=== PATIENT | female | born 2000 | race Caucasian/White ===

== ENCOUNTER 2023-11-06 16:58 | Outpatient (CLI) | payer OTHER, SELFPAY | END 2023-11-06 23:59 | disposition home or self-care (01) | LOC: LAB.DROPOF 16:59 | PROVIDERS: PCP Obstetrics & Gynecology; Visit Provider Obstetrics & Gynecology | DX: Z34.90 Encounter for supervision of normal pregnancy, unspecified, unspecified trimester (principal) | CPT/HCPCS: 87086 ==

== ENCOUNTER 2023-11-07 16:43 | Emergency (ER) | payer OTHER, SELFPAY ==
[2023-11-07] VITALS (8 sets, daily range): BP systolic 104–136; BP diastolic 55–77; PULSE 72–92; RESP 18–20; TEMP 36.7–36.9; O2SAT 97–100; BMI 42.1
[2023-11-07 17:02] LABS: Apearance,Urine Clear (Clear); Color,Urine Dark Yellow (Yellow)
[2023-11-07 17:03] LABS: Bilirubin,Urine Negative (Negative); Blood, Urine 3+ (Negative); Glucose,Urine (UA) Negative (Negative); Ketones,Urine Negative (Negative); Protein,Urine Negative (Negative); Specific Gravity, Urine 1.025 (1.005-1.030); UTC Leukocyte Esterase,Urine Negative (Negative); UTC Nitrate,Urine Negative (Negative); Urobilinogen,Urine 0.2 EU/dl (0.2)
--- NOTE | 2023-11-07 17:05 | EXP.UTC ---
Discharge Plan Disposition Patient Disposition: Still a Patient Condition: Good Prescriptions Prescriptions: No Action fluticasone propionate [Flonase Allergy Relief] 50 mcg/actuation spray,suspension 1 spray intranasal DAILY Rx Instructions: administer into each nostril aripiprazole [Abilify] 10 mg tablet 10 mg PO DAILY desvenlafaxine succinate [Pristiq] 100 mg tablet extended release 24 hr 100 mg PO DAILY albuterol sulfate 90 mcg/actuation aerosol powdr breath activated 2 inh inhalation Q6H PRN fluticasone propionate 220 mcg/actuation HFA aerosol inhaler inhalation Patient Comments: SPRAY 2 PUFFS INTO BACK OF MOUTH THEN SWALLOW 2 TIMES EACH DAY. DO NOT EAT OR DRINK FOR 30 MINUTES AFTERWARDS. albuterol sulfate 90 mcg/actuation HFA aerosol inhaler 1 puff inhalation ONCE PRN Patient Comments: INHALE 2 PUFFS BY MOUTH EVERY 6 HOURS NEEDED FOR SHORTNESS OF BREATH OR WHEEZING Classic 28 mg iron- 800 mcg tablet 1 tab PO .Aguilar Referrals Follow up/Referrals: Daryl Garcia MD [Primary Care Provider] - See instructions Print Language Print Language: Danish Discharge ED Provider: Sarina Erickson [facility] [place] HPI General Stated complaint: poss UTI, 13 wks Mode of Arrival: Ambulatory Source of Information: Patient Time Seen by Provider: 11/07/23 17:05 Description of Symptoms (Recalled from Triage Doc. by RN): UTI S/S, POSSIBLE FEVER AT HOME LOW LEFT BACK PAIN AND PELVIC PAIN HX OF KIDNEY STONES DURING PREGNACY CURRENTLY 13 WEEKS HEENT Symptoms (Recalled from RN notes): No Resp Symptoms (Recalled from RN notes): No Skin Symptoms (Recalled from RN notes): No MS Symptoms (Recalled from RN notes): No Functional Status (Recalled from RN notes): WNL History of Present Illness Provider Complaint: Patient states that she is 13wks OB States that she started this morning with pain in her left flank area, feeling of pressure and sharp pains in pelvic area not sure if she may have had a fever or not at home States that she has a hx of kidney stones during and this pain and discomfort is similar to what she has had in the past Related Data Home Medications ?Medication ?Instructions ?Recorded ?Confirmed albuterol sulfate 90 mcg/actuation 2 inh inhalation Q6H PRN 10/29/23 11/06/23 breath activated powder inhaler aripiprazole 10 mg tablet (Abilify) 10 mg PO DAILY 10/29/23 11/06/23 desvenlafaxine succinate 100 mg 100 mg PO DAILY 10/29/23 11/06/23 tablet,extended release 24 hr (Pristiq) fluticasone propionate 50 1 spray intranasal DAILY 10/29/23 11/06/23 mcg/actuation nasal spray,suspension (Flonase Allergy Relief) albuterol sulfate 90 mcg/actuation 1 puff inhalation ONCE PRN 11/06/23 11/06/23 aerosol inhaler fluticasone propionate 220 inhalation 11/06/23 11/06/23 mcg/actuation HFA aerosol inhaler vits no.126-ferrous fum 1 tab PO .Aguilar 11/06/23 11/06/23 28 mg iron-folic acid 800 mcg tablet (Classic ) Allergies Allergy/AdvReac Type Severity Reaction Status Date / Time amoxicillin Allergy Verified 11/06/23 10:05 cephalexin Allergy Verified 11/06/23 10:05 ketorolac [From Toradol] Allergy Verified 11/06/23 10:05 Worker's Comp Is this a Worker's Comp case?: No [facility] Disclaimer: The information contained in this section may have been updated after the patient was seen, as this information can be updated by other users. Medical History (Updated 11/06/23 @ 10:12 by Berta Miller MA) History of depression Hx of appendicitis History of hypertension Hx of anxiety disorder FH: cholecystectomy delivery delivered Surgical History (Updated 11/06/23 @ 10:12 by Berta Miller MA) Hx of cholecystectomy History of colpectomy History of appendectomy Social History Smoking Status: Never smoker alcohol intake: never current occupational status: employed Travel in the last 8 weeks: None ROS Obtained: Yes All systems reviewed & no additional complaints except as documented and Yes Systems reviewed as appropriate & no additional complaints except as documented Constitutional Constitutional: Reports system reviewed and no additional complaints, except as documented and Reports as per HPI ENT Ears, Nose, Mouth, and Throat: Reports system reviewed and no additional complaints, except as documented and Reports as per HPI Cardiovascular Cardiovascular: Reports system reviewed and no additional complaints, except as documented and Reports as per HPI Respiratory Respiratory: Reports system reviewed and no additional complaints, except as documented and Reports as per HPI Gastrointestinal Gastrointestingal: Reports system reviewed and no additional complaints, except as documented and as per HPI Genitourinary Female Genitourinary: Reports system reviewed and no additional complaints, except as documented, Reports as per HPI, Reports flank pain, Reports pelvic pain, Reports urinary frequency and Reports urinary urgency Musculoskeletal Musculoskeletal: Reports system reviewed and no additional complaints, except as documented and Reports as per HPI Neurologic Neurologic: Reports system reviewed and no additional complaints, except as documented and Reports as per HPI Physical Exam General General appearance: alert and in no apparent distress ENT ENT exam: Present mucous membranes moist Respiratory Respiratory exam: Present normal lung sounds bilaterally; Absent respiratory distress or wheezes Cardiovascular Cardiovascular exam: Present regular rate, normal rhythm and normal heart sounds Back Exam Back exam: Present CVA tenderness (L) Neurological Exam Neurological exam: Present alert, oriented X3 and normal gait Medical Decision Making Medical Records Screening: Per USPSTF and CDC recommendations, given the prevalence of disease in our region, it is our hospital?s policy to screen for HIV and viral Hepatitis for all patients aged 18 and over and those with ongoing risk factors. Jan Inquiry Pt receiving controlled substance: No Jan was queried for this patient: No Vital Signs: 11/07/23 17:00 Temperature 98.3 F Temperature Source Oral Pulse Rate [Left Brachial] 83 Respiratory Rate 20 Blood Pressure [Left Arm] 120/55 L Blood Pressure Mean [Left Arm] 76 02 Sat by Pulse Oximetry 100 Lab Data Lab results reviewed: Yes I reviewed the patient's lab results. Lab Results 11/07/23 17:02: Urine Color Dark yellow, Urine Appearance Clear, Urine pH 6.0, Ur Specific [place] 1.025, Urine Protein Negative, Urine Glucose (UA) Negative, Urine Ketones Negative, Urine Blood 3+, Urine Nitrate Negative, Urine Bilirubin Negative, Urine Urobilinogen 0.2, Ur Leukocyte Esterase Negative Orders (Tests/Meds): ORDERS Category Date Time Status Urine Culture Stat Micro 11/07/23 17:02 Ordered Medical Decision Narrative: Patient is 13wks OB states that she has hx of kidney stones and woke this morning having pain in her left flank area and reports sharp pain in her pelvic area, reports feels like it did in the past when she had kidney stones Urine was negative of Nitrates and Leukocytes however +3 noted States that in the past she has been able to pass stones without difficulty Spoke with OBGYN and requesting patient have Ultrasound to check for hydronephrosis will transfer to the ED for further work up and evaluation
[2023-11-07 18:43] LABS: Basophils # 0.1 K/mm3 (0-0.2); Basophils % 0.6 % (0.1-2.0); Eosinophils # 0.5 K/mm3 (0.0-0.4); Eosinophils % 4.8 % (0.1-12.0); Hematocrit 40.6 % (37.0-47.0); Hemoglobin 13.7 g/dL (12.2-16.2); Lymphocytes # 2.6 K/mm3 (0.7-4.5); Lymphocytes % 24.9 % (10-50); Mean Corpuscular HGB Conc 33.8 g/dL (31.8-35.4); Mean Corpuscular Hemoglobin 32.2 pg (27.0-31.2); Mean Corpuscular Volume 95.3 fl (81-99); Mean Platelet Volume 7.1 fl (7.4-10.4); Monocytes # 0.3 K/mm3 (0.1-1.0); Monocytes % 3.4 % (1.7-9.3); Neutrophils # 6.8 K/mm3 (1.8-7.8); Neutrophils % 66.2 % (37.0-80.0); Platelet Count 318 K/mm3 (142-424); Red Blood Count 4.26 M/mm3 (4.20-5.40); Red Cell Distribution Width 14.3 % (11.5-17.5); White Blood Count 10.2 K/mm3 (4.8-10.8)
--- NOTE | 2023-11-07 19:09 | PC.NURSE ---
pt given chips, okayd by GUSTABO GALINDO
--- NOTE | 2023-11-07 19:57 | HMH.EDGENADL ---
Discharge Plan Disposition Patient Disposition: Home, Self-Care Condition: Good Prescriptions Prescriptions: No Action fluticasone propionate [Flonase Allergy Relief] 50 mcg/actuation spray,suspension 1 spray intranasal DAILY Rx Instructions: administer into each nostril aripiprazole [Abilify] 10 mg tablet 10 mg PO DAILY desvenlafaxine succinate [Pristiq] 100 mg tablet extended release 24 hr 100 mg PO DAILY albuterol sulfate 90 mcg/actuation aerosol powdr breath activated 2 inh inhalation Q6H PRN fluticasone propionate 220 mcg/actuation HFA aerosol inhaler inhalation Patient Comments: SPRAY 2 PUFFS INTO BACK OF MOUTH THEN SWALLOW 2 TIMES EACH DAY. DO NOT EAT OR DRINK FOR 30 MINUTES AFTERWARDS. albuterol sulfate 90 mcg/actuation HFA aerosol inhaler 1 puff inhalation ONCE PRN Patient Comments: INHALE 2 PUFFS BY MOUTH EVERY 6 HOURS NEEDED FOR SHORTNESS OF BREATH OR WHEEZING Classic 28 mg iron- 800 mcg tablet 1 tab PO .Aguilar Referrals Follow up/Referrals: Daryl Garcia MD [Primary Care Provider] - See instructions Activity Restrictions/Add. Instructions Additional Instructions/Restrictions: Please contact your [facility] [facility] office on Friday for follow-up of your symptoms. The office will likely schedule you for a formal ultrasound of your kidneys and ureters. If you experience fevers, chills, nausea, severe vomiting or abdominal pain over the weekend, please return to the emergency department for reevaluation. At this time, no prescriptions are needed. Clinical Impressions Clinical Impression: Hematuria Qualifiers: Hematuria type: other microscopic Qualified Code(s): R31.29 - Other microscopic hematuria Print Language Print Language: Ukrainian Discharge ED Provider: Saadia Valentin General Adult HPI General Chief complaint: PAIN Stated complaint: poss UTI, 13 wks Time Seen by Provider: 11/07/23 17:05 Mode of Arrival: Family Vehicle Limitations: No Limitations Description of Symptoms (Recalled from ER Triage Doc. by RN): Pt c/o suprapubic pain and low back pain. States she has a hx of kidney stones. Dr. Antoine Rivera wanted to pt to have a kidney u/s, however this is not available at night and unavailable. Denies any fever, chills, or body aches. States the pain began yesterday. History of Present Illness HPI narrative: Amelie Landin is a 23-year-old female presenting with abdominal pain and hematuria. Patient states she is currently 13 weeks with her second baby. Patient had a history of renal stones with the previous as well as multiple UTIs. Patient not currently experiencing dysuria but has suprapubic tenderness as well as left flank pain. Patient has not had severe nausea, vomiting, fevers, chills. Patient is having normal bowel movements. Patient currently denies any complications with current . Patient denies vaginal bleeding or increased vaginal discharge. Related Data Home Medications ?Medication ?Instructions ?Recorded ?Confirmed albuterol sulfate 90 mcg/actuation 2 inh inhalation Q6H PRN 10/29/23 11/06/23 breath activated powder inhaler aripiprazole 10 mg tablet (Abilify) 10 mg PO DAILY 10/29/23 11/06/23 desvenlafaxine succinate 100 mg 100 mg PO DAILY 10/29/23 11/06/23 tablet,extended release 24 hr (Pristiq) fluticasone propionate 50 1 spray intranasal DAILY 10/29/23 11/06/23 mcg/actuation nasal spray,suspension (Flonase Allergy Relief) albuterol sulfate 90 mcg/actuation 1 puff inhalation ONCE PRN 11/06/23 11/06/23 aerosol inhaler fluticasone propionate 220 inhalation 11/06/23 11/06/23 mcg/actuation HFA aerosol inhaler vits no.126-ferrous fum 1 tab PO .Jeff 11/06/23 11/06/23 28 mg iron-folic acid 800 mcg tablet (Classic ) Allergies Allergy/AdvReac Type Severity Reaction Status Date / Time amoxicillin Allergy Verified 11/06/23 10:05 cephalexin Allergy Verified 11/06/23 10:05 ketorolac [From Toradol] Allergy Verified 11/06/23 10:05 [facility] Disclaimer: The information contained in this section may have been updated after the patient was seen, as this information can be updated by other users. Medical History (Updated 11/07/23 @ 19:57 by Saadia Valentin MD) History of depression Hx of appendicitis History of hypertension Hx of anxiety disorder FH: cholecystectomy delivery delivered Surgical History (Updated 11/06/23 @ 10:12 by Breta Miller MA) Hx of cholecystectomy History of colpectomy History of appendectomy Social History Smoking Status: Never smoker alcohol intake: never current occupational status: employed Travel in the last 8 weeks: None ROS Obtained: Yes All systems reviewed & no additional complaints except as documented Physical Exam General General appearance: alert and in no apparent distress Respiratory Respiratory exam: Present normal lung sounds bilaterally Cardiovascular Cardiovascular exam: Present regular rate and normal rhythm Abdominal Exam Abdominal exam: Present soft and tenderness; Absent distention, guarding or rebound Abdominal tenderness: Present suprapubic Extremities Exam Extremities exam: Present full ROM; Absent tenderness or edema Back Exam Back exam: Present CVA tenderness (L); Absent CVA tenderness (R) Neurological Exam Neurological exam: Present alert and oriented X3 Skin Skin exam: Present warm and dry Medical Decision Making Medical Records Screening: Per USPSTF and CDC recommendations, given the prevalence of disease in our region, it is our hospital?s policy to screen for HIV and viral Hepatitis for all patients aged 18 and over and those with ongoing risk factors. Jan Inquiry Pt receiving controlled substance: No Vital Signs: 11/07/23 17:00 11/07/23 17:40 11/07/23 17:42 Temperature 98.3 F 98.4 F Temperature Source Oral Oral Pulse Rate 91 H Pulse Rate [Left Brachial] 83 92 H Respiratory Rate 20 18 Blood Pressure 121/68 Blood Pressure [Left Arm] 120/55 L 121/68 Blood Pressure Mean Blood Pressure Mean [Left Arm] 76 85 Blood Pressure Source [Left Arm] Automatic Cuff 02 Sat by Pulse Oximetry 100 98 100 Oxygen Delivery Method Room Air Room Air 11/07/23 18:01 11/07/23 18:30 11/07/23 19:01 Temperature Temperature Source Pulse Rate 90 85 72 Pulse Rate [Left Brachial] Respiratory Rate Blood Pressure 104/61 L 122/71 136/69 Blood Pressure [Left Arm] Blood Pressure Mean 91 Blood Pressure Mean [Left Arm] Blood Pressure Source [Left Arm] 02 Sat by Pulse Oximetry 97 100 100 Oxygen Delivery Method Room Air Room Air Room Air 11/07/23 19:31 Temperature Temperature Source Pulse Rate 80 Pulse Rate [Left Brachial] Respiratory Rate Blood Pressure 127/63 Blood Pressure [Left Arm] Blood Pressure Mean Blood Pressure Mean [Left Arm] Blood Pressure Source [Left Arm] 02 Sat by Pulse Oximetry 100 Oxygen Delivery Method Lab Data Lab Results 11/07/23 16:53: Urine Color Dark yellow, Urine Appearance Clear, Urine pH 6.0, Ur Specific [place] 1.025, Urine Protein Negative, Urine Glucose (UA) Negative, Urine Ketones Negative, Urine Blood 3+, Urine Nitrate Negative, Urine Bilirubin Negative, Urine Urobilinogen 0.2, Ur Leukocyte Esterase Negative 11/07/23 17:24: WBC 10.2, RBC 4.26, Hgb 13.7, Hct 40.6, MCV 95.3, MCH 32.2 H, MCHC 33.8, RDW 14.3, Plt Count 318, MPV 7.1 L, Neut % (Auto) 66.2, Lymph % (Auto) 24.9, [place]alls % (Auto) 3.4, Eos % (Auto) 4.8, Baso % (Auto) 0.6, Neut # (Auto) 6.8, Lymph # (Auto) 2.6, [place]alls # (Auto) 0.3, Eos # (Auto) 0.5 H, Baso # (Auto) 0.1 11/07/23 17:24 Orders (Tests/Meds): ORDERS Category Date Time Status POCUS Point of Care (ER Only) Stat Exams 11/07/23 18:42 Ordered CBC w/Auto Diff [Complete Blood Count Auto Diff] Stat Lab 11/07/23 17:24 Completed Urine Culture Stat Micro 11/07/23 16:53 Received Medical Decision Narrative: Patient is a 23-year-old female at 13 weeks gestation presenting with suprapubic and left flank pain. Patient also found to have hematuria. Patient at this time denying dysuria. Differential diagnosis includes but is not limited to, acute cystitis, pyelonephritis, nephrolithiasis versus ureterolithiasis, constipation, threatened , among others. Based on patient's physical exam, CBC which did not demonstrate leukocytosis, urinalysis which did not demonstrate leuk esterase/nitrites/increased WBCs, patient's evaluation continues to be concerning for nephrolithiasis given her history. As patient is in the end of her first trimester, she is not eligible for CAT scan at this time without increased risks to the fetus. Bedside ultrasound performed which had mild hydronephrosis on the left when compared to the right. Patient otherwise well-appearing without systemic symptoms. Discussed the patient with the on-call OB provider who was in agreement that the patient could be discharged home and follow-up on Friday for formal renal ultrasound and further evaluation of possible nephrolithiasis. Patient encouraged to take [id number] pain medications and increase fluids. Patient was given strict return precautions with regards to systemic symptoms and worsening condition. Patient was in agreement with this plan. Saadia Valentin MD PGY-3, Emergency Medicine Procedures Limited Ultrasound Indication:: Concern for nephrolithiasis Views:: Transabdominal, bilateral renal Findings:: Normal appearance of uterus and fetus with appropriate heart tones. Left kidney appeared to have mild hydronephrosis when compared to the right. Ureters were not evaluated. Bladder appeared normal size without wall thickening or free fluid in the pouch of Joni. Interpretation:: Mild left-sided hydronephrosis Critical Care Critical Care Time Critical Care Time: No
== END 2023-11-07 20:08 | disposition home or self-care (01) ==
LOC: UTC 17:38 → ER 17:39
PROVIDERS: Nurse Practitioner; Emergency Provider Student in an Organized Health Care Education/Training Program; PCP Family Medicine
DX: O26.891 Other specified pregnancy related conditions, first trimester (principal); R10.32 Left lower quadrant pain; R10.2 Pelvic and perineal pain; Z3A.13 13 weeks gestation of pregnancy; M54.50 Low back pain, unspecified; R31.9 Hematuria, unspecified
CPT/HCPCS: 81003; 85025; 87086; 99285

== ENCOUNTER 2023-11-09 11:08 | Emergency (ER) | payer OTHER, SELFPAY ==
[2023-11-09 11:09] VITALS: BP 129/61; PULSE 77; RESP 16; TEMP 36.6; O2SAT 100; BMI 42.5
[2023-11-09 12:43] LABS: Microscopic, Urine URINE MICROSCOPIC (MICROSCOPIC)
[2023-11-09 12:49] LABS: Appearance,Urine SL CLOUDY (Clear); Bilirubin,Urine Negative (Negative); Blood, Urine Negative (Negative); Color,Urine YELLOW (Yellow); Glucose,Urine (UA) Negative (Negative); Ketones,Urine Negative (Negative); Leukocyte Esterase,Urine 3+ (Negative); Nitrate,Urine Negative (Negative); PH,Urine 6.5 (5.0-8.5); Protein,Urine Negative (Negative); Specific Gravity, Urine 1.025 (1.005-1.030); Urobilinogen,Urine 0.2 EU/dl (0.2)
[2023-11-09 13:14] LABS: Bacteria,Urine 1+ /lpf; RBC,Urine Occasional #/hpf (0-3)
--- NOTE | 2023-11-09 14:59 | ED_ITS ---
Discharge Plan Disposition Patient Disposition: Home, Self-Care Condition: Good Prescriptions Prescriptions: New cefdinir 300 mg capsule 300 mg PO BID 10 Days Qty: 20 0RF nystatin 100,000 unit/gram cream 1 applic topical BID Qty: 30 0RF Rx Instructions: Apply to the affected areas twice daily or as indicated until healing is complete. Only use if needed after your antibiotic. No Action fluticasone propionate [Flonase Allergy Relief] 50 mcg/actuation spray,suspension 1 spray intranasal DAILY Rx Instructions: administer into each nostril aripiprazole [Abilify] 10 mg tablet 10 mg PO DAILY desvenlafaxine succinate [Pristiq] 100 mg tablet extended release 24 hr 100 mg PO DAILY albuterol sulfate 90 mcg/actuation aerosol powdr breath activated 2 inh inhalation Q6H PRN fluticasone propionate 220 mcg/actuation HFA aerosol inhaler inhalation Patient Comments: SPRAY 2 PUFFS INTO BACK OF MOUTH THEN SWALLOW 2 TIMES EACH DAY. DO NOT EAT OR DRINK FOR 30 MINUTES AFTERWARDS. albuterol sulfate 90 mcg/actuation HFA aerosol inhaler 1 puff inhalation ONCE PRN Patient Comments: INHALE 2 PUFFS BY MOUTH EVERY 6 HOURS NEEDED FOR SHORTNESS OF BREATH OR WHEEZING Classic 28 mg iron- 800 mcg tablet 1 tab PO .Aguilar Referrals Follow up/Referrals: Daryl Garcia MD [Primary Care Provider] - See instructions Activity Restrictions/Add. Instructions Additional Instructions/Restrictions: You were evaluated in the emergency department today. Please turkey picker your prescriptions at the pharmacy and take them as prescribed. Only use the nystatin if you develop yeast infection after cefdinir since this is what she would noted your allergies. Please follow-up closely with your electroplating technician over the next 48 to 72 hours. Also follow-up closely with your primary care provider. Return to the emergency department for new or worsening symptoms. Take Tylenol every 4-6 hours at home as needed for pain and make sure that you are staying hydrated. Clinical Impressions Clinical Impression: Dysuria, Flank pain, Instructions Patient Instructions: DI for Urinary Tract Infection (UTI), DI for Abdominal Pain -- Early Print Language Print Language: Bulgarian Discharge ED Provider: Anisha De Leon General Adult HPI <Minh Ramon MD - Last Filed: 11/09/23 16:05> General Chief complaint: Urogenital-Female Stated complaint: 13 weeks cramping blood in urine Time Seen by Provider: 11/09/23 13:48 Mode of Arrival: Ambulatory Source of Information: Patient Limitations: No Limitations Description of Symptoms (Recalled from ER Triage Doc. by RN): Patient reports difficulty urinating, blood in urine and pelvic pain. History of Present Illness HPI narrative: Patient is a 23-year-old female EGA 13 weeks who presents emergency department for evaluation of difficulty urinary, left flank pain. Patient has past medical history of migraines, chronic hypertension, obesity. She also has history of previous renal stones in which pass spontaneously as well as multiple previous urinary tract infections. She was seen here on 11-07-2023 where workup was conducted and it was deemed that she was safe to be discharged home for formal renal ultrasound and follow-up on Friday. She was given strict return precautions and due to these persistent symptoms she returns here for continued evaluation. No vaginal bleeding or discharge. Related Data Home Medications ?Medication ?Instructions ?Recorded ?Confirmed albuterol sulfate 90 mcg/actuation 2 inh inhalation Q6H PRN 10/29/23 11/06/23 breath activated powder inhaler aripiprazole 10 mg tablet (Abilify) 10 mg PO DAILY 10/29/23 11/06/23 desvenlafaxine succinate 100 mg 100 mg PO DAILY 10/29/23 11/06/23 tablet,extended release 24 hr (Pristiq) fluticasone propionate 50 1 spray intranasal DAILY 10/29/23 11/06/23 mcg/actuation nasal spray,suspension (Flonase Allergy Relief) albuterol sulfate 90 mcg/actuation 1 puff inhalation ONCE PRN 11/06/23 11/06/23 aerosol inhaler fluticasone propionate 220 inhalation 11/06/23 11/06/23 mcg/actuation HFA aerosol inhaler vits no.126-ferrous fum 1 tab PO .Jeff 11/06/23 11/06/23 28 mg iron-folic acid 800 mcg tablet (Classic ) Previous Rx's ?Medication ?Instructions ?Recorded cefdinir 300 mg capsule 300 mg PO BID 10 days #20 caps 11/09/23 nystatin 100,000 unit/gram topical 1 applic topical BID #30 grams 11/09/23 cream Allergies Allergy/AdvReac Type Severity Reaction Status Date / Time amoxicillin Allergy Verified 11/06/23 10:05 cephalexin Allergy Verified 11/06/23 10:05 ketorolac [From Toradol] Allergy Verified 11/06/23 10:05 PFSH <Minh Ramon MD - Last Filed: 11/09/23 16:05> [facility] Disclaimer: The information contained in this section may have been updated after the patient was seen, as this information can be updated by other users. Medical History (Updated 11/09/23 @ 16:05 by Minh Ramon MD) History of depression Hx of appendicitis History of hypertension Hx of anxiety disorder FH: cholecystectomy delivery delivered Surgical History (Updated 11/08/23 @ 16:07 by Jade Rivera DO) Hx of cholecystectomy History of colpectomy History of appendectomy Social History Smoking Status: Never smoker alcohol intake: never current occupational status: employed Travel in the last 8 weeks: None <Minh Ramon MD - Last Filed: 11/09/23 16:05> ROS Obtained: Yes Systems reviewed as appropriate & no additional complaints except as documented Physical Exam <Minh Ramon MD - Last Filed: 11/09/23 16:05> General General appearance: alert and in no apparent distress Head Head exam: atraumatic and normocephalic Eye Eye exam: Present PERRL and EOMI ENT ENT exam: Present mucous membranes moist Neck Neck exam: Present normal inspection Chest Chest inspection: Present normal inspection and symmetric chest wall rise Respiratory Respiratory exam: Present normal lung sounds bilaterally; Absent respiratory distress Cardiovascular Cardiovascular exam: Present regular rate and normal rhythm Abdominal Exam Abdominal exam: Present soft; Absent tenderness Extremities Exam Extremities exam: Present normal inspection Neurological Exam Neurological exam: Present alert Psychiatric Psychiatric exam: Present normal affect Skin Skin exam: Present warm and dry Medical Decision Making <Minh Ramon MD - Last Filed: 11/09/23 16:05> Medical Records Screening: Per USPSTF and CDC recommendations, given the prevalence of disease in our region, it is our hospital?s policy to screen for HIV and viral Hepatitis for all patients aged 18 and over and those with ongoing risk factors. Jan Inquiry Pt receiving controlled substance: No Vital Signs: 11/09/23 11:09 11/09/23 15:43 11/09/23 16:00 Temperature 97.9 F Temperature Source Oral Pulse Rate 74 84 Pulse Rate [Radial] 77 Respiratory Rate 16 Blood Pressure 119/70 124/56 L Blood Pressure [Right Arm] 129/61 Blood Pressure Mean 75 78 Blood Pressure Mean [Right Arm] 83 Blood Pressure Source Blood Pressure Source [Right Arm] Automatic Cuff Blood Pressure Position Blood Pressure Position [Right Arm] Sitting 02 Sat by Pulse Oximetry 100 100 100 Oxygen Delivery Method Room Air Room Air Room Air 11/09/23 17:05 Temperature 98.0 F Temperature Source Oral Pulse Rate 80 Pulse Rate [Radial] Respiratory Rate 18 Blood Pressure 122/70 Blood Pressure [Right Arm] Blood Pressure Mean Blood Pressure Mean [Right Arm] Blood Pressure Source Automatic Cuff Blood Pressure Source [Right Arm] Blood Pressure Position Sitting Blood Pressure Position [Right Arm] 02 Sat by Pulse Oximetry Oxygen Delivery Method Room Air Lab Data Lab Results 11/09/23 12:23: Urine Color Yellow, Urine Appearance Sl cloudy, Urine pH 6.5, Ur Specific [place] 1.025, Urine Protein Negative, Urine Glucose (UA) Negative, Urine Ketones Negative, Urine Blood Negative, Urine Nitrate Negative, Urine Bilirubin Negative, Urine Urobilinogen 0.2, Ur Leukocyte Esterase 3+ A, Urine RBC Occasional, Urine WBC 10-20, Ur Squamous Epith Cells 10-20, Urine Bacteria 1+ 11/09/23 15:10: Urine Color Yellow, Urine Appearance Clear, Urine pH 6.0, Ur Specific [place] 1.020, Urine Protein Negative, Urine Glucose (UA) Negative, Urine Ketones Negative, Urine Blood Negative, Urine Nitrate Negative, Urine Bilirubin Negative, Urine Urobilinogen 0.2, Ur Leukocyte Esterase 1+ A, Urine WBC Occasional 11/09/23 15:19: WBC 10.6, RBC 4.40, Hgb 13.9, Hct 42.2, MCV 96.0, MCH 31.6 H, MCHC 32.9, RDW 14.4, Plt Count 323, MPV 7.1 L, Neut % (Auto) 67.2, Lymph % (Auto) 22.5, [place] % (Auto) 3.7, Eos % (Auto) 6.1, Baso % (Auto) 0.5, Neut # (Auto) 7.1, Lymph # (Auto) 2.4, [place] # (Auto) 0.4, Eos # (Auto) 0.6 H, Baso # (Auto) 0.1, Sodium 133 L, Potassium 3.7, Chloride 105, Carbon Dioxide 25, Anion Gap 6.7, BUN 4 L, Creatinine 0.50 L, Estimated Creat Clear 144, Estimated GFR 152, Est GFR ( Amer) 183, Glucose 90, Calcium 9.5, Total Bilirubin 0.4, AST 21, ALT 19, Alkaline Phosphatase 57, Total Protein 7.1, Albumin 4.2, Globulin 2.9, Albumin/Globulin Ratio 1.4, Lipase 101 11/09/23 15:19 11/09/23 15:19 Orders (Tests/Meds): ED MEDICATIONS Discontinued Medications Generic Name Dose Route Start Last Admin Trade Name Freq PRN Reason Stop Dose Admin Acetaminophen 1,000 mg 11/09/23 15:26 11/09/23 15:30 Acetaminophen 1,000mg/100ml Vial IV 11/09/23 15:27 1,000 mg ONCE ONE Administration Cefdinir 300 mg 11/09/23 16:45 11/09/23 17:01 Cefdinir 300mg Capsule PO 11/09/23 16:46 300 mg ONCE ONE Administration ORDERS Category Date Time Status POCUS Point of Care (ER Only) Stat Exams 11/09/23 14:57 Completed CBC w/Auto Diff [Complete Blood Count Auto Diff] Stat Lab 11/09/23 15:19 Completed CMP [Comprehensive Metabolic Panel] Stat Lab 11/09/23 15:19 Completed Lipase Stat Lab 11/09/23 15:19 Completed UA [Urinalysis and Microscopic] Stat Lab 11/09/23 12:23 Completed UA [Urinalysis and Microscopic] Stat Lab 11/09/23 15:10 Completed Urine Culture Stat Micro 11/09/23 12:23 Received Medical Decision Narrative: In summary patient is a 23-year-old female past medical history described above presents emergency department for evaluation of left flank pain and dysuria. Patient is hemodynamically stable nontoxic-appearing upon arrival, afebrile. Differential includes urinary tract infection, stone, among others. Workup will be conducted with hematologic labs, repeat urinalysis, [id number] ultrasound. Patient has documented intrauterine with obstetrics per her report. Initial urinalysis reviewed by me and is significantly contaminated and cannot be interpreted. Urinalysis will be repeated. Initial inventions include Tylenol. POCUS at bedside shows viable intrauterine , no significant renal pelvis dilatation on the left. Patient's abdominal exam repeat exam is benign. Hematologic labs repeat evaluation largely pending at time of transfer of care to the oncoming physician, Dr. De Leon Procedure: Procedure performed was [id number] ultrasound. Procedure performed by Minh Ramon. Using curvilinear probe the left kidney was identified, no significant renal pelvis dilatation. No tenderness when the probe was pressed into the left upper quadrant. Cursory exam of the uterus shows intrauterine which is known. <Anisha De Leon, DO - Last Filed: 11/09/23 20:39> Vital Signs: 11/09/23 11:09 11/09/23 15:43 11/09/23 16:00 Temperature 97.9 F Temperature Source Oral Pulse Rate 74 84 Pulse Rate [Radial] 77 Respiratory Rate 16 Blood Pressure 119/70 124/56 L Blood Pressure [Right Arm] 129/61 Blood Pressure Mean 75 78 Blood Pressure Mean [Right Arm] 83 Blood Pressure Source Blood Pressure Source [Right Arm] Automatic Cuff Blood Pressure Position Blood Pressure Position [Right Arm] Sitting 02 Sat by Pulse Oximetry 100 100 100 Oxygen Delivery Method Room Air Room Air Room Air 11/09/23 17:05 Temperature 98.0 F Temperature Source Oral Pulse Rate 80 Pulse Rate [Radial] Respiratory Rate 18 Blood Pressure 122/70 Blood Pressure [Right Arm] Blood Pressure Mean Blood Pressure Mean [Right Arm] Blood Pressure Source Automatic Cuff Blood Pressure Source [Right Arm] Blood Pressure Position Sitting Blood Pressure Position [Right Arm] 02 Sat by Pulse Oximetry Oxygen Delivery Method Room Air Lab Data Lab Results 11/09/23 12:23: Urine Color Yellow, Urine Appearance Sl cloudy, Urine pH 6.5, Ur Specific [place] 1.025, Urine Protein Negative, Urine Glucose (UA) Negative, Urine Ketones Negative, Urine Blood Negative, Urine Nitrate Negative, Urine Bilirubin Negative, Urine Urobilinogen 0.2, Ur Leukocyte Esterase 3+ A, Urine RBC Occasional, Urine WBC 10-20, Ur Squamous Epith Cells 10-20, Urine Bacteria 1+ 11/09/23 15:10: Urine Color Yellow, Urine Appearance Clear, Urine pH 6.0, Ur Specific [place] 1.020, Urine Protein Negative, Urine Glucose (UA) Negative, Urine Ketones Negative, Urine Blood Negative, Urine Nitrate Negative, Urine Bilirubin Negative, Urine Urobilinogen 0.2, Ur Leukocyte Esterase 1+ A, Urine WBC Occasional 11/09/23 15:19: WBC 10.6, RBC 4.40, Hgb 13.9, Hct 42.2, MCV 96.0, MCH 31.6 H, MCHC 32.9, RDW 14.4, Plt Count 323, MPV 7.1 L, Neut % (Auto) 67.2, Lymph % (Auto) 22.5, [place] % (Auto) 3.7, Eos % (Auto) 6.1, Baso % (Auto) 0.5, Neut # (Auto) 7.1, Lymph # (Auto) 2.4, [place] # (Auto) 0.4, Eos # (Auto) 0.6 H, Baso # (Auto) 0.1, Sodium 133 L, Potassium 3.7, Chloride 105, Carbon Dioxide 25, Anion Gap 6.7, BUN 4 L, Creatinine 0.50 L, Estimated Creat Clear 144, Estimated GFR 152, Est GFR ( Amer) 183, Glucose 90, Calcium 9.5, Total Bilirubin 0.4, AST 21, ALT 19, Alkaline Phosphatase 57, Total Protein 7.1, Albumin 4.2, Globulin 2.9, Albumin/Globulin Ratio 1.4, Lipase 101 Orders (Tests/Meds): ED MEDICATIONS Discontinued Medications Generic Name Dose Route Start Last Admin Trade Name Freq PRN Reason Stop Dose Admin Acetaminophen 1,000 mg 11/09/23 15:26 11/09/23 15:30 Acetaminophen 1,000mg/100ml Vial IV 11/09/23 15:27 1,000 mg ONCE ONE Administration Cefdinir 300 mg 11/09/23 16:45 11/09/23 17:01 Cefdinir 300mg Capsule PO 11/09/23 16:46 300 mg ONCE ONE Administration ORDERS Category Date Time Status POCUS Point of Care (ER Only) Stat Exams 11/09/23 14:57 Completed CBC w/Auto Diff [Complete Blood Count Auto Diff] Stat Lab 11/09/23 15:19 Completed CMP [Comprehensive Metabolic Panel] Stat Lab 11/09/23 15:19 Completed Lipase Stat Lab 11/09/23 15:19 Completed UA [Urinalysis and Microscopic] Stat Lab 11/09/23 12:23 Completed UA [Urinalysis and Microscopic] Stat Lab 11/09/23 15:10 Completed Urine Culture Stat Micro 11/09/23 12:23 Received Medical Decision Narrative: In summary patient is a 23-year-old female past medical history described above presents emergency department for evaluation of left flank pain and dysuria. Patient is hemodynamically stable nontoxic-appearing upon arrival, afebrile. Differential includes urinary tract infection, stone, among others. Workup will be conducted with hematologic labs, repeat urinalysis, [id number] ultrasound. Patient has documented intrauterine with obstetrics per her report. Initial urinalysis reviewed by me and is significantly contaminated and cannot be interpreted. Urinalysis will be repeated. Initial inventions include Tylenol. POCUS at bedside shows viable intrauterine , no significant renal pelvis dilatation on the left. Patient's abdominal exam repeat exam is benign. Hematologic labs repeat evaluation largely pending at time of transfer of care to the oncoming physician, Dr. De Leon Procedure: Procedure performed was [id number] ultrasound. Procedure performed by Minh Ramon. Using curvilinear probe the left kidney was identified, no significant renal pelvis dilatation. No tenderness when the probe was pressed into the left upper quadrant. Cursory exam of the uterus shows intrauterine which is known. Moises, DO: I assumed care of the patient at 1500. On my assessment, she is resting comfortably with reassuring exam. Repeat urinalysis is concerning for leukocyte esterase and white blood cells, but no blood. Culture was sent and is pending. Ultimately after shared decision-making with the patient, she is agreeable to treatment for possible pyelo with cefdinir. Given her kidney function is normal, she is afebrile and has no leukocytosis, and she is very well-appearing with no vomiting, I do not feel that she requires admission for this. She has allergy to cephalexin, which she states is yeast infection and irritation requiring antifungals. I advised her that given this is not a true allergy, I would recommend treatment with cefdinir and I also prescribed her topical nystatin should she develop yeast infection. She was given instructions for close follow-up with gynecology, strict return precautions, and she was discharged in stable condition after all questions were answered Critical Care <Minh Ramon MD - Last Filed: 11/09/23 16:05> Critical Care Time Critical Care Time: No
[2023-11-09 15:15] LABS: Microscopic, Urine URINE MICROSCOPIC (MICROSCOPIC)
[2023-11-09 15:17] LABS: Appearance,Urine CLEAR (Clear); Bilirubin,Urine Negative (Negative); Blood, Urine Negative (Negative); Color,Urine YELLOW (Yellow); Glucose,Urine (UA) Negative (Negative); Ketones,Urine Negative (Negative); Leukocyte Esterase,Urine 1+ (Negative); Nitrate,Urine Negative (Negative); Protein,Urine Negative (Negative); Urobilinogen,Urine 0.2 EU/dl (0.2)
[2023-11-09] MEDS: ACETAMINOPHEN 1,000MG/100ML VIAL 1000 MG IV (15:30)
[2023-11-09 15:33] LABS: Albumin Level 4.2 g/dl (3.5-5.0); Chloride 105 mmol/L (98-107); Potassium 3.7 mmoL/L (3.5-5.1); Sodium 133 mmol/L (136-145)
[2023-11-09 15:36] LABS: Alanine Aminotransferase 19 U/L (12-78); Albumin/Globulin Ratio 1.4 (1.1-1.8); Alkaline Phosphatase 57 U/L (38-126); Anion Gap 6.7 mEq/L (5-15); Aspartate Amino Transferase 21 U/L (14-36); Bilirubin,Total 0.4 mg/dl (0.2-1.3); Blood Urea Nitrogen 4 mg/dl (7-17); Carbon Dioxide 25 mmol/L (22.0-30.0); Creatinine Clearance Estimated 144 mL/min (50-200); Estimated Glomerular Filt Rate 152 ml/min (>60); GFR (African American) 183 ML/MIN (>60); Globulin 2.9 g/dL (1.3-3.2); Lipase 101 U/L (23-300); Total Protein,Serum 7.1 g/dl (6.3-8.2)
[2023-11-09 15:37] LABS: Calcium 9.5 mg/dl (8.4-10.2); Glucose 90 mg/dl (74-100)
[2023-11-09 15:43] VITALS: BP 119/70; PULSE 74; O2SAT 100
[2023-11-09 16:00] VITALS: BP 124/56; PULSE 84; O2SAT 100
[2023-11-09 16:04] LABS: Basophils # 0.1 K/mm3 (0-0.2); Basophils % 0.5 % (0.1-2.0); Eosinophils # 0.6 K/mm3 (0.0-0.4); Eosinophils % 6.1 % (0.1-12.0); Hematocrit 42.2 % (37.0-47.0); Hemoglobin 13.9 g/dL (12.2-16.2); Lymphocytes # 2.4 K/mm3 (0.7-4.5); Lymphocytes % 22.5 % (10-50); Mean Corpuscular HGB Conc 32.9 g/dL (31.8-35.4); Mean Corpuscular Hemoglobin 31.6 pg (27.0-31.2); Mean Platelet Volume 7.1 fl (7.4-10.4); Monocytes # 0.4 K/mm3 (0.1-1.0); Monocytes % 3.7 % (1.7-9.3); Neutrophils # 7.1 K/mm3 (1.8-7.8); Neutrophils % 67.2 % (37.0-80.0); Platelet Count 323 K/mm3 (142-424); Red Cell Distribution Width 14.4 % (11.5-17.5); White Blood Count 10.6 K/mm3 (4.8-10.8)
[2023-11-09 16:05] LABS: WBC,Urine Occasional #/hpf (0-3)
--- NOTE | 2023-11-09 16:43 | PC.NURSE ---
DR PICKERING AT BEDSIDE TO UPDATE PT
[2023-11-09] MEDS: CEFDINIR 300MG CAPSULE 300 MG PO (17:01)
[2023-11-09 17:05] VITALS: BP 122/70; PULSE 80; RESP 18; TEMP 36.7; O2SAT 100
== END 2023-11-09 17:05 | disposition home or self-care (01) ==
PROVIDERS: Emergency Medicine; Emergency Provider Emergency Medicine; PCP Family Medicine
DX: O26.891 Other specified pregnancy related conditions, first trimester (principal); O10.911 Unspecified pre-existing hypertension complicating pregnancy, first trimester; R10.31 Right lower quadrant pain; R31.9 Hematuria, unspecified; Z3A.13 13 weeks gestation of pregnancy
CPT/HCPCS: 80053; 81001; 83690; 85025; 87086; 96374; 99285; J0131

== ENCOUNTER 2023-11-12 19:16 | Emergency (ER) | payer OTHER, SELFPAY ==
[2023-11-12 19:40] VITALS: BP 116/74; PULSE 76; RESP 15; TEMP 36.8; O2SAT 100; BMI 42.5
[2023-11-12 20:00] VITALS: BP 120/53; PULSE 71; O2SAT 98
--- NOTE | 2023-11-12 20:34 | ED_ITS ---
Discharge Plan Disposition Patient Disposition: Home, Self-Care Chief Complaint: Vaginal Bleeding Prescriptions Prescriptions: No Action fluticasone propionate [Flonase Allergy Relief] 50 mcg/actuation spray,suspension 1 spray intranasal DAILY Rx Instructions: administer into each nostril aripiprazole [Abilify] 10 mg tablet 10 mg PO DAILY desvenlafaxine succinate [Pristiq] 100 mg tablet extended release 24 hr 100 mg PO DAILY albuterol sulfate 90 mcg/actuation aerosol powdr breath activated 2 inh inhalation Q6H PRN albuterol sulfate 90 mcg/actuation HFA aerosol inhaler 1 puff inhalation ONCE PRN Patient Comments: INHALE 2 PUFFS BY MOUTH EVERY 6 HOURS NEEDED FOR SHORTNESS OF BREATH OR WHEEZING Classic 28 mg iron- 800 mcg tablet 1 tab PO .Aguilar aspirin [Adult Aspirin Regimen] 81 mg tablet,delayed release (DR/EC) 81 mg PO DAILY magnesium 250 mg tablet 250 mg PO TID nystatin 100,000 unit/gram cream 1 applic topical BID Qty: 30 0RF Rx Instructions: Apply to the affected areas twice daily or as indicated until healing is complete. Only use if needed after your antibiotic. cephalexin 500 mg capsule 500 mg PO BID 10 Days Qty: 20 0RF Referrals Follow up/Referrals: Daryl Garcia MD [Primary Care Provider] - See instructions Activity Restrictions/Add. Instructions Additional Instructions/Restrictions: Call your family doctor to establish care for this visit to the emergency department and schedule follow-up within 48 hours to ensure improvement. If you have any worsening of your condition or any other concerning signs or symptoms, return to the emergency department or your primary care doctor for further evaluation. Follow-up with your OB for formal ultrasound and continued follow- up. Clinical Impressions Clinical Impression: Vaginal bleeding before 22 weeks gestation Print Language Print Language: Vietnamese Discharge ED Provider: Coy Li General Adult HPI General Chief complaint: Vaginal Bleeding Stated complaint: 14 weeks preg , bleeding and cramping Time Seen by Provider: 11/12/23 19:18 Mode of Arrival: Family Vehicle Source of Information: Patient Limitations: No Limitations Description of Symptoms (Recalled from ER Triage Doc. by RN): 23 yo 14 WEEKS preg, OB MD is Dr Rivera. States she was diagnosed with a UTI yesterday and placed on cephalexin. Had several instances of moderate bleeding with wiping today, accompanied by low abd cramping/pain. Afebrile. History of Present Illness HPI narrative: Please note that above description of symptoms, in this electronic medical record under categorization of recalled from ER triage doctor by RN are reflective of an initial nursing assessment, however, is not reflective of my full history and physical exam that was personally taken and clarified. Consequentially, this preceding description of symptoms, which may include the patient's categorized chief complaint in the EMR, do not reflect my personal clinical impression, and the ultimate description of history of present illness and patient stated complaints should be deferred to this section of the note. Unless stated otherwise or congruent with this section of the note, additional signs, symptoms, or incongruence should be interpreted as inaccurate with my clinical impression. Related Data Home Medications ?Medication ?Instructions ?Recorded ?Confirmed albuterol sulfate 90 mcg/actuation 2 inh inhalation Q6H PRN 10/29/23 11/11/23 breath activated powder inhaler aripiprazole 10 mg tablet (Abilify) 10 mg PO DAILY 10/29/23 11/11/23 desvenlafaxine succinate 100 mg 100 mg PO DAILY 10/29/23 11/11/23 tablet,extended release 24 hr (Pristiq) fluticasone propionate 50 1 spray intranasal DAILY 10/29/23 11/11/23 mcg/actuation nasal spray,suspension (Flonase Allergy Relief) albuterol sulfate 90 mcg/actuation 1 puff inhalation ONCE PRN 11/06/23 11/11/23 aerosol inhaler vits no.126-ferrous fum 1 tab PO .Jeff 11/06/23 11/11/23 28 mg iron-folic acid 800 mcg tablet (Classic ) aspirin 81 mg tablet,delayed 81 mg PO DAILY 11/11/23 11/11/23 release (Adult Aspirin Regimen) magnesium 250 mg tablet 250 mg PO TID 11/11/23 11/11/23 Previous Rx's ?Medication ?Instructions ?Recorded nystatin 100,000 unit/gram topical 1 applic topical BID #30 grams 11/09/23 cream cephalexin 500 mg capsule 500 mg PO BID 10 days #20 caps 11/10/23 Allergies Allergy/AdvReac Type Severity Reaction Status Date / Time amoxicillin Allergy Verified 11/11/23 14:06 cephalexin Allergy Verified 11/11/23 14:06 ketorolac [From Toradol] Allergy Verified 11/11/23 14:06 [facility] Disclaimer: The information contained in this section may have been updated after the patient was seen, as this information can be updated by other users. Medical History History of depression Hx of appendicitis History of hypertension Hx of anxiety disorder FH: cholecystectomy delivery delivered Surgical History Hx of cholecystectomy History of colpectomy History of appendectomy Social History Smoking Status: Unknown if ever smoked alcohol intake: never current occupational status: employed Travel in the last 8 weeks: None ROS Obtained: Yes All systems reviewed & no additional complaints except as documented Physical Exam General General appearance: alert Head Head exam: atraumatic and normocephalic Eye Eye exam: Present normal appearance, PERRL and EOMI Neck Neck exam: Present normal inspection, full ROM and trachea midline Respiratory Respiratory exam: Absent respiratory distress, wheezes, stridor, accessory muscle use or prolonged expiratory phase Cardiovascular Cardiovascular exam: Present other (Pulses equal symmetric in upper and lower extremities) Abdominal Exam Abdominal exam: Present soft; Absent distention, tenderness or pulsatile mass Extremities Exam Extremities exam: Absent edema Neurological Exam Neurological exam: Present alert, oriented X3 and CN II-XII intact; Absent motor sensory deficit Skin Skin exam: Present warm and dry; Absent diaphoresis or erythema Medical Decision Making Medical Records Medical records reviewed: Yes I reviewed the patient's medical records. Screening: Per USPSTF and CDC recommendations, given the prevalence of disease in our region, it is our hospital?s policy to screen for HIV and viral Hepatitis for all patients aged 18 and over and those with ongoing risk factors. Jan Inquiry Pt receiving controlled substance: No Jan was queried for this patient: No Vital Signs: 11/12/23 19:40 11/12/23 20:00 Temperature 98.2 F Temperature Source Oral Pulse Rate 71 Pulse Rate [Right Brachial] 76 Respiratory Rate 15 Blood Pressure 120/53 L Blood Pressure [Right Arm] 116/74 Blood Pressure Mean [Right Arm] 88 Blood Pressure Source [Right Arm] Automatic Cuff Blood Pressure Position [Right Arm] Sitting 02 Sat by Pulse Oximetry 100 98 Oxygen Delivery Method Room Air Lab Data Lab Results 11/12/23 19:50: WBC 9.8, RBC 4.28, Hgb 14.1, Hct 41.3, MCV 96.5, MCH 32.8 H, MCHC 34.0, RDW 14.6, Plt Count 323, MPV 9.0, Neut % (Auto) 65.4, Lymph % (Auto) 23.6, Hopkins % (Auto) 4.3, Eos % (Auto) 5.8, Baso % (Auto) 0.8, Neut # (Auto) 6.4, Lymph # (Auto) 2.3, Hopkins # (Auto) 0.4, Eos # (Auto) 0.6 H, Baso # (Auto) 0.1 11/12/23 20:13: Sodium 134 L, Potassium 4.1, Chloride 104, Carbon Dioxide 24, Anion Gap 10.1, BUN 9, Creatinine 0.60, Estimated Creat Clear 120, Estimated GFR 123, Est GFR ( Amer) 149, Glucose 88, Calcium 10.2, Total Bilirubin 0.6, AST 34, ALT 23, Alkaline Phosphatase 57, Total Protein 7.3, Albumin 4.3, Globulin 3.0, Albumin/Globulin Ratio 1.4, HCG, Quant 52310 H, Blood Type A Positive, Antibody Screen Negative 11/12/23 20:35: Urine Color Yellow, Urine Appearance Clear, Urine pH 6.0, Ur Specific Dem[place] >= 1.030, Urine Protein Negative, Urine Glucose (UA) Negative, Urine Ketones Negative, Urine Blood Trace-i, Urine Nitrate Negative, Urine Bilirubin Negative, Urine Urobilinogen 0.2, Ur Leukocyte Esterase 1+ A, Urine RBC 3-5, Urine WBC 5-10, Ur Squamous Epith Cells 3-5, Urine Bacteria 1+, Urine Mucus 1+ 11/12/23 19:50 11/12/23 20:13 Orders (Tests/Meds): ORDERS Category Date Time Status Type and Screen Stat BBK 11/12/23 20:13 Completed POCUS Point of Care (ER Only) Stat Exams 11/12/23 19:57 Completed Complete Blood Count Auto Diff Stat Lab 11/12/23 19:50 Completed Comprehensive Metabolic Panel Stat Lab 11/12/23 20:13 Completed HCG,Quantitative Stat Lab 11/12/23 20:13 Completed UA [Urinalysis and Microscopic] Stat Lab 11/12/23 20:35 Completed Urine Culture Stat Micro 11/12/23 20:35 Received Medical Decision Narrative: Very pleasant 23-year-old female G2, P1 presenting with vaginal bleeding, cramping. Patient states that she was diagnosed with a urinary tract infection a couple days prior to this started on Keflex. Since that time, she has developed left flank pain, but lower abdominal pain has seemed to be getting better. Today she started noticing that she had red blood on her underwear and on the toilet paper when she wiped, she feels it is vaginal and not urinary. No fevers, nausea or vomiting, chest pain, shortness of breath, gushes of vaginal fluid, or any other concerns. History was obtained via conversation with patient. On arrival, patient hemodynamically stable, alert, oriented x4, appropriate, GCS 15, moving all extremities spontaneously, pupils equal and reactive to light. Full physical exam performed and significant for well- appearing female no acute distress. Abdomen is soft, nontender, nondistended. She does have left flank tenderness to percussion. No overlying skin changes. Normotensive, nontachycardic, afebrile. Differential includes cervical change, placenta previa, vasa previa, abruption, subchorionic hemorrhage, threatened versus incomplete , among others. Workup independently interpreted and significant for nonactionable CBC or chemistry. Patient's urinalysis with no protein, nitrates, mild leukocyte esterase. Already on Keflex, low concern for pyelonephritis. hCG 33,000. Type and screen a positive. on independent interpretation of imaging, heart tones right around 160, good movements, anterior placenta, no acute abnormal findings to explain changes in bleeding. On reevaluation, patient still resting comfortably. Because patient at baseline without signs or symptoms of clinical decompensation, deemed appropriate for discharge. Results were relayed to patient who voiced understanding and were agreeable to outpatient management and follow up. I discussed my clinical impression with patient and answered all questions. At this time, the evidence for any other entities in the differential is insufficient to warrant any further testing or ED observation. This was explained as well. Advisory was given that persistent or worsening symptoms require further evaluation. I confirmed the understanding of this discussion. 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 Electronic chief guard of the spoken language may permit errors. Although I have reviewed the note, some errors may still exist. Procedures Limited Ultrasound Indication:: Limited OB ultrasound Indication: , vaginal bleeding Identified structures: -Uterus -Left adnexa -Right adnexa -Pouch of Joni Findings: Uterus: Definitive IUP with FHR around 160 Right adnexa: Cyst, likely degenerating corpus luteal cyst Left adnexa: -Normal Cul de sac: -free fluid absent Impression: -IUP: Present with heart rate around 160 -Ectopic : Absent -Free fluid: Absent Images were saved to permanent archive The study was technically adequate CPT Transabdominal: 59479-89 This study was performed by me, and I personally interpreted all images/videos. Based on my clinical judgement, these images were adequate and did not necessitate further imaging Critical Care Critical Care Time Critical Care Time: No
[2023-11-12 20:46] LABS: Albumin Level 4.3 g/dl (3.5-5.0); Chloride 104 mmol/L (98-107); Potassium 4.1 mmoL/L (3.5-5.1); Sodium 134 mmol/L (136-145)
[2023-11-12 20:47] LABS: Microscopic, Urine URINE MICROSCOPIC (MICROSCOPIC)
[2023-11-12 20:48] LABS: Blood Urea Nitrogen 9 mg/dl (7-17); Creatinine Clearance Estimated 120 mL/min (50-200); Estimated Glomerular Filt Rate 123 ml/min (>60); GFR (African American) 149 ML/MIN (>60)
[2023-11-12 20:49] LABS: Alanine Aminotransferase 23 U/L (12-78); Albumin/Globulin Ratio 1.4 (1.1-1.8); Alkaline Phosphatase 57 U/L (38-126); Anion Gap 10.1 mEq/L (5-15); Aspartate Amino Transferase 34 U/L (14-36); Bilirubin,Total 0.6 mg/dl (0.2-1.3); Calcium 10.2 mg/dl (8.4-10.2); Carbon Dioxide 24 mmol/L (22.0-30.0); Glucose 88 mg/dl (74-100); Total Protein,Serum 7.3 g/dl (6.3-8.2)
[2023-11-12 20:57] LABS: Appearance,Urine CLEAR (Clear); Bilirubin,Urine Negative (Negative); Blood, Urine TRACE-I (Negative); Color,Urine YELLOW (Yellow); Glucose,Urine (UA) Negative (Negative); Ketones,Urine Negative (Negative); Leukocyte Esterase,Urine 1+ (Negative); Nitrate,Urine Negative (Negative); Protein,Urine Negative (Negative); Specific Gravity, Urine >= 1.030 (1.005-1.030); Urobilinogen,Urine 0.2 EU/dl (0.2)
[2023-11-12 21:06] LABS: Basophils # 0.1 K/mm3 (0-0.2); Basophils % 0.8 % (0.1-2.0); Eosinophils # 0.6 K/mm3 (0.0-0.4); Eosinophils % 5.8 % (0.1-12.0); Hematocrit 41.3 % (37.0-47.0); Hemoglobin 14.1 g/dL (12.2-16.2); Lymphocytes # 2.3 K/mm3 (0.7-4.5); Lymphocytes % 23.6 % (10-50); Mean Corpuscular Hemoglobin 32.8 pg (27.0-31.2); Mean Corpuscular Volume 96.5 fl (81-99); Monocytes # 0.4 K/mm3 (0.1-1.0); Monocytes % 4.3 % (1.7-9.3); Neutrophils # 6.4 K/mm3 (1.8-7.8); Neutrophils % 65.4 % (37.0-80.0); Platelet Count 323 K/mm3 (142-424); Red Blood Count 4.28 M/mm3 (4.20-5.40); Red Cell Distribution Width 14.6 % (11.5-17.5); White Blood Count 9.8 K/mm3 (4.8-10.8)
[2023-11-12 21:26] LABS: Bacteria,Urine 1+ /lpf; Mucus,Urine 1+ /lpf
[2023-11-12 21:34] LABS: HCG,Quantitative 33112 mIU/ml (0-5.42)
[2023-11-12 21:54] VITALS: BP 142/70; PULSE 73; RESP 16; TEMP 36.7; O2SAT 98
== END 2023-11-12 21:56 | disposition home or self-care (01) ==
PROVIDERS: Emergency Provider Emergency Medicine; PCP Family Medicine
DX: O20.9 Hemorrhage in early pregnancy, unspecified (principal); R25.2 Cramp and spasm; Z3A.14 14 weeks gestation of pregnancy
CPT/HCPCS: 80053; 81001; 84702; 85025; 86850; 87086; 99284

== ENCOUNTER 2023-11-19 13:27 | Outpatient (CLI) | payer OTHER, SELFPAY ==
--- NOTE | 2023-11-19 13:31 | US_ITS ---
FINAL REPORT CLINICAL HISTORY: .UTIS - 15 WEEKS COMPARISON: None FINDINGS: RENAL ULTRASOUND: The right kidney measures 12.9 cm in length. There is no evidence of hydronephrosis. No focal right renal mass is present. The left kidney measures 13.1 cm in length. There are 2 small echogenic foci noted in the left kidney that may represent poorly shadowing stones. There is no evidence of hydronephrosis or focal mass. IMPRESSION: 2 small echogenic foci in the left kidney that may represent poorly shadowing stones. No evidence of hydronephrosis or mass in either kidney. Reviewed, Interpreted and Dictated by Vipul Birmingham MD Transcribed by Sejal Almaguer Authenticated and [facility]
== END 2023-11-19 23:59 | disposition home or self-care (01) ==
LOC: RAD 13:28
PROVIDERS: PCP Family Medicine; Visit Provider Obstetrics & Gynecology
DX: R31.29 Other microscopic hematuria (principal); N20.0 Calculus of kidney
CPT/HCPCS: 76770

== ENCOUNTER 2023-11-24 15:33 | Outpatient (CLI) | payer OTHER, SELFPAY ==
[2023-11-24 15:02] LABS: Microscopic, Urine URINE MICROSCOPIC (MICROSCOPIC)
[2023-11-24 15:20] LABS: Appearance,Urine CLEAR (Clear); Bilirubin,Urine Negative (Negative); Blood, Urine Negative (Negative); Color,Urine YELLOW (Yellow); Glucose,Urine (UA) Negative (Negative); Ketones,Urine TRACE (Negative); Leukocyte Esterase,Urine Negative (Negative); Nitrate,Urine Negative (Negative); Protein,Urine Negative (Negative); Urobilinogen,Urine 0.2 EU/dl (0.2)
[2023-11-24 16:25] LABS: Bacteria,Urine Trace /lpf; Calcium Oxalate Crystals,Urine 2+ /lpf
== END 2023-11-24 23:59 | disposition home or self-care (01) ==
LOC: LAB.DROPOF 15:34
PROVIDERS: PCP Urology; Visit Provider Urology
DX: N39.0 Urinary tract infection, site not specified (principal)
CPT/HCPCS: 81001; 87086

== ENCOUNTER 2023-12-09 13:03 | Outpatient (CLI) | payer OTHER, SELFPAY ==
[2023-12-09 16:19] LABS: HIV (1&2) Antibody Rapid NONREACTIVE (NONREACTIVE)
[2023-12-10 09:20] LABS: HCV Ab Non Reactive (Non Reactive); Hepatitis B Surface Antigen Negative (Negative)
[2023-12-10 10:20] LABS: Rubella Antibodies, IgG 2.91 index (Immune >0.99)
[2023-12-10 13:41] LABS: Rapid Plasma Reagin Ab Titer Non Reactive titer (NonRea<1:1)
[2023-12-10 16:14] LABS: Deamidated Gliadin Abs, IgA 2 units (0-19); Deamidated Gliadin Abs, IgG 3 units (0-19); Tissue Transglutaminase IgA Ab <2 U/mL (0-3); Tissue Transglutaminase IgG Ab 3 U/mL (0-5)
[2023-12-11 09:33] LABS: Endomysial IgA Antibody Negative (Negative)
[2023-12-12 09:14] LABS: Reticulin IgA Antibody Negative titer (Neg:<1:2.5)
[2023-12-13 15:27] LABS: F001-IgE Egg White 0.14 kU/L (Class 0/I); F024-IgE Shrimp <0.10 kU/L (Class 0); F338-IgE Scallop <0.10 kU/L (Class 0)
== END 2023-12-09 23:59 | disposition home or self-care (01) ==
LOC: LAB 13:04
PROVIDERS: Obstetrics & Gynecology; PCP Family Medicine; Visit Provider Allergy & Immunology
DX: Z34.90 Encounter for supervision of normal pregnancy, unspecified, unspecified trimester (principal); R10.84 Generalized abdominal pain; Z91.018 Allergy to other foods; L20.9 Atopic dermatitis, unspecified
CPT/HCPCS: 36415; 83516; 86003; 86008; 86255; 86256; 86593; 86762; 86803; 87340; 87389

== ENCOUNTER 2023-12-16 15:09 | Outpatient (CLI) | payer OTHER, SELFPAY ==
--- NOTE | 2023-12-16 15:36 | US_ITS ---
PROCEDURE: US OB >= 14 WEEKS FETUS CLINICAL INDICATION: anatomy scan COMPARISON: US POINT OF CARE US (ER ONLY) from 11/12/2023 FINDINGS: Transabdominal sonographic images of the pelvis were obtained. The following parameters are obtained: From her established due date she is 19weeks 0 days Viable fetus in the breech presentation with an anterior placenta grade 1. The placenta is low lying and measures up to 2.35 cm from the internal cervical os. There appears to be an area of increased placental vascularity adjacent to the uterine wall. The cervix measures 4.3 cm transvaginally. heart rate: 152bpm bpm. Amniotic fluid: Appears normal subjectively. No obvious anomalies evident. Very limited anatomy seen. IMPRESSION: 1. Viable fetus in the breech presentation with an anterior placenta grade 1. 2. There is a increased vascular area along the anterior aspect of the placenta. 3. Transvaginally the cervix measures 4.3 cm. 4. The placenta is low lying and measures 2.35 cm from the internal cervical os. 5. Very limited anatomical scan appears normal. 6. Suggest complete anatomical scan in 1-2 weeks. Dictated by: Cali Guillen MD 12/17/2023 07:04 Cali Guillen MD in OV 12/17/2023 07:04
== END 2023-12-16 23:59 | disposition home or self-care (01) ==
LOC: RAD 15:10
PROVIDERS: PCP Family Medicine; Visit Provider Obstetrics & Gynecology
DX: Z34.91 Encounter for supervision of normal pregnancy, unspecified, first trimester (principal)
CPT/HCPCS: 76805

== ENCOUNTER 2023-12-21 11:38 | Emergency (ER) | payer OTHER, SELFPAY ==
[2023-12-21] VITALS (7 sets, daily range): BP systolic 107–135; BP diastolic 50–75; PULSE 77–93; RESP 18; TEMP 36.8–36.9; O2SAT 97–100; BMI 43.4
--- NOTE | 2023-12-21 12:30 | PC.NURSE ---
OB LAND AGENT PAGED
--- NOTE | 2023-12-21 12:41 | PC.NURSE ---
DR PICKERING SPEAKING WITH OB FISHING VESSEL MATE
[2023-12-21 12:46] LABS: Microscopic, Urine URINE MICROSCOPIC (MICROSCOPIC)
[2023-12-21 12:48] LABS: Appearance,Urine CLEAR (Clear); Bilirubin,Urine Negative (Negative); Blood, Urine Negative (Negative); Color,Urine YELLOW (Yellow); Glucose,Urine (UA) Negative (Negative); Ketones,Urine Negative (Negative); Leukocyte Esterase,Urine Negative (Negative); Nitrate,Urine Negative (Negative); Protein,Urine Negative (Negative); Specific Gravity, Urine >= 1.030 (1.005-1.030); Urobilinogen,Urine 0.2 EU/dl (0.2)
--- NOTE | 2023-12-21 12:56 | ED_ITS ---
Discharge Plan Disposition Patient Disposition: Home, Self-Care Condition: Good Prescriptions Prescriptions: No Action aripiprazole [Abilify] 10 mg tablet 10 mg PO DAILY desvenlafaxine succinate [Pristiq] 100 mg tablet extended release 24 hr 100 mg PO DAILY albuterol sulfate 90 mcg/actuation aerosol powdr breath activated 2 inh inhalation Q6H PRN (Reason: .) albuterol sulfate 90 mcg/actuation HFA aerosol inhaler 1 puff inhalation ONCE PRN (Reason: .) Patient Comments: INHALE 2 PUFFS BY MOUTH EVERY 6 HOURS NEEDED FOR SHORTNESS OF BREATH OR WHEEZING Classic 28 mg iron- 800 mcg tablet 1 tab PO .Aguilar oxybutynin chloride 10 mg tablet extended release 24hr 10 mg PO DAILY Qty: 90 3RF aspirin [Adult Aspirin Regimen] 81 mg tablet,delayed release (DR/EC) 81 mg PO DAILY magnesium 250 mg tablet 250 mg PO TID Referrals Follow up/Referrals: Daryl Garcia MD [Primary Care Provider] - See instructions Activity Restrictions/Add. Instructions Additional Instructions/Restrictions: You were evaluated in the emergency department today. I encourage pelvic rest and avoiding sexual intercourse until seen by gynecology. Please make sure that you also stay very hydrated. Follow-up closely with gynecology as soon as possible for reassessment. Return to the emergency department right away for new or worsening symptoms. Clinical Impressions Clinical Impression: Vaginal bleeding before 22 weeks gestation Stand Alone Forms Stand Alone Forms: Work/School Release Instructions Patient Instructions: DI for Vaginal Bleeding During Print Language Print Language: Indonesian Discharge ED Provider: Anisha De Leon General Adult HPI General Chief complaint: PAIN Stated complaint: 19 weeks preg, abd cramping, spotting and back pa Time Seen by Provider: 12/21/23 12:00 Mode of Arrival: Ambulatory Source of Information: Patient Limitations: No Limitations Description of Symptoms (Recalled from ER Triage Doc. by RN): pt presents to the er for lower back pain, cramping, and spotting that started around 2 hours ago, states the spotting occurs when she wipes after she pees, states it is a pinkish red color, and about the size of a dime, cramping is in her lower left abdominal down into her vaginal area, second , no complications with either thus far, hx of uti when along with kidney stones, sees dr lomax for ob care, last ob appointment 2 weeks ago, scheduled for anatomy scan this week, ob questioning if pt has placenta accreta, currently 19 weeks 5 days History of Present Illness HPI narrative: This patient is a 23-year-old female G2, P1 at estimated 19 weeks and 5 days gestational age presenting to the emergency department for evaluation with concern for lower abdominal cramping and light vaginal spotting. She reports she is currently awaiting US to r/o placenta accreta. Patient reports that she started having the lower cramping about 2 hours ago and the spotting only occurs when she wiped after peeing. No fevers, chills, dysuria, urinary frequency, or other concerns. Her thus far is only been complicated by UTI, which she states she was successfully treated for. Related Data Home Medications ?Medication ?Instructions ?Recorded ?Confirmed albuterol sulfate 90 mcg/actuation 2 inh inhalation Q6H PRN . 10/29/23 12/21/23 breath activated powder inhaler aripiprazole 10 mg tablet (Abilify) 10 mg PO DAILY 10/29/23 12/21/23 desvenlafaxine succinate 100 mg 100 mg PO DAILY 10/29/23 12/21/23 tablet,extended release 24 hr (Pristiq) albuterol sulfate 90 mcg/actuation 1 puff inhalation ONCE PRN . 11/06/23 12/21/23 aerosol inhaler vits no.126-ferrous fum 1 tab PO .Jeff 11/06/23 12/21/23 28 mg iron-folic acid 800 mcg tablet (Classic ) aspirin 81 mg tablet,delayed 81 mg PO DAILY 11/11/23 12/21/23 release (Adult Aspirin Regimen) magnesium 250 mg tablet 250 mg PO TID 11/11/23 12/21/23 Previous Rx's ?Medication ?Instructions ?Recorded oxybutynin chloride 10 mg 10 mg PO DAILY #90 tabs 11/24/23 tablet,extended release 24 hr Allergies Allergy/AdvReac Type Severity Reaction Status Date / Time amoxicillin Allergy Other Verified 12/21/23 12:14 cephalexin Allergy Other Verified 12/21/23 12:14 ketorolac [From Toradol] Allergy Other Verified 12/21/23 12:14 [facility] PFS Disclaimer: The information contained in this section may have been updated after the patient was seen, as this information can be updated by other users. Medical History History of depression Hx of appendicitis History of hypertension Hx of anxiety disorder FH: cholecystectomy delivery delivered Surgical History Hx of cholecystectomy History of colpectomy History of appendectomy Social History Smoking Status: Never smoker alcohol intake: never current occupational status: employed Travel in the last 8 weeks: None ROS Obtained: Yes All systems reviewed & no additional complaints except as documented Physical Exam General General appearance: alert and in no apparent distress Head Head exam: atraumatic and normocephalic Eye Eye exam: Present normal appearance, PERRL and EOMI ENT ENT exam: Present normal exam, normal oropharynx, mucous membranes moist and normal external ear exam Neck Neck exam: Present normal inspection, full ROM and trachea midline; Absent tenderness Chest Chest inspection: Present normal inspection and symmetric chest wall rise; Absent tenderness Respiratory Respiratory exam: Present normal lung sounds bilaterally; Absent respiratory distress, wheezes, stridor or accessory muscle use Cardiovascular Cardiovascular exam: Present regular rate and normal rhythm Abdominal Exam Abdominal exam: Present soft; Absent distention, tenderness or guarding Extremities Exam Extremities exam: Present normal inspection, full ROM and normal capillary refill; Absent tenderness or edema Back Exam Back exam: Present normal inspection and full ROM; Absent tenderness Neurological Exam Neurological exam: Present alert, oriented X3, CN II-XII intact and normal gait; Absent motor sensory deficit Psychiatric Psychiatric exam: Present normal affect and normal mood Skin Skin exam: Present warm and dry Medical Decision Making Medical Records Medical records reviewed: Yes I reviewed the patient's medical records. Screening: Per USPSTF and CDC recommendations, given the prevalence of disease in our region, it is our hospital?s policy to screen for HIV and viral Hepatitis for all patients aged 18 and over and those with ongoing risk factors. Jan Inquiry Pt receiving controlled substance: No Vital Signs: 12/21/23 11:40 12/21/23 12:00 12/21/23 12:30 Temperature 98.5 F Temperature Source Oral Pulse Rate 93 H 91 H Pulse Rate [Left Radial] 91 H Respiratory Rate 18 18 Blood Pressure 123/73 128/55 L Blood Pressure [Right Arm] 135/75 Blood Pressure Mean 97 79 Blood Pressure Mean [Right Arm] 95 Blood Pressure Source Blood Pressure Source [Right Arm] Automatic Cuff Blood Pressure Position Blood Pressure Position [Right Arm] Sitting 02 Sat by Pulse Oximetry 100 99 98 Oxygen Delivery Method Room Air Room Air 12/21/23 13:01 12/21/23 13:30 12/21/23 14:01 Temperature Temperature Source Pulse Rate 77 83 89 Pulse Rate [Left Radial] Respiratory Rate Blood Pressure 107/50 L 120/67 109/51 L Blood Pressure [Right Arm] Blood Pressure Mean 80 82 70 Blood Pressure Mean [Right Arm] Blood Pressure Source Blood Pressure Source [Right Arm] Blood Pressure Position Blood Pressure Position [Right Arm] 02 Sat by Pulse Oximetry 97 99 100 Oxygen Delivery Method Room Air Room Air Room Air 12/21/23 14:19 Temperature 98.2 F Temperature Source Oral Pulse Rate 85 Pulse Rate [Left Radial] Respiratory Rate 18 Blood Pressure 112/62 Blood Pressure [Right Arm] Blood Pressure Mean Blood Pressure Mean [Right Arm] Blood Pressure Source Automatic Cuff Blood Pressure Source [Right Arm] Blood Pressure Position Sitting Blood Pressure Position [Right Arm] 02 Sat by Pulse Oximetry Oxygen Delivery Method Room Air Lab Data Lab results reviewed: Yes I reviewed the patient's lab results. Lab Results 12/21/23 12:00: Urine Color Yellow, Urine Appearance Clear, Urine pH 6.0, Ur Specific [place] >= 1.030, Urine Protein Negative, Urine Glucose (UA) Negative, Urine Ketones Negative, Urine Blood Negative, Urine Nitrate Negative, Urine Bilirubin Negative, Urine Urobilinogen 0.2, Ur Leukocyte Esterase Negative, Urine RBC None, Urine WBC Occasional, Ur Squamous Epith Cells 3-5, Urine Bacteria Trace Orders (Tests/Meds): ORDERS Category Date Time Status POCUS Point of Care (ER Only) Stat Exams 12/21/23 12:11 Ordered UA [Urinalysis and Microscopic] Stat Lab 12/21/23 12:00 Completed Medical Decision Narrative: In summary, this patient is a 23-year-old female presenting to the Emergency Department for evaluation of lower abdominal cramping and light vaginal spotting the setting of . Differential diagnoses considered include but are not limited to placenta previa, placenta accreta, threatened , subchorionic hemorrhage. Ruling out the most morbid conditions drove assessment. I reviewed patient's past medical records and noted previous OB evaluations and most recent ultrasound 12/16/2023. Patient's blood type is a positive, so no RhoGAM indicated.. On exam, the patient is lying in bed in no acute distress with reassuring vital signs on cardiac telemetry. Abdominal exam is benign. Given that the patient is almost 20 weeks which is criteria for going upstairs for OB evaluation, I did call and have an interactive discussion with Dr. Swift who advised that she felt that we could check a urinalysis to make sure that it looks okay and there is no concern for infection and then send the patient home with instructions for pelvic rest and to follow-up this week. Urine is not concerning for infection. Transabdominal ultrasound demonstrated viable IUP with a heart rate of 150 bpm. Ultimately, since have discussed the case with OB I feel comfortable with discharge home and close follow-up this week. She already has an appointment on Friday. Patient was given instructions for pelvic rest, strict return precautions, and she was discharged after all questions were answered. Procedures Limited Ultrasound Findings:: Limited OB ultrasound Indication: with vaginal bleeding Identified structures: -Uterus Findings: Uterus: Definitive IUP with good amount of amniotic fluid. Placenta visualized and not grossly abnormal FHR: 150 Impression: -IUP: Present, viable - heart rate: 150 Images were saved to permanent archive The study was technically adequate CPT Transabdominal: 69525-01 This study was performed by me, and I personally interpreted all images/videos. Based on my clinical judgement, these images were adequate and did not necessitate further imaging. Critical Care Critical Care Time Critical Care Time: No
[2023-12-21 13:04] LABS: Bacteria,Urine Trace /lpf; WBC,Urine Occasional #/hpf (0-3)
== END 2023-12-21 14:23 | disposition home or self-care (01) ==
PROVIDERS: Emergency Provider Emergency Medicine; PCP Family Medicine
DX: O46.90 Antepartum hemorrhage, unspecified, unspecified trimester (principal); Z3A.22 22 weeks gestation of pregnancy
CPT/HCPCS: 81001; 99284

== ENCOUNTER 2023-12-28 13:20 | Outpatient (CLI) | payer OTHER, SELFPAY ==
[2023-12-28 13:31] VITALS: BMI 43.5
[2023-12-28 13:49] VITALS: BP 127/70; PULSE 87; RESP 18; TEMP 36.7; O2SAT 97; BMI 43.5
[2023-12-28 13:54] LABS: Microscopic, Urine URINE MICROSCOPIC (MICROSCOPIC)
[2023-12-28 14:04] LABS: Appearance,Urine CLEAR (Clear); Bilirubin,Urine Negative (Negative); Blood, Urine Negative (Negative); Color,Urine YELLOW (Yellow); Glucose,Urine (UA) Negative (Negative); Ketones,Urine TRACE (Negative); Leukocyte Esterase,Urine Negative (Negative); Nitrate,Urine Negative (Negative); PH,Urine 6.5 (5.0-8.5); Protein,Urine Negative (Negative); Specific Gravity, Urine 1.015 (1.005-1.030); Urobilinogen,Urine 0.2 EU/dl (0.2)
[2023-12-28 14:24] LABS: Barbiturates Screen,Urine Negative ng/ml (<200); Benzodiazepines Screen,Urine Negative ng/ml (<200)
[2023-12-28 14:25] LABS: Amphetamine/Metha Screen,Urine Negative ng/ml (<1000)
[2023-12-28 14:26] LABS: Cannabinoid Screen,Urine Negative ng/ml (<50); Cocaine Screen,Urine Negative ng/ml (<300)
[2023-12-28 14:27] LABS: Methadone Screen,Urine Negative ng/ml (<300)
[2023-12-28 14:28] LABS: Opiate Screen,Urine Negative ng/ml (<300); Phencyclidine Screen,Urine Negative ng/ml (<25)
[2023-12-28 14:37] LABS: Bacteria,Urine Trace /lpf
[2023-12-28] MEDS: DEXTROSE 5%-LACTATED RINGERS 1,000 ML 999 ML IV (15:36)
== END 2023-12-28 16:40 | disposition home or self-care (01) ==
LOC: OBOUT 13:21 → OB 13:22
PROVIDERS: PCP Family Medicine; Visit Provider Nurse Practitioner Obstetrics & Gynecology
DX: O60.02 Preterm labor without delivery, second trimester (principal); Z3A.20 20 weeks gestation of pregnancy
CPT/HCPCS: 80307; 81001; G0463

== ENCOUNTER 2024-01-02 09:25 | Outpatient (CLI) | payer OTHER, SELFPAY ==
[2024-01-02 09:34] VITALS: BMI 43.0
[2024-01-02 09:42] LABS: Microscopic, Urine URINE MICROSCOPIC (MICROSCOPIC)
[2024-01-02 09:45] LABS: Appearance,Urine CLEAR (Clear); Bilirubin,Urine Negative (Negative); Blood, Urine Negative (Negative); Color,Urine YELLOW (Yellow); Glucose,Urine (UA) Negative (Negative); Ketones,Urine Negative (Negative); Leukocyte Esterase,Urine 1+ (Negative); Nitrate,Urine Negative (Negative); Protein,Urine Negative (Negative); Urobilinogen,Urine 0.2 EU/dl (0.2)
[2024-01-02 09:58] LABS: Barbiturates Screen,Urine Negative ng/ml (<200); Benzodiazepines Screen,Urine Negative ng/ml (<200)
[2024-01-02 09:59] LABS: Amphetamine/Metha Screen,Urine Negative ng/ml (<1000)
[2024-01-02 10:00] LABS: Cannabinoid Screen,Urine Negative ng/ml (<50); Cocaine Screen,Urine Negative ng/ml (<300)
[2024-01-02 10:01] LABS: Methadone Screen,Urine Negative ng/ml (<300)
[2024-01-02 10:02] LABS: Opiate Screen,Urine Negative ng/ml (<300); Phencyclidine Screen,Urine Negative ng/ml (<25)
[2024-01-02] MEDS: LACTATED RINGERS 1000ML 1,000 ML 999 ML IV (10:15)
[2024-01-02] MEDS: PROCHLORPERAZINE 10MG TABLET 10 MG PO (10:15)
[2024-01-02] MEDS: diphenhydrAMINE 50MG CAPSULE 50 MG PO (10:15)
[2024-01-02 10:20] LABS: Bacteria,Urine 1+ /lpf
[2024-01-02 10:24] VITALS: BP 126/81; PULSE 95; RESP 18; TEMP 36.9; O2SAT 95; BMI 43.0
== END 2024-01-02 12:39 | disposition home or self-care (01) ==
LOC: OBOUT 09:26 → OB 09:27
PROVIDERS: PCP Family Medicine; Visit Provider Obstetrics & Gynecology
DX: G43.909 Migraine, unspecified, not intractable, without status migrainosus; O26.892 Other specified pregnancy related conditions, second trimester; Z3A.21 21 weeks gestation of pregnancy
CPT/HCPCS: 80307; 81001; 87086; G0463; J7120; Q0164

== ENCOUNTER 2024-01-10 09:22 | Outpatient (CLI) | payer OTHER, SELFPAY ==
[2024-01-10 09:43] VITALS: BMI 44.2
[2024-01-10 09:46] LABS: Microscopic, Urine URINE MICROSCOPIC (MICROSCOPIC)
[2024-01-10 09:47] VITALS: BP 136/69; PULSE 105; RESP 17; TEMP 36.5; O2SAT 96; BMI 44.2
[2024-01-10 10:13] LABS: Appearance,Urine CLEAR (Clear); Bilirubin,Urine Negative (Negative); Blood, Urine Negative (Negative); Color,Urine YELLOW (Yellow); Glucose,Urine (UA) Negative (Negative); Ketones,Urine TRACE (Negative); Leukocyte Esterase,Urine Negative (Negative); Nitrate,Urine Negative (Negative); PH,Urine 6.5 (5.0-8.5); Protein,Urine Negative (Negative); Urobilinogen,Urine 0.2 EU/dl (0.2)
[2024-01-10 10:22] LABS: Benzodiazepines Screen,Urine Negative ng/ml (<200)
[2024-01-10 10:23] LABS: Amphetamine/Metha Screen,Urine Negative ng/ml (<1000); Barbiturates Screen,Urine Negative ng/ml (<200)
[2024-01-10 10:24] LABS: Cannabinoid Screen,Urine Negative ng/ml (<50)
[2024-01-10 10:25] LABS: Cocaine Screen,Urine Negative ng/ml (<300); Methadone Screen,Urine Negative ng/ml (<300)
[2024-01-10 10:26] LABS: Opiate Screen,Urine Negative ng/ml (<300)
[2024-01-10 10:27] LABS: Phencyclidine Screen,Urine Negative ng/ml (<25)
[2024-01-10 10:30] LABS: Squamous Epithelial Cell,Urine Occasional #/hpf (0-5)
[2024-01-10] MEDS: CYCLOBENZAPRINE 10MG TABLET 5 MG PO (10:41)
== END 2024-01-10 12:15 | disposition home or self-care (01) ==
LOC: OBOUT 09:23 → OB 09:25
PROVIDERS: PCP Family Medicine; Visit Provider Obstetrics & Gynecology
DX: O26.892 Other specified pregnancy related conditions, second trimester (principal); Z3A.22 22 weeks gestation of pregnancy; M54.50 Low back pain, unspecified
CPT/HCPCS: 80307; 81001; G0463

== ENCOUNTER 2024-01-21 13:54 | Outpatient (CLI) | payer OTHER, SELFPAY ==
[2024-01-21 14:25] LABS: Basophils # 0.1 K/mm3 (0-0.2); Eosinophils # 0.3 K/mm3 (0.0-0.4); Hemoglobin 13.1 g/dL (12.2-16.2); Lymphocytes % 17.7 % (10-50); Mean Corpuscular HGB Conc 34.5 g/dL (31.8-35.4); Mean Corpuscular Hemoglobin 31.7 pg (27.0-31.2); Mean Corpuscular Volume 91.9 fl (81-99); Mean Platelet Volume 7.5 fl (7.4-10.4); Monocytes # 0.4 K/mm3 (0.1-1.0); Monocytes % 3.6 % (1.7-9.3); Neutrophils # 8.3 K/mm3 (1.8-7.8); Neutrophils % 74.7 % (37.0-80.0); Platelet Count 283 K/mm3 (142-424); Red Blood Count 4.13 M/mm3 (4.20-5.40); Red Cell Distribution Width 14.6 % (11.5-17.5); White Blood Count 11.1 K/mm3 (4.8-10.8)
[2024-01-21 14:35] LABS: Activated Partial Thrombo Time 26.8 seconds (22.8-30.6); Fibrinogen 442 mg/dL (229.9-363.5); INR 0.92 (0.9-1.1); Prothrombin Time 10.4 seconds (10.1-12.5)
[2024-01-21 14:50] LABS: Albumin Level 3.6 g/dl (3.5-5.0); Chloride 104 mmol/L (98-107); Sodium 134 mmol/L (136-145)
[2024-01-21 14:51] LABS: Potassium 4.2 mmoL/L (3.5-5.1)
[2024-01-21 14:53] LABS: Alanine Aminotransferase 18 U/L (12-78); Albumin/Globulin Ratio 1.4 (1.1-1.8); Alkaline Phosphatase 70 U/L (38-126); Anion Gap 11.2 mEq/L (5-15); Aspartate Amino Transferase 21 U/L (14-36); Bilirubin,Total 0.3 mg/dl (0.2-1.3); Blood Urea Nitrogen 8 mg/dl (7-17); Calcium 8.9 mg/dl (8.4-10.2); Carbon Dioxide 23 mmol/L (22.0-30.0); Estimated Glomerular Filt Rate 152 ml/min (>60); GFR (African American) 183 ML/MIN (>60); Globulin 2.5 g/dL (1.3-3.2); Glucose 83 mg/dl (74-100); Total Protein,Serum 6.1 g/dl (6.3-8.2)
[2024-01-21 15:11] LABS: Total Protein 24 Hour,Urine 35 mg/24 hr (40-90); Total Volume,Urine 700 mL (600-1600)
[2024-01-21 15:51] LABS: Uric Acid 5.1 mg/dl (2.5-6.2)
== END 2024-01-21 23:59 | disposition home or self-care (01) ==
LOC: LAB 13:54
PROVIDERS: PCP Family Medicine; Visit Provider Obstetrics & Gynecology
DX: O10.919 Unspecified pre-existing hypertension complicating pregnancy, unspecified trimester (principal)
CPT/HCPCS: 36415; 80048; 80053; 84155; 84450; 84460; 84550; 85025; 85384; 85610; 85730

== ENCOUNTER 2024-01-26 21:42 | Observation (INO) | payer OTHER, SELFPAY ==
[2024-01-26 21:09] VITALS: BMI 44.6
[2024-01-26 21:19] VITALS: BP 181/110
[2024-01-26] MEDS: LABETALOL 5MG/ML 20ML MDV 20 MG IV (21:19)
[2024-01-26 21:30] LABS: Basophils # 0.1 K/mm3 (0-0.2); Basophils % 0.7 % (0.1-2.0); Eosinophils # 0.4 K/mm3 (0.0-0.4); Eosinophils % 3.9 % (0.1-12.0); Hematocrit 36.2 % (37.0-47.0); Hemoglobin 12.3 g/dL (12.2-16.2); Lymphocytes # 2.6 K/mm3 (0.7-4.5); Lymphocytes % 22.8 % (10-50); Mean Corpuscular Hemoglobin 31.4 pg (27.0-31.2); Mean Corpuscular Volume 92.1 fl (81-99); Mean Platelet Volume 7.3 fl (7.4-10.4); Monocytes # 0.4 K/mm3 (0.1-1.0); Monocytes % 3.8 % (1.7-9.3); Neutrophils # 7.7 K/mm3 (1.8-7.8); Neutrophils % 68.8 % (37.0-80.0); Platelet Count 277 K/mm3 (142-424); Red Blood Count 3.93 M/mm3 (4.20-5.40); Red Cell Distribution Width 14.4 % (11.5-17.5); White Blood Count 11.2 K/mm3 (4.8-10.8)
[2024-01-26 21:50] LABS: Albumin Level 3.5 g/dl (3.5-5.0); Chloride 106 mmol/L (98-107); Potassium 3.7 mmoL/L (3.5-5.1); Sodium 135 mmol/L (136-145)
[2024-01-26 21:53] LABS: Alanine Aminotransferase 20 U/L (12-78); Albumin/Globulin Ratio 1.5 (1.1-1.8); Alkaline Phosphatase 62 U/L (38-126); Anion Gap 10.7 mEq/L (5-15); Aspartate Amino Transferase 28 U/L (14-36); Bilirubin,Total 0.4 mg/dl (0.2-1.3); Blood Urea Nitrogen 7 mg/dl (7-17); Carbon Dioxide 22 mmol/L (22.0-30.0); Creatinine Clearance Estimated 144 mL/min (50-200); Estimated Glomerular Filt Rate 152 ml/min (>60); GFR (African American) 183 ML/MIN (>60); Globulin 2.3 g/dL (1.3-3.2); Total Protein,Serum 5.8 g/dl (6.3-8.2)
[2024-01-26 21:54] LABS: Glucose 118 mg/dl (74-100)
[2024-01-26 21:58] LABS: Microscopic, Urine URINE MICROSCOPIC (MICROSCOPIC)
[2024-01-26 22:00] LABS: Appearance,Urine CLEAR (Clear); Bilirubin,Urine Negative (Negative); Blood, Urine Negative (Negative); Color,Urine YELLOW (Yellow); Glucose,Urine (UA) Negative (Negative); Ketones,Urine Negative (Negative); Leukocyte Esterase,Urine Negative (Negative); Nitrate,Urine Negative (Negative); Protein,Urine Negative (Negative); Specific Gravity, Urine 1.025 (1.005-1.030); Urobilinogen,Urine 0.2 EU/dl (0.2)
[2024-01-26] MEDS: LABETALOL 100MG TABLET 200 MG PO (22:20)
[2024-01-26 22:22] LABS: Uric Acid 5.1 mg/dl (2.5-6.2)
[2024-01-26 22:23] LABS: Creatinine,Urine Random 122 mg/dL (Not Estab.)
[2024-01-26 22:27] LABS: Bacteria,Urine 3+ /lpf; Barbiturates Screen,Urine Negative ng/ml (<200); Calcium Oxalate Crystals,Urine 2+ /lpf
[2024-01-26 22:29] LABS: Cannabinoid Screen,Urine Negative ng/ml (<50); Cocaine Screen,Urine Negative ng/ml (<300)
[2024-01-26 22:30] LABS: Methadone Screen,Urine Negative ng/ml (<300); Opiate Screen,Urine Negative ng/ml (<300)
[2024-01-26 22:31] LABS: Phencyclidine Screen,Urine Negative ng/ml (<25)
[2024-01-26 22:37] LABS: Amphetamine/Metha Screen,Urine Negative ng/ml (<1000)
[2024-01-26 23:00] VITALS: BMI 44.6
[2024-01-27] MEDS: hydrOXYzine pamoate 25MG CAPSULE 50 MG PO (00:20)
[2024-01-27] MEDS: ACETAMINOPHEN 500MG TAB 1000 MG PO (00:20)
[2024-01-27 00:29] LABS: Benzodiazepines Screen,Urine Negative ng/ml (<200)
[2024-01-27 07:26] VITALS: BP 147/65; PULSE 99; RESP 18; TEMP 36.9; O2SAT 95
--- NOTE | 2024-01-27 08:12 | P.HP_ITS ---
History of Present Illness *Admission Date: 01/26/24 *Reason for visit:: hypertension *History of present illness: Amelie Landin is a 23yo presenting with headache, elevated blood pressure and abdominal pain. She suspected she was having contractions. Her blood pressure was severe range on admission. Admitted at [place] of 24w4d. she is a , previous CS. complicated by chronic hypertension and obesity complete 1hr GTT today reviewed normal pih labs. normal UPC. Normal 24 hour urine s/p IV Labetalol started 200mg PO LAbetalol increase to 300mg BID today PFSH PFSH Disclaimer: The information contained in this section may have been updated after the patient was seen, as this information can be updated by other users. Medical History History of depression Hx of appendicitis History of hypertension Hx of anxiety disorder FH: cholecystectomy delivery delivered Surgical History Hx of cholecystectomy History of colpectomy History of appendectomy Social History Smoking Status: Never smoker alcohol intake: never current occupational status: unemployed Travel in the last 8 weeks: None Other Medical History Have you received the Flu Vaccine for this season: No Have you received the Pneumonia Vaccine: No Meds Home Medications and Allergies Home Medications ?Medication ?Instructions ?Recorded ?Confirmed ?Type albuterol sulfate 90 mcg/actuation 2 inh inhalation Q6H PRN . 10/29/23 01/23/24 History breath activated powder inhaler albuterol sulfate 90 mcg/actuation 1 puff inhalation ONCE PRN . 11/06/23 01/23/24 History aerosol inhaler vits no.126-ferrous fum 1 tab PO .Jeff 11/06/23 01/23/24 History 28 mg iron-folic acid 800 mcg tablet (Classic ) aspirin 81 mg tablet,delayed 81 mg PO DAILY 11/11/23 01/23/24 History release (Adult Aspirin Regimen) magnesium 250 mg tablet 250 mg PO TID 11/11/23 01/23/24 History omeprazole 20 mg capsule,delayed 20 mg PO DAILY #30 caps 12/23/23 01/23/24 Rx release budesonide 90 mcg/actuation breath inhalation 01/20/24 01/23/24 History activated powder inhaler (Pulmicort Flexhaler) cetirizine 10 mg tablet (Zyrtec) 10 mg PO DAILY #30 tabs 01/20/24 01/23/24 Rx aripiprazole 10 mg tablet (Abilify) 10 mg PO DAILY #30 tabs 01/23/24 01/23/24 Rx clotrimazole-betamethasone 1 1 applic topical BID #15 grams 01/23/24 01/23/24 Rx %-0.05 % topical cream desvenlafaxine succinate 100 mg 100 mg PO DAILY #30 tabs 01/23/24 01/23/24 Rx tablet,extended release 24 hr (Pristiq) New Prescriptions to Start Prescriptions: Allergies Allergy/AdvReac Type Severity Reaction Status Date / Time amoxicillin Allergy Other Verified 01/23/24 10:15 cephalexin Allergy Other Verified 01/23/24 10:15 ketorolac (From Toradol) Allergy Other Verified 01/23/24 10:15 clavulanic acid (From AdvReac Intermediate Verified 01/23/24 10:15 Augmentin) Exam Data for Last 24 hours Vital signs and Labs for Last 24 Hours: BP 181/110 H 01/26/24 21:19 Laboratory Results - last 24 hr 01/26/24 20:11: Urine Color Yellow, Urine Appearance Clear, Urine pH 6.0, Ur Specific [place] 1.025, Urine Protein Negative, Urine Glucose (UA) Negative, Urine Ketones Negative, Urine Blood Negative, Urine Nitrate Negative, Urine Bilirubin Negative, Urine Urobilinogen 0.2, Ur Leukocyte Esterase Negative, Urine RBC None, Urine WBC 3-5, Ur Squamous Epith Cells 5-10, Calcium Oxalate Crystal 2+, Urine Bacteria 3+, Urine Creatinine 122, Urine Total Protein 16.0 H, Urine Opiates Screen Negative, Urine Methadone Screen Negative, Ur Barbituates Screen Negative, Ur Phencyclidine Scrn Negative, Ur Amphetamines Screen Negative, U Benzodiazepines Scrn Negative, Urine Cocaine Screen Negative, U Marijuana (THC) Screen Negative 01/26/24 21:12: WBC 11.2 H, RBC 3.93 L, Hgb 12.3, Hct 36.2 L, MCV 92.1, MCH 31.4 H, MCHC 34.0, RDW 14.4, Plt Count 277, MPV 7.3 L, Neut % (Auto) 68.8, Lymph % (Auto) 22.8, [place] % (Auto) 3.8, Eos % (Auto) 3.9, Baso % (Auto) 0.7, Neut # (Auto) 7.7, Lymph # (Auto) 2.6, [place] # (Auto) 0.4, Eos # (Auto) 0.4, Baso # (Auto) 0.1, Sodium 135 L, Potassium 3.7, Chloride 106, Carbon Dioxide 22, Anion Gap 10.7, BUN 7, Creatinine 0.50 L, Estimated Creat Clear 144, Estimated GFR 152, Est GFR ( Amer) 183, Glucose 118 H, Uric Acid 5.1, Calcium 9.0, Total Bilirubin 0.4, AST 28, ALT 20, Alkaline Phosphatase 62, Total Protein 5.8 L, Albumin 3.5, Globulin 2.3, Albumin/Globulin Ratio 1.5 I & O for Last 24 hours: Intake & Output 01/24/24 01/25/24 01/26/24 01/27/24 23:59 23:59 23:59 23:59 Weight 252 lb
[2024-01-27] MEDS: LABETALOL 100MG TABLET 100 MG PO (10:41)
--- NOTE | 2024-01-27 11:57 | EXP.HPDC ---
General Admission date:: 01/26/24 Discharge date: 01/27/24 *Admission Date: 01/26/24 *Chief complaint: elevated BP *History of present illness: Amelie Landin is a 23yo presenting with headache, elevated blood pressure and abdominal pain. She suspected she was having contractions. Her blood pressure was severe range on admission. Admitted at GA of 24w4d. she is a , previous CS. complicated by chronic hypertension and obesity [facility] Disclaimer: The information contained in this section may have been updated after the patient was seen, as this information can be updated by other users. Medical History History of depression Hx of appendicitis History of hypertension Hx of anxiety disorder FH: cholecystectomy delivery delivered Surgical History Hx of cholecystectomy History of colpectomy History of appendectomy Social History (Updated 01/27/24 @ 09:27 by Dexter Thompson RN) Smoking Status: Never smoker alcohol intake: never current occupational status: unemployed Travel in the last 8 weeks: None Other Medical History Have you received the Flu Vaccine for this season: No Have you received the Pneumonia Vaccine: No Review of Systems Review of Systems Review of systems (narrative): Review of Systems Constitutional: Denies fever, chills, and sweats Eyes: Denies vision change/ pain Respiratory: Denies cough and shortness of breath Cardiovascular: Denies chest pain and lightheadedness Gastrointestinal: Improving abdominal pain. Denies nausea, vomiting. Genitourinary: Denies dysuria and incontinence Neurological: Improving headache Exam Data for Last 24 hours Vital signs and Labs for Last 24 Hours: Temp Pulse Resp BP Pulse Ox O2 Del Method 98.5 F 99 H 18 147/65 H 95 Room Air 01/27/24 07:26 01/27/24 07:26 01/27/24 07:26 01/27/24 07:26 01/27/24 07:26 01/27/24 07:26 Laboratory Results - last 24 hr 01/26/24 20:11: Urine Color Yellow, Urine Appearance Clear, Urine pH 6.0, Ur Specific [place] 1.025, Urine Protein Negative, Urine Glucose (UA) Negative, Urine Ketones Negative, Urine Blood Negative, Urine Nitrate Negative, Urine Bilirubin Negative, Urine Urobilinogen 0.2, Ur Leukocyte Esterase Negative, Urine RBC None, Urine WBC 3-5, Ur Squamous Epith Cells 5-10, Calcium Oxalate Crystal 2+, Urine Bacteria 3+, Urine Creatinine 122, Urine Total Protein 16.0 H, Urine Opiates Screen Negative, Urine Methadone Screen Negative, Ur Barbituates Screen Negative, Ur Phencyclidine Scrn Negative, Ur Amphetamines Screen Negative, U Benzodiazepines Scrn Negative, Urine Cocaine Screen Negative, U Marijuana (THC) Screen Negative 01/26/24 21:12: WBC 11.2 H, RBC 3.93 L, Hgb 12.3, Hct 36.2 L, MCV 92.1, MCH 31.4 H, MCHC 34.0, RDW 14.4, Plt Count 277, MPV 7.3 L, Neut % (Auto) 68.8, Lymph % (Auto) 22.8, [place] % (Auto) 3.8, Eos % (Auto) 3.9, Baso % (Auto) 0.7, Neut # (Auto) 7.7, Lymph # (Auto) 2.6, [place] # (Auto) 0.4, Eos # (Auto) 0.4, Baso # (Auto) 0.1, Sodium 135 L, Potassium 3.7, Chloride 106, Carbon Dioxide 22, Anion Gap 10.7, BUN 7, Creatinine 0.50 L, Estimated Creat Clear 144, Estimated GFR 152, Est GFR ( Amer) 183, Glucose 118 H, Uric Acid 5.1, Calcium 9.0, Total Bilirubin 0.4, AST 28, ALT 20, Alkaline Phosphatase 62, Total Protein 5.8 L, Albumin 3.5, Globulin 2.3, Albumin/Globulin Ratio 1.5 I & O for Last 24 hours: Intake & Output 01/24/24 01/25/24 01/26/24 01/27/24 23:59 23:59 23:59 23:59 Weight 252 lb Constitutional Constitutional: no acute distress *Routine HEENT Exam Head: Present normocephalic Eye: Present EOMI and PERRL ENT: Present mucous membranes moist *Routine Neck Exam Neck: Present supple; Absent lymphadenopathy *Routine Respiratory Exam Respiratory: Present CTA bilaterally *Routine Cardiovascular Exam Cardiovascular: Present RRR *Routine Abdominal Exam Abdominal: Present soft and normoactive bowel sounds; Absent tenderness *Routine Rectal Exam Rectal:: deferred *Routine Genitalia Exam Genitalia:: deferred *Routine Extremities Exam Extremities: Absent cyanosis, clubbing or edema *Routine Skin Exam Skin: Present warm; Absent rash *Routine Neurological Exam Neurological: Present alert and oriented X3 Meds Home Medications and Allergies Home Medications ?Medication ?Instructions ?Recorded ?Confirmed ?Type albuterol sulfate 90 mcg/actuation 2 inh inhalation Q6H PRN . 10/29/23 01/23/24 History breath activated powder inhaler albuterol sulfate 90 mcg/actuation 1 puff inhalation ONCE PRN . 11/06/23 01/23/24 History aerosol inhaler vits no.126-ferrous fum 1 tab PO .Jeff 11/06/23 01/23/24 History 28 mg iron-folic acid 800 mcg tablet (Classic ) aspirin 81 mg tablet,delayed 81 mg PO DAILY 11/11/23 01/23/24 History release (Adult Aspirin Regimen) magnesium 250 mg tablet 250 mg PO TID 11/11/23 01/23/24 History omeprazole 20 mg capsule,delayed 20 mg PO DAILY #30 caps 12/23/23 01/23/24 Rx release budesonide 90 mcg/actuation breath inhalation 01/20/24 01/23/24 History activated powder inhaler (Pulmicort Flexhaler) cetirizine 10 mg tablet (Zyrtec) 10 mg PO DAILY #30 tabs 01/20/24 01/23/24 Rx aripiprazole 10 mg tablet (Abilify) 10 mg PO DAILY #30 tabs 01/23/24 01/23/24 Rx clotrimazole-betamethasone 1 1 applic topical BID #15 grams 01/23/24 01/23/24 Rx %-0.05 % topical cream desvenlafaxine succinate 100 mg 100 mg PO DAILY #30 tabs 01/23/24 01/23/24 Rx tablet,extended release 24 hr (Pristiq) labetalol 100 mg tablet 100 mg PO BID #60 tabs 01/27/24 Rx New Prescriptions to Start Prescriptions: labetalol Jade Rivera Allergies Allergy/AdvReac Type Severity Reaction Status Date / Time amoxicillin Allergy Other Verified 01/23/24 10:15 cephalexin Allergy Other Verified 01/23/24 10:15 ketorolac (From Toradol) Allergy Other Verified 01/23/24 10:15 clavulanic acid (From AdvReac Intermediate Verified 01/23/24 10:15 Augmentin) Hospital Course Hospital Course Hospital Course: After admission she received 1 dose of IV labetalol and was started on 200 mg twice daily. Her cuff was adjusted this morning to the appropriate size and manual blood pressures were checked and her blood pressure was within normal limits. She was decreased to 100 mg twice daily. Her [facility] labs were reviewed and all within normal limits. She had a normal urine protein to creatinine ratio. Her 24-hour urine from last week was reviewed and appropriate. A 1 hour GTT was completed prior to discharge, results pending. She will have short interval follow-up in the office for blood pressure monitoring. She also is complaining of a headache which has significantly improved. She also was complaining of contractions. She has not had any this morning. She got a shower without any problems or pain. Return precautions were reviewed in detail Results Data Completed and Pending Labs on day of discharge: Labs from last 24 hours 01/26/24 01/26/24 21:12 20:11 WBC 11.2 H RBC 3.93 L Hgb 12.3 Hct 36.2 L MCV 92.1 MCH 31.4 H MCHC 34.0 RDW 14.4 Plt Count 277 MPV 7.3 L Neut % (Auto) 68.8 Lymph % (Auto) 22.8 [place] % (Auto) 3.8 Eos % (Auto) 3.9 Baso % (Auto) 0.7 Neut # (Auto) 7.7 Lymph # (Auto) 2.6 [place] # (Auto) 0.4 Eos # (Auto) 0.4 Baso # (Auto) 0.1 Sodium 135 L Potassium 3.7 Chloride 106 Carbon Dioxide 22 Anion Gap 10.7 BUN 7 Creatinine 0.50 L Estimated Creat Clear 144 Estimated GFR 152 Est GFR ( Amer) 183 Glucose 118 H Uric Acid 5.1 Calcium 9.0 Total Bilirubin 0.4 AST 28 ALT 20 Alkaline Phosphatase 62 Total Protein 5.8 L Albumin 3.5 Globulin 2.3 Albumin/Globulin Ratio 1.5 Urine Color Yellow Urine Appearance Clear Urine pH 6.0 Ur Specific [place] 1.025 Urine Protein Negative Urine Glucose (UA) Negative Urine Ketones Negative Urine Blood Negative Urine Nitrate Negative Urine Bilirubin Negative Urine Urobilinogen 0.2 Ur Leukocyte Esterase Negative Urine RBC None Urine WBC 3-5 Ur Squamous Epith Cells 5-10 Calcium Oxalate Crystal 2+ Urine Bacteria 3+ Urine Creatinine 122 Urine Total Protein 16.0 H Urine Opiates Screen Negative Urine Methadone Screen Negative Ur Barbituates Screen Negative Ur Phencyclidine Scrn Negative Ur Amphetamines Screen Negative U Benzodiazepines Scrn Negative Urine Cocaine Screen Negative U Marijuana (THC) Screen Negative Discharge Plan Disposition Patient Disposition: Home, Self-Care Follow up Plan Follow up with: Jade Rivera DO [Staff Physician] - Enter time for follow up Prescriptions/Medication Reconciliation: New labetalol 100 mg Tablet 100 mg PO BID Qty: 60 1RF Continued albuterol sulfate 90 mcg/actuation aerosol powdr breath activated 2 inh inhalation Q6H PRN (Reason: .) albuterol sulfate 90 mcg/actuation HFA aerosol inhaler 1 puff inhalation ONCE PRN (Reason: .) Patient Comments: INHALE 2 PUFFS BY MOUTH EVERY 6 HOURS NEEDED FOR SHORTNESS OF BREATH OR WHEEZING Classic 28 mg iron- 800 mcg tablet 1 tab PO .Jeff omeprazole 20 mg capsule,delayed release(DR/EC) 20 mg PO DAILY Qty: 30 2RF Pulmicort Flexhaler 90 mcg/actuation aerosol powdr breath activated inhalation Patient Comments: INHALE 2 PUFFS 2 TIMES EACH DAY. RINSE MOUTH AFTER USE. cetirizine [Zyrtec] 10 mg tablet 10 mg PO DAILY Qty: 30 2RF desvenlafaxine succinate [Pristiq] 100 mg tablet extended release 24 hr 100 mg PO DAILY Qty: 30 3RF aripiprazole [Abilify] 10 mg tablet 10 mg PO DAILY Qty: 30 3RF clotrimazole-betamethasone 1-0.05 % cream 1 applic topical BID Qty: 15 1RF aspirin [Adult Aspirin Regimen] 81 mg tablet,delayed release (DR/EC) 81 mg PO DAILY magnesium 250 mg tablet 250 mg PO TID Problem Reconciliation Problems Reviewed?: Yes Patient Discharge Instructions ACTIVITY: Continue current activity DIET: regular diet Print Language: [place] Providers Primary Care Provider: Daryl Garcia Admit Provider: Yanira Swift Attending Provider: Yanira Swift
[2024-01-27 12:10] LABS: Glucose,Fasting 109 mg/dl (74-100)
[2024-01-27 14:06] LABS: Glucose 1 Hour 132 mg/dL (74-100)
== END 2024-01-27 14:38 | disposition home or self-care (01) ==
LOC: OBOUT 21:43 → OB 21:43
PROVIDERS: Obstetrics & Gynecology; Admitting Provider Obstetrics & Gynecology; PCP Family Medicine; Visit Provider Obstetrics & Gynecology
DX: O26.892 Other specified pregnancy related conditions, second trimester (principal); R51.9 Headache, unspecified; I10 Essential (primary) hypertension; F41.9 Anxiety disorder, unspecified; O99.342 Other mental disorders complicating pregnancy, second trimester; Z3A.24 24 weeks gestation of pregnancy
CPT/HCPCS: 59025; 80053; 80307; 81001; 82570; 82951; 84156; 84550; 85025; 87086; G0378; J1920

== ENCOUNTER 2024-01-28 01:41 | Observation (INO) | payer OTHER, SELFPAY ==
[2024-01-28 00:52] VITALS: BP 130/87; PULSE 99; RESP 20; TEMP 36.8; O2SAT 98; BMI 44.6
[2024-01-28 01:08] LABS: Microscopic, Urine URINE MICROSCOPIC (MICROSCOPIC)
[2024-01-28 01:09] LABS: Appearance,Urine CLEAR (Clear); Bilirubin,Urine Negative (Negative); Blood, Urine TRACE-I (Negative); Color,Urine YELLOW (Yellow); Glucose,Urine (UA) Negative (Negative); Ketones,Urine Negative (Negative); Leukocyte Esterase,Urine TRACE (Negative); Nitrate,Urine Negative (Negative); Protein,Urine Negative (Negative); Specific Gravity, Urine 1.015 (1.005-1.030); Urobilinogen,Urine 0.2 EU/dl (0.2)
[2024-01-28 01:21] LABS: Bacteria,Urine 1+ /lpf
[2024-01-28 02:11] LABS: Barbiturates Screen,Urine Negative ng/ml (<200)
[2024-01-28 02:12] LABS: Amphetamine/Metha Screen,Urine Negative ng/ml (<1000); Benzodiazepines Screen,Urine Negative ng/ml (<200)
[2024-01-28 02:13] LABS: Methadone Screen,Urine Negative ng/ml (<300)
[2024-01-28 02:14] LABS: Cannabinoid Screen,Urine Negative ng/ml (<50); Cocaine Screen,Urine Negative ng/ml (<300)
[2024-01-28 02:15] LABS: Opiate Screen,Urine Negative ng/ml (<300); Phencyclidine Screen,Urine Negative ng/ml (<25)
--- NOTE | 2024-01-28 07:30 | US_ITS ---
PROCEDURE: US TRANSVAGINAL CLINICAL INDICATION: cervical dialation COMPARISON: US POINT OF CARE US (ER ONLY) from 11/12/2023 US US OB >= 14 WEEKS FETUS from 12/16/2023 FINDINGS: Transvaginal sonographic images of the pelvis were obtained. The following parameters are obtained: From her established due date she is 25weeks 1day Transvaginal images of the cervix were obtained The cervix measures 4.02 cm and appears closed IMPRESSION: 1. Transvaginal images of the cervix were obtained. The cervix measures approximately 4 cm in length. It appears closed. Dictated by: Cali Guillen MD 01/28/2024 10:57 Cali Guillen MD in [place] 01/28/2024 10:57
--- NOTE | 2024-01-28 08:17 | EXP.HPDC ---
General Admission date:: 01/28/24 Discharge date: 01/28/24 *Admission Date: 01/27/24 *Chief complaint: contractions *History of present illness: Melchor Landin is a 23yo at 24w5d was discharged yesterday after prolonged observation. She returned for contractions and was checked and noted to be a fingertip and thick. She was monitored overnight and no contractions were noted on tocometer. She endorses good movement. Denies VB or LOF. [facility] Disclaimer: The information contained in this section may have been updated after the patient was seen, as this information can be updated by other users. Medical History History of depression Hx of appendicitis History of hypertension Hx of anxiety disorder FH: cholecystectomy delivery delivered Surgical History Hx of cholecystectomy History of colpectomy History of appendectomy Social History (Updated 01/27/24 @ 09:27 by Dexter Thompson RN) Smoking Status: Never smoker alcohol intake: never current occupational status: unemployed Travel in the last 8 weeks: None Other Medical History Have you received the Flu Vaccine for this season: No Have you received the Pneumonia Vaccine: No Review of Systems Review of Systems Review of systems (narrative): Review of Systems Constitutional: Denies fever, chills, and sweats Eyes: Denies vision change/ pain Respiratory: Denies cough and shortness of breath Cardiovascular: Denies chest pain and lightheadedness Gastrointestinal: Improving abdominal pain. Denies nausea, vomiting. Genitourinary: Denies dysuria and incontinence Neurological: Improving headache Exam Data for Last 24 hours Vital signs and Labs for Last 24 Hours: Temp Pulse Resp BP Pulse Ox O2 Del Method 98.3 F 99 H 20 130/87 98 Room Air 01/28/24 00:52 01/28/24 00:52 01/28/24 00:52 01/28/24 00:52 01/28/24 00:52 01/28/24 00:52 Laboratory Results - last 24 hr 01/28/24 00:40: Urine Color Yellow, Urine Appearance Clear, Urine pH 6.0, Ur Specific [place] 1.015, Urine Protein Negative, Urine Glucose (UA) Negative, Urine Ketones Negative, Urine Blood Trace-i, Urine Nitrate Negative, Urine Bilirubin Negative, Urine Urobilinogen 0.2, Ur Leukocyte Esterase Trace, Urine RBC 10-20, Urine WBC 3-5, Ur Squamous Epith Cells 10-20, Urine Bacteria 1+, Urine Opiates Screen Negative, Urine Methadone Screen Negative, Ur Barbituates Screen Negative, Ur Phencyclidine Scrn Negative, Ur Amphetamines Screen Negative, U Benzodiazepines Scrn Negative, Urine Cocaine Screen Negative, U Marijuana (THC) Screen Negative I & O for Last 24 hours: Intake & Output 01/25/24 01/26/24 01/27/24 01/28/24 23:59 23:59 23:59 23:59 Weight 252 lb Constitutional Constitutional: no acute distress *Routine HEENT Exam Head: Present normocephalic Eye: Present EOMI and PERRL ENT: Present mucous membranes moist *Routine Neck Exam Neck: Present supple; Absent lymphadenopathy *Routine Respiratory Exam Respiratory: Present CTA bilaterally *Routine Cardiovascular Exam Cardiovascular: Present RRR *Routine Abdominal Exam Abdominal: Present soft and normoactive bowel sounds; Absent tenderness *Routine Rectal Exam Rectal:: deferred *Routine Genitalia Exam Genitalia:: deferred *Routine Extremities Exam Extremities: Absent cyanosis, clubbing or edema *Routine Skin Exam Skin: Present warm; Absent rash *Routine Neurological Exam Neurological: Present alert and oriented X3 Meds Home Medications and Allergies Home Medications ?Medication ?Instructions ?Recorded ?Confirmed ?Type albuterol sulfate 90 mcg/actuation 2 inh inhalation Q6H PRN . 10/29/23 01/23/24 History breath activated powder inhaler albuterol sulfate 90 mcg/actuation 1 puff inhalation ONCE PRN . 11/06/23 01/23/24 History aerosol inhaler vits no.126-ferrous fum 1 tab PO .Jeff 11/06/23 01/23/24 History 28 mg iron-folic acid 800 mcg tablet (Classic ) aspirin 81 mg tablet,delayed 81 mg PO DAILY 11/11/23 01/23/24 History release (Adult Aspirin Regimen) magnesium 250 mg tablet 250 mg PO TID 11/11/23 01/23/24 History omeprazole 20 mg capsule,delayed 20 mg PO DAILY #30 caps 12/23/23 01/23/24 Rx release budesonide 90 mcg/actuation breath inhalation 01/20/24 01/23/24 History activated powder inhaler (Pulmicort Flexhaler) cetirizine 10 mg tablet (Zyrtec) 10 mg PO DAILY #30 tabs 01/20/24 01/23/24 Rx aripiprazole 10 mg tablet (Abilify) 10 mg PO DAILY #30 tabs 01/23/24 01/23/24 Rx clotrimazole-betamethasone 1 1 applic topical BID #15 grams 01/23/24 01/23/24 Rx %-0.05 % topical cream desvenlafaxine succinate 100 mg 100 mg PO DAILY #30 tabs 01/23/24 01/23/24 Rx tablet,extended release 24 hr (Pristiq) labetalol 100 mg tablet 100 mg PO BID #60 tabs 01/27/24 Rx New Prescriptions to Start Prescriptions: Allergies Allergy/AdvReac Type Severity Reaction Status Date / Time amoxicillin Allergy Other Verified 01/23/24 10:15 cephalexin Allergy Other Verified 01/23/24 10:15 ketorolac (From Toradol) Allergy Other Verified 01/23/24 10:15 clavulanic acid (From AdvReac Intermediate Verified 01/23/24 10:15 Augmentin) Hospital Course Hospital Course Hospital Course: This morning she had a TVUS for cervical length and her cervix was >3cm. We discussed the unlikely event of labor and PTD. I also extensively reviewed return precautions. Ms. Landin was discharged home with short interval follow up. No contractions noted on tocometer since 01/26/24. movement noted. BP well controlled. Headache improved since previous admission Results Data Completed and Pending Labs on day of discharge: Labs from last 24 hours 01/28/24 00:40 Urine Color Yellow Urine Appearance Clear Urine pH 6.0 Ur Specific [place] 1.015 Urine Protein Negative Urine Glucose (UA) Negative Urine Ketones Negative Urine Blood Trace-i Urine Nitrate Negative Urine Bilirubin Negative Urine Urobilinogen 0.2 Ur Leukocyte Esterase Trace Urine RBC 10-20 Urine WBC 3-5 Ur Squamous Epith Cells 10-20 Urine Bacteria 1+ Urine Opiates Screen Negative Urine Methadone Screen Negative Ur Barbituates Screen Negative Ur Phencyclidine Scrn Negative Ur Amphetamines Screen Negative U Benzodiazepines Scrn Negative Urine Cocaine Screen Negative U Marijuana (THC) Screen Negative Discharge Plan Disposition Patient Disposition: Home, Self-Care Follow up Plan Prescriptions/Medication Reconciliation: Continued albuterol sulfate 90 mcg/actuation aerosol powdr breath activated 2 inh inhalation Q6H PRN (Reason: .) albuterol sulfate 90 mcg/actuation HFA aerosol inhaler 1 puff inhalation ONCE PRN (Reason: .) Patient Comments: INHALE 2 PUFFS BY MOUTH EVERY 6 HOURS NEEDED FOR SHORTNESS OF BREATH OR WHEEZING Classic 28 mg iron- 800 mcg tablet 1 tab PO .Jeff omeprazole 20 mg capsule,delayed release(DR/EC) 20 mg PO DAILY Qty: 30 2RF Pulmicort Flexhaler 90 mcg/actuation aerosol powdr breath activated inhalation Patient Comments: INHALE 2 PUFFS 2 TIMES EACH DAY. RINSE MOUTH AFTER USE. cetirizine [Zyrtec] 10 mg tablet 10 mg PO DAILY Qty: 30 2RF desvenlafaxine succinate [Pristiq] 100 mg tablet extended release 24 hr 100 mg PO DAILY Qty: 30 3RF aripiprazole [Abilify] 10 mg tablet 10 mg PO DAILY Qty: 30 3RF clotrimazole-betamethasone 1-0.05 % cream 1 applic topical BID Qty: 15 1RF aspirin [Adult Aspirin Regimen] 81 mg tablet,delayed release (DR/EC) 81 mg PO DAILY magnesium 250 mg tablet 250 mg PO TID labetalol 100 mg Tablet 100 mg PO BID Qty: 60 1RF Problem Reconciliation Problems Reviewed?: Yes Patient Discharge Instructions ACTIVITY: Continue current activity DIET: regular diet Print Language: Occitan Providers Primary Care Provider: Daryl Garcia Admit Provider: Jade Rivera Attending Provider: Jade Rivera
[2024-01-28 08:34] VITALS: BP 123/68; PULSE 97; RESP 18; TEMP 36.7; O2SAT 98
== END 2024-01-28 09:42 | disposition home or self-care (01) ==
LOC: OBOUT 01:42 → OB 01:42
PROVIDERS: Admitting Provider Obstetrics & Gynecology; PCP Family Medicine; Visit Provider Obstetrics & Gynecology
DX: O47.02 False labor before 37 completed weeks of gestation, second trimester (principal); Z3A.24 24 weeks gestation of pregnancy; O16.2 Unspecified maternal hypertension, second trimester
CPT/HCPCS: 59025; 76830; 80307; 81001; G0378; G0463

== ENCOUNTER 2024-02-06 11:33 | Outpatient (CLI) | payer OTHER, SELFPAY ==
[2024-02-06 11:46] VITALS: BMI 45.1
[2024-02-06 11:58] LABS: Microscopic, Urine URINE MICROSCOPIC (MICROSCOPIC)
[2024-02-06 12:00] VITALS: BP 142/72; PULSE 85; RESP 18; TEMP 36.9; O2SAT 98; BMI 45.1
[2024-02-06 12:11] LABS: Appearance,Urine CLEAR (Clear); Bilirubin,Urine Negative (Negative); Blood, Urine Negative (Negative); Color,Urine YELLOW (Yellow); Glucose,Urine (UA) Negative (Negative); Ketones,Urine Negative (Negative); Leukocyte Esterase,Urine Negative (Negative); Nitrate,Urine Negative (Negative); PH,Urine 6.5 (5.0-8.5); Protein,Urine Negative (Negative); Urobilinogen,Urine 0.2 EU/dl (0.2)
[2024-02-06 12:27] LABS: Barbiturates Screen,Urine Negative ng/ml (<200)
[2024-02-06 12:28] LABS: Amphetamine/Metha Screen,Urine Negative ng/ml (<1000); Benzodiazepines Screen,Urine Negative ng/ml (<200)
[2024-02-06 12:29] LABS: Cannabinoid Screen,Urine Negative ng/ml (<50); Cocaine Screen,Urine Negative ng/ml (<300)
[2024-02-06 12:30] LABS: Methadone Screen,Urine Negative ng/ml (<300)
[2024-02-06 12:31] LABS: Opiate Screen,Urine Negative ng/ml (<300); Phencyclidine Screen,Urine Negative ng/ml (<25)
[2024-02-06 12:32] LABS: Bacteria,Urine Trace /lpf; WBC,Urine Occasional #/hpf (0-3)
[2024-02-06] MEDS: BUTALB/ACETAMINOPHEN/CAFFEINE 50MG/325MG/40MG TAB 1 EACH PO (12:59)
[2024-02-06] MEDS: DEXTROSE 5%-LACTATED RINGERS 1,000 ML 999 ML IV (13:50)
[2024-02-06 14:12] LABS: Alanine Aminotransferase 19 U/L (12-78); Albumin Level 3.5 g/dl (3.5-5.0); Albumin/Globulin Ratio 1.3 (1.1-1.8); Alkaline Phosphatase 73 U/L (38-126); Anion Gap 8.9 mEq/L (5-15); Aspartate Amino Transferase 23 U/L (14-36); Bilirubin,Total 0.5 mg/dl (0.2-1.3); Blood Urea Nitrogen 8 mg/dl (7-17); Calcium 8.8 mg/dl (8.4-10.2); Carbon Dioxide 23 mmol/L (22.0-30.0); Chloride 106 mmol/L (98-107); Creatinine Clearance Estimated 114 mL/min (50-200); Estimated Glomerular Filt Rate 123 ml/min (>60); GFR (African American) 149 ML/MIN (>60); Globulin 2.7 g/dL (1.3-3.2); Glucose 85 mg/dl (74-100); Potassium 3.9 mmoL/L (3.5-5.1); Sodium 134 mmol/L (136-145); Total Protein,Serum 6.2 g/dl (6.3-8.2); Uric Acid 5.5 mg/dl (2.5-6.2)
[2024-02-06 14:15] LABS: Activated Partial Thrombo Time 26.6 seconds (22.8-30.6); Fibrinogen 430 mg/dL (229.9-363.5); INR 0.91 (0.9-1.1); Prothrombin Time 10.3 seconds (10.1-12.5)
[2024-02-06 14:24] LABS: Basophils % 0.4 % (0.1-2.0); Eosinophils % 4.7 % (0.1-12.0); Hematocrit 34.9 % (37.0-47.0); Hemoglobin 11.6 g/dL (12.2-16.2); Lymphocytes # 1.9 K/mm3 (0.7-4.5); Lymphocytes % 16.1 % (10-50); Mean Corpuscular HGB Conc 33.2 g/dL (31.8-35.4); Mean Corpuscular Hemoglobin 29.8 pg (27.0-31.2); Mean Corpuscular Volume 89.7 fl (81-99); Monocytes # 0.6 K/mm3 (0.1-1.0); Monocytes % 5.4 % (1.7-9.3); Neutrophils # 8.6 K/mm3 (1.8-7.8); Neutrophils % 72.5 % (37.0-80.0); Platelet Count 260 K/mm3 (142-424); Red Blood Count 3.89 M/mm3 (4.20-5.40); Red Cell Distribution Width 13.2 % (11.5-17.5); White Blood Count 11.9 K/mm3 (4.8-10.8)
[2024-02-06 14:25] LABS: Basophils # 0.1 K/mm3 (0-0.2); Eosinophils # 0.6 K/mm3 (0.0-0.4)
[2024-02-06 14:54] LABS: Creatinine,Urine Random 91 mg/dL (Not Estab.)
== END 2024-02-06 15:18 | disposition home or self-care (01) ==
LOC: OBOUT 11:34 → OB 11:35
PROVIDERS: PCP Family Medicine; Visit Provider Nurse Practitioner Obstetrics & Gynecology
DX: O60.02 Preterm labor without delivery, second trimester (principal); Z3A.26 26 weeks gestation of pregnancy; G43.909 Migraine, unspecified, not intractable, without status migrainosus
CPT/HCPCS: 80053; 80307; 81001; 82570; 84156; 84550; 85025; 85384; 85610; 85730; G0463

== ENCOUNTER 2024-02-12 15:43 | Emergency (ER) | payer OTHER, SELFPAY ==
[2024-02-12] VITALS (11 sets, daily range): BP systolic 108–151; BP diastolic 60–77; PULSE 86–97; RESP 18–20; TEMP 36.8; O2SAT 95–99; BMI 44.2
--- NOTE | 2024-02-12 16:02 | HMH.EDGENADL ---
Discharge Plan Disposition Patient Disposition: Home, Self-Care Condition: Good Prescriptions Prescriptions: New nitrofurantoin monohyd/m-cryst 100 mg capsule 100 mg PO BID 5 Days Qty: 10 0RF Rx Instructions: must administer with a meal/food No Action albuterol sulfate 90 mcg/actuation aerosol powdr breath activated 2 inh inhalation Q6H PRN (Reason: .) albuterol sulfate 90 mcg/actuation HFA aerosol inhaler 1 puff inhalation ONCE PRN (Reason: .) Patient Comments: INHALE 2 PUFFS BY MOUTH EVERY 6 HOURS NEEDED FOR SHORTNESS OF BREATH OR WHEEZING Classic 28 mg iron- 800 mcg tablet 1 tab PO .Jeff omeprazole 20 mg capsule,delayed release(DR/EC) 20 mg PO DAILY Qty: 30 2RF Pulmicort Flexhaler 90 mcg/actuation aerosol powdr breath activated inhalation Patient Comments: INHALE 2 PUFFS 2 TIMES EACH DAY. RINSE MOUTH AFTER USE. cetirizine [Zyrtec] 10 mg tablet 10 mg PO DAILY Qty: 30 2RF desvenlafaxine succinate [Pristiq] 100 mg tablet extended release 24 hr 100 mg PO DAILY Qty: 30 3RF aripiprazole [Abilify] 10 mg tablet 10 mg PO DAILY Qty: 30 3RF aspirin [Adult Aspirin Regimen] 81 mg tablet,delayed release (DR/EC) 81 mg PO DAILY magnesium 250 mg tablet 250 mg PO TID clotrimazole-betamethasone 1-0.05 % cream 1 applic topical BID Qty: 15 1RF labetalol 100 mg Tablet 100 mg PO BID Qty: 60 1RF Referrals Follow up/Referrals: Daryl Garcia MD [Primary Care Provider] - See instructions Activity Restrictions/Add. Instructions Additional Instructions/Restrictions: Please follow-up with your PCP on Friday for recheck. If you have any increasing pain fever or bleeding return to the ER as needed. I have sent in a prescription for an antibiotic to your pharmacy to treat your urinary tract infection. Clinical Impressions Clinical Impression: BRBPR (bright red blood per rectum), Urinary tract bacterial infections Instructions Patient Instructions: DI for Acute Abdominal Pain Print Language Print Language: Vietnamese Discharge ED Provider: Anisha De Leon General Adult HPI <KATHI Donnelly - Last Filed: 02/12/24 18:55> General Chief complaint: Abdominal Pain Stated complaint: 27 wks with blood stools Time Seen by Provider: 02/12/24 16:02 History of Present Illness HPI narrative: Patient presents for evaluation of self-reported bright red blood per rectum. Patient states that she has been having bright red blood per rectum when defecating. She does not report blood when not defecating. She denies any fever chills hemoptysis hematochezia melena nausea vomiting diarrhea. She denies any abdominal pain. She is however 27 weeks . Related Data Home Medications ?Medication ?Instructions ?Recorded ?Confirmed albuterol sulfate 90 mcg/actuation 2 inh inhalation Q6H PRN . 10/29/23 02/04/24 breath activated powder inhaler albuterol sulfate 90 mcg/actuation 1 puff inhalation ONCE PRN . 11/06/23 02/04/24 aerosol inhaler vits no.126-ferrous fum 1 tab PO .Jeff 11/06/23 02/04/24 28 mg iron-folic acid 800 mcg tablet (Classic ) aspirin 81 mg tablet,delayed 81 mg PO DAILY 11/11/23 02/04/24 release (Adult Aspirin Regimen) magnesium 250 mg tablet 250 mg PO TID 11/11/23 02/04/24 budesonide 90 mcg/actuation breath inhalation 01/20/24 02/04/24 activated powder inhaler (Pulmicort Flexhaler) Previous Rx's ?Medication ?Instructions ?Recorded omeprazole 20 mg capsule,delayed 20 mg PO DAILY #30 caps 12/23/23 release cetirizine 10 mg tablet (Zyrtec) 10 mg PO DAILY #30 tabs 01/20/24 aripiprazole 10 mg tablet (Abilify) 10 mg PO DAILY #30 tabs 01/23/24 desvenlafaxine succinate 100 mg 100 mg PO DAILY #30 tabs 01/23/24 tablet,extended release 24 hr (Pristiq) labetalol 100 mg tablet 100 mg PO BID #60 tabs 01/27/24 clotrimazole-betamethasone 1 1 applic topical BID #15 grams 02/04/24 %-0.05 % topical cream nitrofurantoin 100 mg PO BID 5 days #10 caps 02/12/24 monohydrate/macrocrystals 100 mg capsule Allergies Allergy/AdvReac Type Severity Reaction Status Date / Time amoxicillin Allergy Other Verified 02/04/24 10:34 cephalexin Allergy Other Verified 02/04/24 10:34 ketorolac (From Toradol) Allergy Other Verified 02/04/24 10:34 clavulanic acid (From AdvReac Intermediate Verified 02/04/24 10:34 Augmentin) [facility] <KATHI Donnelly - Last Filed: 02/12/24 18:55> [facility] Disclaimer: The information contained in this section may have been updated after the patient was seen, as this information can be updated by other users. Medical History History of depression Hx of appendicitis History of hypertension Hx of anxiety disorder FH: cholecystectomy delivery delivered Surgical History Hx of cholecystectomy History of colpectomy History of appendectomy Social History Smoking Status: Unknown if ever smoked alcohol intake: never current occupational status: unemployed Travel in the last 8 weeks: None Have you lived/traveled outside [place] in past 30 days?: No Contact w/someone who lives/traveled outside [place] past 30 days?: No Exposure to someone with infectious disease in past 14 days?: No Do you have a fever (greater than 100.4 F or 38 C)?: No Have you tested positive for COVID-19: No Exposed to someone with COVID-19 in past 14 days?: No Do you have a sore throat?: No Do you have a cough?: No Do you have any weakness?: No Do you have any diarrhea?: No Are you experiencing any unusual bleeding?: Yes Do you have any muscle aches/pain?: No Do you have any abdominal pain?: No Are you experiencing loss of taste or smell?: No Other Medical History Have you received the Flu Vaccine for this season: No Have you received the Pneumonia Vaccine: No <KATHI Donnelly - Last Filed: 02/12/24 18:55> ROS Obtained: Yes Systems reviewed as appropriate & no additional complaints except as documented Physical Exam <KATHI Donnelly - Last Filed: 02/12/24 18:55> General General appearance: alert and in no apparent distress Respiratory Respiratory exam: Present normal lung sounds bilaterally Cardiovascular Cardiovascular exam: Present regular rate Neurological Exam Neurological exam: Present alert and oriented X3 Medical Decision Making <KATHI Donnelly - Last Filed: 02/12/24 18:55> Medical Records Medical records reviewed: Yes I reviewed the patient's medical records. Screening: Per USPSTF and CDC recommendations, given the prevalence of disease in our region, it is our hospital?s policy to screen for HIV and viral Hepatitis for all patients aged 18 and over and those with ongoing risk factors. Jan Inquiry Pt receiving controlled substance: No Vital Signs: 02/12/24 16:08 02/12/24 16:20 02/12/24 16:25 Temperature 98.2 F Temperature Source Oral Pulse Rate 88 89 Pulse Rate [Right Radial] 97 H Respiratory Rate 18 Blood Pressure 124/72 129/66 Blood Pressure [Right Arm] 151/71 H Blood Pressure Mean [Right Arm] 97 02 Sat by Pulse Oximetry 99 95 95 Oxygen Delivery Method Room Air Room Air Room Air 02/12/24 18:29 02/12/24 18:30 02/12/24 18:36 Temperature Temperature Source Pulse Rate 90 87 96 H Pulse Rate [Right Radial] Respiratory Rate Blood Pressure 125/69 118/66 109/68 L Blood Pressure [Right Arm] Blood Pressure Mean [Right Arm] 02 Sat by Pulse Oximetry 99 98 99 Oxygen Delivery Method Room Air Room Air Room Air 02/12/24 18:39 02/12/24 18:45 02/12/24 18:50 Temperature Temperature Source Pulse Rate 87 88 88 Pulse Rate [Right Radial] Respiratory Rate Blood Pressure 116/75 121/69 125/71 Blood Pressure [Right Arm] Blood Pressure Mean [Right Arm] 02 Sat by Pulse Oximetry 98 97 98 Oxygen Delivery Method Room Air Room Air Room Air 02/12/24 18:56 02/12/24 19:01 Temperature 98.2 F Temperature Source Pulse Rate 86 87 Pulse Rate [Right Radial] Respiratory Rate 20 Blood Pressure 108/60 L 115/77 Blood Pressure [Right Arm] Blood Pressure Mean [Right Arm] 02 Sat by Pulse Oximetry 98 Oxygen Delivery Method Room Air Room Air Lab Data Lab results reviewed: Yes I reviewed the patient's lab results. Lab Results 02/12/24 16:02: Urine Color Yellow, Urine Appearance Cloudy, Urine pH 6.5, Ur Specific Mobile 1.025, Urine Protein Negative, Urine Glucose (UA) Negative, Urine Ketones Negative, Urine Blood Negative, Urine Nitrate Negative, Urine Bilirubin Negative, Urine Urobilinogen 0.2, Ur Leukocyte Esterase Trace, Urine RBC None, Urine WBC 5-10, Ur Squamous Epith Cells 20-50, Urine Bacteria 2+ 02/12/24 16:30: Stool Occult Blood Negative 02/12/24 18:21: WBC 12.4 H, RBC 3.91 L, Hgb 12.1 L, Hct 35.8 L, MCV 91.6, MCH 30.9, MCHC 33.8, RDW 13.4, Plt Count 227, MPV 9.2, Neut % (Auto) 68.5, Lymph % (Auto) 18.7, Buchanan % (Auto) 5.8, Eos % (Auto) 5.4, Baso % (Auto) 0.6, Neut # (Auto) 8.5 H, Lymph # (Auto) 2.3, Buchanan # (Auto) 0.7, Eos # (Auto) 0.7 H, Baso # (Auto) 0.1, Sodium 130 L, Potassium 4.4, Chloride 102, Carbon Dioxide 24, Anion Gap 8.4, BUN 7, Creatinine 0.60, Estimated Creat Clear 120, Estimated GFR 123, Est GFR ( Amer) 149, Glucose 96, Calcium 9.0 02/12/24 18:21 02/12/24 18:21 Orders (Tests/Meds): ED MEDICATIONS Discontinued Medications Generic Name Dose Route Start Last Admin Trade Name Freq PRN Reason Stop Dose Admin Nitrofurantoin Macrocrystals 100 mg 02/12/24 17:21 02/12/24 18:26 Nitrofurantoin 100mg Capsule PO 02/12/24 17:22 100 mg ONCE ONE Administration ORDERS Category Date Time Status BMP [Basic Metabolic Panel] Stat Lab 02/12/24 18:21 Completed CBC w/Auto Diff [Complete Blood Count Auto Diff] Stat Lab 02/12/24 18:21 Completed Occult Blood,Stool Stat Lab 02/12/24 16:30 Completed UA [Urinalysis and Microscopic] Stat Lab 02/12/24 16:02 Completed Urine Culture Stat Micro 02/12/24 16:02 Received Medical Decision Narrative: In summary patient is a 23-year-old female who presents to the emergency department for evaluation of bright red blood per rectum. Patient is hemodynamically stable upon arrival, afebrile. Physical exam is remarkable for a normal external rectum with no visible hemorrhoids or bleeding. Digital rectal exam reveals no defects in the rectal ring no palpable internal hemorrhoids. There is brown stool with no bright red blood visible visibly on exam. There is no abdominal pain with normal bowel sounds on palpation.. Differential diagnosis includes colitis versus internal hemorrhoids versus diverticulitis etc. Initial workup will be conducted with stool for occult blood and hematologic labs urinalysis. Initial interventions include deferred until workup is complete. Initial workup reviewed by me her stool for occult blood is negative, urinalysis shows bacteriuria on microscopic exam no nitrites and her hematologic labs are nonconcerning for active bleeding or infection. Given this <Anisha De Leon, DO - Last Filed: 02/12/24 21:57> Vital Signs: 02/12/24 16:08 02/12/24 16:20 02/12/24 16:25 Temperature 98.2 F Temperature Source Oral Pulse Rate 88 89 Pulse Rate [Right Radial] 97 H Respiratory Rate 18 Blood Pressure 124/72 129/66 Blood Pressure [Right Arm] 151/71 H Blood Pressure Mean [Right Arm] 97 02 Sat by Pulse Oximetry 99 95 95 Oxygen Delivery Method Room Air Room Air Room Air 02/12/24 18:29 02/12/24 18:30 02/12/24 18:36 Temperature Temperature Source Pulse Rate 90 87 96 H Pulse Rate [Right Radial] Respiratory Rate Blood Pressure 125/69 118/66 109/68 L Blood Pressure [Right Arm] Blood Pressure Mean [Right Arm] 02 Sat by Pulse Oximetry 99 98 99 Oxygen Delivery Method Room Air Room Air Room Air 02/12/24 18:39 02/12/24 18:45 02/12/24 18:50 Temperature Temperature Source Pulse Rate 87 88 88 Pulse Rate [Right Radial] Respiratory Rate Blood Pressure 116/75 121/69 125/71 Blood Pressure [Right Arm] Blood Pressure Mean [Right Arm] 02 Sat by Pulse Oximetry 98 97 98 Oxygen Delivery Method Room Air Room Air Room Air 02/12/24 18:56 02/12/24 19:01 Temperature 98.2 F Temperature Source Pulse Rate 86 87 Pulse Rate [Right Radial] Respiratory Rate 20 Blood Pressure 108/60 L 115/77 Blood Pressure [Right Arm] Blood Pressure Mean [Right Arm] 02 Sat by Pulse Oximetry 98 Oxygen Delivery Method Room Air Room Air Lab Data Lab Results 02/12/24 16:02: Urine Color Yellow, Urine Appearance Cloudy, Urine pH 6.5, Ur Specific Mobile 1.025, Urine Protein Negative, Urine Glucose (UA) Negative, Urine Ketones Negative, Urine Blood Negative, Urine Nitrate Negative, Urine Bilirubin Negative, Urine Urobilinogen 0.2, Ur Leukocyte Esterase Trace, Urine RBC None, Urine WBC 5-10, Ur Squamous Epith Cells 20-50, Urine Bacteria 2+ 02/12/24 16:30: Stool Occult Blood Negative 02/12/24 18:21: WBC 12.4 H, RBC 3.91 L, Hgb 12.1 L, Hct 35.8 L, MCV 91.6, MCH 30.9, MCHC 33.8, RDW 13.4, Plt Count 227, MPV 9.2, Neut % (Auto) 68.5, Lymph % (Auto) 18.7, Buchanan % (Auto) 5.8, Eos % (Auto) 5.4, Baso % (Auto) 0.6, Neut # (Auto) 8.5 H, Lymph # (Auto) 2.3, Buchanan # (Auto) 0.7, Eos # (Auto) 0.7 H, Baso # (Auto) 0.1, Sodium 130 L, Potassium 4.4, Chloride 102, Carbon Dioxide 24, Anion Gap 8.4, BUN 7, Creatinine 0.60, Estimated Creat Clear 120, Estimated GFR 123, Est GFR ( Amer) 149, Glucose 96, Calcium 9.0 Orders (Tests/Meds): ED MEDICATIONS Discontinued Medications Generic Name Dose Route Start Last Admin Trade Name Freq PRN Reason Stop Dose Admin Nitrofurantoin Macrocrystals 100 mg 02/12/24 17:21 02/12/24 18:26 Nitrofurantoin 100mg Capsule PO 02/12/24 17:22 100 mg ONCE ONE Administration ORDERS Category Date Time Status BMP [Basic Metabolic Panel] Stat Lab 02/12/24 18:21 Completed CBC w/Auto Diff [Complete Blood Count Auto Diff] Stat Lab 02/12/24 18:21 Completed Occult Blood,Stool Stat Lab 02/12/24 16:30 Completed UA [Urinalysis and Microscopic] Stat Lab 02/12/24 16:02 Completed Urine Culture Stat Micro 02/12/24 16:02 Received Medical Decision Narrative: In summary patient is a 23-year-old female who presents to the emergency department for evaluation of bright red blood per rectum. Patient is hemodynamically stable upon arrival, afebrile. Physical exam is remarkable for a normal external rectum with no visible hemorrhoids or bleeding. Digital rectal exam reveals no defects in the rectal ring no palpable internal hemorrhoids. There is brown stool with no bright red blood visible visibly on exam. There is no abdominal pain with normal bowel sounds on palpation.. Differential diagnosis includes colitis versus internal hemorrhoids versus diverticulitis etc. Initial workup will be conducted with stool for occult blood and hematologic labs urinalysis. Initial interventions include deferred until workup is complete. Initial workup reviewed by me her stool for occult blood is negative, urinalysis shows bacteriuria on microscopic exam no nitrites and her hematologic labs are nonconcerning for active bleeding or infection. Blood work was obtained which is very reassuring. Given this, patient was deemed to be appropriate for discharge home with close follow-up with primary care. I feel we have excluded acute life-threatening pathology. Strict return precautions were given. I was consulted by the SHANNAN, and we discussed the complexity of the problems being addressed. I approved the treatment and management plan for this patient's care in the emergency department, thus performing a substantive portion of the medical decision making. Anisha De Leon, DO Critical Care <KATHI Donnelly - Last Filed: 02/12/24 18:55> Critical Care Time Critical Care Time: No
[2024-02-12 16:06] LABS: Microscopic, Urine URINE MICROSCOPIC (MICROSCOPIC)
[2024-02-12 16:13] LABS: Bilirubin,Urine Negative (Negative); Blood, Urine Negative (Negative); Glucose,Urine (UA) Negative (Negative); Ketones,Urine Negative (Negative); Leukocyte Esterase,Urine TRACE (Negative); Nitrate,Urine Negative (Negative); PH,Urine 6.5 (5.0-8.5); Protein,Urine Negative (Negative); Specific Gravity, Urine 1.025 (1.005-1.030); Urobilinogen,Urine 0.2 EU/dl (0.2)
[2024-02-12 16:27] LABS: Appearance,Urine Cloudy (Clear)
[2024-02-12 16:28] LABS: Color,Urine Yellow (Yellow)
[2024-02-12 16:30] LABS: Bacteria,Urine 2+ /lpf; Squamous Epithelial Cell,Urine 20-50 #/hpf (0-5)
[2024-02-12 17:13] LABS: Occult Blood,Stool Negative (Negative)
[2024-02-12] MEDS: NITROFURANTOIN 100MG CAPSULE 100 MG PO (18:26)
[2024-02-12 18:41] LABS: Basophils # 0.1 K/mm3 (0-0.2); Basophils % 0.6 % (0.1-2.0); Eosinophils # 0.7 K/mm3 (0.0-0.4); Eosinophils % 5.4 % (0.1-12.0); Hematocrit 35.8 % (37.0-47.0); Hemoglobin 12.1 g/dL (12.2-16.2); Lymphocytes # 2.3 K/mm3 (0.7-4.5); Lymphocytes % 18.7 % (10-50); Mean Corpuscular HGB Conc 33.8 g/dL (31.8-35.4); Mean Corpuscular Hemoglobin 30.9 pg (27.0-31.2); Mean Corpuscular Volume 91.6 fl (81-99); Mean Platelet Volume 9.2 fl (7.4-10.4); Monocytes # 0.7 K/mm3 (0.1-1.0); Monocytes % 5.8 % (1.7-9.3); Neutrophils # 8.5 K/mm3 (1.8-7.8); Neutrophils % 68.5 % (37.0-80.0); Platelet Count 227 K/mm3 (142-424); Red Blood Count 3.91 M/mm3 (4.20-5.40); Red Cell Distribution Width 13.4 % (11.5-17.5); White Blood Count 12.4 K/mm3 (4.8-10.8)
[2024-02-12 19:18] LABS: Chloride 102 mmol/L (98-107); Potassium 4.4 mmoL/L (3.5-5.1); Sodium 130 mmol/L (136-145)
[2024-02-12 19:21] LABS: Anion Gap 8.4 mEq/L (5-15); Blood Urea Nitrogen 7 mg/dl (7-17); Carbon Dioxide 24 mmol/L (22.0-30.0); Creatinine Clearance Estimated 120 mL/min (50-200); Estimated Glomerular Filt Rate 123 ml/min (>60); GFR (African American) 149 ML/MIN (>60); Glucose 96 mg/dl (74-100)
== END 2024-02-12 19:02 | disposition home or self-care (01) ==
PROVIDERS: Physician Assistant; Emergency Provider Emergency Medicine; PCP Family Medicine
DX: N39.0 Urinary tract infection, site not specified (principal); K62.5 Hemorrhage of anus and rectum
CPT/HCPCS: 80048; 81001; 82272; 85025; 87086; 99283; G0328

== ENCOUNTER 2024-02-21 03:51 | Observation (INO) | payer OTHER, SELFPAY ==
[2024-02-21 01:05] VITALS: BMI 46.0
[2024-02-21 01:20] VITALS: BP 133/71; PULSE 92; RESP 17; TEMP 36.4; O2SAT 97; BMI 46.0
[2024-02-21 01:21] LABS: Microscopic, Urine URINE MICROSCOPIC (MICROSCOPIC)
[2024-02-21 01:23] LABS: Appearance,Urine CLEAR (Clear); Bilirubin,Urine Negative (Negative); Blood, Urine Negative (Negative); Color,Urine YELLOW (Yellow); Glucose,Urine (UA) Negative (Negative); Ketones,Urine Negative (Negative); Leukocyte Esterase,Urine TRACE (Negative); Nitrate,Urine Negative (Negative); PH,Urine 6.5 (5.0-8.5); Protein,Urine Negative (Negative); Urobilinogen,Urine 0.2 EU/dl (0.2)
[2024-02-21 01:34] LABS: Bacteria,Urine Trace /lpf; Benzodiazepines Screen,Urine Negative ng/ml (<200)
[2024-02-21 01:35] LABS: Amphetamine/Metha Screen,Urine Negative ng/ml (<1000); Barbiturates Screen,Urine Negative ng/ml (<200)
[2024-02-21 01:36] LABS: Cannabinoid Screen,Urine Negative ng/ml (<50)
[2024-02-21 01:37] LABS: Cocaine Screen,Urine Negative ng/ml (<300); Methadone Screen,Urine Negative ng/ml (<300)
[2024-02-21 01:38] LABS: Opiate Screen,Urine Negative ng/ml (<300); Phencyclidine Screen,Urine Negative ng/ml (<25)
[2024-02-21 01:46] LABS: Fetal Membrane Rupture (Rapid) Negative (Negative)
[2024-02-21] MEDS: LACTATED RINGERS 1000ML 1,000 ML 999 ML IV (02:30)
[2024-02-21 03:20] VITALS: BP 136/83; PULSE 80; RESP 17; TEMP 36.6; O2SAT 94
[2024-02-21] MEDS: LACTATED RINGERS 1000ML 1,000 ML 125 ML IV (03:47)
[2024-02-21 05:55] VITALS: BP 135/64; PULSE 85; RESP 16; TEMP 36.6; O2SAT 98
[2024-02-21] MEDS: ACETAMINOPHEN 325MG TAB 650 MG PO (06:12)
[2024-02-21 09:00] VITALS: BP 133/63; PULSE 90; RESP 18; TEMP 36.7; O2SAT 96
--- NOTE | 2024-02-21 09:50 | HMH.PHAINT1 ---
Pharmacy Intervention Comments: MEDICATION RECONCILIATION COMPLETE USING LIST FROM RECENT OB OFFICE VISIT AND EXTERNAL PHARMACY FILL HISTORY.
--- NOTE | 2024-02-21 10:31 | P.HPDS_ITS ---
General Admission date:: 02/21/24 Discharge date: 02/21/24 *Admission Date: 02/20/24 *Chief complaint: Contractions *History of present illness: Ms Amelie Landin is a 23 yo at 28w2d who presented to [facility] L&[facility] with complaint of contractions and back pain. No vaginal bleeding or leakage of fluid. Baby is active. [facility] Disclaimer: The information contained in this section may have been updated after the patient was seen, as this information can be updated by other users. Medical History (Updated 02/21/24 @ 10:39 by Yanira Swift DO) 28 weeks gestation of contractions History of depression Hx of appendicitis History of hypertension Hx of anxiety disorder FH: cholecystectomy delivery delivered Surgical History Hx of cholecystectomy History of colpectomy History of appendectomy Social History Smoking Status: Unknown if ever smoked alcohol intake: never current occupational status: unemployed Travel in the last 8 weeks: None Have you lived/traveled outside US in past 30 days?: No Contact w/someone who lives/traveled outside US past 30 days?: No Exposure to someone with infectious disease in past 14 days?: No Do you have a fever (greater than 100.4 F or 38 C)?: No Have you tested positive for COVID-19: No Exposed to someone with COVID-19 in past 14 days?: No Do you have a sore throat?: No Do you have a cough?: No Do you have any weakness?: No Do you have any diarrhea?: No Are you experiencing any unusual bleeding?: No Do you have any muscle aches/pain?: No Do you have any abdominal pain?: No Are you experiencing loss of taste or smell?: No Other Medical History Have you received the Flu Vaccine for this season: No Have you received the Pneumonia Vaccine: No Review of Systems Review of Systems Review of systems:: pertinent systems reviewed and negative unless documented below *Genitourinary Comments: + contractions *Musculoskeletal Musculoskeletal: Reports back pain Exam Data for Last 24 hours Vital signs and Labs for Last 24 Hours: Temp Pulse Resp BP Pulse Ox O2 Del Method 98.1 F 90 18 133/63 96 Room Air 02/21/24 09:00 02/21/24 09:00 02/21/24 09:00 02/21/24 09:00 02/21/24 09:00 02/21/24 09:00 Laboratory Results - last 24 hr 02/21/24 01:10: Urine Color Yellow, Urine Appearance Clear, Urine pH 6.5, Ur Specific [place] 1.010, Urine Protein Negative, Urine Glucose (UA) Negative, Urine Ketones Negative, Urine Blood Negative, Urine Nitrate Negative, Urine Bilirubin Negative, Urine Urobilinogen 0.2, Ur Leukocyte Esterase Trace, Urine RBC None, Urine WBC 3-5, Ur Squamous Epith Cells 3-5, Urine Bacteria Trace, Urine Opiates Screen Negative, Urine Methadone Screen Negative, Ur Barbituates Screen Negative, Ur Phencyclidine Scrn Negative, Ur Amphetamines Screen Negative, U Benzodiazepines Scrn Negative, Urine Cocaine Screen Negative, U Marijuana (THC) Screen Negative 02/21/24 01:21: Membrane Rupture Negative I & O for Last 24 hours: Intake & Output 02/18/24 02/19/24 02/20/24 02/21/24 23:59 23:59 23:59 23:59 Weight 260 lb Constitutional Constitutional: no acute distress and cooperative *Routine HEENT Exam Head: Present normocephalic and atraumatic Eye: Absent conjunctivae pink ENT: Present mucous membranes moist *Routine Neck Exam Neck: Present full ROM *Routine Respiratory Exam Respiratory: Present CTA bilaterally and normal respiratory effort *Routine Cardiovascular Exam Cardiovascular: Present RRR *Routine Abdominal Exam Abdominal: Present soft (gravid); Absent tenderness *Routine Rectal Exam Rectal:: deferred *Routine Genitalia Exam Genitalia:: normal female *Routine Extremities Exam Extremities: Present full ROM; Absent edema or calf tenderness *Routine Neurological Exam Neurological: Present alert, moving all extremities and normal speech Routine Psychiatric Exam Psychiatric: Present normal affect and cooperative Meds Home Medications and Allergies Home Medications ?Medication ?Instructions ?Recorded ?Confirmed ?Type albuterol sulfate 90 mcg/actuation 1 puff inhalation DAILYP PRN 11/06/23 02/21/24 History aerosol inhaler Shortness Of Breath Or Wheezing vits no.126-ferrous fum 1 tab PO DAILY 11/06/23 02/21/24 History 28 mg iron-folic acid 800 mcg tablet (Classic ) aspirin 81 mg tablet,delayed 81 mg PO DAILY 11/11/23 02/21/24 History release (Adult Aspirin Regimen) magnesium 250 mg tablet 250 mg PO TID 11/11/23 02/21/24 History omeprazole 20 mg capsule,delayed 20 mg PO DAILY #30 caps 12/23/23 02/21/24 Rx release cetirizine 10 mg tablet (Zyrtec) 10 mg PO DAILY #30 tabs 01/20/24 02/21/24 Rx aripiprazole 10 mg tablet (Abilify) 10 mg PO DAILY #30 tabs 01/23/24 02/21/24 Rx desvenlafaxine succinate 100 mg 100 mg PO DAILY #30 tabs 01/23/24 02/21/24 Rx tablet,extended release 24 hr (Pristiq) labetalol 100 mg tablet 100 mg PO BID 02/19/24 02/21/24 History New Prescriptions to Start Prescriptions: Allergies Allergy/AdvReac Type Severity Reaction Status Date / Time amoxicillin Allergy Other Verified 02/19/24 10:06 cephalexin Allergy Other Verified 02/19/24 10:06 ketorolac (From Toradol) Allergy Other Verified 02/19/24 10:06 clavulanic acid (From AdvReac Intermediate Verified 02/19/24 10:06 Augmentin) Hospital Course Hospital Course Hospital Course: Ms Amelie Landin is a 23 yo at 28w2d who presented to [facility] L&D with complaint of contractions and back pain. No vaginal bleeding or leakage of fluid. Baby is active. Gentle cervical exam was closed/thick and high, posterior. No contractions on tocometer. However, baby had a wondering baseline. She was given 1 Liter LR bolus. Baby's heart tones responded and reassuring NST was noted. However, shortly after resolution wondering baseline returned. She was kept for prolonged monitoring of baby. heart tones reviewed and reassuring for gestational age. No contractions on tocometer. No contractions palpated. She admits to continued contraction pain and back pain but pain is mild. She was discharged home with instructions to follow-up in the office this week. Results Data Completed and Pending Labs on day of discharge: Labs from last 24 hours 02/21/24 02/21/24 01:21 01:10 Urine Color Yellow Urine Appearance Clear Urine pH 6.5 Ur Specific [place] 1.010 Urine Protein Negative Urine Glucose (UA) Negative Urine Ketones Negative Urine Blood Negative Urine Nitrate Negative Urine Bilirubin Negative Urine Urobilinogen 0.2 Ur Leukocyte Esterase Trace Urine RBC None Urine WBC 3-5 Ur Squamous Epith Cells 3-5 Urine Bacteria Trace Membrane Rupture Negative Urine Opiates Screen Negative Urine Methadone Screen Negative Ur Barbituates Screen Negative Ur Phencyclidine Scrn Negative Ur Amphetamines Screen Negative U Benzodiazepines Scrn Negative Urine Cocaine Screen Negative U Marijuana (THC) Screen Negative DS: Diagnosis Discharge Diagnosis (1) contractions: Status: Acute Code(s): O47.00 - False labor before 37 completed weeks of gestation, unspecified trimester (2) 28 weeks gestation of : Status: Acute Code(s): Z3A.28 - 28 weeks gestation of (3) Obesity, morbid, BMI 40.0-49.9: Status: Acute Code(s): E66.01 - Morbid (severe) obesity due to excess calories (4) Chronic hypertension affecting : Status: Acute Code(s): O10.919 - Unspecified pre-existing hypertension complicating , unspecified trimester (5) Depression with anxiety: Status: Acute Code(s): F41.8 - Other specified anxiety disorders (6) History of delivery: Status: Acute Code(s): Z98.891 - History of uterine scar from previous surgery Discharge Plan Disposition Patient Disposition: Home, Self-Care Condition: Good Follow up Plan Follow up with: Jade Rivera DO [Staff Physician] - Enter time for follow up (Follow-up with Dr. Rivera this week) Prescriptions/Medication Reconciliation: Continued albuterol sulfate 90 mcg/actuation HFA aerosol inhaler 1 puff inhalation DAILYP PRN (Reason: Shortness Of Breath Or Wheezing) Patient Comments: INHALE 2 PUFFS BY MOUTH EVERY 6 HOURS NEEDED FOR SHORTNESS OF BREATH OR WHEEZING Classic 28 mg iron- 800 mcg tablet 1 tab PO DAILY omeprazole 20 mg capsule,delayed release(DR/EC) 20 mg PO DAILY Qty: 30 2RF cetirizine [Zyrtec] 10 mg tablet 10 mg PO DAILY Qty: 30 2RF desvenlafaxine succinate [Pristiq] 100 mg tablet extended release 24 hr 100 mg PO DAILY Qty: 30 3RF aripiprazole [Abilify] 10 mg tablet 10 mg PO DAILY Qty: 30 3RF labetalol 100 mg tablet 100 mg PO BID aspirin [Adult Aspirin Regimen] 81 mg tablet,delayed release (DR/EC) 81 mg PO DAILY magnesium 250 mg tablet 250 mg PO TID Problem Reconciliation Problems Reviewed?: Yes Patient Discharge Instructions ACTIVITY: Limited activity DIET: continue same diet and regular diet Patient Instructions: How to Do Kick Counts, Antepartum Care Print Language: Lao Providers Primary Care Provider: Daryl Garcia Admit Provider: Yanira Swift Attending Provider: Jade Rivera
== END 2024-02-21 10:38 | disposition home or self-care (01) ==
LOC: OBOUT 03:51 → OB 03:51
PROVIDERS: Admitting Provider Obstetrics & Gynecology; PCP Family Medicine; Visit Provider Obstetrics & Gynecology
DX: O47.03 False labor before 37 completed weeks of gestation, third trimester (principal); Z3A.28 28 weeks gestation of pregnancy; E66.01 Morbid (severe) obesity due to excess calories; O10.913 Unspecified pre-existing hypertension complicating pregnancy, third trimester; F41.8 Other specified anxiety disorders; Z98.891 History of uterine scar from previous surgery
CPT/HCPCS: 80307; 81001; 84112; G0378; G0463; J7120

== ENCOUNTER 2024-02-25 10:52 | Outpatient (CLI) | payer OTHER, SELFPAY ==
[2024-02-25 11:04] VITALS: BMI 46.0
[2024-02-25 11:10] VITALS: BP 133/74; PULSE 99; RESP 16; TEMP 36.4; O2SAT 98; BMI 46.0
[2024-02-25 11:12] LABS: Appearance,Urine SL CLOUDY (Clear); Bilirubin,Urine Negative (Negative); Blood, Urine TRACE-I (Negative); Color,Urine YELLOW (Yellow); Glucose,Urine (UA) Negative (Negative); Ketones,Urine TRACE (Negative); Leukocyte Esterase,Urine Negative (Negative); Microscopic, Urine URINE MICROSCOPIC (MICROSCOPIC); Nitrate,Urine Negative (Negative); PH,Urine 6.5 (5.0-8.5); Protein,Urine Negative (Negative); Specific Gravity, Urine 1.025 (1.005-1.030); Urobilinogen,Urine 0.2 EU/dl (0.2)
[2024-02-25 11:24] LABS: Amphetamine/Metha Screen,Urine Negative ng/ml (<1000)
[2024-02-25 11:25] LABS: Barbiturates Screen,Urine Negative ng/ml (<200); Benzodiazepines Screen,Urine Negative ng/ml (<200)
[2024-02-25 11:26] LABS: Cannabinoid Screen,Urine Negative ng/ml (<50)
[2024-02-25 11:27] LABS: Cocaine Screen,Urine Negative ng/ml (<300); Methadone Screen,Urine Negative ng/ml (<300)
[2024-02-25 11:28] LABS: Opiate Screen,Urine Negative ng/ml (<300)
[2024-02-25 11:29] LABS: Phencyclidine Screen,Urine Negative ng/ml (<25)
[2024-02-25 11:53] LABS: Bacteria,Urine Trace /lpf; RBC,Urine Occasional #/hpf (0-3)
== END 2024-02-25 12:00 | disposition home or self-care (01) ==
LOC: OBOUT 10:53 → OB 10:54
PROVIDERS: PCP Family Medicine; Visit Provider Nurse Practitioner Obstetrics & Gynecology
DX: O60.03 Preterm labor without delivery, third trimester (principal); Z3A.28 28 weeks gestation of pregnancy
CPT/HCPCS: 80307; 81001; G0463

== ENCOUNTER 2024-03-08 10:29 | Outpatient (CLI) | payer OTHER, SELFPAY ==
[2024-03-08 10:33] VITALS: BP 137/74; PULSE 106; RESP 18; TEMP 36.6; O2SAT 97; BMI 46.0
[2024-03-08 10:45] LABS: Microscopic, Urine URINE MICROSCOPIC (MICROSCOPIC)
[2024-03-08 10:59] LABS: Appearance,Urine CLEAR (Clear); Bilirubin,Urine Negative (Negative); Blood, Urine 1+ (Negative); Color,Urine YELLOW (Yellow); Glucose,Urine (UA) Negative (Negative); Ketones,Urine Negative (Negative); Leukocyte Esterase,Urine 1+ (Negative); Nitrate,Urine Negative (Negative); PH,Urine 6.5 (5.0-8.5); Protein,Urine Negative (Negative); Urobilinogen,Urine 0.2 EU/dl (0.2)
[2024-03-08 11:11] LABS: Amphetamine/Metha Screen,Urine Negative ng/ml (<1000)
[2024-03-08 11:12] LABS: Barbiturates Screen,Urine Negative ng/ml (<200)
[2024-03-08 11:13] LABS: Benzodiazepines Screen,Urine Negative ng/ml (<200)
[2024-03-08 11:15] LABS: Cannabinoid Screen,Urine Negative ng/ml (<50); Cocaine Screen,Urine Negative ng/ml (<300)
[2024-03-08 11:16] LABS: Methadone Screen,Urine Negative ng/ml (<300)
[2024-03-08 11:17] LABS: Opiate Screen,Urine Negative ng/ml (<300); Phencyclidine Screen,Urine Negative ng/ml (<25)
[2024-03-08 11:23] LABS: Bacteria,Urine 2+ /lpf; RBC,Urine Occasional #/hpf (0-3); Squamous Epithelial Cell,Urine 20-50 #/hpf (0-5)
== END 2024-03-08 14:12 | disposition home or self-care (01) ==
LOC: OBOUT 10:31 → OB 10:32
PROVIDERS: PCP Family Medicine; Visit Provider Nurse Practitioner Obstetrics & Gynecology
DX: O36.8130 Decreased fetal movements, third trimester, not applicable or unspecified (principal); Z3A.30 30 weeks gestation of pregnancy
CPT/HCPCS: 80307; 81001; 87086; G0463

== ENCOUNTER 2024-03-12 09:41 | Outpatient (CLI) | payer OTHER, SELFPAY ==
[2024-03-12 10:06] VITALS: BP 120/84; PULSE 110; RESP 18; TEMP 36.9; O2SAT 95; BMI 46.0
== END 2024-03-12 11:00 | disposition home or self-care (01) ==
LOC: OBOUT 09:42 → OB 09:42
PROVIDERS: PCP Family Medicine; Visit Provider Obstetrics & Gynecology
DX: O60.03 Preterm labor without delivery, third trimester (principal); Z3A.31 31 weeks gestation of pregnancy
CPT/HCPCS: G0463

== ENCOUNTER 2024-03-24 10:04 | Outpatient (CLI) | payer OTHER, SELFPAY ==
[2024-03-24 10:21] LABS: Basophils # 0.1 K/mm3 (0-0.2); Basophils % 0.4 % (0.1-2.0); Eosinophils # 0.5 K/mm3 (0.0-0.4); Eosinophils % 4.5 % (0.1-12.0); Hematocrit 35.2 % (37.0-47.0); Hemoglobin 11.9 g/dL (12.2-16.2); Lymphocytes # 1.9 K/mm3 (0.7-4.5); Lymphocytes % 16.1 % (10-50); Mean Corpuscular HGB Conc 33.8 g/dL (31.8-35.4); Mean Corpuscular Hemoglobin 29.8 pg (27.0-31.2); Mean Platelet Volume 8.6 fl (7.4-10.4); Monocytes # 0.7 K/mm3 (0.1-1.0); Monocytes % 5.7 % (1.7-9.3); Neutrophils # 8.7 K/mm3 (1.8-7.8); Neutrophils % 72.4 % (37.0-80.0); Platelet Count 230 K/mm3 (142-424); Red Cell Distribution Width 14.4 % (11.5-17.5)
[2024-03-24 11:08] LABS: Chloride 105 mmol/L (98-107)
[2024-03-24 11:09] LABS: Albumin Level 3.9 g/dl (3.5-5.0); Potassium 4.3 mmoL/L (3.5-5.1); Sodium 134 mmol/L (136-145)
[2024-03-24 11:11] LABS: Alanine Aminotransferase 20 U/L (12-78); Anion Gap 12.3 mEq/L (5-15); Aspartate Amino Transferase 26 U/L (14-36); Blood Urea Nitrogen 8 mg/dl (7-17); Carbon Dioxide 21 mmol/L (22.0-30.0); Estimated Glomerular Filt Rate 123 ml/min (>60); GFR (African American) 149 ML/MIN (>60)
[2024-03-24 11:12] LABS: Albumin/Globulin Ratio 1.9 (1.1-1.8); Alkaline Phosphatase 93 U/L (38-126); Bilirubin,Total 0.3 mg/dl (0.2-1.3); Calcium 9.3 mg/dl (8.4-10.2); Globulin 2.1 g/dL (1.3-3.2); Glucose 95 mg/dl (74-100)
[2024-03-24 11:41] LABS: Uric Acid 6.1 mg/dl (2.5-6.2)
== END 2024-03-24 23:59 | disposition home or self-care (01) ==
LOC: LAB 10:04
PROVIDERS: PCP Family Medicine; Visit Provider Obstetrics & Gynecology
DX: E66.01 Morbid (severe) obesity due to excess calories (principal); O10.919 Unspecified pre-existing hypertension complicating pregnancy, unspecified trimester
CPT/HCPCS: 36415; 80053; 84550; 85025

== ENCOUNTER 2024-03-24 10:23 | Outpatient (CLI) | payer OTHER, SELFPAY ==
[2024-03-24 10:32] VITALS: BMI 46.4
[2024-03-24 10:37] VITALS: BP 125/84; PULSE 101; RESP 18; TEMP 36.7; O2SAT 99; BMI 46.4
== END 2024-03-24 11:15 | disposition home or self-care (01) ==
LOC: OBOUT 10:25 → OB 10:26
PROVIDERS: PCP Family Medicine; Visit Provider Nurse Practitioner Obstetrics & Gynecology
DX: O26.893 Other specified pregnancy related conditions, third trimester (principal); R42 Dizziness and giddiness; Z3A.32 32 weeks gestation of pregnancy
CPT/HCPCS: G0463

== ENCOUNTER 2024-03-25 21:31 | Outpatient (CLI) | payer OTHER, SELFPAY ==
[2024-03-25 21:37] VITALS: BMI 46.4
[2024-03-25 21:56] VITALS: BP 138/85; PULSE 96; RESP 18; TEMP 36.4; O2SAT 98; BMI 46.4
[2024-03-25 22:04] LABS: Microscopic, Urine URINE MICROSCOPIC (MICROSCOPIC)
[2024-03-25 22:11] LABS: Appearance,Urine CLEAR (Clear); Bilirubin,Urine Negative (Negative); Blood, Urine Negative (Negative); Color,Urine YELLOW (Yellow); Glucose,Urine (UA) Negative (Negative); Ketones,Urine Negative (Negative); Leukocyte Esterase,Urine TRACE (Negative); Nitrate,Urine Negative (Negative); Protein,Urine Negative (Negative); Urobilinogen,Urine 0.2 EU/dl (0.2)
[2024-03-25 22:30] LABS: Bacteria,Urine 3+ /lpf; Squamous Epithelial Cell,Urine 20-50 #/hpf (0-5); WBC,Urine 20-50 #/hpf (0-3)
[2024-03-25 22:31] LABS: Amphetamine/Metha Screen,Urine Negative ng/ml (<1000)
[2024-03-25 22:32] LABS: Barbiturates Screen,Urine Negative ng/ml (<200)
[2024-03-25 22:33] LABS: Benzodiazepines Screen,Urine Negative ng/ml (<200); Cannabinoid Screen,Urine Negative ng/ml (<50)
[2024-03-25 22:34] LABS: Cocaine Screen,Urine Negative ng/ml (<300); Methadone Screen,Urine Negative ng/ml (<300)
[2024-03-25 22:35] LABS: Opiate Screen,Urine Negative ng/ml (<300)
[2024-03-25 22:36] LABS: Phencyclidine Screen,Urine Negative ng/ml (<25)
[2024-03-25] MEDS: ACETAMINOPHEN 500MG TAB 1000 MG PO (23:22)
[2024-03-25] MEDS: LACTATED RINGERS 1000ML 1,000 ML 999 ML IV (23:37)
[2024-03-25 23:48] LABS: Fetal Fibronectin (Rapid) Negative (Negative)
== END 2024-03-26 01:13 | disposition home or self-care (01) ==
LOC: OBOUT 21:33 → OB 21:34
PROVIDERS: PCP Family Medicine; Visit Provider Obstetrics & Gynecology
DX: O47.03 False labor before 37 completed weeks of gestation, third trimester (principal); Z3A.33 33 weeks gestation of pregnancy
CPT/HCPCS: 80307; 81001; 82731; 87086; G0463; J7120

== ENCOUNTER 2024-03-30 18:18 | Outpatient (CLI) | payer OTHER, SELFPAY ==
[2024-03-30 18:32] VITALS: BMI 46.4
[2024-03-30 18:34] LABS: Microscopic, Urine URINE MICROSCOPIC (MICROSCOPIC)
[2024-03-30 18:44] VITALS: BP 130/71; PULSE 101; RESP 20; TEMP 36.8; O2SAT 96; BMI 46.4
[2024-03-30 18:46] LABS: Appearance,Urine CLEAR (Clear); Bilirubin,Urine Negative (Negative); Blood, Urine Negative (Negative); Color,Urine YELLOW (Yellow); Glucose,Urine (UA) Negative (Negative); Ketones,Urine Negative (Negative); Leukocyte Esterase,Urine Negative (Negative); Nitrate,Urine Negative (Negative); PH,Urine 6.5 (5.0-8.5); Protein,Urine Negative (Negative); Urobilinogen,Urine 0.2 EU/dl (0.2)
[2024-03-30 19:00] LABS: Amphetamine/Metha Screen,Urine Negative ng/ml (<1000); Benzodiazepines Screen,Urine Negative ng/ml (<200)
[2024-03-30 19:01] LABS: Barbiturates Screen,Urine Negative ng/ml (<200)
[2024-03-30 19:02] LABS: Cannabinoid Screen,Urine Negative ng/ml (<50); Cocaine Screen,Urine Negative ng/ml (<300)
[2024-03-30 19:03] LABS: Methadone Screen,Urine Negative ng/ml (<300)
[2024-03-30 19:04] LABS: Opiate Screen,Urine Negative ng/ml (<300); Phencyclidine Screen,Urine Negative ng/ml (<25)
[2024-03-30 19:29] LABS: Bacteria,Urine 2+ /lpf; Mucus,Urine 3+ /lpf
[2024-03-30] MEDS: NIFEdipine 10MG CAPSULE 10 MG PO ×2 (20:33→22:53)
[2024-03-30] MEDS: DEXTROSE 5%-LACTATED RINGERS 1,000 ML 999 ML IV (21:10)
[2024-03-30 22:40] VITALS: BP 137/79; PULSE 85
== END 2024-03-31 00:19 | disposition home or self-care (01) ==
LOC: OBOUT 18:19 → OB 18:20
PROVIDERS: PCP Family Medicine; Visit Provider Obstetrics & Gynecology
DX: O46.93 Antepartum hemorrhage, unspecified, third trimester (principal); Z3A.33 33 weeks gestation of pregnancy
CPT/HCPCS: 80307; 81001; 87086; G0463

== ENCOUNTER 2024-04-07 09:51 | Outpatient (CLI) | payer OTHER, SELFPAY ==
--- NOTE | 2024-04-07 09:52 | US_ITS ---
PROCEDURE: US OB BIOPHYSICAL PROFILE CLINICAL INDICATION: LGA -US OB BPP/Growth with TROY COMPARISON: US US OB >= 14 WEEKS FETUS from 12/16/2023 US US TRANSVAGINAL from 01/28/2024 FINDINGS: Transabdominal sonographic images of the uterus were obtained. From her established due date she is 35weeks 1day. The following parameters are obtained: Viable Fetus in the cephalic presentation with and anterior placenta grade 2-3. Average ultrasound age is 37weeks 3days Estimated weight 3,194g, 7 lb 1 oz The cervix measures 4.69 cm. Measurements: heart Rate = 144bpm BPD = 38weeks 0 days, >98 percentile HC = 37weeks 4days, 74 percentile AC = 37weeks 6days, >98 percentile FL = 36weeks 0 days, 66 percentile HC/AC is 0.97 FL/BPD is 0.75 FL/AC is 0.21 95 percentile Amniotic fluid index: 11.95cm, MVP 4.04 cm. Qualitative AFV:2 Breathing movements: 2 Gross Body Movements: 2 Tone: 2 Biophysical profile score: 8 No obvious anomalies evident.Kidneys, bladder, stomach, four-chamber heart, three-vessel cord appear normal. IMPRESSION: 1. Viable fetus in the cephalic presentation with an anterior placenta grade 2-3. 2. Fluid is within normal limits with an amniotic fluid index 11.95 cm, MVP 4.04 cm. 3. Biophysical profile is 8/8 with good breathing movement and movement seen. 4. There has been good interval growth with the fetus currently 95th percentile. 5. The abdominal circumference is greater than the 98 percentile and is almost 3 weeks ahead on its growth. Dictated by: Cali Guillen MD 04/07/2024 11:11 Cali Guillen MD in OV 04/07/2024 11:11
== END 2024-04-07 23:59 | disposition home or self-care (01) ==
LOC: RAD 09:52
PROVIDERS: PCP Family Medicine; Visit Provider Obstetrics & Gynecology
DX: O47.03 False labor before 37 completed weeks of gestation, third trimester (principal); O10.913 Unspecified pre-existing hypertension complicating pregnancy, third trimester; Z3A.35 35 weeks gestation of pregnancy
CPT/HCPCS: 76816; 76819

== ENCOUNTER 2024-04-08 12:11 | Emergency (ER) | payer OTHER, SELFPAY ==
[2024-04-08 12:22] VITALS: BP 0/0; PULSE 0; RESP 0; TEMP -17.7; TEMP 0; O2SAT 0
--- NOTE | 2024-04-08 12:27 | PC.NURSE ---
1221 This RN calls OB to discuss patient and chief complaint. Pt to be transferred to ob. Registration notified of need to change patient in system to OB registration.
== END 2024-04-08 12:22 | disposition left against medical advice (07) ==
LOC: ER 12:50
PROVIDERS: Emergency Provider Student in an Organized Health Care Education/Training Program; PCP Family Medicine
DX: Z53.21 Procedure and treatment not carried out due to patient leaving prior to being seen by health care provider (principal)

== ENCOUNTER 2024-04-08 12:25 | Outpatient (CLI) | payer OTHER, SELFPAY ==
[2024-04-08 12:41] VITALS: BMI 46.5
[2024-04-08 12:57] LABS: Microscopic, Urine URINE MICROSCOPIC (MICROSCOPIC)
[2024-04-08 13:01] LABS: Appearance,Urine CLEAR (Clear); Bilirubin,Urine Negative (Negative); Blood, Urine TRACE-I (Negative); Color,Urine YELLOW (Yellow); Glucose,Urine (UA) Negative (Negative); Ketones,Urine Negative (Negative); Leukocyte Esterase,Urine Negative (Negative); Nitrate,Urine Negative (Negative); PH,Urine 6.5 (5.0-8.5); Protein,Urine TRACE (Negative); Specific Gravity, Urine 1.025 (1.005-1.030); Urobilinogen,Urine 0.2 EU/dl (0.2)
[2024-04-08 13:03] VITALS: BP 108/60; PULSE 101; RESP 16; TEMP 36.7; O2SAT 100; BMI 46.5
[2024-04-08 13:16] LABS: Benzodiazepines Screen,Urine Negative ng/ml (<200)
[2024-04-08 13:17] LABS: Amphetamine/Metha Screen,Urine Negative ng/ml (<1000); Barbiturates Screen,Urine Negative ng/ml (<200)
[2024-04-08 13:18] LABS: Cannabinoid Screen,Urine Negative ng/ml (<50); Cocaine Screen,Urine Negative ng/ml (<300)
[2024-04-08 13:19] LABS: Methadone Screen,Urine Negative ng/ml (<300)
[2024-04-08 13:20] LABS: Opiate Screen,Urine Negative ng/ml (<300); Phencyclidine Screen,Urine Negative ng/ml (<25)
[2024-04-08 14:43] LABS: Bacteria,Urine Trace /lpf
== END 2024-04-08 13:54 | disposition home or self-care (01) ==
LOC: OBOUT 12:27 → OB 12:28
PROVIDERS: PCP Family Medicine; Visit Provider Obstetrics & Gynecology
DX: O16.3 Unspecified maternal hypertension, third trimester (principal); Z3A.35 35 weeks gestation of pregnancy
CPT/HCPCS: 80307; 81001; G0463

== ENCOUNTER 2024-04-14 14:59 | Observation (INO) | payer OTHER, SELFPAY ==
[2024-04-14 12:19] VITALS: BP 113/92; PULSE 102; RESP 16; TEMP 36.2; BMI 46.4
--- NOTE | 2024-04-14 13:25 | US_ITS ---
PROCEDURE: US OB BIOPHYSICAL PROFILE CLINICAL INDICATION: Drop in Heart tones on NST. COMPARISON: US US OB >= 14 WEEKS FETUS from 12/16/2023 US US OB BIOPHYSICAL PROFILE from 04/07/2024 FINDINGS: Transabdominal sonographic images of the uterus were obtained. From her established due date she is 36weeks 1day. The following parameters are obtained: Viable Fetus in the cephalic presentation with an anterior placenta grade 2. The cervix measures 3.82 cm transabdominally. Measurements: heart Rate = 140bpm Amniotic fluid index: 6.05cm subjectively the fluid looks low but there is a pocket 5 cm x 5 cm. Qualitative AFV:2 Breathing movements: 2 Gross Body Movements: 2 Tone: 2 Biophysical profile score: 8 No obvious anomalies evident.Kidneys, bladder, stomach, four-chamber heart, three-vessel cord appear normal. IMPRESSION: 1. Viable fetus in the cephalic presentation with an anterior placenta grade 2. 2. The fluid is low with an amniotic fluid index 6.05 cm. A 2 x 2 pocket was not measured but on a separate image I was able to measure of 5 cm x 5 cm pocket. 3. Biophysical profile is 8/8 with good breathing movement and movement seen. 4. Limited anatomical scan appears normal. 5. I discussed the low fluid with Dr. Rivera. Dictated by: Cali Guillen MD 04/14/2024 14:12 Cali Guillen MD in OV 04/14/2024 14:12
[2024-04-14] MEDS: LACTATED RINGERS 1000ML 1,000 ML 999 ML IV (16:12)
[2024-04-14 20:27] VITALS: BP 129/60; PULSE 93; RESP 18; TEMP 36.9; O2SAT 98
[2024-04-14] MEDS: LABETALOL 100MG TABLET 100 MG PO (20:33)
[2024-04-14] MEDS: LACTATED RINGERS 1000ML 1,000 ML 100 ML IV (20:34)
[2024-04-14] MEDS: CALCIUM CARBONATE 500MG CHEWTAB 500 MG PO (20:54)
[2024-04-15] MEDS: LACTATED RINGERS 1000ML 1,000 ML 100 ML IV ×2 (05:58→08:59)
--- NOTE | 2024-04-15 06:00 | US_ITS ---
PROCEDURE: US OB BIOPHYSICAL PROFILE CLINICAL INDICATION: Low TROY COMPARISON: US US OB >= 14 WEEKS FETUS from 12/16/2023 US US TRANSVAGINAL from 01/28/2024 US US OB BIOPHYSICAL PROFILE from 04/07/2024 US US OB BIOPHYSICAL PROFILE from 04/14/2024 FINDINGS: Transabdominal sonographic images of the uterus were obtained. From her established due date she is 36weeks 2days. The following parameters are obtained: Viable Fetus in the cephalic presentation with an anterior placenta grade 2. The cervix measures 4.27 cm. Measurements: heart Rate = 153bpm Amniotic fluid index: 5.75 cm, MVP 3.89 cm Qualitative AFV:2 Breathing movements: 2 Gross Body Movements: 2 Tone: 2 Biophysical profile score: 8 IMPRESSION: 1. Viable fetus in the cephalic presentation with an anterior placenta grade 2. 2. Subjectively the fluid continues to appear low but there is a single pocket measuring 3.89 cm in depth. The pocket is 5.9 cm wide. 3. Biophysical profile is 8/8 with good breathing movement and movement seen. Dictated by: Cali Guillen MD 04/15/2024 10:10 Cali Guillen MD in [facility] 04/15/2024 10:10
[2024-04-15] MEDS: LORATADINE 10MG TABLET 10 MG PO (08:59)
[2024-04-15] MEDS: ARIPiprazole 10MG TABLET 10 MG PO (08:59)
[2024-04-15] MEDS: ASPIRIN EC 81MG TABLET 81 MG PO (08:59)
[2024-04-15] MEDS: LABETALOL 100MG TABLET 100 MG PO (09:00)
--- NOTE | 2024-04-15 09:32 | P.CONPHA_ITS ---
Pharmacy Intervention Comments: MEDICATION RECONCILIATION COMPLETED ON PATIENT USING EXTERNAL FILL HISTORY FROM PHARMACY AND LIST FROM [facility]. -CASSANDRA MCCARTHYD
--- NOTE | 2024-04-15 09:32 | HMH.PHAINT1 ---
Pharmacy Intervention Comments: MEDICATION RECONCILIATION COMPLETED ON PATIENT USING EXTERNAL FILL HISTORY FROM PHARMACY AND LIST FROM [facility]. -CASSANDRA MCCARTHYD
[2024-04-15 10:09] LABS: Microscopic, Urine URINE MICROSCOPIC (MICROSCOPIC)
[2024-04-15 10:18] LABS: Appearance,Urine CLEAR (Clear); Bilirubin,Urine Negative (Negative); Blood, Urine Negative (Negative); Color,Urine YELLOW (Yellow); Glucose,Urine (UA) Negative (Negative); Ketones,Urine Negative (Negative); Leukocyte Esterase,Urine 1+ (Negative); Nitrate,Urine Negative (Negative); Protein,Urine Negative (Negative); Specific Gravity, Urine 1.015 (1.005-1.030); Urobilinogen,Urine 0.2 EU/dl (0.2)
[2024-04-15 10:28] LABS: Bacteria,Urine Trace /lpf; WBC,Urine Occasional #/hpf (0-3)
--- NOTE | 2024-04-15 12:55 | EXP.HPDC ---
General Admission date:: 04/14/24 Discharge date: 04/15/24 *Admission Date: 04/14/24 *Chief complaint: low TROY *History of present illness: Amelie Landin was evaluated in the office with an NST. There were episodes of NST where the baby came off the monitoring and appeared that we were chasing maternal heart rate. Patient was sent to labor and delivery for prolonged monitoring. In labor and delivery this again happened. BPP was obtained was noted to be 8 out of 8 however there was subjectively low TROY. The patient was admitted to continue prolonged monitoring and give a fluid bolus. BPP was repeated this morning, BPP: 8/8. Again subjectively low TROY within normal MVP. This was discussed with the patient and she voiced understanding. She will be discharged home with follow-up scheduled for Friday and Friday of next week [facility] Disclaimer: The information contained in this section may have been updated after the patient was seen, as this information can be updated by other users. Medical History contractions History of depression Hx of appendicitis History of hypertension Hx of anxiety disorder FH: cholecystectomy delivery delivered Surgical History Hx of cholecystectomy History of colpectomy History of appendectomy Family History Other No significant family history Social History Smoking Status: Never smoker alcohol intake: never current occupational status: unemployed Travel in the last 8 weeks: None Other Medical History Have you received the Flu Vaccine for this season: No Have you received the Pneumonia Vaccine: No Review of Systems Review of Systems Review of systems (narrative): Review of Systems Endorses good movement, denies contractions. Denies leakage of fluid or vaginal bleeding Constitutional: Denies fever, chills, and sweats Eyes: Denies vision change/ pain Respiratory: Denies cough and shortness of breath Cardiovascular: Denies chest pain and lightheadedness Gastrointestinal: Denies abdominal pain. Denies nausea, vomiting. Genitourinary: Denies dysuria and incontinence Neurological: Denies headache Exam Data for Last 24 hours Vital signs and Labs for Last 24 Hours: Temp Pulse Resp BP Pulse Ox O2 Del Method 98.4 F 93 H 18 129/60 98 Room Air 04/14/24 20:27 04/14/24 20:27 04/14/24 20:27 04/14/24 20:27 04/14/24 20:27 04/14/24 20:27 Laboratory Results - last 24 hr 04/15/24 10:00: Urine Color Yellow, Urine Appearance Clear, Urine pH 7.0, Ur Specific [place] 1.015, Urine Protein Negative, Urine Glucose (UA) Negative, Urine Ketones Negative, Urine Blood Negative, Urine Nitrate Negative, Urine Bilirubin Negative, Urine Urobilinogen 0.2, Ur Leukocyte Esterase 1+ A, Urine RBC None, Urine WBC Occasional, Ur Squamous Epith Cells 5-10, Urine Bacteria Trace I & O for Last 24 hours: Intake & Output 04/12/24 04/13/24 04/14/24 04/15/24 23:59 23:59 23:59 23:59 Weight 262 lb Constitutional Constitutional: no acute distress and cooperative *Routine HEENT Exam Head: Present normocephalic and atraumatic Eye: Absent conjunctivae pink ENT: Present mucous membranes moist *Routine Neck Exam Neck: Present full ROM *Routine Respiratory Exam Respiratory: Present CTA bilaterally and normal respiratory effort *Routine Cardiovascular Exam Cardiovascular: Present RRR *Routine Abdominal Exam Abdominal: Present soft (gravid); Absent tenderness *Routine Rectal Exam Rectal:: deferred *Routine Genitalia Exam Genitalia:: normal female *Routine Extremities Exam Extremities: Present full ROM; Absent edema or calf tenderness *Routine Neurological Exam Neurological: Present alert, moving all extremities and normal speech Routine Psychiatric Exam Psychiatric: Present normal affect and cooperative Meds Home Medications and Allergies Home Medications ?Medication ?Instructions ?Recorded ?Confirmed ?Type albuterol sulfate 90 mcg/actuation 1 puff inhalation DAILYP PRN 11/06/23 04/14/24 History aerosol inhaler Shortness Of Breath Or Wheezing vits no.126-ferrous fum 1 tab PO DAILY 11/06/23 04/14/24 History 28 mg iron-folic acid 800 mcg tablet (Classic ) aspirin 81 mg tablet,delayed 81 mg PO DAILY 11/11/23 04/14/24 History release (Adult Aspirin Regimen) omeprazole 20 mg capsule,delayed 20 mg PO DAILY #30 caps 12/23/23 04/14/24 Rx release cetirizine 10 mg tablet (Zyrtec) 10 mg PO DAILY #30 tabs 01/20/24 04/14/24 Rx aripiprazole 10 mg tablet (Abilify) 10 mg PO DAILY #30 tabs 01/23/24 04/14/24 Rx labetalol 100 mg tablet 100 mg PO BID #60 tabs 03/02/24 04/15/24 Rx desvenlafaxine succinate 100 mg 50 mg PO DAILY 04/14/24 04/15/24 History tablet,extended release 24 hr (Pristiq) famotidine 20 mg tablet (Pepcid) 20 mg PO DAILYP PRN Heartburn 04/14/24 04/15/24 History ondansetron HCl 4 mg tablet 4 mg PO Q8HP PRN nausea and 04/15/24 04/15/24 History vomiting New Prescriptions to Start Prescriptions: Allergies Allergy/AdvReac Type Severity Reaction Status Date / Time amoxicillin Allergy Other Verified 04/14/24 10:23 cephalexin Allergy Other Verified 04/14/24 10:23 ketorolac (From Toradol) Allergy Other Verified 04/14/24 10:23 clavulanic acid (From AdvReac Intermediate Verified 04/14/24 10:23 Augmentin) Hospital Course Hospital Course Hospital Course: See HPI for hospital course -BPP 09/24 x 2 -Received fluids -Reactive NST without any decelerations Results Data Completed and Pending Labs on day of discharge: Labs from last 24 hours 04/15/24 10:00 Urine Color Yellow Urine Appearance Clear Urine pH 7.0 Ur Specific [place] 1.015 Urine Protein Negative Urine Glucose (UA) Negative Urine Ketones Negative Urine Blood Negative Urine Nitrate Negative Urine Bilirubin Negative Urine Urobilinogen 0.2 Ur Leukocyte Esterase 1+ A Urine RBC None Urine WBC Occasional Ur Squamous Epith Cells 5-10 Urine Bacteria Trace Discharge Plan Disposition Patient Disposition: Home, Self-Care Follow up Plan Follow up with: Jade Rivera DO [Staff Physician] - Enter time for follow up Prescriptions/Medication Reconciliation: Continued albuterol sulfate 90 mcg/actuation HFA aerosol inhaler 1 puff inhalation DAILYP PRN (Reason: Shortness Of Breath Or Wheezing) Patient Comments: INHALE 2 PUFFS BY MOUTH EVERY 6 HOURS NEEDED FOR SHORTNESS OF BREATH OR WHEEZING Classic 28 mg iron- 800 mcg tablet 1 tab PO DAILY omeprazole 20 mg capsule,delayed release(DR/EC) 20 mg PO DAILY Qty: 30 2RF Patient Comments: pt states she does not take it anymore cetirizine [Zyrtec] 10 mg tablet 10 mg PO DAILY Qty: 30 2RF aripiprazole [Abilify] 10 mg tablet 10 mg PO DAILY Qty: 30 3RF famotidine [Pepcid] 20 mg tablet 20 mg PO DAILYP PRN (Reason: Heartburn) aspirin [Adult Aspirin Regimen] 81 mg tablet,delayed release (DR/EC) 81 mg PO DAILY labetalol 100 mg tablet 100 mg PO BID Qty: 60 2RF desvenlafaxine succinate [Pristiq] 100 mg tablet extended release 24 hr 50 mg PO DAILY ondansetron HCl 4 mg tablet 4 mg PO Q8HP PRN (Reason: nausea and vomiting) Problem Reconciliation Problems Reviewed?: Yes Patient Discharge Instructions ACTIVITY: Continue current activity DIET: regular diet Print Language: Upper Sorbian Providers Primary Care Provider: Daryl Garcia Admit Provider: Cali Guillen Attending Provider: Cali Guillen
== END 2024-04-15 14:09 | disposition home or self-care (01) ==
LOC: OBOUT 15:00 → OB 15:00
PROVIDERS: Obstetrics & Gynecology; Admitting Provider Nurse Practitioner Obstetrics & Gynecology; PCP Family Medicine; Visit Provider Nurse Practitioner Obstetrics & Gynecology
DX: O10.913 Unspecified pre-existing hypertension complicating pregnancy, third trimester (principal); O36.8330 Maternal care for abnormalities of the fetal heart rate or rhythm, third trimester, not applicable or unspecified; Z3A.35 35 weeks gestation of pregnancy
CPT/HCPCS: 59025; 76819; 81001; 86403; 87086; G0378; J7120

== ENCOUNTER 2024-04-18 07:35 | Outpatient (CLI) | payer OTHER, SELFPAY ==
[2024-04-18 07:42] VITALS: BP 149/94; PULSE 101; RESP 20; TEMP 36.7; O2SAT 100; BMI 48.6
[2024-04-18 08:17] LABS: Microscopic, Urine URINE MICROSCOPIC (MICROSCOPIC)
[2024-04-18 08:19] LABS: Appearance,Urine CLEAR (Clear); Bilirubin,Urine Negative (Negative); Blood, Urine Negative (Negative); Color,Urine YELLOW (Yellow); Glucose,Urine (UA) Negative (Negative); Ketones,Urine Negative (Negative); Leukocyte Esterase,Urine Negative (Negative); Nitrate,Urine Negative (Negative); PH,Urine 6.5 (5.0-8.5); Protein,Urine Negative (Negative); Specific Gravity, Urine 1.015 (1.005-1.030); Urobilinogen,Urine 0.2 EU/dl (0.2)
[2024-04-18 08:31] LABS: Fetal Membrane Rupture (Rapid) Negative (Negative)
[2024-04-18 09:28] LABS: Bacteria,Urine Trace /lpf
== END 2024-04-18 08:59 | disposition home or self-care (01) ==
LOC: OBOUT 07:36 → OB 07:37
PROVIDERS: PCP Family Medicine; Visit Provider Obstetrics & Gynecology
DX: O42.913 Preterm premature rupture of membranes, unspecified as to length of time between rupture and onset of labor, third trimester (principal); Z3A.36 36 weeks gestation of pregnancy
CPT/HCPCS: 59025; 81001; 84112

== ENCOUNTER 2024-04-18 11:58 | Outpatient (CLI) | payer OTHER, SELFPAY ==
[2024-04-18 12:26] VITALS: BP 155/88; PULSE 98; RESP 20; TEMP 36.7; O2SAT 100; BMI 47.1
--- NOTE | 2024-04-18 12:57 | US_ITS ---
PROCEDURE INFORMATION: Exam: US Biophysical Profile Without Non-Stress Test Exam date and time: 04/18/2024 1:24 PM Age: 23 years old Clinical indication: Other: Low fluid and decels; ; Additional info: Low fluid, decels TECHNIQUE: Imaging protocol: US biophysical profile without non-stress testing. Total images: 507 COMPARISON: US OB BIOPHYSICAL PROFILE 04/15/2024 7:30 AM FINDINGS: heart rate: 133 bpm Amniotic fluid index: TROY is 7.26 cm. BIOPHYSICAL PROFILE: breathing (BPP): 2 /2 gross body movement (BPP): 2 /2 tone (BPP): 2 /2 Amniotic fluid (BPP): 2 /2 Biophysical profile score (BPP): 8 /8 MATERNAL ANATOMY: Cervix: Cervical length measures 3.71 cm. IMPRESSION: Biophysical profile score 8/8.
[2024-04-18] MEDS: LACTATED RINGERS 1000ML 1,000 ML 999 ML IV (13:15)
== END 2024-04-18 14:19 | disposition home or self-care (01) ==
LOC: OBOUT 11:59 → OB 11:59
PROVIDERS: PCP Family Medicine; Visit Provider Obstetrics & Gynecology
DX: O26.853 Spotting complicating pregnancy, third trimester (principal); Z3A.36 36 weeks gestation of pregnancy
CPT/HCPCS: 59025; 76819; G0463; J7120

== ENCOUNTER 2024-04-19 04:03 | Outpatient (CLI) | payer OTHER, SELFPAY ==
[2024-04-19 04:06] VITALS: BP 148/90; PULSE 100; RESP 18; TEMP 36.6; O2SAT 96; BMI 46.9
[2024-04-19 04:44] LABS: Fetal Membrane Rupture (Rapid) Negative (Negative)
[2024-04-19] MEDS: hydrOXYzine pamoate 25MG CAPSULE 50 MG PO (05:11)
[2024-04-19] MEDS: ONDANSETRON 4MG ODT 4 MG PO (05:11)
== END 2024-04-19 05:15 | disposition home or self-care (01) ==
LOC: OBOUT 04:04 → OB 04:05
PROVIDERS: PCP Family Medicine; Visit Provider Obstetrics & Gynecology
DX: O42.913 Preterm premature rupture of membranes, unspecified as to length of time between rupture and onset of labor, third trimester (principal); Z3A.36 36 weeks gestation of pregnancy
CPT/HCPCS: 84112; G0463; Q0162

== ENCOUNTER 2024-04-20 06:44 | Inpatient (IN) | payer OTHER, SELFPAY ==
[2024-04-20] VITALS (19 sets, daily range): BP systolic 125–157; BP diastolic 59–100; PULSE 75–102; RESP 16; TEMP 36.3–37.3; O2SAT 95–100; BMI 46.9
--- NOTE | 2024-04-20 07:30 | EXP.HP ---
History of Present Illness *Admission Date: 04/20/24 *Reason for visit:: repeat delivery *History of present illness: Amelie Landin is a 23-year-old at 37 weeks and 0 days gestation who presented to labor and delivery for a scheduled delivery. Her has been complicated by chronic hypertension, obesity, and previous delivery, desires repeat. On presentation patient endorsed good movement and denies any leakage of fluid or vaginal bleeding. A+, antibody negative, rubella immune, hepatitis B negative, hepatitis C negative, RPR negative, HIV negative 1 hour GTT: 132 GBS negative PFSH PFS Disclaimer: The information contained in this section may have been updated after the patient was seen, as this information can be updated by other users. Medical History 28 weeks gestation of contractions History of depression Hx of appendicitis History of hypertension Hx of anxiety disorder FH: cholecystectomy delivery delivered Surgical History Hx of cholecystectomy History of colpectomy History of appendectomy Family History Other No significant family history Social History Smoking Status: Never smoker alcohol intake: never current occupational status: unemployed Travel in the last 8 weeks: None Have you lived/traveled outside [place] in past 30 days?: No Contact w/someone who lives/traveled outside [place] past 30 days?: No Exposure to someone with infectious disease in past 14 days?: No Do you have a fever (greater than 100.4 F or 38 C)?: No Have you tested positive for COVID-19: No Exposed to someone with COVID-19 in past 14 days?: No Do you have a sore throat?: No Do you have a cough?: No Do you have any weakness?: No Do you have any diarrhea?: No Are you experiencing any unusual bleeding?: No Do you have any muscle aches/pain?: No Do you have any abdominal pain?: No Are you experiencing loss of taste or smell?: No Other Medical History Have you received the Flu Vaccine for this season: No Have you received the Pneumonia Vaccine: No Review of Systems Review of Systems Review of systems (narrative): Review of Systems Constitutional: Denies fever, chills, and sweats Eyes: Denies vision change/ pain Respiratory: Denies cough and shortness of breath Cardiovascular: Denies chest pain and lightheadedness Gastrointestinal: denies abdominal pain or contractions. Denies nausea, vomiting. Genitourinary: Denies dysuria and incontinence Musculoskeletal: Denies shoulder pain and back pain Neurological: Denies change in speech, endorses headaches Meds Home Medications and Allergies Home Medications ?Medication ?Instructions ?Recorded ?Confirmed ?Type albuterol sulfate 90 mcg/actuation 1 puff inhalation DAILYP PRN 11/06/23 04/19/24 History aerosol inhaler Shortness Of Breath Or Wheezing vits no.126-ferrous fum 1 tab PO DAILY 11/06/23 04/19/24 History 28 mg iron-folic acid 800 mcg tablet (Classic ) aspirin 81 mg tablet,delayed 81 mg PO DAILY 11/11/23 04/19/24 History release (Adult Aspirin Regimen) omeprazole 20 mg capsule,delayed 20 mg PO DAILY #30 caps 12/23/23 04/19/24 Rx release cetirizine 10 mg tablet (Zyrtec) 10 mg PO DAILY #30 tabs 01/20/24 04/19/24 Rx aripiprazole 10 mg tablet (Abilify) 10 mg PO DAILY #30 tabs 01/23/24 04/19/24 Rx labetalol 100 mg tablet 100 mg PO BID #60 tabs 03/02/24 04/19/24 Rx desvenlafaxine succinate 100 mg 50 mg PO DAILY 04/14/24 04/19/24 History tablet,extended release 24 hr (Pristiq) famotidine 20 mg tablet (Pepcid) 20 mg PO DAILYP PRN Heartburn 04/14/24 04/19/24 History ondansetron HCl 4 mg tablet 4 mg PO Q8HP PRN nausea and 04/15/24 04/19/24 History vomiting New Prescriptions to Start Prescriptions: Allergies Allergy/AdvReac Type Severity Reaction Status Date / Time amoxicillin Allergy Other Verified 04/19/24 12:52 cephalexin Allergy Other Verified 04/19/24 12:52 ketorolac (From Toradol) Allergy Other Verified 04/19/24 12:52 clavulanic acid (From AdvReac Intermediate Verified 04/19/24 12:52 Augmentin) Exam Data for Last 24 hours I & O for Last 24 hours: Intake & Output 04/17/24 04/18/24 04/19/24 04/20/24 23:59 23:59 23:59 23:59 Weight 265 lb Narrative: General: patient is alert oriented in no acute distress and responds appropriately to questions. HEENT: NCAT, EOMI, moist mucous membranes, neck supple with full ROM Cardiovascular: RRR +S1/S2, no murmurs or rubs Pulmonary: Clear to auscultation bilaterally, nonlabored breathing, symmetric chest rise Abdominal: Gravid abdomen appropriate for gestation. No guarding, rebound, or tenderness noted. Extremities: trace edema, no tenderness or cyanosis noted Skin: Normal turgor, intact, warm. Negative for erythema, pallor, petechia, or lesions Neurologic: Negative for sensory or motor deficit Psychiatric: Normal affect, normal thought process, good judgment and insight, no depression or anxious mood appreciated. *Routine HEENT Exam Head: Present normocephalic and atraumatic Eye: Present EOMI, PERRL and normal accommodation; Absent conjunctival icterus, scleral injection, nystagmus or exophthalmos ENT: Present mucous membranes moist *Routine Respiratory Exam Respiratory: Present CTA bilaterally, normal respiratory effort, able to speak in complete sentences and symmetric chest movement; Absent accessory muscle use, decreased breath sounds, rales, respiratory distress, wheezes, distant breath sounds or diminished air movement *Routine Cardiovascular Exam Cardiovascular: Present RRR, Normal S1 and Normal S2; Absent murmur or gallop *Routine Abdominal Exam Abdominal: Present soft and normoactive bowel sounds; Absent tenderness, distended, rebound or guarding *Routine Rectal Exam Rectal:: deferred *Routine Genitalia Exam Genitalia:: normal female Assessment and Plan *Assessment and plan (1) : Status: Acute Category: Medical Code(s): Z34.90 - Encounter for supervision of normal , unspecified, unspecified trimester (2) Recurrent urinary tract infection affecting in first trimester: Status: Acute Category: Medical Code(s): O23.41 - Unspecified infection of urinary tract in , first trimester (3) Nephrolithiasis: Status: Acute Category: Medical Code(s): N20.0 - Calculus of kidney (4) Obesity, morbid, BMI 40.0-49.9: Status: Acute Category: Medical Code(s): E66.01 - Morbid (severe) obesity due to excess calories (5) History of delivery: Status: Acute Category: Surgical Code(s): Z98.891 - History of uterine scar from previous surgery (6) Chronic hypertension affecting : Status: Acute Category: Medical Code(s): O10.919 - Unspecified pre-existing hypertension complicating , unspecified trimester (7) Depression with anxiety: Status: Acute Category: Medical Code(s): F41.8 - Other specified anxiety disorders Plan - Monitor vitals - Admit to L&D for scheduled delivery - External FHR and TOCO monitor - GBS neg/ Blood type: A+ - Hemoglobin: 11.9, Plt: 230 - Plan for spinal anesthesia - Anticipate delivery of Low risk female Reviewed the risks benefits and alternatives to Repeat delivery. Patient continued to request delivery and not a trial of labor would not be an option after 2 previous deliveries. Discussed the risk of bleeding, infection injury to the surrounding structures. Patient consented to blood transfusion to medically necessary. Reviewed the rare risk of hysterectomy if bleeding is unable to be controlled. Discussed risk of infection, the patient has no allergies and will receive 3 g of Ancef preoperatively. Reviewed the risk of injury to surrounding structures including the bowel, bladder, reproductive organs, and neurovascular bundles. Patient voiced understanding. Discussed the increased risk with prior surgery and scarring. Patient and significant other voiced understanding desire to proceed
[2024-04-20] MEDS: LACTATED RINGERS 1000ML 1,000 ML 250 ML IV (07:31)
[2024-04-20] MEDS: ONDANSETRON 4MG/2ML VIAL 4 MG IV (07:41)
[2024-04-20 07:43] LABS: Basophils # 0.1 K/mm3 (0-0.2); Basophils % 0.5 % (0.1-2.0); Eosinophils # 0.6 K/mm3 (0.0-0.4); Eosinophils % 5.5 % (0.1-12.0); Hematocrit 31.9 % (37.0-47.0); Hemoglobin 10.6 g/dL (12.2-16.2); Lymphocytes # 1.8 K/mm3 (0.7-4.5); Lymphocytes % 18.1 % (10-50); Mean Corpuscular HGB Conc 33.2 g/dL (31.8-35.4); Mean Corpuscular Hemoglobin 28.3 pg (27.0-31.2); Mean Corpuscular Volume 85.3 fl (81-99); Mean Platelet Volume 8.9 fl (7.4-10.4); Monocytes # 0.7 K/mm3 (0.1-1.0); Monocytes % 6.7 % (1.7-9.3); Neutrophils # 6.8 K/mm3 (1.8-7.8); Neutrophils % 68.6 % (37.0-80.0); Platelet Count 187 K/mm3 (142-424); Red Blood Count 3.74 M/mm3 (4.20-5.40); Red Cell Distribution Width 15.1 % (11.5-17.5)
[2024-04-20 07:59] LABS: Microscopic, Urine URINE MICROSCOPIC (MICROSCOPIC)
[2024-04-20 08:02] LABS: Appearance,Urine SL CLOUDY (Clear); Blood, Urine 1+ (Negative); Color,Urine YELLOW (Yellow); Glucose,Urine (UA) Negative (Negative); Ketones,Urine TRACE (Negative); Leukocyte Esterase,Urine 1+ (Negative); Nitrate,Urine Negative (Negative); PH,Urine 6.5 (5.0-8.5); Protein,Urine TRACE (Negative); Urobilinogen,Urine 0.2 EU/dl (0.2)
[2024-04-20 08:15] LABS: Bilirubin,Urine 1+ (Negative)
[2024-04-20 08:17] LABS: Bacteria,Urine 1+ /lpf
[2024-04-20 08:42] LABS: Alanine Aminotransferase 20 U/L (12-78); Albumin Level 3.4 g/dl (3.5-5.0); Albumin/Globulin Ratio 1.6 (1.1-1.8); Alkaline Phosphatase 101 U/L (38-126); Anion Gap 9.8 mEq/L (5-15); Aspartate Amino Transferase 20 U/L (14-36); Bilirubin,Total 0.3 mg/dl (0.2-1.3); Blood Urea Nitrogen 10 mg/dl (7-17); Calcium 8.4 mg/dl (8.4-10.2); Carbon Dioxide 21 mmol/L (22.0-30.0); Chloride 108 mmol/L (98-107); Creatinine Clearance Estimated 120 mL/min (50-200); Estimated Glomerular Filt Rate 123 ml/min (>60); GFR (African American) 149 ML/MIN (>60); Globulin 2.1 g/dL (1.3-3.2); Glucose 98 mg/dl (74-100); Potassium 3.8 mmoL/L (3.5-5.1); Sodium 135 mmol/L (136-145); Total Protein,Serum 5.5 g/dl (6.3-8.2)
[2024-04-20] MEDS: CLINDAMYCIN PHOSPHATE/D5W 900 MG/50 ML PIGGYBACK 100 MG IV (10:00)
[2024-04-20] MEDS: GENTAMICIN SULFATE 400 MG in 0.9 % SODIUM CHLORIDE 100 ML 100 MG IV (10:00)
[2024-04-20 10:34] LABS: RPR W/RFX Titers Nonreactive (Nonreactive)
--- NOTE | 2024-04-20 10:47 | EXP.OP.NOTE ---
Date of procedure: 04/20/24 Pre-op Diagnosis:: 1. 37 weeks 0days gestation, Ace 2. Chronic hypertension with increasing blood pressures 3. History of delivery, desires repeat 4. Obesity 5. Rh Positive Post-op Diagnosis:: 1. 37 weeks 0days gestation, Ace 2. Chronic hypertension with increasing blood pressures 3. History of delivery, desires repeat 4. Obesity 5. Rh Positive Procedure performed:: Repeat delivery Surgeon:: Jade Rivera DO Supervisor [employer]oultry Farm(s):: Cali Guillen MD CHEMICAL RESEARCH WORKER:: Diamond Francis Anesthesia: spinal Estimated blood loss (mL): 500 Clinical Note:: Amelie Landin is a 23-year-old G2, P1 at 37 weeks and 0 days gestation who has been followed throughout her for chronic hypertension. Most recently she was evaluated several times in labor and delivery triage was. During these visits it was her blood pressure which was previously controlled on labetalol was having elevations. She was having persistent blood pressures at 140-150/90-100. Decision was made to proceed with delivery. The patient was counseled on the risk and benefits and elected to proceed. Operative findings:: 1. Live viable female infant: Alisa. Weight: 8pounds 0ounces. Apgars 8 and 9 at 1 and 5 minutes respectively 2. Normal-appearing fallopian tubes and ovaries bilaterally Operative note:: Medications: 900 mg IV clindamycin and 5 mg/kg of gentamicin Summary: Procedure explained in its entirety. The patient was counseled on the risks and benefits of section including bleeding, vascular injury, infection, and injury to the surrounding structures. Hemorrhage requiring life saving blood transfusion resulting in blood born viral infection or allergic reaction was explained and the patient consented to blood transfusion. Possible need for further operative measures prolonging recovery time and hospitalization reviewed to include hysterectomy. Procedure explained in its entirety and patient had no further questions. Consented to procedure. The patient was taken back to the operating room where adequate spinal anesthesia was obtained. Pneumatic compression stockings applied to lower extremities. Above listed antibiotics were administered for infection prophylaxis. She was placed in the dorsal supine position Urinary catheter was placed and found to be draining clear urine. The patient was prepped and draped in sterile fashion. Anesthesia was tested and and found to be adequate. A Pfannenstiel skin incision was made with the scalpel. Subcutaneous bleeding vessels were cauterized with the bovie. The incision was taken down to the fascia with the bovie. The fascia was knicked in the midline and sharply extended laterally. The superior aspect of the fascia was grasped with Adilson clamps and the rectus muscle was taken down with the Bovie. The rectus muscle was sharply dissected from the midline with Mayos. This process was repeated inferiorly. The rectus muscles were in the midline, peritoneum was identified and entered bluntly. Micah O retractor was placed and the bladder was noted to be out of the operative field. A bladder flap was created with Metzenbaum scissors and [place]ian pickups. The lower uterine segment was easily identified, sharply incised, and entered bluntly with the surgeon's index finger. Incision was then extended in a superior and inferior fashion by blunt separation. Membranes were ruptured revealing clear fluid. The fetus was in cephalic presentation. The head was carefully elevated out of the pelvis. Fundal pressure was applied when head was brought into incision. The infants head was delivered without difficulty. The shoulder and body followed without complication. Delivery occurred at 0958. The mouth and nose were suctioned with a bulb. The umbilical cord was clamped and cut. Infant was taken to warmer for evaluation by the procurement representative. Cord blood was collected. The placenta was delivered via fundal massage. IV Pitocin was initiated. Inside of the uterus was gently cleared of blood and clots with lap sponge. The hysterotomy was closed with 0 Vicryl in a running locked fashion. There is still significant amount of bleeding noted from hysterotomy and a second imbricating layer was placed with 0 Vicryl. The peritoneal edge from the bladder flap was bleeding and it was reapproximated with a 2-0 Monocryl. The right apex of the hysterotomy was bleeding and it was made hemostatic with the Bovie. Decision was made to place a piece of Gelfoam across the hysterotomy for added prophylaxis. The lower uterine segment was visualized and noted to be hemostatic. The ovaries and tubes were found to be normal. The posterior aspect of the uterus was cleared of blood clot with a damp lap sponge. The gutters were inspected bilaterally and cleared of blood and clots with lap sponges. The uterine incision was reinspected and hemostasis noted. Micah O retractor was removed. The peritoneum was reapproximated using a 2-0 Monocryl in a nonlocked running fashion. The fascia was closed in a running nonlocked fashion using 0 PDS x2 meeting right of midline. Fascia was noted as not having gaps or defects. The subcutaneous fat was closed with 4-0 Monocryl. Skin was closed with the INSORB suture in a subcuticular fashion. Patient tolerated the procedure well and all counts were correct x3, per nursing. Patient will receive tap blocks and then be transported to the OB PACU for recovery and infant bonding. Condition: stable Disposition: floor Specimens:: 1. Placenta 2. Cord blood 3. Live viable female infant Complications:: None
--- NOTE | 2024-04-20 11:12 | P.PNANES_ITS ---
[facility] Disclaimer: The information contained in this section may have been updated after the patient was seen, as this information can be updated by other users. Medical History 28 weeks gestation of contractions History of depression Hx of appendicitis History of hypertension Hx of anxiety disorder FH: cholecystectomy delivery delivered Surgical History Hx of cholecystectomy History of colpectomy History of appendectomy Family History Other No significant family history Social History Smoking Status: Never smoker alcohol intake: never substance use type: denies use current occupational status: unemployed Travel in the last 8 weeks: None [facility] Anesthesia Checklist Patient Identification Patient Identification: Arm Band Structural Data Admitted From: Inpatient Planned Operative Procedure/s: Repeat C/S Consent for Planned Operative Procedure(s) Verified: Yes Verified Documents: Surgical Consent and History and Physical NPO Status Verified Time NPO: 00:00 Additional verifications Anesthesia Reactions: No Hx Blood Transfusions: No Blood Transfusion Reaction: No Airway Assessment Mallampati Score:: Class II C-Spine Mobility Assessed: Yes TMJ Mobility Assessed: Yes Dentition: Good Dentition Neurological Assessment Level of Consciousness: Awake, Alert and Appropriate Anesthesia Plan Anesthesia Risk discussed: Yes Anesthesia Plan: Verified ASA Class: II Anesthesia Type: Spinal (with Bilateral TAP Block)
[2024-04-20] MEDS: OXYTOCIN/RINGERS LACTATE 30 UNITS/500 ML BAG 40 UNITS IV (11:20)
[2024-04-20] MEDS: LACTATED RINGERS 1000ML 1,000 ML 125 ML IV (11:20)
[2024-04-20 11:43] LABS: Basophils # 0.1 K/mm3 (0-0.2); Basophils % 0.5 % (0.1-2.0); Eosinophils # 0.4 K/mm3 (0.0-0.4); Eosinophils % 4.1 % (0.1-12.0); Hematocrit 31.3 % (37.0-47.0); Hemoglobin 10.3 g/dL (12.2-16.2); Lymphocytes # 1.8 K/mm3 (0.7-4.5); Lymphocytes % 19.8 % (10-50); Mean Corpuscular HGB Conc 32.9 g/dL (31.8-35.4); Mean Corpuscular Hemoglobin 28.6 pg (27.0-31.2); Mean Corpuscular Volume 86.9 fl (81-99); Monocytes # 0.5 K/mm3 (0.1-1.0); Monocytes % 5.8 % (1.7-9.3); Neutrophils # 6.4 K/mm3 (1.8-7.8); Neutrophils % 69.2 % (37.0-80.0); Platelet Count 187 K/mm3 (142-424); Red Cell Distribution Width 15.2 % (11.5-17.5); White Blood Count 9.2 K/mm3 (4.8-10.8)
[2024-04-20] MEDS: ACETAMINOPHEN 500MG TAB 1000 MG PO ×2 (12:50→19:11)
[2024-04-20] MEDS: OXYCODONE 5MG IMMEDIATE RELEASE TABLET 5 MG PO ×3 (12:51→21:06)
[2024-04-20] MEDS: PRENATAL MULTIVITAMIN W/IRON 1 EACH PO (16:32)
[2024-04-20] MEDS: LABETALOL 100MG TABLET 100 MG PO (21:06)
[2024-04-20] MEDS: SENNA 8.6MG TABLET 8.6 MG PO (21:06)
[2024-04-20] MEDS: PANTOPRAZOLE 40MG TABLET 40 MG PO (21:06)
[2024-04-21] MEDS: IBUPROFEN 400 MG TABLET 800 MG PO ×3 (00:32→17:44)
[2024-04-21 00:41] VITALS: BP 129/92; PULSE 74; RESP 16; TEMP 36.6; O2SAT 95
[2024-04-21] MEDS: ACETAMINOPHEN 500MG TAB 1000 MG PO ×4 (02:31→20:20)
[2024-04-21] MEDS: OXYCODONE 5MG IMMEDIATE RELEASE TABLET 5 MG PO ×3 (02:32→21:17)
[2024-04-21] MEDS: LABETALOL 100MG TABLET 100 MG PO ×2 (08:12→20:20)
[2024-04-21] MEDS: ARIPiprazole 10MG TABLET 10 MG PO (08:12)
[2024-04-21] MEDS: LORATADINE 10MG TABLET 10 MG PO (08:12)
[2024-04-21] MEDS: DESVENLAFAXINE SUCCINATE 100 MG 50 EACH PO (08:14)
[2024-04-21 08:15] VITALS: BP 149/78; PULSE 87; RESP 16; TEMP 36.5; O2SAT 96
[2024-04-21] MEDS: SENNA 8.6MG TABLET 8.6 MG PO (08:21)
--- NOTE | 2024-04-21 08:42 | EXP.PN ---
Subjective *Date: 04/21/24 *Time: 09:11 Interval history: Amelie Landin is a 23-year-old G2, P2 postoperative day #2 from a repeat delivery at 37 weeks and 0 days gestation. was complicated by chronic hypertension and obesity. Routine delivery and course thus far. She is doing very well and sitting up in bed this morning -Reports pain is well-controlled -Reports she is tolerating p.o. without nausea or vomiting. -Reports her lochia is scant and she is passing flatus -Undecided on contraception -She is breast and bottle-feeding her female infant -Ambulating, voiding difficulty or dysuria. Denies chest pain shortness of breath or pain in her legs. No further complaints at this time. Exam Data for Last 24 hours Vital signs and Labs for Last 24 Hours: Temp Pulse Resp BP Pulse Ox O2 Del Method 97.8 F 74 16 129/92 H 95 Room Air 04/21/24 00:41 04/21/24 00:41 04/21/24 00:41 04/21/24 00:41 04/21/24 00:41 04/21/24 00:41 Laboratory Results - last 24 hr 04/20/24 07:30: Sodium 135 L, Potassium 3.8, Chloride 108 H, Carbon Dioxide 21 L, Anion Gap 9.8, BUN 10, Creatinine 0.60, Estimated Creat Clear 120, Estimated GFR 123, Est GFR ( Amer) 149, Glucose 98, Calcium 8.4, Total Bilirubin 0.3, AST 20, ALT 20, Alkaline Phosphatase 101, Total Protein 5.5 L, Albumin 3.4 L, Globulin 2.1, Albumin/Globulin Ratio 1.6, RPR w/Rflx to Titer Nonreactive 04/20/24 11:15: WBC 9.2, RBC 3.60 L, Hgb 10.3 L, Hct 31.3 L, MCV 86.9, MCH 28.6, MCHC 32.9, RDW 15.2, Plt Count 187, MPV 9.0, Neut % (Auto) 69.2, Lymph % (Auto) 19.8, Crenshaw % (Auto) 5.8, Eos % (Auto) 4.1, Baso % (Auto) 0.5, Neut # (Auto) 6.4, Lymph # (Auto) 1.8, Crenshaw # (Auto) 0.5, Eos # (Auto) 0.4, Baso # (Auto) 0.1 I & O for Last 24 hours: Intake & Output 04/18/24 04/19/24 04/20/24 04/21/24 23:59 23:59 23:59 23:59 Output Total 2550 / 2550 Balance -2550 / -2550 Weight 265 lb Narrative: General: patient is alert oriented in no acute distress and responds appropriately to questions. Appears to be in minimal pain. HEENT: NCAT, EOMI, moist mucous membranes, neck supple with full ROM Cardiovascular: RRR +S1/S2, no murmurs or rubs Pulmonary: Clear to auscultation bilaterally, nonlabored breathing, symmetric chest rise Abdominal: Fundus at the umbilicus, firm, and tenderness appropriate for the period. Extremities: trace edema, no tenderness or cyanosis noted Skin: Normal turgor, intact, warm. Negative for erythema, pallor, petechia, or lesions. Pfannenstiel skin incision covered with a dressing, no bleeding or signs of infection Neurologic: Negative for sensory or motor deficit Psychiatric: Normal affect, normal thought process, good judgment and insight, no depression or anxious mood appreciated. Assessment and Plan *Assessment and plan (1) : Status: Acute Category: Medical Code(s): Z34.90 - Encounter for supervision of normal , unspecified, unspecified trimester (2) Obesity, morbid, BMI 40.0-49.9: Status: Acute Category: Medical Code(s): E66.01 - Morbid (severe) obesity due to excess calories (3) History of delivery: Status: Acute Category: Surgical Code(s): Z98.891 - History of uterine scar from previous surgery (4) Chronic hypertension affecting : Status: Acute Category: Medical Code(s): O10.919 - Unspecified pre-existing hypertension complicating , unspecified trimester (5) Depression with anxiety: Status: Acute Category: Medical Code(s): F41.8 - Other specified anxiety disorders (6) delivery delivered: Status: Acute Category: Medical Code(s): O82 - Encounter for delivery without indication Plan Stable. POD#1 s/p repeat low-transverse delivery -Doing well. VSS. Serial lochia and fundal checks. -Breast and bottle feeding, female infant -Contraception: undecided -Follow-up 2 weeks for routine visit -Dispo: home in 1-3 days pending mother/infant status #Chronic hypertension, elevating pressures at term -Overnight the patient has had blood pressures ranging from 122 157/62-92-she has not met criteria to require magnesium -Continue PIH labs every 24 hours -Remain inpatient until day #3 to monitor for blood pressure elevations # Normocytic anemia -Hemoglobin: 10.6--> 9.4 - asymptomatic anemia noted. Vitals stable. Continue monitoring. DC with Fe -A+/antibody negative
[2024-04-21 08:57] LABS: Basophils # 0.1 K/mm3 (0-0.2); Basophils % 0.6 % (0.1-2.0); Eosinophils # 0.3 K/mm3 (0.0-0.4); Eosinophils % 2.8 % (0.1-12.0); Hematocrit 28.7 % (37.0-47.0); Hemoglobin 9.4 g/dL (12.2-16.2); Lymphocytes # 1.6 K/mm3 (0.7-4.5); Lymphocytes % 17.8 % (10-50); Mean Corpuscular HGB Conc 32.8 g/dL (31.8-35.4); Mean Corpuscular Hemoglobin 28.5 pg (27.0-31.2); Mean Platelet Volume 9.2 fl (7.4-10.4); Monocytes # 0.5 K/mm3 (0.1-1.0); Neutrophils # 6.6 K/mm3 (1.8-7.8); Neutrophils % 73.4 % (37.0-80.0); Platelet Count 173 K/mm3 (142-424); Red Cell Distribution Width 15.3 % (11.5-17.5)
[2024-04-21 09:12] LABS: Alanine Aminotransferase 27 U/L (12-78); Albumin Level 3.1 g/dl (3.5-5.0); Albumin/Globulin Ratio 1.4 (1.1-1.8); Alkaline Phosphatase 81 U/L (38-126); Anion Gap 7.3 mEq/L (5-15); Aspartate Amino Transferase 30 U/L (14-36); Bilirubin,Total 0.2 mg/dl (0.2-1.3); Blood Urea Nitrogen 8 mg/dl (7-17); Calcium 8.3 mg/dl (8.4-10.2); Carbon Dioxide 22 mmol/L (22.0-30.0); Chloride 106 mmol/L (98-107); Creatinine Clearance Estimated 103 mL/min (50-200); Estimated Glomerular Filt Rate 103 ml/min (>60); GFR (African American) 124 ML/MIN (>60); Globulin 2.2 g/dL (1.3-3.2); Glucose 162 mg/dl (74-100); Potassium 3.3 mmoL/L (3.5-5.1); Sodium 132 mmol/L (136-145); Total Protein,Serum 5.3 g/dl (6.3-8.2)
[2024-04-21] MEDS: POTASSIUM CHLORIDE 20MEQ TAB 40 MEQ PO ×2 (10:14→13:43)
--- NOTE | 2024-04-21 10:15 | EXP.ANES.II ---
[facility] Anesthesia Record Part II Anesthesia Record Part II Discharge Time: 11:19 Destination: Obstetric PACU nurse assessment reviewed?: Yes Patient Condition:: Good Anesthesia Complications:: None Swallowing reflex intact?: Yes Airway Patency: Patent Cyanosis?: No Blood Pressure: 137/82 SaO2: 100 Respiratory Rate: 16 Pulse Rate: 99 Temperature: 97.4 F Mental Status: Alert & Oriented Pain level:: 0 Nausea and/or vomitting:: None Intake, IV Amount: 1,300 Hydration: Adequate
[2024-04-21 10:17] VITALS: BP 137/82; PULSE 99; RESP 16; TEMP 36.3; O2SAT 100
[2024-04-21 13:15] VITALS: BP 140/86; PULSE 86; RESP 18; TEMP 36.6; O2SAT 96
[2024-04-21 16:20] VITALS: BP 139/81; PULSE 90; RESP 18; TEMP 36.7; O2SAT 96
[2024-04-21] MEDS: PRENATAL MULTIVITAMIN W/IRON 1 EACH PO (17:44)
[2024-04-21 20:00] VITALS: BP 142/69; PULSE 96; RESP 18; TEMP 36.4; O2SAT 98
[2024-04-21] MEDS: PANTOPRAZOLE 40MG TABLET 40 MG PO (20:20)
[2024-04-22 00:10] VITALS: BP 136/75; PULSE 92
[2024-04-22] MEDS: OXYCODONE 5MG IMMEDIATE RELEASE TABLET 5 MG PO ×3 (03:56→13:13)
[2024-04-22] MEDS: IBUPROFEN 400 MG TABLET 800 MG PO ×3 (03:57→23:30)
[2024-04-22 04:00] VITALS: BP 134/71; PULSE 73; RESP 18; TEMP 36.6; O2SAT 97
[2024-04-22 08:00] VITALS: BP 133/86; PULSE 89; RESP 16; TEMP 36.4; O2SAT 96
[2024-04-22] MEDS: ACETAMINOPHEN 500MG TAB 1000 MG PO ×2 (09:00→14:51)
[2024-04-22] MEDS: DESVENLAFAXINE SUCCINATE 100 MG 50 EACH PO (09:01)
[2024-04-22] MEDS: LABETALOL 100MG TABLET 100 MG PO ×2 (09:01→21:04)
[2024-04-22] MEDS: LORATADINE 10MG TABLET 10 MG PO (09:01)
[2024-04-22] MEDS: ARIPiprazole 10MG TABLET 10 MG PO (09:01)
[2024-04-22 11:47] VITALS: BP 143/77; PULSE 89; RESP 20; TEMP 36.6; O2SAT 98
[2024-04-22 15:58] VITALS: BP 132/83; PULSE 90; RESP 18; TEMP 36.7; O2SAT 95
[2024-04-22 20:05] VITALS: BP 132/72; PULSE 98; RESP 16; TEMP 36.6; O2SAT 100
[2024-04-22] MEDS: LANOLIN CREAM 40GM TP (21:04)
[2024-04-22] MEDS: PRENATAL MULTIVITAMIN W/IRON 1 EACH PO (21:05)
[2024-04-22] MEDS: PANTOPRAZOLE 40MG TABLET 40 MG PO (21:05)
[2024-04-23 04:18] VITALS: BP 136/70; PULSE 88; RESP 16; TEMP 36.6; O2SAT 97
[2024-04-23] MEDS: ACETAMINOPHEN 500MG TAB 1000 MG PO (04:18)
[2024-04-23] MEDS: ARIPiprazole 10MG TABLET 10 MG PO (08:24)
[2024-04-23] MEDS: LABETALOL 100MG TABLET 100 MG PO (08:24)
[2024-04-23] MEDS: LORATADINE 10MG TABLET 10 MG PO (08:24)
[2024-04-23] MEDS: DESVENLAFAXINE SUCCINATE 100 MG 50 EACH PO (08:25)
[2024-04-23 08:40] VITALS: BP 138/69; PULSE 100; RESP 16; TEMP 36.8; O2SAT 97
--- NOTE | 2024-04-23 10:16 | P.DS_ITS ---
General Admission date:: 04/20/24 Discharge date: 04/23/24 HPI HPI HPI: Amelie Landin is a 23-year-old at 37 weeks and 0 days gestation who presented to labor and delivery for a scheduled delivery. Her has been complicated by chronic hypertension, obesity, and previous delivery, desires repeat. On presentation patient endorsed good movement and denies any leakage of fluid or vaginal bleeding. A+, antibody negative, rubella immune, hepatitis B negative, hepatitis C negative, RPR negative, HIV negative 1 hour GTT: 132 GBS negative Hospital Course Hospital Course Hospital Course: On April 20, 2024 she underwent a repeat lower segment transverse section at 37 weeks. She delivered a liveborn female child. 9:58 AM. Baby had Apgars of 8 at 1 minute and 9 at 5 minutes. She weighed 8 pounds 0 ounces and was 18-1/2 inches long. She has done well postoperatively and has remained afebrile throughout her hospitalization. She is eating and drinking and ambulating. She is breast and bottlefeeding. She has a positive blood, she is rubella immune and was group B streptococcus negative. She will be discharged home today. She was given these instructions with respect to limiting her activity, driving and sexual activity. She is given instructions with respect to wound care. She was given a prescription for Percocet 06/2324 number 12 tablets. She will also take ibuprofen. She will continue with her vitamins and iron. Her condition on discharge is stable and improved. Exam Data for Last 24 hours Vital signs and Labs for Last 24 Hours: Temp Pulse Resp BP Pulse Ox O2 Del Method 98.3 F 100 H 16 138/69 97 Room Air 04/23/24 08:40 04/23/24 08:40 04/23/24 08:40 04/23/24 08:40 04/23/24 08:40 04/23/24 08:40 I & O for Last 24 hours: Intake & Output 04/20/24 04/21/24 04/22/24 04/23/24 11:59 11:59 11:59 11:59 Intake Total 1300 / 1300 Output Total 2550 / 2550 Balance -1250 / -1250 Weight 265 lb Microbiology Reports for the Last 24 Hours: Microbiology 04/20/24 07:52 Urine,Clean Catch Urine Culture - Final Multiple organisms, suggests contamination. Constitutional Constitutional: no acute distress *Routine HEENT Exam Head: Present normocephalic *Routine Respiratory Exam Respiratory: Present normal respiratory effort; Absent accessory muscle use DS: Diagnosis Discharge Diagnosis (1) : Status: Acute Code(s): Z34.90 - Encounter for supervision of normal , unspecified, unspecified trimester Qualifiers: Weeks of gestation: 37 weeks Qualified Code(s): Z3A.37 - 37 weeks ges tation of (2) Obesity, morbid, BMI 40.0-49.9: Status: Acute Code(s): E66.01 - Morbid (severe) obesity due to excess calories (3) History of delivery: Status: Acute Code(s): Z98.891 - History of uterine scar from previous surgery (4) Chronic hypertension affecting : Status: Acute Code(s): O10.919 - Unspecified pre-existing hypertension complicating , unspecified trimester (5) Depression with anxiety: Status: Acute Code(s): F41.8 - Other specified anxiety disorders (6) delivery delivered: Status: Acute Code(s): O82 - Encounter for delivery without indication Meds Home Medications and Allergies Home Medications ?Medication ?Instructions ?Recorded ?Confirmed ?Type albuterol sulfate 90 mcg/actuation 1 puff inhalation Q6HP PRN 11/06/23 04/20/24 History aerosol inhaler Shortness Of Breath Or Wheezing vits no.126-ferrous fum 1 tab PO DAILY 11/06/23 04/20/24 History 28 mg iron-folic acid 800 mcg tablet (Classic ) aspirin 81 mg tablet,delayed 81 mg PO DAILY 11/11/23 04/20/24 History release (Adult Aspirin Regimen) cetirizine 10 mg tablet (Zyrtec) 10 mg PO DAILY #30 tabs 01/20/24 04/20/24 Rx aripiprazole 10 mg tablet (Abilify) 10 mg PO DAILY #30 tabs 01/23/24 04/20/24 Rx labetalol 100 mg tablet 100 mg PO BID #60 tabs 03/02/24 04/20/24 Rx desvenlafaxine succinate 100 mg 50 mg PO DAILY 04/14/24 04/20/24 History tablet,extended release 24 hr (Pristiq) oxycodone-acetaminophen 5 mg-325 1 tab PO Q6H PRN pain #12 tabs 04/23/24 Rx mg tablet New Prescriptions to Start Prescriptions: oxycodone-acetaminophen Cali Guillen Allergies Allergy/AdvReac Type Severity Reaction Status Date / Time amoxicillin Allergy Other Verified 04/19/24 12:52 cephalexin Allergy Other Verified 04/19/24 12:52 ketorolac (From Toradol) Allergy Other Verified 04/19/24 12:52 clavulanic acid (From AdvReac Intermediate Verified 04/19/24 12:52 Augmentin) Discharge Plan Disposition Patient Disposition: Home, Self-Care Discharge Order Discharge Orders: Discharge Order (Routine); Ordered 04/23/24 Ordered By: Cali Gulilen Follow up Plan Follow up with: Jade Rivera DO [Staff Physician] - 05/05/24 1:00 pm Prescriptions/Medication Reconciliation: New oxycodone-acetaminophen 5-325 mg tablet 1 tab PO Q6H PRN (Reason: pain) Qty: 12 0RF Continued albuterol sulfate 90 mcg/actuation HFA aerosol inhaler 1 puff inhalation Q6HP PRN (Reason: Shortness Of Breath Or Wheezing) Patient Comments: INHALE 2 PUFFS BY MOUTH EVERY 6 HOURS NEEDED FOR SHORTNESS OF BREATH OR WHEEZING Classic 28 mg iron- 800 mcg tablet 1 tab PO DAILY cetirizine [Zyrtec] 10 mg tablet 10 mg PO DAILY Qty: 30 2RF aripiprazole [Abilify] 10 mg tablet 10 mg PO DAILY Qty: 30 3RF aspirin [Adult Aspirin Regimen] 81 mg tablet,delayed release (DR/EC) 81 mg PO DAILY labetalol 100 mg tablet 100 mg PO BID Qty: 60 2RF desvenlafaxine succinate [Pristiq] 100 mg tablet extended release 24 hr 50 mg PO DAILY Problem Reconciliation Problems Reviewed?: Yes Patient Discharge Instructions ACTIVITY: No heavy lifting DIET: continue same diet Patient Instructions: Depression, Hemorrhage, DI for , DI for Pre-eclampsia, [facility] Post Discharge Instructions Print Language: [place]ian Providers Primary Care Provider: Daryl Garcia Admit Provider: Jade Rivera Attending Provider: Jade Rivera
--- NOTE | 2024-04-23 10:24 | P.PN_ITS ---
Subjective *Date: 04/22/24 *Time: 10:24 Interval history: She is doing well 1 day post section. She is eating and drinking and ambulating. She is breast-feeding. Her lochia is normal. Her pain is well- controlled. Medical Exam Vital signs and Labs for Last 24 Hours: Vital Signs Temp Pulse Resp BP Pulse Ox O2 Del Method 04/23/24 08:40 98.3 F 100 H 16 138/69 97 Room Air 04/23/24 04:18 97.8 F 88 16 136/70 97 Room Air 04/22/24 20:05 97.9 F 98 H 16 132/72 100 Room Air 04/22/24 15:58 98.0 F 90 18 132/83 95 Room Air 04/22/24 11:47 97.9 F 89 20 143/77 H 98 Room Air I & O for Labs for Last 24 Hours: Intake & Output 04/20/24 04/21/24 04/22/24 04/23/24 11:59 11:59 11:59 11:59 Intake Total 1300 / 1300 Output Total 2550 / 2550 Balance -1250 / -1250 Weight 265 lb Microbiology Reports for the Last 24 Hours: Microbiology 04/20/24 07:52 Urine,Clean Catch Urine Culture - Final Multiple organisms, suggests contamination. Head: Present atraumatic Neck: Present normal inspection Respiratory: Present normal respiratory effort; Absent accessory muscle use Assessment and Plan *Assessment and plan (1) delivery delivered: Status: Acute Category: Medical Code(s): O82 - Encounter for delivery without indication (2) LGA (large for gestational age) fetus: Status: Acute Category: Medical (3) Obesity, morbid, BMI 40.0-49.9: Status: Acute Category: Medical Code(s): E66.01 - Morbid (severe) obesity due to excess calories (4) History of delivery: Status: Acute Category: Surgical Code(s): Z98.891 - History of uterine scar from previous surgery (5) Chronic hypertension affecting : Status: Acute Category: Medical Code(s): O10.919 - Unspecified pre-existing hypertension complicating , unspecified trimester (6) Depression with anxiety: Status: Acute Category: Medical Code(s): F41.8 - Other specified anxiety disorders Plan She is due well today. We will plan to send her home tomorrow.
== END 2024-04-23 11:12 | disposition home or self-care (01) | DRG 788 ==
PROVIDERS: Admitting Provider Obstetrics & Gynecology; PCP Family Medicine; Visit Provider Obstetrics & Gynecology
PROC: 10D00Z1 Extraction of Products of Conception, Low, Open Approach (ICD-10-PCS; CPT 59514; principal; 2024-04-20 09:15)
DX: O10.02 Pre-existing essential hypertension complicating childbirth (principal); Z3A.37 37 weeks gestation of pregnancy; Z37.0 Single live birth; O34.211 Maternal care for low transverse scar from previous cesarean delivery; N85.8 Other specified noninflammatory disorders of uterus; Z88.3 Allergy status to other anti-infective agents; Z88.8 Allergy status to other drugs, medicaments and biological substances; Z79.899 Other long term (current) drug therapy; Z79.51 Long term (current) use of inhaled steroids; O99.214 Obesity complicating childbirth; E66.01 Morbid (severe) obesity due to excess calories; Z87.442 Personal history of urinary calculi
CPT/HCPCS: 36415; 59025; 80053; 81001; 85025; 86592; 86850; 87086; 88307; J0666; J0736; J1580; J2405; J3010; J7120

== ENCOUNTER 2024-04-24 08:23 | Emergency (ER) | payer OTHER, SELFPAY ==
[2024-04-24 08:31] VITALS: BP 147/93; PULSE 94; RESP 16; TEMP 36.4; O2SAT 99; BMI 46.0
--- NOTE | 2024-04-24 08:40 | PC.NURSE ---
dr ramos at bedside
--- NOTE | 2024-04-24 08:46 | ED_ITS ---
Discharge Plan Disposition Patient Disposition: Home, Self-Care Prescriptions Prescriptions: No Action albuterol sulfate 90 mcg/actuation HFA aerosol inhaler 1 puff inhalation Q6HP PRN (Reason: Shortness Of Breath Or Wheezing) Patient Comments: INHALE 2 PUFFS BY MOUTH EVERY 6 HOURS NEEDED FOR SHORTNESS OF BREATH OR WHEEZING Classic 28 mg iron- 800 mcg tablet 1 tab PO DAILY cetirizine [Zyrtec] 10 mg tablet 10 mg PO DAILY Qty: 30 2RF aripiprazole [Abilify] 10 mg tablet 10 mg PO DAILY Qty: 30 3RF aspirin [Adult Aspirin Regimen] 81 mg tablet,delayed release (DR/EC) 81 mg PO DAILY labetalol 100 mg tablet 100 mg PO BID Qty: 60 2RF oxycodone-acetaminophen 5-325 mg tablet 1 tab PO Q6H PRN (Reason: pain) Qty: 12 0RF desvenlafaxine succinate [Pristiq] 100 mg tablet extended release 24 hr 50 mg PO DAILY Referrals Follow up/Referrals: Daryl Garcia MD [Primary Care Provider] - See instructions Activity Restrictions/Add. Instructions Additional Instructions/Restrictions: Your wound looks excellent without any pathologic redness/erythema or pus/purulence coming from the wound. Additionally you did not have an objective fever oral your temperature on my assessment was 98.1 without any medications to bring this down. If you develop any shortness of breath cough spreading redness or pus coming from your wound or other concerns specifically an oral temperature greater than 100.4 please return to the emergency department or follow-up with your primary care doctor as previously instructed or your COMMUNITY SERVICE COORDINATOR doctor as well. Clinical Impressions Clinical Impression: Concern about infectious disease without diagnosis Instructions Patient Instructions: DI for Diarrhea and Traveler's Diarrhea -- Adult, DI for Diarrhea and Traveler's Diarrhea -- Child, DI for Nausea -- Adult, DI for Nausea -- Child Print Language Print Language: Mongolian Discharge ED Provider: Ludin Maldonado General Adult HPI General Chief complaint: Nausea/Vomiting/Diarrhea Stated complaint: poss infect on incision, 4 days post Time Seen by Provider: 04/24/24 08:39 Mode of Arrival: Ambulatory Source of Information: Patient Description of Symptoms (Recalled from ER Triage Doc. by RN): Patient reports low grade fever and nausea. Does state that she is four days post op from a c section. History of Present Illness HPI narrative: 23-year-old here for wound reevaluation after which occurred 4 days ago. She had high blood pressure during her and subsequently had a C- section at 37 weeks. No complications to her knowledge. No significant past medical problems. She denies any shortness of breath or cough today, she says she woke up and her forehead felt warm so she took a forehead thermometer temper ature and it was 99.6. She did not take an oral temperature did not take any antipyretics prior to evaluation today. She noticed a little bit of blood coming from her and decided to come in to make sure that it was not infected. Related Data Home Medications ?Medication ?Instructions ?Recorded ?Confirmed albuterol sulfate 90 mcg/actuation 1 puff inhalation Q6HP PRN 11/06/23 04/20/24 aerosol inhaler Shortness Of Breath Or Wheezing vits no.126-ferrous fum 1 tab PO DAILY 11/06/23 04/20/24 28 mg iron-folic acid 800 mcg tablet (Classic ) aspirin 81 mg tablet,delayed 81 mg PO DAILY 11/11/23 04/20/24 release (Adult Aspirin Regimen) desvenlafaxine succinate 100 mg 50 mg PO DAILY 04/14/24 04/20/24 tablet,extended release 24 hr (Pristiq) Previous Rx's ?Medication ?Instructions ?Recorded cetirizine 10 mg tablet (Zyrtec) 10 mg PO DAILY #30 tabs 01/20/24 aripiprazole 10 mg tablet (Abilify) 10 mg PO DAILY #30 tabs 01/23/24 labetalol 100 mg tablet 100 mg PO BID #60 tabs 03/02/24 oxycodone-acetaminophen 5 mg-325 1 tab PO Q6H PRN pain #12 tabs 04/23/24 mg tablet Allergies Allergy/AdvReac Type Severity Reaction Status Date / Time amoxicillin Allergy Other Verified 04/19/24 12:52 cephalexin Allergy Other Verified 04/19/24 12:52 ketorolac (From Toradol) Allergy Other Verified 04/19/24 12:52 clavulanic acid (From AdvReac Intermediate Verified 04/19/24 12:52 Augmentin) [facility] Disclaimer: The information contained in this section may have been updated after the patient was seen, as this information can be updated by other users. Medical History (Updated 04/24/24 @ 08:46 by Ludin Maldonado MD) 28 weeks gestation of contractions History of depression Hx of appendicitis History of hypertension Hx of anxiety disorder FH: cholecystectomy delivery delivered Surgical History Hx of cholecystectomy History of colpectomy History of appendectomy Family History Other No significant family history Social History (Updated 04/20/24 @ 15:59 by Madison Hunter RN) Smoking Status: Never smoker alcohol intake: never substance use type: denies use current occupational status: unemployed Travel in the last 8 weeks: None Have you lived/traveled outside [place] in past 30 days?: No Contact w/someone who lives/traveled outside [place] past 30 days?: No Exposure to someone with infectious disease in past 14 days?: No Do you have a fever (greater than 100.4 F or 38 C)?: Yes Have you tested positive for COVID-19: No Exposed to someone with COVID-19 in past 14 days?: No Do you have a sore throat?: No Do you have a cough?: No Do you have any weakness?: No Do you have any diarrhea?: No Are you experiencing any unusual bleeding?: No Do you have any muscle aches/pain?: Yes Do you have any abdominal pain?: No Are you experiencing loss of taste or smell?: No Other Medical History Have you received the Flu Vaccine for this season: No Have you received the Pneumonia Vaccine: No ROS Obtained: Yes All systems reviewed & no additional complaints except as documented Physical Exam General General appearance: alert and in no apparent distress Respiratory Respiratory exam: Present normal lung sounds bilaterally; Absent respiratory distress Cardiovascular Cardiovascular exam: Present regular rate and normal rhythm Abdominal Exam Abdominal exam: Present other ( wound not dehisced intact no erythema purulence or evidence of infection no tenderness in the abdomen) Neurological Exam Neurological exam: Present alert and oriented X3 Medical Decision Making Medical Records Screening: Per USPSTF and CDC recommendations, given the prevalence of disease in our region, it is our hospital?s policy to screen for HIV and viral Hepatitis for all patients aged 18 and over and those with ongoing risk factors. Jan Inquiry Pt receiving controlled substance: No Vital Signs: 04/24/24 08:31 Temperature 97.6 F Temperature Source Oral Pulse Rate [Radial] 94 H Respiratory Rate 16 Blood Pressure [Right Arm] 147/93 H Blood Pressure Mean [Right Arm] 111 Blood Pressure Source [Right Arm] Automatic Cuff Blood Pressure Position [Right Arm] Sitting 02 Sat by Pulse Oximetry 99 Oxygen Delivery Method Room Air Medical Decision Narrative: Very well-appearing afebrile 23-year-old here for postoperative evaluation and concern for infection. On my evaluation her heart rate is normal temperature was 98.1 orally on my assessment. She did not have an objective fever. She had no signs of an infection and has no shortness of breath. This is not consistent with pneumonia or pulmonary embolism. Her wound from her looks excellent without evidence of infection as well. She was reassured advised to follow-up with her COMMUNITY SERVICE COORDINATOR doctor as previously instructed and return precautions were emphasized. At this point I am not concerned about a postoperative complication or emergent medical condition. Critical Care Critical Care Time Critical Care Time: No
[2024-04-24 08:54] VITALS: BP 147/93; PULSE 91; RESP 16; TEMP 36.4; O2SAT 98
== END 2024-04-24 08:55 | disposition home or self-care (01) ==
PROVIDERS: Emergency Provider Student in an Organized Health Care Education/Training Program; PCP Family Medicine
DX: Z71.1 Person with feared health complaint in whom no diagnosis is made (principal); R50.9 Fever, unspecified; R11.0 Nausea
CPT/HCPCS: 99281

== ENCOUNTER 2024-05-11 12:29 | Outpatient (CLI) | payer OTHER, SELFPAY ==
[2024-05-11 12:51] LABS: Basophils # 0.1 K/mm3 (0-0.2); Basophils % 0.6 % (0.1-2.0); Eosinophils # 0.8 K/mm3 (0.0-0.4); Eosinophils % 6.7 % (0.1-12.0); Hematocrit 36.6 % (37.0-47.0); Lymphocytes % 16.4 % (10-50); Mean Corpuscular HGB Conc 32.8 g/dL (31.8-35.4); Mean Corpuscular Hemoglobin 27.5 pg (27.0-31.2); Mean Corpuscular Volume 83.9 fl (81-99); Mean Platelet Volume 8.6 fl (7.4-10.4); Monocytes # 0.5 K/mm3 (0.1-1.0); Monocytes % 4.2 % (1.7-9.3); Neutrophils # 8.6 K/mm3 (1.8-7.8); Neutrophils % 71.7 % (37.0-80.0); Platelet Count 390 K/mm3 (142-424); Red Blood Count 4.36 M/mm3 (4.20-5.40); Red Cell Distribution Width 14.3 % (11.5-17.5)
[2024-05-11 13:46] LABS: 25-OH Vitamin D, Total 30.5 ng/mL (30-100)
[2024-05-20 15:21] LABS: I001-IgE Honey Bee <0.10 kU/L (Class 0); I002-IgE Hornet, White Face <0.10 kU/L (Class 0); I005-IgE Hornet Yellow <0.10 kU/L (Class 0); Immunoglobulin E, Total 26 IU/mL (6-495)
== END 2024-05-11 23:59 | disposition home or self-care (01) ==
LOC: LAB 12:30
PROVIDERS: PCP Family Medicine; Visit Provider Allergy & Immunology
DX: J45.30 Mild persistent asthma, uncomplicated (principal); E55.9 Vitamin D deficiency, unspecified; T63.441A Toxic effect of venom of bees, accidental (unintentional), initial encounter; T63.461A Toxic effect of venom of wasps, accidental (unintentional), initial encounter
CPT/HCPCS: 36415; 82306; 82785; 83520; 85025; 86003

== ENCOUNTER 2024-05-13 10:49 | Emergency (ER) | payer OTHER, SELFPAY ==
[2024-05-13 11:00] VITALS: BP 160/96; PULSE 72; PULSE 77; RESP 18; TEMP 36.9; O2SAT 97; O2SAT 98; BMI 44.2
[2024-05-13 11:32] VITALS: BP 142/84; PULSE 68; O2SAT 97
--- NOTE | 2024-05-13 11:36 | PC.NURSE ---
dr jarrett at bedside
--- NOTE | 2024-05-13 11:40 | HMH.EDGENADL ---
Discharge Plan Disposition Patient Disposition: Xfer Psychiatric Hosp Condition: Good Prescriptions Prescriptions: No Action albuterol sulfate 90 mcg/actuation HFA aerosol inhaler 1 puff inhalation Q6HP PRN (Reason: Shortness Of Breath Or Wheezing) Patient Comments: INHALE 2 PUFFS BY MOUTH EVERY 6 HOURS NEEDED FOR SHORTNESS OF BREATH OR WHEEZING cetirizine [Zyrtec] 10 mg tablet 10 mg PO DAILY Qty: 30 2RF aripiprazole [Abilify] 10 mg tablet 10 mg PO DAILY Qty: 30 3RF labetalol 100 mg tablet 100 mg PO BID Qty: 60 2RF Zurzuvae 25 mg capsule 50 mg PO DAILY 14 Days Qty: 28 0RF Rx Instructions: administer with a high fat meal ondansetron 4 mg tablet,disintegrating 4 mg PO Q8H PRN (Reason: nausea and vomiting) Qty: 20 0RF hydroxyzine pamoate 25 mg capsule 25 mg PO TID PRN (Reason: anxiety) Qty: 90 2RF desvenlafaxine succinate [Pristiq] 100 mg tablet extended release 24 hr 50 mg PO DAILY Referrals Follow up/Referrals: Daryl Garcia MD [Primary Care Provider] - See instructions Clinical Impressions Clinical Impression: Suicidal ideation, depression Print Language Print Language: Romansh Discharge ED Provider: Anisha De Leon General Adult HPI General Chief complaint: Psychiatric Symptoms Stated complaint: Psychiatric problems Time Seen by Provider: 05/13/24 11:23 Mode of Arrival: Ambulatory Source of Information: Patient Description of Symptoms (Recalled from ER Triage Doc. by RN): pt is 3 weeks post . having increased depression and suicidal ideation. having thoughts about wrecking her car, shooting herself, or cutting herself. pt is bottle feeding. has a two year old. states her mom has the children and they are safe. History of Present Illness HPI narrative: This patient is a 23-year-old G2, P2 approximately 3 weeks presenting to the emergency department for evaluation with concern for suicidal thoughts. Patient states that she has had depression with both of her pregnancies and is on medications for this, which she is compliant with, but she is having worsening thoughts of harming herself, either planning to wreck her car, she herself, or cut herself. She comes in voluntarily requesting help. She denies any attempts to harm herself. She is on Pristiq, Abilify, and Zoloft without good improvement. She states that she is feeling very depressed and anxious and anything sets her off. Related Data Home Medications ?Medication ?Instructions ?Recorded ?Confirmed albuterol sulfate 90 mcg/actuation 1 puff inhalation Q6HP PRN 11/06/23 05/10/24 aerosol inhaler Shortness Of Breath Or Wheezing desvenlafaxine succinate 100 mg 50 mg PO DAILY 04/14/24 05/10/24 tablet,extended release 24 hr (Pristiq) Previous Rx's ?Medication ?Instructions ?Recorded cetirizine 10 mg tablet (Zyrtec) 10 mg PO DAILY #30 tabs 01/20/24 aripiprazole 10 mg tablet (Abilify) 10 mg PO DAILY #30 tabs 01/23/24 labetalol 100 mg tablet 100 mg PO BID #60 tabs 03/02/24 ondansetron 4 mg disintegrating 4 mg PO Q8H PRN nausea and 04/29/24 tablet vomiting #20 tabs Zurzuvae 25 mg capsule (zuranolone) 50 mg (2 x 25 mg) PO DAILY 14 days 05/04/24 #28 caps hydroxyzine pamoate 25 mg capsule 25 mg PO TID PRN anxiety #90 caps 05/10/24 Allergies Allergy/AdvReac Type Severity Reaction Status Date / Time amoxicillin Allergy Other Verified 05/10/24 13:53 cephalexin Allergy Other Verified 05/10/24 13:53 ketorolac (From Toradol) Allergy Other Verified 05/10/24 13:53 clavulanic acid (From AdvReac Intermediate Verified 05/10/24 13:53 Augmentin) [facility] Disclaimer: The information contained in this section may have been updated after the patient was seen, as this information can be updated by other users. Medical History Urinary tract bacterial infections Recurrent urinary tract infection affecting in first trimester Nephrolithiasis Migraine 28 weeks gestation of contractions History of depression Hx of appendicitis History of hypertension Hx of anxiety disorder FH: cholecystectomy delivery delivered Surgical History Hx of cholecystectomy History of colpectomy History of appendectomy Family History Other No significant family history Social History Smoking Status: Never smoker alcohol intake: never substance use type: denies use current occupational status: unemployed Travel in the last 8 weeks: None Have you lived/traveled outside US in past 30 days?: No Contact w/someone who lives/traveled outside US past 30 days?: No Exposure to someone with infectious disease in past 14 days?: No Do you have a fever (greater than 100.4 F or 38 C)?: No Have you tested positive for COVID-19: No Exposed to someone with COVID-19 in past 14 days?: No Do you have a sore throat?: No Do you have a cough?: No Do you have any weakness?: No Do you have any diarrhea?: No Are you experiencing any unusual bleeding?: No Do you have any muscle aches/pain?: No Do you have any abdominal pain?: No Are you experiencing loss of taste or smell?: No Other Medical History Have you received the Flu Vaccine for this season: No Have you received the Pneumonia Vaccine: No ROS Obtained: Yes All systems reviewed & no additional complaints except as documented Physical Exam General General appearance: alert, in no apparent distress and obese Head Head exam: atraumatic and normocephalic Eye Eye exam: Present normal appearance, PERRL and EOMI ENT ENT exam: Present normal exam, normal oropharynx, mucous membranes moist and normal external ear exam Neck Neck exam: Present normal inspection, full ROM and trachea midline; Absent tenderness Chest Chest inspection: Present normal inspection and symmetric chest wall rise; Absent tenderness Respiratory Respiratory exam: Present normal lung sounds bilaterally; Absent respiratory distress, wheezes, stridor or accessory muscle use Cardiovascular Cardiovascular exam: Present regular rate and normal rhythm Abdominal Exam Abdominal exam: Present soft; Absent distention, tenderness or guarding Extremities Exam Extremities exam: Present normal inspection, full ROM and normal capillary refill; Absent tenderness or edema Back Exam Back exam: Present normal inspection and full ROM; Absent tenderness Neurological Exam Neurological exam: Present alert, oriented X3, CN II-XII intact and normal gait; Absent motor sensory deficit Psychiatric Psychiatric exam: Present suicidal ideation Skin Skin exam: Present warm and dry Medical Decision Making Medical Records Medical records reviewed: Yes I reviewed the patient's medical records. Screening: Per USPSTF and CDC recommendations, given the prevalence of disease in our region, it is our hospital?s policy to screen for HIV and viral Hepatitis for all patients aged 18 and over and those with ongoing risk factors. Jan Inquiry Pt receiving controlled substance: No Vital Signs: 05/13/24 11:00 05/13/24 11:00 05/13/24 11:32 Temperature 98.4 F Temperature Source Oral Pulse Rate 77 68 Pulse Rate [Right] 72 Respiratory Rate 18 Blood Pressure 160/96 H 142/84 H Blood Pressure [Right Arm] 160/96 H Blood Pressure Mean 106 110 Blood Pressure Mean [Right Arm] 117 02 Sat by Pulse Oximetry 98 97 97 Oxygen Delivery Method Room Air Lab Data Lab results reviewed: Yes I reviewed the patient's lab results. Medical Decision Narrative: In summary, this patient is a 23-year-old female presenting to the Emergency Department for evaluation of voluntary psychiatric evaluation for suicidal ideation in the setting of depression. Differential diagnoses considered include but are not limited to depression, suicidal ideation, homicidal ideation, anxiety. Ruling out the most morbid conditions drove assessment. It should be noted patient's history includes depression, obesity which are not at goal therapy. This complicates all aspects of care by increasing patient's risk for morbidity. I reviewed patient's past medical records and noted prior PCP and OB evaluations and medical history. Overall, patient presents voluntarily requesting psychiatric evaluation. She denies any plan for self-harm and denies any prior attempts. Given this, I feel that she is medically cleared for psychiatric evaluation without obtaining labs or imaging. I did not initiate the process of an involuntary 72-hour hold through the courts given that she comes here voluntarily requesting help. We do not have psychiatry here, so I did reach out to [facility]. I had an indirect discussion with Dr. Patiño and the transfer center as well as their behavioral health specialist on-call who advised that they would accept the patient for transfer for further evaluation. Given that patient is having thoughts of potentially wrecking her car, I feel it would be safest if she went by ambulance, so EMS transport was arranged. Patient was transferred in stable condition. Critical Care Critical Care Time Critical Care Time: Yes Attestation: On 05/13/24, the high probability of a clinically significant, sudden or life threatening deterioration of the following system(s) required my full and direct attention, intervention and personal management. The time I documented below is in addition to time spent performing reported procedures but includes the following listed in this critical care notation. Total Time Total Critical Care Time: 30
--- NOTE | 2024-05-13 11:45 | PC.NURSE ---
called [facility] per DR De Leon to possible transfer pt to [facility] for depression and suicidal thoughts. Dr De Leon is currently on phone with Dr Patiño from .
--- NOTE | 2024-05-13 11:52 | PC.NURSE ---
attempted to call report. instructed to call back in 15 mins
--- NOTE | 2024-05-13 12:04 | PC.NURSE ---
[facility] notified of transfer to [facility]
--- NOTE | 2024-05-13 12:07 | PC.NURSE ---
Report called to Irma @ [facility].
[2024-05-13 12:08] VITALS: BP 154/90; PULSE 76; RESP 18; TEMP 36.9; O2SAT 98
== END 2024-05-13 12:24 ==
PROVIDERS: Emergency Provider Emergency Medicine; PCP Family Medicine
DX: F53.0 Postpartum depression (principal); R45.851 Suicidal ideations; F32.A Depression, unspecified
CPT/HCPCS: 99291

== ENCOUNTER 2024-05-21 04:37 | Emergency (ER) | payer OTHER, SELFPAY ==
[2024-05-21 04:42] VITALS: BP 151/92; PULSE 76; RESP 18; TEMP 36.8; O2SAT 98; BMI 44.2
--- NOTE | 2024-05-21 04:46 | ED_ITS ---
Discharge Plan Disposition Patient Disposition: Home, Self-Care Prescriptions Prescriptions: No Action albuterol sulfate 90 mcg/actuation HFA aerosol inhaler 1 puff inhalation Q6HP PRN (Reason: Shortness Of Breath Or Wheezing) Patient Comments: INHALE 2 PUFFS BY MOUTH EVERY 6 HOURS NEEDED FOR SHORTNESS OF BREATH OR WHEEZING cetirizine [Zyrtec] 10 mg tablet 10 mg PO DAILY Qty: 30 2RF aripiprazole [Abilify] 10 mg tablet 10 mg PO DAILY Qty: 30 3RF Zurzuvae 25 mg capsule 50 mg PO DAILY 14 Days Qty: 28 0RF Rx Instructions: administer with a high fat meal ondansetron 4 mg tablet,disintegrating 4 mg PO Q8H PRN (Reason: nausea and vomiting) Qty: 20 0RF hydroxyzine pamoate 25 mg capsule 25 mg PO TID PRN (Reason: anxiety) Qty: 90 2RF nifedipine 30 mg tablet extended release 30 mg PO DAILY Qty: 30 2RF desvenlafaxine succinate [Pristiq] 100 mg tablet extended release 24 hr 50 mg PO DAILY Referrals Follow up/Referrals: Daryl Garcia MD [Primary Care Provider] - See instructions Activity Restrictions/Add. Instructions Additional Instructions/Restrictions: Please follow-up with your [facility]. Please return to the emergency department if you develop any new or worsening symptoms or become concerned for your health. Clinical Impressions Clinical Impression: Vaginal bleeding Print Language Print Language: Bahraini Discharge ED Provider: Hilton Charles General Adult HPI General Chief complaint: Vaginal Bleeding Stated complaint: 1 month, , vaginal bleeding Time Seen by Provider: 05/21/24 04:44 Mode of Arrival: Ambulatory Source of Information: Patient Description of Symptoms (Recalled from ER Triage Doc. by RN): PT HERE W/ C/O VAGINAL BLEEDING THAT STARTED SOMETIME THROUGHOUT THE NIGHT, + INTERMITTENT SHARP ABD PAINS. PT 1 MONTH PP, HAD , OB DR. BELL History of Present Illness HPI narrative: 23-year-old female G2, P2 approximately 1 month from a scheduled C- section presents for vaginal bleeding. Her she reports that she was having some spotting that stopped a week or 2 ago, but this morning had a bit of a gush of bright red blood. She reports it did not seem like normal menstrual period bleeding. She reports she did have mild lower abdominal pain briefly but not significant amount. She reports that she is not breast-feeding. Patient denies any sexual intercourse or trauma. Related Data Home Medications ?Medication ?Instructions ?Recorded ?Confirmed albuterol sulfate 90 mcg/actuation 1 puff inhalation Q6HP PRN 11/06/23 05/10/24 aerosol inhaler Shortness Of Breath Or Wheezing desvenlafaxine succinate 100 mg 50 mg PO DAILY 04/14/24 05/10/24 tablet,extended release 24 hr (Pristiq) Previous Rx's ?Medication ?Instructions ?Recorded cetirizine 10 mg tablet (Zyrtec) 10 mg PO DAILY #30 tabs 01/20/24 aripiprazole 10 mg tablet (Abilify) 10 mg PO DAILY #30 tabs 01/23/24 ondansetron 4 mg disintegrating 4 mg PO Q8H PRN nausea and 04/29/24 tablet vomiting #20 tabs Zurzuvae 25 mg capsule (zuranolone) 50 mg (2 x 25 mg) PO DAILY 14 days 05/04/24 #28 caps hydroxyzine pamoate 25 mg capsule 25 mg PO TID PRN anxiety #90 caps 05/10/24 nifedipine 30 mg tablet,extended 30 mg PO DAILY #30 tabs 05/20/24 release Allergies Allergy/AdvReac Type Severity Reaction Status Date / Time amoxicillin Allergy Other Verified 05/10/24 13:53 cephalexin Allergy Other Verified 05/10/24 13:53 ketorolac (From Toradol) Allergy Other Verified 05/10/24 13:53 clavulanic acid (From AdvReac Intermediate Verified 05/10/24 13:53 Augmentin) [facility] Disclaimer: The information contained in this section may have been updated after the patient was seen, as this information can be updated by other users. Medical History Urinary tract bacterial infections Recurrent urinary tract infection affecting in first trimester Nephrolithiasis Migraine 28 weeks gestation of contractions History of depression Hx of appendicitis History of hypertension Hx of anxiety disorder FH: cholecystectomy delivery delivered Surgical History Hx of cholecystectomy History of colpectomy History of appendectomy Family History Other No significant family history Social History Smoking Status: Never smoker alcohol intake: never substance use type: denies use current occupational status: unemployed Travel in the last 8 weeks: None Have you lived/traveled outside US in past 30 days?: No Contact w/someone who lives/traveled outside US past 30 days?: No Exposure to someone with infectious disease in past 14 days?: No Do you have a fever (greater than 100.4 F or 38 C)?: No Have you tested positive for COVID-19: No Exposed to someone with COVID-19 in past 14 days?: No Do you have a sore throat?: No Do you have a cough?: No Do you have any weakness?: No Do you have any diarrhea?: No Are you experiencing any unusual bleeding?: Yes Do you have any muscle aches/pain?: No Do you have any abdominal pain?: No Are you experiencing loss of taste or smell?: No Other Medical History Have you received the Flu Vaccine for this season: No Have you received the Pneumonia Vaccine: No ROS Obtained: Yes All systems reviewed & no additional complaints except as documented Physical Exam General General appearance: alert and in no apparent distress Head Head exam: atraumatic and normocephalic Eye Eye exam: Present normal appearance, PERRL and EOMI ENT ENT exam: Present normal oropharynx and normal external ear exam Neck Neck exam: Present normal inspection and full ROM Chest Chest inspection: Present normal inspection and symmetric chest wall rise; Absent tenderness Respiratory Respiratory exam: Present normal lung sounds bilaterally; Absent respiratory distress Cardiovascular Cardiovascular exam: Present regular rate and normal rhythm Abdominal Exam Abdominal exam: Present soft; Absent distention, tenderness or guarding Bimanual exam: Present other (External exam shows small amount of clotted dark blood, no active bleeding) Extremities Exam Extremities exam: Present normal inspection; Absent edema or joint swelling Back Exam Back exam: Present normal inspection; Absent tenderness Neurological Exam Neurological exam: Present alert and oriented X3; Absent motor sensory deficit Psychiatric Psychiatric exam: Present normal affect and normal mood Skin Skin exam: Present warm, dry and normal color Lymphatic Lymphatic Findings: no adenopathy Medical Decision Making Medical Records Medical records reviewed: Yes I reviewed the patient's medical records. Screening: Per USPSTF and CDC recommendations, given the prevalence of disease in our region, it is our hospital?s policy to screen for HIV and viral Hepatitis for all patients aged 18 and over and those with ongoing risk factors. Jan Inquiry Pt receiving controlled substance: No Jan was queried for this patient: No Vital Signs: 05/21/24 04:42 05/21/24 05:16 Temperature 98.3 F 98.2 F Temperature Source Oral Oral Pulse Rate 71 Pulse Rate [Apical] 76 Respiratory Rate 18 15 Blood Pressure 125/75 Blood Pressure [Right Arm] 151/92 H Blood Pressure Mean [Right Arm] 111 Blood Pressure Position Sitting 02 Sat by Pulse Oximetry 98 Oxygen Delivery Method Room Air Room Air Lab Data Lab results reviewed: Yes I reviewed the patient's lab results. Medical Decision Narrative: 23-year-old female G2, P2 1 month from presents with vaginal bleeding. History was obtained via interactive discussion with patient. On arrival, patient is [afebrile, hemodynamically stable, satting appropriately, alert, oriented x4, GCS 15], moving all extremities spontaneously. Full physical exam performed and significant for small amount of dark clotted blood on external exam, no active bleeding or bright red blood noted. Differential includes but is not limited to resumption of menses, anemia, coagulopathy, postoperative complication. Interactive discussion was had with patient regarding presentation. This seems most likely to be resumption of menses, especially given she is not breast-feeding. Patient has no significant abdominal pain to suggest intraperitoneal bleeding, she did not have a large volume to suggest anemia though need to be evaluated with blood work. I recommended she call and follow-up with her [facility] or return if her bleeding worsens or does not resolve. She was discharged in stable condition with return precautions.. Blood work, CT/ultrasound imaging was considered, but deemed unnecessary due to history and physical exam.. Procedures Risk/Benefits of Procedure(s) Were Explained: Yes Critical Care Critical Care Time Critical Care Time: No
--- NOTE | 2024-05-21 05:10 | PC.NURSE ---
This RN chaperones Dr Charles for vaginal exam
[2024-05-21 05:16] VITALS: BP 125/75; PULSE 71; RESP 15; TEMP 36.8; O2SAT 97
== END 2024-05-21 05:21 | disposition home or self-care (01) ==
PROVIDERS: Emergency Provider Emergency Medicine; PCP Family Medicine
DX: N93.9 Abnormal uterine and vaginal bleeding, unspecified (principal); R10.9 Unspecified abdominal pain; Z88.1 Allergy status to other antibiotic agents; Z88.8 Allergy status to other drugs, medicaments and biological substances; Z90.49 Acquired absence of other specified parts of digestive tract
CPT/HCPCS: 99281

== ENCOUNTER 2024-05-21 12:07 | Emergency (ER) | payer OTHER, SELFPAY ==
--- NOTE | 2024-05-21 12:10 | ED_ITS ---
<Statement entered by Anisha De Leon DO - 05/21/24 17:59> I was consulted by the SHANNAN, and we discussed the complexity of the problems being addressed. I approved the treatment and management plan for this patient's care in the emergency department, thus performing a substantive portion of the medical decision making. I signed out care of the patient to the oncoming provider at 3 PM. Anisha De Leon DO Discharge Plan Disposition Patient Disposition: Home, Self-Care Condition: Good Prescriptions Prescriptions: No Action albuterol sulfate 90 mcg/actuation HFA aerosol inhaler 1 puff inhalation Q6HP PRN (Reason: Shortness Of Breath Or Wheezing) Patient Comments: INHALE 2 PUFFS BY MOUTH EVERY 6 HOURS NEEDED FOR SHORTNESS OF BREATH OR WHEEZING cetirizine [Zyrtec] 10 mg tablet 10 mg PO DAILY Qty: 30 2RF aripiprazole [Abilify] 10 mg tablet 10 mg PO DAILY Qty: 30 3RF Zurzuvae 25 mg capsule 50 mg PO DAILY 14 Days Qty: 28 0RF Rx Instructions: administer with a high fat meal ondansetron 4 mg tablet,disintegrating 4 mg PO Q8H PRN (Reason: nausea and vomiting) Qty: 20 0RF hydroxyzine pamoate 25 mg capsule 25 mg PO TID PRN (Reason: anxiety) Qty: 90 2RF nifedipine 30 mg tablet extended release 30 mg PO DAILY Qty: 30 2RF desvenlafaxine succinate [Pristiq] 100 mg tablet extended release 24 hr 50 mg PO DAILY Referrals Follow up/Referrals: Daryl Garcia MD [Primary Care Provider] - See instructions Activity Restrictions/Add. Instructions Additional Instructions/Restrictions: If you have any change in your symptoms including pain fever increased vaginal bleeding more than a pad an hour or any other concerns follow-up with your MORTGAGE CLOSING CLERK or return to the ER. Otherwise follow-up with your SCRIPT READER within 48 hours preferably first of next week. Clinical Impressions Clinical Impression: Vaginal bleeding Print Language Print Language: Slovak Discharge ED Provider: Anisha De Leon General Adult HPI <KATHI Donnelly - Last Filed: 05/21/24 17:19> General Chief complaint: Vaginal Bleeding Stated complaint: Heavy vag bleeding, cramping-sent by Mae Rivera Time Seen by Provider: 05/21/24 12:10 History of Present Illness HPI narrative: Patient presents for vaginal bleeding. Patient delivered by section [address] Rivera. Patient states that she expectantly had spotting after her surgery and has not had any vaginal bleeding since. She woke up at 3 AM covered in blood . Since then she has been soaking a pad every hour hour and a half. She reports some mild abdominal cramping but no fevers chills hemoptysis hematochezia melena nausea vomiting diarrhea. Patient was seen in the ER earlier this date and was advised to follow-up with SCRIPT READER. When patient called SCRIPT READER they recommended that she come back to the emergency department. Related Data Home Medications ?Medication ?Instructions ?Recorded ?Confirmed albuterol sulfate 90 mcg/actuation 1 puff inhalation Q6HP PRN 11/06/23 05/10/24 aerosol inhaler Shortness Of Breath Or Wheezing desvenlafaxine succinate 100 mg 50 mg PO DAILY 04/14/24 05/10/24 tablet,extended release 24 hr (Pristiq) Previous Rx's ?Medication ?Instructions ?Recorded cetirizine 10 mg tablet (Zyrtec) 10 mg PO DAILY #30 tabs 01/20/24 aripiprazole 10 mg tablet (Abilify) 10 mg PO DAILY #30 tabs 01/23/24 ondansetron 4 mg disintegrating 4 mg PO Q8H PRN nausea and 04/29/24 tablet vomiting #20 tabs Zurzuvae 25 mg capsule (zuranolone) 50 mg (2 x 25 mg) PO DAILY 14 days 05/04/24 #28 caps hydroxyzine pamoate 25 mg capsule 25 mg PO TID PRN anxiety #90 caps 05/10/24 nifedipine 30 mg tablet,extended 30 mg PO DAILY #30 tabs 05/20/24 release Allergies Allergy/AdvReac Type Severity Reaction Status Date / Time amoxicillin Allergy Other Verified 05/10/24 13:53 cephalexin Allergy Other Verified 05/10/24 13:53 ketorolac (From Toradol) Allergy Other Verified 05/10/24 13:53 clavulanic acid (From AdvReac Intermediate Verified 05/10/24 13:53 Augmentin) [facility] <KATHI Donnelly - Last Filed: 05/21/24 17:19> [facility] Disclaimer: The information contained in this section may have been updated after the patient was seen, as this information can be updated by other users. Medical History Urinary tract bacterial infections Recurrent urinary tract infection affecting in first trimester Nephrolithiasis Migraine 28 weeks gestation of contractions History of depression Hx of appendicitis History of hypertension Hx of anxiety disorder FH: cholecystectomy delivery delivered Surgical History Hx of cholecystectomy History of colpectomy History of appendectomy Family History Other No significant family history Social History Smoking Status: Never smoker alcohol intake: never substance use type: denies use current occupational status: unemployed Travel in the last 8 weeks: None Have you lived/traveled outside US in past 30 days?: No Contact w/someone who lives/traveled outside US past 30 days?: No Exposure to someone with infectious disease in past 14 days?: No Do you have a fever (greater than 100.4 F or 38 C)?: No Have you tested positive for COVID-19: No Exposed to someone with COVID-19 in past 14 days?: No Do you have a sore throat?: No Do you have a cough?: No Do you have any weakness?: No Do you have any diarrhea?: No Are you experiencing any unusual bleeding?: No Do you have any muscle aches/pain?: No Do you have any abdominal pain?: No Are you experiencing loss of taste or smell?: No Other Medical History Have you received the Flu Vaccine for this season: No Have you received the Pneumonia Vaccine: No <KATHI Donnelly - Last Filed: 05/21/24 17:19> ROS Obtained: Yes Systems reviewed as appropriate & no additional complaints except as documented Physical Exam <KATHI Donnelly - Last Filed: 05/21/24 17:19> General General appearance: alert and in no apparent distress Respiratory Respiratory exam: Present normal lung sounds bilaterally Cardiovascular Cardiovascular exam: Present regular rate Neurological Exam Neurological exam: Present alert and oriented X3 Medical Decision Making <KATHI Donnelly - Last Filed: 05/21/24 17:19> Medical Records Medical records reviewed: Yes I reviewed the patient's medical records. Screening: Per USPSTF and CDC recommendations, given the prevalence of disease in our region, it is our hospital?s policy to screen for HIV and viral Hepatitis for all patients aged 18 and over and those with ongoing risk factors. Jan Inquiry Pt receiving controlled substance: No Vital Signs: 05/21/24 12:24 05/21/24 15:00 05/21/24 15:30 Temperature 97.7 F Temperature Source Oral Pulse Rate 71 75 Pulse Rate [Left Radial] 84 Respiratory Rate 17 Blood Pressure 119/72 135/76 Blood Pressure [Right Arm] 129/77 Blood Pressure Mean Blood Pressure Mean [Right Arm] 94 Blood Pressure Source Blood Pressure Source [Right Arm] Automatic Cuff Blood Pressure Position Blood Pressure Position [Right Arm] Sitting 02 Sat by Pulse Oximetry 99 99 99 Oxygen Delivery Method Room Air Room Air Room Air 05/21/24 15:45 05/21/24 16:59 05/21/24 17:28 Temperature 98.6 F Temperature Source Oral Pulse Rate 72 82 84 Pulse Rate [Left Radial] Respiratory Rate 18 Blood Pressure 140/81 147/89 H 147/89 H Blood Pressure [Right Arm] Blood Pressure Mean 104 Blood Pressure Mean [Right Arm] Blood Pressure Source Automatic Cuff Blood Pressure Source [Right Arm] Blood Pressure Position Supine Blood Pressure Position [Right Arm] 02 Sat by Pulse Oximetry 99 Oxygen Delivery Method Room Air Room Air Lab Data Lab results reviewed: Yes I reviewed the patient's lab results. Lab Results 05/21/24 12:40: WBC 8.8, RBC 4.36, Hgb 12.0 L, Hct 36.6 L, MCV 83.9, MCH 27.5, MCHC 32.8, RDW 14.8, Plt Count 286, MPV 8.6, Neut % (Auto) 54.0, Lymph % (Auto) 28.0, Dickinson % (Auto) 5.7, Eos % (Auto) 11.4, Baso % (Auto) 0.7, Neut # (Auto) 4.8, Lymph # (Auto) 2.5, Dickinson # (Auto) 0.5, Eos # (Auto) 1.0 H, Baso # (Auto) 0.1, PT 10.5, INR 0.93, Sodium 138, Potassium 3.9, Chloride 105, Carbon Dioxide 27, Anion Gap 9.9, BUN 12, Creatinine 0.90, Estimated Creat Clear 80, Estimated GFR 77, Est GFR ( Amer) 93, Glucose 92, Calcium 9.2, Total Bilirubin 0.3, AST 35, ALT 52, Alkaline Phosphatase 84, Total Protein 6.8 D, Albumin 4.1, Globulin 2.7, Albumin/Globulin Ratio 1.5 05/21/24 12:40 05/21/24 12:40 Orders (Tests/Meds): ED MEDICATIONS Discontinued Medications Generic Name Dose Route Start Last Admin Trade Name Freq PRN Reason Stop Dose Admin Iopamidol 80 ml 05/21/24 16:25 05/21/24 16:27 Iopamidol-370 (76%);100ml Bottle IV 05/21/24 16:26 80 ml ONCE ONE Administration Methylergonovine Maleate 0.2 mg 05/21/24 13:31 Methylergonovine Maleate 0.2mg/Ml Inj IM 05/21/24 13:32 ONCE ONE Sodium Chloride 10 ml 05/21/24 16:25 05/21/24 16:27 Sodium Chloride 0.9% 10ml Syr (Rad Only) IV 05/21/24 16:26 10 ml ONCE ONE Administration Sodium Chloride 50 ml 05/21/24 16:25 05/21/24 16:27 0.9 % Sodium Chloride 50 Ml Vial IV 05/21/24 16:26 50 ml ONCE ONE Administration ORDERS Category Date Time Status CT angio abd/pel - GI Bleed Stat Cat Scan 05/21/24 16:22 Completed US transvaginal Stat Exams 05/21/24 13:32 Completed CBC w/Auto Diff [Complete Blood Count Auto Diff] Stat Lab 05/21/24 12:40 Completed CMP [Comprehensive Metabolic Panel] Stat Lab 05/21/24 12:40 Completed INR [Prothrombin Time INR] Stat Lab 05/21/24 12:40 Completed Medical Decision Narrative: In summary patient is a 23-year-old female who presents to the emergency department for evaluation of vaginal bleeding. Patient is hemodynamically stable upon arrival, afebrile. Physical exam is remarkable for a well-healed surgical incision without evidence of infection, abdomen is soft only mildly tender to palpation in the lower quadrants with no rebound or guarding no rigidity normal bowel sounds.. Differential diagnosis includes heavy postdelivery period versus retained products versus postoperative complication. Initial workup will be conducted with hematologic labs initially.. Initial interventions include Tylenol. Initial workup reviewed by me and hemoglobin and hematocrit are stable and the remainder of her hematologic labs are nonactionable. I had an interactive discussion with Dr. Guillen of MORTGAGE CLOSING CLERK and he recommended a transvaginal ultrasound which has been ordered. Radiology read the transvaginal ultrasound has essentially normal with 1 exception that there may be possible bleeding at the uterine incision on ultrasound. Given this I have ordered a CT scan abdomen pelvis GI protocol to evaluate for any contrast extravasation. My informal interpretation of her imaging prior to radiology read showed no evidence of contrast extravasation or active bleeding please see the radiology read for final report and interpretation however they also concurred.. Upon repeat evaluation patient has had no increase in pain is not been bleeding from more than a pad an hour here. Given this patient is appropriate for discharge with strict return precautions and follow-up with her SCRIPT READER within 48 hours. <Minh Ramon MD - Last Filed: 05/21/24 17:57> Vital Signs: 05/21/24 12:24 05/21/24 15:00 05/21/24 15:30 Temperature 97.7 F Temperature Source Oral Pulse Rate 71 75 Pulse Rate [Left Radial] 84 Respiratory Rate 17 Blood Pressure 119/72 135/76 Blood Pressure [Right Arm] 129/77 Blood Pressure Mean Blood Pressure Mean [Right Arm] 94 Blood Pressure Source Blood Pressure Source [Right Arm] Automatic Cuff Blood Pressure Position Blood Pressure Position [Right Arm] Sitting 02 Sat by Pulse Oximetry 99 99 99 Oxygen Delivery Method Room Air Room Air Room Air 05/21/24 15:45 05/21/24 16:59 05/21/24 17:28 Temperature 98.6 F Temperature Source Oral Pulse Rate 72 82 84 Pulse Rate [Left Radial] Respiratory Rate 18 Blood Pressure 140/81 147/89 H 147/89 H Blood Pressure [Right Arm] Blood Pressure Mean 104 Blood Pressure Mean [Right Arm] Blood Pressure Source Automatic Cuff Blood Pressure Source [Right Arm] Blood Pressure Position Supine Blood Pressure Position [Right Arm] 02 Sat by Pulse Oximetry 99 Oxygen Delivery Method Room Air Room Air Lab Data Lab Results 05/21/24 12:40: WBC 8.8, RBC 4.36, Hgb 12.0 L, Hct 36.6 L, MCV 83.9, MCH 27.5, MCHC 32.8, RDW 14.8, Plt Count 286, MPV 8.6, Neut % (Auto) 54.0, Lymph % (Auto) 28.0, Dickinson % (Auto) 5.7, Eos % (Auto) 11.4, Baso % (Auto) 0.7, Neut # (Auto) 4.8, Lymph # (Auto) 2.5, Dickinson # (Auto) 0.5, Eos # (Auto) 1.0 H, Baso # (Auto) 0.1, PT 10.5, INR 0.93, Sodium 138, Potassium 3.9, Chloride 105, Carbon Dioxide 27, Anion Gap 9.9, BUN 12, Creatinine 0.90, Estimated Creat Clear 80, Estimated GFR 77, Est GFR ( Amer) 93, Glucose 92, Calcium 9.2, Total Bilirubin 0.3, AST 35, ALT 52, Alkaline Phosphatase 84, Total Protein 6.8 D, Albumin 4.1, Globulin 2.7, Albumin/Globulin Ratio 1.5 Orders (Tests/Meds): ED MEDICATIONS Discontinued Medications Generic Name Dose Route Start Last Admin Trade Name Freq PRN Reason Stop Dose Admin Iopamidol 80 ml 05/21/24 16:25 05/21/24 16:27 Iopamidol-370 (76%);100ml Bottle IV 05/21/24 16:26 80 ml ONCE ONE Administration Methylergonovine Maleate 0.2 mg 05/21/24 13:31 Methylergonovine Maleate 0.2mg/Ml Inj IM 05/21/24 13:32 ONCE ONE Sodium Chloride 10 ml 05/21/24 16:25 05/21/24 16:27 Sodium Chloride 0.9% 10ml Syr (Rad Only) IV 05/21/24 16:26 10 ml ONCE ONE Administration Sodium Chloride 50 ml 05/21/24 16:25 05/21/24 16:27 0.9 % Sodium Chloride 50 Ml Vial IV 05/21/24 16:26 50 ml ONCE ONE Administration ORDERS Category Date Time Status CT angio abd/pel - GI Bleed Stat Cat Scan 05/21/24 16:22 Completed US transvaginal Stat Exams 05/21/24 13:32 Completed CBC w/Auto Diff [Complete Blood Count Auto Diff] Stat Lab 05/21/24 12:40 Completed CMP [Comprehensive Metabolic Panel] Stat Lab 05/21/24 12:40 Completed INR [Prothrombin Time INR] Stat Lab 05/21/24 12:40 Completed Medical Decision Narrative: In summary patient is a 23-year-old female who presents to the emergency department for evaluation of vaginal bleeding. Patient is hemodynamically stable upon arrival, afebrile. Physical exam is remarkable for a well-healed surgical incision without evidence of infection, abdomen is soft only mildly tender to palpation in the lower quadrants with no rebound or guarding no rigidity normal bowel sounds.. Differential diagnosis includes heavy postdelivery period versus retained products versus postoperative complication. Initial workup will be conducted with hematologic labs initially.. Initial interventions include Tylenol. Initial workup reviewed by me and hemoglobin and hematocrit are stable and the remainder of her hematologic labs are nonactionable. I had an interactive discussion with Dr. Guillen of MORTGAGE CLOSING CLERK and he recommended a transvaginal ultrasound which has been ordered. Radiology read the transvaginal ultrasound has essentially normal with 1 exception that there may be possible bleeding at the uterine incision on ultrasound. Given this I have ordered a CT scan abdomen pelvis GI protocol to evaluate for any contrast extravasation. My informal interpretation of her imaging prior to radiology read showed no evidence of contrast extravasation or active bleeding please see the radiology read for final report and interpretation however they also concurred.. Upon repeat evaluation patient has had no increase in pain is not been bleeding from more than a pad an hour here. Given this patient is appropriate for discharge with strict return precautions and follow-up with her SCRIPT READER within 48 hours. I was consulted by the SHANNAN, and we discussed the complexity of the problems being addressed. I approved the treatment and management plan for this patient's care in the emergency department, thus performing a substantive portion of the medical decision making. Patient has stable hemoglobin no evidence of decompensated acute hemorrhage in the emergency department clinically and pulse in the 80s. Ultrasound was discussed with Dr. Guillen who recommended outpatient follow-up. To ensure that there was no acute arterial hemorrhage with the evolving hemorrhagic products seen on ultrasound CTA was ordered, there is a fluid collection of the retrovesical pouch, no concern for abscess given that patient does not have any infectious symptoms. There is no active extravasation. There is incidental hepatic steatosis. Given this patient is appropriate for outpatient follow-up and was given return precautions. Minh Raomn MD Critical Care <KATHI Donnelly - Last Filed: 05/21/24 17:19> Critical Care Time Critical Care Time: No
[2024-05-21 12:24] VITALS: BP 129/77; PULSE 84; RESP 17; TEMP 36.5; O2SAT 99; BMI 44.2
[2024-05-21 12:49] LABS: Basophils # 0.1 K/mm3 (0-0.2); Basophils % 0.7 % (0.1-2.0); Eosinophils % 11.4 % (0.1-12.0); Hematocrit 36.6 % (37.0-47.0); Lymphocytes # 2.5 K/mm3 (0.7-4.5); Mean Corpuscular HGB Conc 32.8 g/dL (31.8-35.4); Mean Corpuscular Hemoglobin 27.5 pg (27.0-31.2); Mean Corpuscular Volume 83.9 fl (81-99); Mean Platelet Volume 8.6 fl (7.4-10.4); Monocytes # 0.5 K/mm3 (0.1-1.0); Monocytes % 5.7 % (1.7-9.3); Neutrophils # 4.8 K/mm3 (1.8-7.8); Platelet Count 286 K/mm3 (142-424); Red Blood Count 4.36 M/mm3 (4.20-5.40); Red Cell Distribution Width 14.8 % (11.5-17.5); White Blood Count 8.8 K/mm3 (4.8-10.8)
[2024-05-21 12:55] LABS: Albumin Level 4.1 g/dl (3.5-5.0); Chloride 105 mmol/L (98-107); Sodium 138 mmol/L (136-145)
[2024-05-21 12:56] LABS: Potassium 3.9 mmoL/L (3.5-5.1)
[2024-05-21 12:58] LABS: Alanine Aminotransferase 52 U/L (12-78); Albumin/Globulin Ratio 1.5 (1.1-1.8); Alkaline Phosphatase 84 U/L (38-126); Anion Gap 9.9 mEq/L (5-15); Aspartate Amino Transferase 35 U/L (14-36); Bilirubin,Total 0.3 mg/dl (0.2-1.3); Blood Urea Nitrogen 12 mg/dl (7-17); Carbon Dioxide 27 mmol/L (22.0-30.0); Creatinine Clearance Estimated 80 mL/min (50-200); Estimated Glomerular Filt Rate 77 ml/min (>60); GFR (African American) 93 ML/MIN (>60); Globulin 2.7 g/dL (1.3-3.2); Glucose 92 mg/dl (74-100); Total Protein,Serum 6.8 g/dl (6.3-8.2)
[2024-05-21 12:59] LABS: Calcium 9.2 mg/dl (8.4-10.2)
[2024-05-21 13:00] LABS: INR 0.93 (0.9-1.1); Prothrombin Time 10.5 seconds (10.1-12.5)
--- NOTE | 2024-05-21 13:31 | PC.NURSE ---
KATHI HITCHCOCK SPEAKING WITH DR LOPEZ WHO RECOMMENDED IM METHERGINE AND TRANSVAGINAL US
--- NOTE | 2024-05-21 13:32 | US_ITS ---
PROCEDURE INFORMATION: Exam: US Pelvis, Transvaginal, Non-Obstetric Exam date and time: 05/21/2024 1:55 PM Age: 23 years old Clinical indication: Pelvic pain; Prior surgery; Surgery date: 1-6 months; Surgery type: Post c section by 1 month; Additional info: bleeding c section x 1 month ago TECHNIQUE: Imaging protocol: Real-time transvaginal pelvic (non-obstetric) ultrasound with image documentation. Transvaginal imaging was used for better evaluation of the endometrium, adnexa, and/or cervix. COMPARISON: US TRANSVAGINAL 01/28/2024 7:39 AM FINDINGS: Uterus: Expectedly enlarged uterus measuring 10.5 x 4.9 x 7.5 cm. No measurable uterine lesions. Expected endometrial thickening in this state without any significant endometrial vascularity. Right ovary/adnexa: Normal. No mass. Normal ovarian blood flow on color Doppler. Right ovary measures 2.9 x 1.9 x 2.2 cm. Left ovary/adnexa: Normal. No mass. Normal ovarian blood flow on color Doppler. Left ovary measures 3.7 x 2.9 x 2.3 cm. Urinary bladder: Urinary bladder is limited. Intraperitoneal space: No free fluid. Soft tissues: Heterogeneity around the scar without measurable collections. IMPRESSION: Postsurgical changes at the scar with perhaps small evolving hemorrhagic products. No measurable large surgical bed hematomas or bladder flap hematomas are seen. No definitive evidence for retained products of conception. Consider ultrasound follow-up or further characterization with CT of the pelvis.
--- NOTE | 2024-05-21 14:00 | PC.NURSE ---
PT TO US
[2024-05-21 15:00] VITALS: BP 119/72; PULSE 71; O2SAT 99
--- NOTE | 2024-05-21 15:00 | PC.NURSE ---
PT RETURNED FROM US. PER [employer] [facility]. PT HAS A LARGE AMOUNT OF VAGINAL BLEEDING WHEN THE PROBE WAS REMOVED
[2024-05-21 15:30] VITALS: BP 135/76; PULSE 75; O2SAT 99
[2024-05-21 15:45] VITALS: BP 140/81; PULSE 72; O2SAT 99
--- NOTE | 2024-05-21 16:00 | PC.NURSE ---
pt given sandwich and a drink at this time per MD permission. no other complaints at this time
--- NOTE | 2024-05-21 16:22 | CT_ITS ---
PROCEDURE INFORMATION: Exam: CTA Abdomen and Pelvis With Contrast Exam date and time: 05/21/2024 4:25 PM Age: 23 years old Clinical indication: Other: Postoperative uterine bleeding TECHNIQUE: Imaging protocol: Computed tomographic angiography of the abdomen and pelvis with contrast. Exam focused on the arteries. 3D rendering (Not supervised by radiologist): MIP and/or 3D reconstructed images were created by the technologist. Radiation optimization: All CT scans at this facility use at least one of these dose optimization techniques: automated exposure control; mA and/or kV adjustment per patient size (includes targeted exams where dose is matched to clinical indication); or iterative reconstruction. Contrast material: ISO 370; Contrast volume: 80 ml; Contrast route: INTRAVENOUS (IV); COMPARISON: US TRANSVAGINAL 05/21/2024 1:55 PM FINDINGS: Aorta: No aortic aneurysm. No aortic dissection. Celiac trunk and mesenteric arteries: No occlusion or significant stenosis. Renal arteries: Bilateral dual renal arteries which are completely patent. Right iliac arteries: No occlusion or significant stenosis. Left iliac arteries: No occlusion or significant stenosis. Liver: 23 cm hepatomegaly and diffuse hepatic steatosis. Gallbladder and biliary ducts: Unremarkable. No calcified stones. No ductal dilation. Pancreas: Unremarkable. No mass. No ductal dilation. Spleen: Unremarkable. No splenomegaly. Adrenal glands: Unremarkable. No mass. Kidneys and ureters: Punctate nonobstructive bilateral nephrolithiasis. No obstructive uropathy. Stomach and bowel: Right hemicolectomy with right upper quadrant enterocolonic anastomosis. No complications. No bowel obstruction or inflammation. Appendix: No evidence of appendicitis. Intraperitoneal space: Unremarkable. No free air. No significant fluid collection. Lymph nodes: Unremarkable. No enlarged lymph nodes. Urinary bladder: Unremarkable. No mass. Reproductive: 4.6 x 1.7 x 7 cm fluid collection in the rectovesical pouch (level of the ) without evidence for active contrast extravasation/bleeding. Expectedly enlarged and heterogeneous/slightly hyperemic uterus with endometrial thickening. Bones/joints: No acute fracture. Soft tissues: Unremarkable. IMPRESSION: 1. 4.6 x 1.7 x 7 cm fluid collection in the rectovesical pouch (level of the ) without evidence for active contrast extravasation/bleeding. Differential diagnosis would include: Bladder flap hematoma in subacute to late stages of evolution, postsurgical seroma, or abscess (felt unlikely if the patient is not presenting with fever/infectious symptomatology). No definitive defect at the site to suggest a incision site dehiscence at this time. Close follow-up is recommended. 2. 23 cm hepatomegaly and diffuse hepatic steatosis.
[2024-05-21] MEDS: 0.9 % SODIUM CHLORIDE 50 ML VIAL IV (16:27)
[2024-05-21] MEDS: SODIUM CHLORIDE 0.9% 10ML SYR (RAD ONLY) 10 ML IV (16:27)
[2024-05-21] MEDS: IOPAMIDOL-370 (76%);100ML BOTTLE 80 ML IV (16:27)
[2024-05-21 16:59] VITALS: BP 147/89; PULSE 82
[2024-05-21 17:28] VITALS: BP 147/89; PULSE 84; RESP 18; TEMP 37; O2SAT 100
== END 2024-05-21 17:29 | disposition home or self-care (01) ==
PROVIDERS: Physician Assistant; Emergency Provider Emergency Medicine; PCP Family Medicine
DX: N93.9 Abnormal uterine and vaginal bleeding, unspecified (principal); R10.9 Unspecified abdominal pain
CPT/HCPCS: 74174; 76830; 80053; 85025; 85610; 99285; Q9967

== ENCOUNTER 2024-05-22 08:17 | Emergency (ER) | payer OTHER, SELFPAY ==
[2024-05-22 08:20] VITALS: BP 123/76; PULSE 73; RESP 16; TEMP 36.8; O2SAT 99; BMI 44.2
[2024-05-22 08:25] VITALS: BP 123/76; PULSE 74; O2SAT 96
--- NOTE | 2024-05-22 08:40 | ED_ITS ---
Discharge Plan Disposition Patient Disposition: Home, Self-Care Condition: Good Prescriptions Prescriptions: New ibuprofen 800 mg tablet 800 mg PO Q8H 7 Days Qty: 21 0RF No Action albuterol sulfate 90 mcg/actuation HFA aerosol inhaler 1 puff inhalation Q6HP PRN (Reason: Shortness Of Breath Or Wheezing) Patient Comments: INHALE 2 PUFFS BY MOUTH EVERY 6 HOURS NEEDED FOR SHORTNESS OF BREATH OR WHEEZING cetirizine [Zyrtec] 10 mg tablet 10 mg PO DAILY Qty: 30 2RF aripiprazole [Abilify] 10 mg tablet 10 mg PO DAILY Qty: 30 3RF Zurzuvae 25 mg capsule 50 mg PO DAILY 14 Days Qty: 28 0RF Rx Instructions: administer with a high fat meal ondansetron 4 mg tablet,disintegrating 4 mg PO Q8H PRN (Reason: nausea and vomiting) Qty: 20 0RF hydroxyzine pamoate 25 mg capsule 25 mg PO TID PRN (Reason: anxiety) Qty: 90 2RF nifedipine 30 mg tablet extended release 30 mg PO DAILY Qty: 30 2RF desvenlafaxine succinate [Pristiq] 100 mg tablet extended release 24 hr 50 mg PO DAILY Referrals Follow up/Referrals: Jade Rivera DO [Staff Physician] - See instructions Daryl Garcia MD [Primary Care Provider] - See instructions Activity Restrictions/Add. Instructions Additional Instructions/Restrictions: You were evaluated in the emergency department today. You do not have active hemorrhaging on exam and you also have normal labs. Your vitals are also normal. I feel that you likely are having cramping causing a vagal response which is contributing to your lightheadedness. There is no indication for admission to the hospital at this time based on reassuring labs and reassuring imaging yesterday. Please follow-up closely outpatient. For your dysfunctional uterine bleeding and cramping, I am prescribing you ibuprofen to take scheduled for the next 7 days. Follow-up closely outpatient with gynecology as well as primary care as soon as possible. Return to the emergency department right away for new or worsening symptoms. Clinical Impressions Clinical Impression: Vaginal bleeding, Lightheadedness Stand Alone Forms Stand Alone Forms: Work/School Release Instructions Patient Instructions: DI for Dysmenorrhea, DI for Vaginal Bleeding, DI for Dizziness-Nonvertigo Print Language Print Language: Danish Discharge ED Provider: Anisha De Leon General Adult HPI General Chief complaint: Vaginal Bleeding Stated complaint: dizziness, seeing black spots, heavy vag bleeding Time Seen by Provider: 05/22/24 08:21 History of Present Illness HPI narrative: This patient is a 23-year-old female with a history of obesity, PCOS, chronic hypertension, prior cholecystectomy and appendectomy presenting to the emergency department for vaginal bleeding cramping. She notes that she is feeling lightheaded and seeing stars whenever she sits up or stands up. She has been evaluated here twice over the last 2 days for the symptoms. She notes that she has been having a change a pad every couple of hours, but not more frequently than that. She notes lower abdominal cramping but no other pain elsewhere. No fevers, chest pain, shortness of breath, vomiting, changes bowel movements. On medical record review, she was evaluated here chief of planning of 05/21/2024 and exam was reassuring, so she was discharged home. She was evaluated here yesterday afternoon by myself and KATHI Washington, and CT abdomen and pelvis and transvaginal ultrasound demonstrated an intrauterine hematoma but no active contrast extravasation. Given this, she was discharged home. Blood counts at that time were reassuring. Related Data Home Medications ?Medication ?Instructions ?Recorded ?Confirmed albuterol sulfate 90 mcg/actuation 1 puff inhalation Q6HP PRN 11/06/23 05/10/24 aerosol inhaler Shortness Of Breath Or Wheezing desvenlafaxine succinate 100 mg 50 mg PO DAILY 04/14/24 05/10/24 tablet,extended release 24 hr (Pristiq) Previous Rx's ?Medication ?Instructions ?Recorded cetirizine 10 mg tablet (Zyrtec) 10 mg PO DAILY #30 tabs 01/20/24 aripiprazole 10 mg tablet (Abilify) 10 mg PO DAILY #30 tabs 01/23/24 ondansetron 4 mg disintegrating 4 mg PO Q8H PRN nausea and 04/29/24 tablet vomiting #20 tabs Zurzuvae 25 mg capsule (zuranolone) 50 mg (2 x 25 mg) PO DAILY 14 days 05/04/24 #28 caps hydroxyzine pamoate 25 mg capsule 25 mg PO TID PRN anxiety #90 caps 05/10/24 nifedipine 30 mg tablet,extended 30 mg PO DAILY #30 tabs 04/03/25 release ibuprofen 800 mg tablet 800 mg PO Q8H 7 days #21 tabs 05/22/24 Allergies Allergy/AdvReac Type Severity Reaction Status Date / Time amoxicillin Allergy Other Verified 05/10/24 13:53 cephalexin Allergy Other Verified 05/10/24 13:53 ketorolac (From Toradol) Allergy Other Verified 05/10/24 13:53 clavulanic acid (From AdvReac Intermediate Verified 05/10/24 13:53 Augmentin) [facility] Disclaimer: The information contained in this section may have been updated after the patient was seen, as this information can be updated by other users. Medical History Urinary tract bacterial infections Recurrent urinary tract infection affecting in first trimester Nephrolithiasis Migraine 28 weeks gestation of contractions History of depression Hx of appendicitis History of hypertension Hx of anxiety disorder FH: cholecystectomy delivery delivered Surgical History Hx of cholecystectomy History of colpectomy History of appendectomy Family History Other No significant family history Social History Smoking Status: Never smoker alcohol intake: never substance use type: denies use current occupational status: unemployed Travel in the last 8 weeks: None Have you lived/traveled outside [place] in past 30 days?: No Contact w/someone who lives/traveled outside [place] past 30 days?: No Exposure to someone with infectious disease in past 14 days?: No Do you have a fever (greater than 100.4 F or 38 C)?: No Have you tested positive for COVID-19: No Exposed to someone with COVID-19 in past 14 days?: No Do you have a sore throat?: No Do you have a cough?: No Do you have any weakness?: No Do you have any diarrhea?: No Are you experiencing any unusual bleeding?: No Do you have any muscle aches/pain?: No Do you have any abdominal pain?: No Are you experiencing loss of taste or smell?: No Other Medical History Have you received the Flu Vaccine for this season: No Have you received the Pneumonia Vaccine: No ROS Obtained: Yes All systems reviewed & no additional complaints except as documented Physical Exam General General appearance: alert and in no apparent distress Head Head exam: atraumatic and normocephalic Eye Eye exam: Present normal appearance, PERRL and EOMI ENT ENT exam: Present normal exam, normal oropharynx, mucous membranes moist and normal external ear exam Neck Neck exam: Present normal inspection, full ROM and trachea midline; Absent tenderness Chest Chest inspection: Present normal inspection and symmetric chest wall rise; Absent tenderness Respiratory Respiratory exam: Present normal lung sounds bilaterally; Absent respiratory distress, wheezes, stridor or accessory muscle use Cardiovascular Cardiovascular exam: Present regular rate and normal rhythm Abdominal Exam Abdominal exam: Present soft; Absent distention, tenderness or guarding External exam: Present normal external exam Speculum exam: Present vaginal bleeding (Small amount of blood in the vaginal vault with no active pooling) Extremities Exam Extremities exam: Present normal inspection, full ROM and normal capillary refill; Absent tenderness or edema Back Exam Back exam: Present normal inspection and full ROM; Absent tenderness Neurological Exam Neurological exam: Present alert, oriented X3, CN II-XII intact and normal gait; Absent motor sensory deficit Psychiatric Psychiatric exam: Present normal affect and normal mood Skin Skin exam: Present warm and dry Medical Decision Making Medical Records Medical records reviewed: Yes I reviewed the patient's medical records. Screening: Per USPSTF and CDC recommendations, given the prevalence of disease in our region, it is our hospital?s policy to screen for HIV and viral Hepatitis for all patients aged 18 and over and those with ongoing risk factors. Jan Inquiry Pt receiving controlled substance: No Vital Signs: 05/22/24 08:20 05/22/24 08:25 05/22/24 09:00 Temperature 98.3 F Temperature Source Oral Pulse Rate 74 81 Pulse Rate [Right] 73 Respiratory Rate 16 Blood Pressure 123/76 135/86 Blood Pressure [Right Arm] 123/76 Blood Pressure Mean [Right Arm] 91 Blood Pressure Source Blood Pressure Source [Right Arm] Automatic Cuff 02 Sat by Pulse Oximetry 99 96 99 Oxygen Delivery Method Room Air Room Air Room Air 05/22/24 09:15 05/22/24 09:30 05/22/24 09:45 Temperature 98.3 F Temperature Source Oral Pulse Rate 77 62 56 L Pulse Rate [Right] Respiratory Rate 16 Blood Pressure 132/78 137/75 Blood Pressure [Right Arm] Blood Pressure Mean [Right Arm] Blood Pressure Source Automatic Cuff Blood Pressure Source [Right Arm] 02 Sat by Pulse Oximetry 98 98 Oxygen Delivery Method Room Air Room Air Lab Data Lab results reviewed: Yes I reviewed the patient's lab results. Lab Results 05/22/24 08:46: WBC 9.1, RBC 4.32, Hgb 12.0 L, Hct 36.4 L, MCV 84.3, MCH 27.8, MCHC 33.0, RDW 14.6, Plt Count 283, MPV 8.9, Neut % (Auto) 57.3, Lymph % (Auto) 24.5, Cowley % (Auto) 5.3, Eos % (Auto) 11.9, Baso % (Auto) 0.8, Neut # (Auto) 5.2, Lymph # (Auto) 2.2, Cowley # (Auto) 0.5, Eos # (Auto) 1.1 H, Baso # (Auto) 0.1, Sodium 136, Potassium 4.3, Chloride 105, Carbon Dioxide 23, Anion Gap 12.3, BUN 14, Creatinine 0.80, Estimated Creat Clear 90, Estimated GFR 88, Est GFR ( Amer) 107, Glucose 94, Calcium 9.3, Total Bilirubin 0.4, AST 37 H, ALT 51, Alkaline Phosphatase 89, Total Protein 6.8, Albumin 4.2, Globulin 2.6, Albumin/Globulin Ratio 1.6 05/22/24 08:46 05/22/24 08:46 Orders (Tests/Meds): ED MEDICATIONS Discontinued Medications Generic Name Dose Route Start Last Admin Trade Name Freq PRN Reason Stop Dose Admin Ibuprofen 800 mg 05/22/24 09:03 05/22/24 09:12 Ibuprofen 400 Mg Tablet PO 05/22/24 09:04 800 mg ONCE ONE Administration ORDERS Category Date Time Status CMP [Comprehensive Metabolic Panel] Stat Lab 05/22/24 08:46 Completed Complete Blood Count Auto Diff Stat Lab 05/22/24 08:46 Completed Medical Decision Narrative: In summary, this patient is a 23-year-old female presenting to the Emergency Department for evaluation of vaginal bleeding, cramping, and lightheadedness. Differential diagnoses considered include but are not limited to symptomatic anemia, vasovagal response to pelvic cramping, intrauterine hematoma, retained products of conception. Ruling out the most morbid conditions drove assessment. It should be noted patient's history includes obesity, hypertension, PCOS which may or may not be at goal therapy. This complicates all aspects of care by increasing patient's risk for morbidity. I reviewed patient's past medical records and noted evaluation here yesterday with imaging and labs obtained that were reassuring as detailed in HPI. On exam, the patient is lying in bed in no acute distress. Vitals are normal on cardiac telemetry. She has no chest pain, shortness of breath, tachycardia, or hypoxia. Abdominal exam is benign. I performed a pelvic exam that shows a small amount of blood in the vaginal vault with no active pooling of blood. Overall, exam is very reassuring and patient had extensive workup yesterday including CT angiogram and transvaginal ultrasound that were reassuring. She was discharged with instructions for follow-up with gynecology. Workup included CBC and CMP. I considered obtaining imaging such as ultrasound or CT scan, however given that these were obtained yesterday and were reassuring with exception of small hematoma I do not feel this is indicated as it would likely not change management coordinator. Labs were obtained that demonstrated reassuring CBC with no significant change in hemoglobin. Chemistry is also reassuring. On reassessment, patient is resting comfortably with normal vital signs and cardiac telemetry. Given that she does not have any active pooling on exam, has reassuring CBC and chemistry, and has had reassuring imaging yesterday, I feel that she is appropriate for discharge home with close follow-up with gynecology. Will trial her with prescription for NSAIDs for dysfunctional uterine bleeding and cramping. I feel that her lightheadedness is likely vasovagal. Patient was given instructions for close follow-up on an outpatient basis, strict return precautions, and she was discharged after all questions were answered. Critical Care Critical Care Time Critical Care Time: No
[2024-05-22 09:00] VITALS: BP 135/86; PULSE 81; O2SAT 99
[2024-05-22 09:02] LABS: Basophils # 0.1 K/mm3 (0-0.2); Basophils % 0.8 % (0.1-2.0); Eosinophils # 1.1 K/mm3 (0.0-0.4); Eosinophils % 11.9 % (0.1-12.0); Hematocrit 36.4 % (37.0-47.0); Lymphocytes # 2.2 K/mm3 (0.7-4.5); Lymphocytes % 24.5 % (10-50); Mean Corpuscular Hemoglobin 27.8 pg (27.0-31.2); Mean Corpuscular Volume 84.3 fl (81-99); Mean Platelet Volume 8.9 fl (7.4-10.4); Monocytes # 0.5 K/mm3 (0.1-1.0); Monocytes % 5.3 % (1.7-9.3); Neutrophils # 5.2 K/mm3 (1.8-7.8); Neutrophils % 57.3 % (37.0-80.0); Platelet Count 283 K/mm3 (142-424); Red Blood Count 4.32 M/mm3 (4.20-5.40); Red Cell Distribution Width 14.6 % (11.5-17.5); White Blood Count 9.1 K/mm3 (4.8-10.8)
[2024-05-22 09:05] LABS: Albumin Level 4.2 g/dl (3.5-5.0); Chloride 105 mmol/L (98-107)
[2024-05-22 09:06] LABS: Potassium 4.3 mmoL/L (3.5-5.1); Sodium 136 mmol/L (136-145)
[2024-05-22 09:08] LABS: Alanine Aminotransferase 51 U/L (12-78); Anion Gap 12.3 mEq/L (5-15); Aspartate Amino Transferase 37 U/L (14-36); Blood Urea Nitrogen 14 mg/dl (7-17); Carbon Dioxide 23 mmol/L (22.0-30.0); Creatinine Clearance Estimated 90 mL/min (50-200); Estimated Glomerular Filt Rate 88 ml/min (>60); GFR (African American) 107 ML/MIN (>60)
[2024-05-22 09:09] LABS: Albumin/Globulin Ratio 1.6 (1.1-1.8); Alkaline Phosphatase 89 U/L (38-126); Bilirubin,Total 0.4 mg/dl (0.2-1.3); Calcium 9.3 mg/dl (8.4-10.2); Globulin 2.6 g/dL (1.3-3.2); Glucose 94 mg/dl (74-100); Total Protein,Serum 6.8 g/dl (6.3-8.2)
[2024-05-22] MEDS: IBUPROFEN 400 MG TABLET 800 MG PO (09:12)
[2024-05-22 09:15] VITALS: BP 132/78; PULSE 77; RESP 16; TEMP 36.8; O2SAT 98
[2024-05-22 09:30] VITALS: BP 137/75; PULSE 62; O2SAT 98
[2024-05-22 09:45] VITALS: PULSE 56; O2SAT 98
--- NOTE | 2024-05-22 09:58 | PC.NURSE ---
Helped patient get dressed. Stated her dad is on his way to get her.
== END 2024-05-22 10:20 | disposition home or self-care (01) ==
PROVIDERS: Emergency Provider Emergency Medicine; PCP Family Medicine
DX: R10.30 Lower abdominal pain, unspecified (principal); R42 Dizziness and giddiness; N93.9 Abnormal uterine and vaginal bleeding, unspecified; E66.01 Morbid (severe) obesity due to excess calories; I10 Essential (primary) hypertension; F41.8 Other specified anxiety disorders; Z87.42 Personal history of other diseases of the female genital tract; Z68.41 Body mass index [BMI] 40.0-44.9, adult
CPT/HCPCS: 80053; 85025; 99283

== ENCOUNTER 2024-06-14 12:23 | Outpatient (CLI) | payer OTHER, SELFPAY ==
--- NOTE | 2024-06-14 12:26 | XR_ITS ---
FINAL REPORT CLINICAL HISTORY: back pain..hip pain after COMPARISON: None FINDINGS: LEFT HIP: Two views of the left hip with an AP view of the pelvis demonstrate no acute fracture or dislocation. The joint spaces appear normal. The visualized bony structures are well aligned. No soft tissue abnormality is seen. IMPRESSION: No acute bony abnormality. Reviewed, Interpreted and Dictated by Vipul Birmingham MD Transcribed by Kait Ross Authenticated and [facility]
--- NOTE | 2024-06-14 12:43 | XR_ITS ---
FINAL REPORT TECHNIQUE: Cervical spine 3 views, thoracic spine 2 views, lumbar spine 3 views CLINICAL HISTORY: PAIN after of her baby COMPARISON: None FINDINGS: CERVICAL SPINE: AP, lateral and odontoid views of the cervical spine were obtained. There is no prior exam for comparison. There is no acute fracture or malalignment. Vertebral body height is preserved. The precervical soft tissues are normal. IMPRESSION: Unremarkable cervical spine series. THORACIC SPINE: AP and lateral views of the thoracic spine were obtained. There is no prior exam for comparison. There is no acute fracture or malalignment. Vertebral body height is preserved. Paraspinal soft tissues are within normal limits. IMPRESSION: Unremarkable thoracic spine series. LUMBAR SPINE: AP and lateral views of the lumbar spine were obtained. There is no prior exam for comparison. There is no acute fracture or malalignment. Vertebral body height is preserved. Disc space height is preserved. No acute paraspinal abnormality. IMPRESSION: Unremarkable lumbar spine series. Reviewed, Interpreted and Dictated by Vipul Birmingham MD Transcribed by Sejal Almaguer Authenticated and . [facility]
== END 2024-06-14 23:59 | disposition home or self-care (01) ==
LOC: RAD 12:24
PROVIDERS: PCP Nurse Practitioner Family; Visit Provider Nurse Practitioner Family
DX: M54.9 Dorsalgia, unspecified (principal); M25.552 Pain in left hip
CPT/HCPCS: 72084; 73502

== ENCOUNTER 2024-06-20 05:37 | Emergency (ER) | payer OTHER, SELFPAY ==
[2024-06-20 05:55] VITALS: BP 137/67; PULSE 79; RESP 16; TEMP 36.7; O2SAT 98; BMI 42.5
--- NOTE | 2024-06-20 06:07 | HMH.EDGENADL ---
Discharge Plan Disposition Patient Disposition: Home, Self-Care Condition: Good Chief Complaint: Upper Respiratory Infection Prescriptions Prescriptions: No Action albuterol sulfate 90 mcg/actuation HFA aerosol inhaler 1 puff inhalation Q6HP PRN (Reason: Shortness Of Breath Or Wheezing) Patient Comments: INHALE 2 PUFFS BY MOUTH EVERY 6 HOURS NEEDED FOR SHORTNESS OF BREATH OR WHEEZING aripiprazole [Abilify] 10 mg tablet 10 mg PO DAILY Qty: 30 3RF Emgality Pen 120 mg/mL pen injector 120 mg SQ QMONTH Qty: 1 2RF epinephrine 0.3 mg/0.3 mL auto-injector 0.3 ml SQ Patient Comments: INJECT 1 PEN INTRAMUCILARLY SINGLE DPSE NEEDED INTO OUTER THIGH FOR SEVERE ALLERGIC REACTION AND CALL 911 hydroxyzine pamoate 25 mg capsule 25 mg PO TID PRN (Reason: anxiety) Qty: 90 2RF desvenlafaxine succinate [Pristiq] 100 mg tablet extended release 24 hr 50 mg PO DAILY Referrals Follow up/Referrals: Daryl Garcia MD [Primary Care Provider] - See instructions Activity Restrictions/Add. Instructions Additional Instructions/Restrictions: Please follow-up with primary care provider regarding today's visit. Please return to ED if symptoms worsen. Clinical Impressions Clinical Impression: Viral syndrome, Parainfluenza Print Language Print Language: Slovenian Discharge ED Provider: Wesley Sampson General Adult HPI <Jamir Marie MD - Last Filed: 06/20/24 06:48> General Chief complaint: Upper Respiratory Infection Stated complaint: fever, sore throat, cough, congestion Time Seen by Provider: 06/20/24 05:58 Mode of Arrival: Ambulatory Source of Information: Patient Description of Symptoms (Recalled from ER Triage Doc. by RN): patient has cough, fever and congestion History of Present Illness HPI narrative: 23-year-old female with history of asthma only on as needed albuterol presents to the ER with complaints of fever, cough, congestion. Her 2-month-old daughter with whom she is here today has the same symptoms and her son reportedly brought the symptoms home a few days ago. She believes she caught what ever the son has. She reports temperature up to 100.6 at home and she has been taking antipyretics for this. She reports congestion especially on the left side of the face. Symptoms have only been going on for the last 24 to 48 hours. Cough is congested and only mildly productive. No chest pain or difficulty breathing. No other associated symptoms or concerns. Related Data Home Medications ?Medication ?Instructions ?Recorded ?Confirmed albuterol sulfate 90 mcg/actuation 1 puff inhalation Q6HP PRN 11/06/23 06/15/24 aerosol inhaler Shortness Of Breath Or Wheezing desvenlafaxine succinate 100 mg 50 mg PO DAILY 04/14/24 06/15/24 tablet,extended release 24 hr (Pristiq) epinephrine 0.3 mg/0.3 mL 0.3 ml SQ 06/01/24 06/15/24 injection, auto-injector Previous Rx's ?Medication ?Instructions ?Recorded aripiprazole 10 mg tablet (Abilify) 10 mg PO DAILY #30 tabs 01/23/24 hydroxyzine pamoate 25 mg capsule 25 mg PO TID PRN anxiety #90 caps 05/10/24 galcanezumab-gnlm 120 mg/mL 120 mg SQ QMONTH #1 mL 06/11/24 subcutaneous pen injector (Emgality Pen) Allergies Allergy/AdvReac Type Severity Reaction Status Date / Time amoxicillin Allergy Other Verified 06/15/24 10:51 cephalexin Allergy Other Verified 06/15/24 10:51 ketorolac (From Toradol) Allergy Other Verified 06/15/24 10:51 clavulanic acid (From AdvReac Intermediate Verified 06/15/24 10:51 Augmentin) [facility] <Jamir Marie MD - Last Filed: 06/20/24 06:48> [facility] Disclaimer: The information contained in this section may have been updated after the patient was seen, as this information can be updated by other users. Medical History Urinary tract bacterial infections Recurrent urinary tract infection affecting in first trimester Nephrolithiasis Migraine 28 weeks gestation of contractions History of depression Hx of appendicitis History of hypertension Hx of anxiety disorder FH: cholecystectomy delivery delivered Surgical History Hx of cholecystectomy History of colpectomy History of appendectomy Family History Other No significant family history Social History Smoking Status: Never smoker alcohol intake: never substance use type: denies use current occupational status: unemployed Travel in the last 8 weeks?: None Have you lived/traveled outside US in past 30 days?: No Contact w/someone who lives/traveled outside US past 30 days?: No Exposure to someone with infectious disease in past 14 days?: No Do you have a fever (greater than 100.4 F or 38 C)?: Yes Have you tested positive for COVID-19?: No Exposed to someone with COVID-19 in past 14 days?: No Do you have a sore throat?: Yes Do you have a cough?: Yes Do you have any weakness?: No Do you have any diarrhea?: No Are you experiencing any unusual bleeding?: No Do you have any muscle aches/pain?: No Do you have any abdominal pain?: No Are you experiencing loss of taste or smell?: No Other Medical History Have you received the Flu Vaccine for this season: No Have you received the Pneumonia Vaccine: No <Jamir Marie MD - Last Filed: 06/20/24 06:48> ROS Obtained: Yes Systems reviewed as appropriate & no additional complaints except as documented Per HPI Physical Exam <Jamir Marie MD - Last Filed: 06/20/24 06:48> General General appearance: alert and in no apparent distress Head Head exam: atraumatic and normocephalic Eye Eye exam: Present PERRL and EOMI ENT ENT exam: Present normal oropharynx and mucous membranes moist Neck Neck exam: Present normal inspection and full ROM Chest Chest inspection: Present symmetric chest wall rise Respiratory Respiratory exam: Present normal lung sounds bilaterally; Absent respiratory distress, wheezes or stridor Cardiovascular Cardiovascular exam: Present regular rate and normal rhythm Extremities Exam Extremities exam: Present full ROM Neurological Exam Neurological exam: Present alert and oriented X3; Absent motor sensory deficit Psychiatric Psychiatric exam: Present normal affect and normal mood Skin Skin exam: Present warm and dry Medical Decision Making <Jamir Marie MD - Last Filed: 06/20/24 06:48> Medical Records Medical records reviewed: Yes I reviewed the patient's medical records. Screening: Per USPSTF and CDC recommendations, given the prevalence of disease in our region, it is our hospital?s policy to screen for HIV and viral Hepatitis for all patients aged 18 and over and those with ongoing risk factors. MR Comment: Patient was seen in family medicine office on with multiple complaints and concerns. Plan was to stop lisinopril, obtain x-rays of the left hip and pelvis as well as the spine and likely refer to physical therapy, referral to GI, start Emgality Jan Inquiry Pt receiving controlled substance: No Vital Signs: 06/20/24 05:55 06/20/24 06:20 06/20/24 07:37 Temperature 98.1 F Temperature Source Oral Pulse Rate 89 83 Pulse Rate [Right Radial] 79 Respiratory Rate 16 18 16 Blood Pressure 137/67 131/78 Blood Pressure [Right Arm] 137/67 Blood Pressure Mean [Right Arm] 90 Blood Pressure Source [Right Arm] Automatic Cuff Blood Pressure Position [Right Arm] Supine 02 Sat by Pulse Oximetry 98 97 99 Oxygen Delivery Method Room Air Room Air Lab Data Lab Results 06/20/24 06:07: Chlamy pneumoniae PCR Not detected, Adenovirus (PCR) Not detected, B. pertussis DNA (PCR) Not detected, Coronavirus OC43 (PCR) Not detected, Coronavirus HKU1 (PCR) Not detected, Coronavirus 229E (PCR) Not detected, SARS-CoV-2 (PCR) Not detected, Coronavirus NL63 (PCR) Not detected, Human Metapneumovir PCR Not detected, Influenza A (H1) PCR Not detected, Influ A (H1N1/09) PCR Not detected, Influenza A (H3) PCR Not detected, Influenza Type A (PCR) Not detected, Influenza Type B (PCR) Not detected, M. pneumoniae (PCR) Not detected, Parainfluenza 1 (PCR) Not detected, Parainfluenza 2 (PCR) Not detected, Parainfluenza 3 (PCR) Detected A, Parainfluenza 4 (PCR) Not detected, RSV (PCR) Not detected, Entero/Rhino (PCR) Not detected Orders (Tests/Meds): ORDERS Category Date Time Status Full Resp Panel w/COVID ([facility]) Routine Lab 06/20/24 06:07 Completed Medical Decision Narrative: In summary, this 23-year-old female with comorbidities described in the HPI which may not be at goal therapy presents to the emergency department today with cough, congestion, fever. On initial evaluation patient is hemodynamically stable, afebrile, lungs clear bilaterally, saturating 98% on room air with good air movement throughout, no wheezing, remainder of exam benign. Differential diagnosis includes but is not limited to viral syndrome including COVID, influenza, RSV, among others. I considered the possibility of pneumonia but have low suspicion for this given patient's short duration of symptoms as well as lack of chest pain or adventitious sounds on exam. I considered performing chest x-ray but given the very low pretest probability will not perform x-ray at this time. Patient is requesting viral swab in case it is COVID or something though after explanation she understands it will not management consultant of symptoms at this time. Based on these concerns, I ordered full respiratory panel. Patient handed off to Dr. Sampson in stable condition pending results of viral swab. <Wesley Sampson, DO - Last Filed: 06/20/24 08:57> Vital Signs: 06/20/24 05:55 06/20/24 06:20 06/20/24 07:37 Temperature 98.1 F Temperature Source Oral Pulse Rate 89 83 Pulse Rate [Right Radial] 79 Respiratory Rate 16 18 16 Blood Pressure 137/67 131/78 Blood Pressure [Right Arm] 137/67 Blood Pressure Mean [Right Arm] 90 Blood Pressure Source [Right Arm] Automatic Cuff Blood Pressure Position [Right Arm] Supine 02 Sat by Pulse Oximetry 98 97 99 Oxygen Delivery Method Room Air Room Air Lab Data Lab Results 06/20/24 06:07: Chlamy pneumoniae PCR Not detected, Adenovirus (PCR) Not detected, B. pertussis DNA (PCR) Not detected, Coronavirus OC43 (PCR) Not detected, Coronavirus HKU1 (PCR) Not detected, Coronavirus 229E (PCR) Not detected, SARS-CoV-2 (PCR) Not detected, Coronavirus NL63 (PCR) Not detected, Human Metapneumovir PCR Not detected, Influenza A (H1) PCR Not detected, Influ A (H1N1/09) PCR Not detected, Influenza A (H3) PCR Not detected, Influenza Type A (PCR) Not detected, Influenza Type B (PCR) Not detected, M. pneumoniae (PCR) Not detected, Parainfluenza 1 (PCR) Not detected, Parainfluenza 2 (PCR) Not detected, Parainfluenza 3 (PCR) Detected A, Parainfluenza 4 (PCR) Not detected, RSV (PCR) Not detected, Entero/Rhino (PCR) Not detected Orders (Tests/Meds): ORDERS Category Date Time Status Full Resp Panel w/COVID ([facility]) Routine Lab 06/20/24 06:07 Completed Medical Decision Narrative: In summary, this 23-year-old female with comorbidities described in the HPI which may not be at goal therapy presents to the emergency department today with cough, congestion, fever. On initial evaluation patient is hemodynamically stable, afebrile, lungs clear bilaterally, saturating 98% on room air with good air movement throughout, no wheezing, remainder of exam benign. Differential diagnosis includes but is not limited to viral syndrome including COVID, influenza, RSV, among others. I considered the possibility of pneumonia but have low suspicion for this given patient's short duration of symptoms as well as lack of chest pain or adventitious sounds on exam. I considered performing chest x-ray but given the very low pretest probability will not perform x-ray at this time. Patient is requesting viral swab in case it is COVID or something though after explanation she understands it will not management consultant of symptoms at this time. Based on these concerns, I ordered full respiratory panel. Patient handed off to Dr. Sampson in stable condition pending results of viral swab. Camilla MDM At time of my assumption of care patient hemodynamically stable, nontoxic-appearing. On reassessment remains well-appearing, reassuring presentation. Respiratory swab returned positive for parainfluenza. Medically clear for discharge at this time with outpatient follow-up with primary care physician. Patient agreeable with this plan. Given instructions to return to ED if symptoms worsen. Discharged home with hemodynamically stable vitals Critical Care <Jamir Marie MD - Last Filed: 06/20/24 06:48> Critical Care Time Critical Care Time: No
[2024-06-20 06:14] LABS: Adenovirus,PCR Not Detected (NotDetected); Bordetella Pertussis Not Detected (NotDetected); Chlamydophila Pneumoniae, PCR Not Detected (NotDetected); Coronavirus 19, PCR Not Detected (NotDetected); Coronavirus 229E Not Detected (NotDetected); Coronavirus NL63 Not Detected (NotDetected); Coronavirus OC43 Not Detected (NotDetected); Coronovirus HKU1,PCR Not Detected (NotDetected); Human Metapneumovirus Not Detected (NotDetected); Influenza A, PCR Not Detected (NotDetected); Influenza AH1, 2009 Not Detected (NotDetected); Influenza AH1, PCR Not Detected (NotDetected); Influenza AH3,PCR Not Detected (NotDetected); Influenza B, PCR Not Detected (NotDetected); Mycoplasma Pneumoniae, PCR Not Detected (NotDetected); Parainfluenza 1, PCR Not Detected (NotDetected); Parainfluenza 2, PCR Not Detected (NotDetected); Parainfluenza 4, PCR Not Detected (NotDetected); Respiratory Syncytial Virus Not Detected (NotDetected); Rhinovirus/Enterovirus Not Detected (NotDetected)
[2024-06-20 06:20] VITALS: BP 137/67; PULSE 89; RESP 18; O2SAT 97
[2024-06-20 07:37] VITALS: BP 131/78; PULSE 83; RESP 16; O2SAT 99
[2024-06-20 08:29] LABS: Parainfluenza 3, PCR Detected (NotDetected)
[2024-06-20 09:12] VITALS: BP 131/78; PULSE 83; RESP 16; TEMP 36.7; O2SAT 99
== END 2024-06-20 09:13 | disposition home or self-care (01) ==
PROVIDERS: Emergency Medicine; Emergency Provider Student in an Organized Health Care Education/Training Program; PCP Family Medicine
DX: R50.9 Fever, unspecified (principal); R09.81 Nasal congestion; R05.9 Cough, unspecified; J06.9 Acute upper respiratory infection, unspecified; B34.8 Other viral infections of unspecified site
CPT/HCPCS: 87633; 99283

== ENCOUNTER 2024-07-04 19:15 | Outpatient (CLI) | payer OTHER, SELFPAY ==
[2024-07-04 19:52] LABS: Coronavirus 19, PCR Not Detected (NotDetected); Influenza A, PCR Not Detected (NotDetected); Influenza B, PCR Not Detected (NotDetected)
== END 2024-07-04 23:59 | disposition home or self-care (01) ==
LOC: LAB.DROPOF 07-05 22:44
PROVIDERS: PCP Student in an Organized Health Care Education/Training Program; Visit Provider Student in an Organized Health Care Education/Training Program
DX: R05.9 Cough, unspecified (principal); J02.9 Acute pharyngitis, unspecified
CPT/HCPCS: 87636

== ENCOUNTER 2024-07-06 04:16 | Emergency (ER) | payer OTHER, SELFPAY ==
[2024-07-06 04:23] VITALS: BP 167/69; PULSE 81; RESP 24; TEMP 36.8; O2SAT 99; BMI 43.4
[2024-07-06 04:26] LABS: Coronavirus 19, PCR Not Detected (NotDetected); Influenza A, PCR Not Detected (NotDetected); Influenza B, PCR Not Detected (NotDetected)
--- NOTE | 2024-07-06 04:30 | ED_ITS ---
Discharge Plan Disposition Patient Disposition: Home, Self-Care Condition: Good Prescriptions Prescriptions: No Action albuterol sulfate 90 mcg/actuation HFA aerosol inhaler 1 puff inhalation Q6HP PRN (Reason: Shortness Of Breath Or Wheezing) Patient Comments: INHALE 2 PUFFS BY MOUTH EVERY 6 HOURS NEEDED FOR SHORTNESS OF BREATH OR WHEEZING Emgality Pen 120 mg/mL pen injector 120 mg SQ QMONTH Qty: 1 2RF [id number]-mbomkdqjh-OE [Bromfed DM] 2-30-10 mg/5 mL syrup 5 ml PO Q4-6H PRN (Reason: cold symptoms) Qty: 90 0RF azithromycin [Zithromax Z-Andrei] 250 mg tablet See Rx Instructions PO .COMPLEX Qty: 6 0RF Rx Instructions: For 250 mg dose pack: take 500 mg today (day 1), then 250 mg for 4 days (days 2-5) PO epinephrine 0.3 mg/0.3 mL auto-injector 0.3 ml SQ Patient Comments: INJECT 1 PEN INTRAMUCILARLY SINGLE DPSE NEEDED INTO OUTER THIGH FOR SEVERE ALLERGIC REACTION AND CALL 911 hydroxyzine pamoate 25 mg capsule 25 mg PO TID PRN (Reason: anxiety) Qty: 90 2RF cetirizine [All Day Allergy (cetirizine)] 10 mg tablet 10 mg PO DAILY PRN (Reason: allergy symptoms) Qty: 60 2RF aripiprazole [Abilify] 10 mg tablet 10 mg PO DAILY Qty: 30 3RF metformin 500 mg tablet extended release 24hr 500 mg PO DAILY Qty: 30 2RF desvenlafaxine succinate [Pristiq] 100 mg tablet extended release 24 hr 50 mg PO DAILY Referrals Follow up/Referrals: Daryl Garcia MD [Primary Care Provider] - See instructions Activity Restrictions/Add. Instructions Additional Instructions/Restrictions: Your evaluated in the ER and are appropriate for discharge at this time. Take Tylenol or ibuprofen if needed for headache, body aches, fevers, or sore throat. Do not exceed the recommended dose on the bottle. Drink plenty of water and eat a small snack each time you take these medications to avoid side effects. Make an appointment with your primary care doctor for reevaluation in a few days. Find the results of your viral swab in the patient portal. Return to the ER with any new, worsening, or otherwise concerning symptoms Clinical Impressions Clinical Impression: Pharyngitis, Nasal congestion, Cough Print Language Print Language: Estonian Discharge ED Provider: Jamir Marie Adult HPI General Chief complaint: Upper Respiratory Infection Stated complaint: difficulty breathing, cough,sore throat,congestion Time Seen by Provider: 07/06/24 04:26 Mode of Arrival: Ambulatory Source of Information: Patient Description of Symptoms (Recalled from ER Triage Doc. by RN): pt presents with c/o non produtive cough, chest congestion, and sore throat x5 days. Pt denies fevers at home, reports spouse and child are sick as well at home. History of Present Illness HPI narrative: 23-year-old female presents to the ER with complaints of nonproductive cough, chest congestion, nasal congestion, sore throat. Patient denies fevers at home. She states similar symptoms have been going through her family. She has had a few episodes of nonbloody, nonmelanotic diarrhea. 1 episode of emesis earlier today after coughing very hard. No other associated symptoms, no other complaints or concerns. Related Data Home Medications ?Medication ?Instructions ?Recorded ?Confirmed albuterol sulfate 90 mcg/actuation 1 puff inhalation Q6HP PRN 11/06/23 07/04/24 aerosol inhaler Shortness Of Breath Or Wheezing desvenlafaxine succinate 100 mg 50 mg PO DAILY 04/14/24 07/04/24 tablet,extended release 24 hr (Pristiq) epinephrine 0.3 mg/0.3 mL 0.3 ml SQ 06/01/24 07/04/24 injection, auto-injector Previous Rx's ?Medication ?Instructions ?Recorded hydroxyzine pamoate 25 mg capsule 25 mg PO TID PRN anxiety #90 caps 05/10/24 galcanezumab-gnlm 120 mg/mL 120 mg SQ QMONTH #1 mL 06/11/24 subcutaneous pen injector (Emgality Pen) aripiprazole 10 mg tablet (Abilify) 10 mg PO DAILY #30 tabs 06/24/24 cetirizine 10 mg tablet (All Day 10 mg PO DAILY PRN allergy 06/24/24 Allergy (cetirizine)) symptoms #60 tabs metformin 500 mg tablet,extended 500 mg PO DAILY #30 tabs 06/28/24 release 24hr (osmotic) ezrzprxlzlurmzj-kjvqektqrqatbnt-TN 5 ml PO Q4-6H PRN cold symptoms 07/04/24 2 mg-30 mg-10 mg/5 mL oral syrup #90 mL (Bromfed DM) azithromycin 250 mg tablet See Rx Instructions PO .COMPLEX #6 07/05/24 (Zithromax Z-Andrei) tabs Allergies Allergy/AdvReac Type Severity Reaction Status Date / Time amoxicillin Allergy Other Verified 07/04/24 19:11 cephalexin Allergy Other Verified 07/04/24 19:11 ketorolac (From Toradol) Allergy Other Verified 07/04/24 19:11 clavulanic acid (From AdvReac Intermediate Verified 07/04/24 19:11 Augmentin) [facility] Disclaimer: The information contained in this section may have been updated after the patient was seen, as this information can be updated by other users. Medical History Urinary tract bacterial infections Recurrent urinary tract infection affecting in first trimester Nephrolithiasis Migraine 28 weeks gestation of contractions History of depression Hx of appendicitis History of hypertension Hx of anxiety disorder FH: cholecystectomy delivery delivered Surgical History Hx of cholecystectomy History of colpectomy History of appendectomy Family History Other No significant family history Social History Smoking Status: Never smoker alcohol intake: never substance use type: denies use current occupational status: unemployed Travel in the last 8 weeks?: None Have you lived/traveled outside US in past 30 days?: No Contact w/someone who lives/traveled outside US past 30 days?: No Exposure to someone with infectious disease in past 14 days?: No Do you have a fever (greater than 100.4 F or 38 C)?: No Have you tested positive for COVID-19?: No Exposed to someone with COVID-19 in past 14 days?: No Do you have a sore throat?: Yes Do you have a cough?: Yes Do you have any weakness?: No Do you have any diarrhea?: No Are you experiencing any unusual bleeding?: No Do you have any muscle aches/pain?: No Do you have any abdominal pain?: No Are you experiencing loss of taste or smell?: No Other Medical History Have you received the Flu Vaccine for this season: No Have you received the Pneumonia Vaccine: No ROS Obtained: Yes Systems reviewed as appropriate & no additional complaints except as documented Per HPI Physical Exam General General appearance: alert, in no apparent distress and obese Head Head exam: atraumatic and normocephalic Eye Eye exam: Present PERRL and EOMI ENT ENT exam: Present mucous membranes moist and other (Posterior oropharynx mildly erythematous but no tonsillomegaly or exudates, structures symmetric, tolerating secretions, no pain with rotation or extension of the neck) Neck Neck exam: Present normal inspection and full ROM; Absent lymphadenopathy Chest Chest inspection: Present symmetric chest wall rise Respiratory Respiratory exam: Present normal lung sounds bilaterally; Absent respiratory distress, wheezes or stridor Cardiovascular Cardiovascular exam: Present regular rate and normal rhythm Abdominal Exam Abdominal exam: Present soft; Absent distention, tenderness, guarding or rebound Extremities Exam Extremities exam: Present full ROM Neurological Exam Neurological exam: Present alert and oriented X3; Absent motor sensory deficit Psychiatric Psychiatric exam: Present normal affect and normal mood Skin Skin exam: Present warm and dry Medical Decision Making Medical Records Medical records reviewed: Yes I reviewed the patient's medical records. Screening: Per USPSTF and CDC recommendations, given the prevalence of disease in our region, it is our hospital?s policy to screen for HIV and viral Hepatitis for all patients aged 18 and over and those with ongoing risk factors. MR Comment: Patient had viral swab and strep swab at [facility] 2 days ago. COVID and flu negative, strep negative. Positive for parainfluenza the beginning of June. Jan Inquiry Pt receiving controlled substance: No Vital Signs: 07/06/24 04:23 Temperature 98.3 F Temperature Source Oral Pulse Rate [Radial] 81 Respiratory Rate 24 Blood Pressure [Right Arm] 167/69 H Blood Pressure Mean [Right Arm] 101 Blood Pressure Position [Right Arm] Sitting 02 Sat by Pulse Oximetry 99 Oxygen Delivery Method Room Air Orders (Tests/Meds): ORDERS Category Date Time Status Rapid PCR Covid and Flu A/B Stat Lab 07/06/24 04:27 Stop Req Medical Decision Narrative: In summary, 23-year-old female presents to the ER with cough, congestion, sore throat. Patient is well-known to this ER with 7 visits since the beginning of the year. On initial evaluation patient is hemodynamically stable, afebrile, lungs clear bilaterally, good air movement, saturating 99 to 100% on room air, posterior oropharynx mildly erythematous but no tonsillomegaly or exudates, no l ymphadenopathy, abdominal exam benign. Patient reports she is worried about strep. I counseled her that the absence of fever, exudates, and lymphadenopathy and the presence of cough all go against a diagnosis of strep. I explained that I did not think a strep swab was indicated. She would still like to be swabbed for COVID and flu, viral syndrome is a possibility. I asked her if the results of the swab would change her management, and she admitted that it would not. She would still like to be tested. Swab was ordered. I had also considered the possibility of RN STAFFING, RPA, appreciate no evidence of these clinically since patient is afebrile, structures of the throat are symmetric, no pain with rotation or extension of the neck. As I was reviewing patient's records, I noticed that she was seen at the [facility] 2 days ago. She had negative COVID, flu, and strep swabs at that time. I went back and asked the patient if she knew the results of her swabs. She states she did not know that she was negative for COVID, flu, strep. During discussion she indicated she had made no effort to find the results. I explained to her various ways to access the results of tests performed in the [facility] system including calling [facility], calling her primary care, or using the patient portal to access her [facility] records. I explained to the patient with the results of those tests I am reassured and that I do not believe repeat swab today is indicated. I canceled the COVID and flu swab. I also explained to her that I did had considered chest x-ray to rule out pneumonia however with her absence of fever, chest pain, hypoxia, or productive cough I did not believe it was indicated especially this early in her illness course. With a very low pretest probability I believe the risks of radiation outweigh the benefits. She is agreeable I educated the patient on continued symptomatic monitoring and management, use of [id number]-gzc-[id number] medications if needed for her symptoms, follow-up instructions, and return precautions for the ER. She indicated understanding and the patient was discharged in stable condition. Critical Care Critical Care Time Critical Care Time: No
[2024-07-06 04:40] VITALS: BP 167/69; PULSE 81; RESP 18; TEMP 36.8; O2SAT 99
== END 2024-07-06 04:41 | disposition home or self-care (01) ==
LOC: ER 04:35
PROVIDERS: Emergency Provider Emergency Medicine; PCP Family Medicine
DX: J02.9 Acute pharyngitis, unspecified (principal); R09.81 Nasal congestion; R05.9 Cough, unspecified
CPT/HCPCS: 87636; 99282

== ENCOUNTER → 2024-07-28 07:54 | Outpatient (CLI) | payer OTHER, SELFPAY ==
--- OUTSIDE RECORDS SUMMARY | 2024-07-28 07:56 | XMS_ITS | Clinical Summary ---
Author Organization [facility] Address [address] [place] [address] Care Team Providers Care Blog Writer Name Role Phone Pcp, No Primary Care Provider Unavailabl e Allergies Active Allergy Reactions Criticality Noted Date Comments Amoxicillin Rash Low 09/17/2021 Amoxicillin-Pot Clavulanate Rash Low 09/18/19 22 Cephalexin Rash Low 08/27/2022 Shrimp Extract Unknown - Patient st ates they do not know rxn details Low 08/27/2022 Medications albuterol 108 (90 Base) MCG/ACT inhaler Inhale 2 puffs every 6 hours as needed. Active ARIPiprazole (Abilify) 5 MG tablet Take 1 tablet by mouth in the morning. 3 Active desvenlafaxine (Pristiq) 50 MG 24 hr tablet Take 1 tablet by mouth in the morning. Do not crush, chew, or split. Active Vit-Fe Fumarate-FA ( PO) Take by mouth. A ctive fluticasone (Flonase) 50 MCG/ACT nasal spray Administer 1 spray into each nostril in the morning. Shake gently. Before first use, prime pump. After use, clean tip and replace cap. Active hydrOXYzine pamoate (Vistaril) 25 MG capsule Take 1 capsule by mouth 3 (three) times a day as needed for anxiety. Active Zuranolone (Zurzuvae) 25 MG capsule Take 50 mg by mouth nightly. Active labetalol (Normodyne) 100 MG tablet Take 1 tablet by mouth in the morning and 1 tablet before bedtime. Active Active Problems Problem Noted Date Diagnosed Date 9 weeks gestation of 10/10/2023 History of PCOS 10/10/2023 Overview (10/10/2023): Needs early MDS, plan with NOB labs. Mild intermittent asthma without complication Overview (10/10/2023): Has inhaler as needed. Severe episode of recurrent major depressive disorder, without psychotic features 10/10/2023 Overview (10/10/2023): Taking Abilify and Pristiq- managed by PCP- Dr Grace Ellis. Nausea and vomiting in pregn aissatou prior to 22 weeks gestation 10/10/2023 Overview (10/10/2023): Start Bonjesta. History of section 10/10/2023 HTN in , chronic 10/15/2021 Estimated Date of Delivery Comme nts Yes 05/11/2024 Based on Ultraso und Resolved Problems Problem Noted Date Diagnosed Date Resolved Date Encounter for Nexplanon removal 08/27/2022 10/10/2023 Assessment & Plan (08/27/2022 10:34 AM EDT): Risks and benefits of nexplanon removal discussed. Nexplanon removed without complication. Watch for signs and symptoms of infection as discussed. Start vitamin today. Follow up in 1 year. Amenorrhea 05/28/2022 10/10/2023 Assessment & Plan (05/28/2022 1:40 PM EDT): Beta hcg ordered per patient request. nexplanon in place but having symptoms of early . upt's negative. Nausea 05/28/2022 10/10/2023 Assessment & Plan (05/28/2022 1:41 PM EDT): Labs ordered for nausea. Discussed following with pcp for further evaluation. Discussed possible side effects of nexplanon. Family planning 05/28/2022 10/10/2023 Assessment & Plan (12/13/2022 3:56 PM EDT): Continue PNV. Track ovulation but also use ovulation predictors to verify ovulation matches. Discussed is achieved in the first year of trying 85% of the time. Discussed there is no concerns as of this visit of her not being able to get . Discussed diet and exercise can help with goals. Yeast infection of the skin 05/28/2022 10/10/2023 Assessment & Plan (05/28/2022 1:42 PM EDT): Has had before. Uses clobetasol for relief. Ordered. Recurrent urinary tract infe ction affecting in second trimester 10/25/2021 10/10/2023 Glucose intolerance of 10/25/2021 10/10/2023 Gross hematuria 10/15/2021 10/10/2023 Heartburn during i n second trimester 10/15/2021 10/10/2023 History of recurrent UTIs 10/15/2021 Encounters Date Type Department Care Team Description 05/13/2024 1:48 PM EDT - 05/13/2024 7:16 PM EDT Hospital Encounter [facility] [address] [place] [address] Brandy Valdivia DO Unspecified mood (affective) disorder (CMS/HCC) (Primary Dx) Discharge Disposition: Home or Self Care 05/13/2024 Travel from Last 3 Months Immunizations Immunization Administration Dates Next Due Tdap 11/01/2021 Family History Medical History Relation Name Comments Anxiety and depression Father Anxiety and depression Mother Heart disease Mother Hypertension Mother Migraines Mother Relation Name Status Comments Father Mother Social History Tobacco Use Types Packs/Day Years Used Date Smoking Tobacco: Never Smokeless Tobacco: Never Alcohol Use Standard Drinks/Week Comments Never 0 (1 standard drink = 0.6 oz pur e alcohol) PHQ-2 Answer Date Recorded Patient Health Questionnaire-2 Score 4 05/13/2024 Walker Depression Scale Answer Date Recorded [place] Depression Scale Total 14 01/17/2022 The thought of harming myself has occurred to me . Never 01/17/2022 PHQ-9 Answer Date Recorded Patient Health Questionnaire-9 Score 18 05/13/2024 PHQ-2A Answer Date Recorded Patient Health Questionnaire-2 Score 3 12/11/2022 Estimated Date of Delivery Comme nts Yes 05/11/2024 Based on Ultraso und Sex and Gender Information Value Date Recorded Sex Assigned at Not on file Legal Sex Female 10:13 AM EDT Gender Identity Not on file Sexual Orientation Not on file Last Filed Vital Signs Vital Sign Reading Time Taken Comments Blood Pressure 135/82 05/13/2024 1:26 PM EDT Pulse 67 05/13/2024 1:26 PM EDT Temperature 36.6 C (97.9 F) 05/13/2024 1:26 PM EDT Respiratory Rate 18 05/13/2024 11:48 AM EDT Oxygen Saturation 99% 05/13/2024 1:26 PM EDT Inhaled Oxygen Concentration - - Weight 113 kg (250 lb) 05/13/2024 1:42 PM EDT Height 160 cm (5' 3 ) 05/13/2024 1:42 PM EDT Body Mass Index 44.29 05/13/2024 1:42 PM EDT Plan of Treatment Health Maintenance Due Date Last Done Comments Dental Oral Exam 1999 Dental Prophylaxis 1999 Dental X-Ray: Bitewings 1999 Dental X-Ray: Full Mouth 1999 [facility]-Hepatitis C Screening 1999 [facility]-Infant/Child/Adol SDOH Screenings 1999 HPV Vaccines (1 - 3-dose series) 07/18/2014 [facility]- SDOH Screenings 07/18/2017 [facility]-Adult SDOH Screenings 07/18/2017 [facility]-Pneumococcal Vaccine: Pediatrics (0 to 5 Years) and At-Risk Patients (6 to 49 Years) (1 of 2 - PCV) 07/18/2018 [facility]-Pap Smear 07/18/2020 [id number] Vaccine (3 - season) 2023 01/31/2021, 12/19/2020 [facility]-Influenza Vaccine (Season Ended) 2024 11/20/2021, 04/03/2021, 03/20/2021, Additional history exists [facility]-Depression Screening 05/13/2025 025, 05/13/2024, 01/17/2022 [facility]-DTaP,Tdap,and Td Vaccines (7 - Td or Tdap) 11/02/2031 11/01/2021, 10/20/2003, 09/29/2001, Additional history exists [facility]-Zoster Vaccines (1 of 2) 07/18/2049 03/26/2006, 07/25/2000 [facility]-Hepatitis B Vaccines Completed 001, 1999, 1999 [facility]-HIB Vaccines Completed 04/08/2002, , 08/26/2001, Additional history exists [facility]-IPV Vaccines Completed 10/20/2003, 09/2000, 02/27/2000, Additional history exists [facility]-Varicella Vaccines Completed 03/26/2006, 2000 [facility]-Obesity Intervention Completed 024, 10/10/2023, 09/24/2023, Additional history exists [facility]-HIV Screening Completed 05/13/2024 [facility]-Hepatitis A Vaccines Aged Out No longer eligible based on patient's age to complete this topic [facility]-RSV Vaccine: 60+ Years or (No Doses Required) Completed [facility]-Rotavirus Vaccines Aged Out No lo nger eligible based on patient's age to complete this topic Goals Goal Patient Goal Type Associated Problems Recent Progress Patient-Stated? Author Delayed Delivery Care Plan CPM S20 PP LABOR (OBSTETRICS) No Open Scheduling, Background Procedures Procedure Name Priority Date/Time Associated Diagnosis Comments HIV 1/2 ANTIBODY/ANTIGEN SCREEN WITH REFLEX TO HIV I/II DIFFERENTIATION STAT 05/13/2024 3:51 PM EDT HIV 1/2 ANTIBODY/ANTIGEN SCREEN W/REFLEX TO HIV 1/2 ANTIBODY DIFFERENTIATION STAT 05/13/2024 3:51 PM EDT HEPATITIS C ANTIBODY WITH REFLEX TO HCV QUANT PCR - EMPATH STAT 05/13/2024 3:51 PM EDT HEPATITIS B SURFACE ANTIGEN - EMPATH STAT 05/13/2024 3:51 PM EDT from Last 3 Months Results * Hepatitis B Surface Antigen - Empath (05/13/2024 3:51 PM EDT) Hepatitis B Surf Antigen Negative Negative 05/13/2024 7:51 PM EDT [facility] Blood Venous blood specimen / Unknown Venipuncture / Unknown 05/13/2024 3:51 PM EDT 05/13/2024 3:52 PM EDT us Capo R Krista PA LAB BLOOD ORDERABLES Final Result [facility] [address] [place] [address] * Hepatitis C Antibody with Reflex to HCV Quant PCR - Empath (05/13/2024 3:51 PM EDT) Pathologist [facility] Hepatitis C Antibody Negative Negative 05/13/2024 6:36 PM EDT [facility] Blood Venous blood specimen / Unknown Venipuncture / Unknown 05/13/2024 3:51 PM EDT 05/13/2024 3:52 PM EDT us Capo R Krista PA LAB BLOOD ORDERABLES Final Result Performing Organization Address [facility]/ZIP Co de Phone Number [facility] [address] [place] [address] * HIV 1 & 2 Antibody/Antigen Screen (05/13/2024 3:51 PM EDT) Pathologist [facility] HIV 1 & 2 Antibody/Antigen Screen Non Reactive Non Reactive 05/13/2024 6:36 PM EDT [facility] Comment:Screening for HIV 1 & 2 antibodies, and P24 antigen is NONREACTIVE. No confirmatory testing is required. Blood Venous blood specimen / Unknown Venipuncture / Unknown 05/13/2024 3:51 PM EDT 05/13/2024 3:52 PM EDT us Capo R Krista PA LAB BLOOD ORDERABLES Final Result Performing Organization Address City/[facility]/ZIP Co de Phone Number [facility] [address] [place] [address] from Last 3 Months Additional Health Concerns Active Problems Noted Date Diagnosed Date CPM S20 PP LABOR (OBSTETRICS) 09/17/2021 Insurance Care Teams Blog Writer Relationship Specialty Start Date End Date Pcp, [place] [address] PCP - General Family Medicine 09/17/21
== END ==
LOC: SL 07:54
PROVIDERS: PCP Nurse Practitioner Family; Visit Provider Nurse Practitioner Family
DX: M54.9 Dorsalgia, unspecified (principal); G47.33 Obstructive sleep apnea (adult) (pediatric)
CPT/HCPCS: G0399

== ENCOUNTER 2024-07-29 23:55 | Emergency (ER) | payer OTHER, SELFPAY ==
[2024-07-30] VITALS: BP 165/112; PULSE 93; RESP 18; TEMP 36.7; O2SAT 100; BMI 42.8
--- NOTE | 2024-07-30 00:05 | PC.NURSE ---
Implant felt to LUE, no deformity appreciated
--- NOTE | 2024-07-30 00:08 | HMH.EDGENADL ---
Discharge Plan Disposition Patient Disposition: Home, Self-Care Prescriptions Prescriptions: No Action albuterol sulfate 90 mcg/actuation HFA aerosol inhaler 1 puff inhalation Q6HP PRN (Reason: Shortness Of Breath Or Wheezing) Patient Comments: INHALE 2 PUFFS BY MOUTH EVERY 6 HOURS NEEDED FOR SHORTNESS OF BREATH OR WHEEZING Emgality Pen 120 mg/mL pen injector 120 mg SQ QMONTH Qty: 1 2RF desvenlafaxine succinate [Pristiq] 100 mg tablet extended release 24 hr 100 mg PO DAILY 30 Days Qty: 30 3RF metformin 500 mg tablet extended release 24hr 1,000 mg PO DAILY 30 Days Qty: 60 2RF epinephrine 0.3 mg/0.3 mL auto-injector 0.3 ml SQ Patient Comments: INJECT 1 PEN INTRAMUCILARLY SINGLE DPSE NEEDED INTO OUTER THIGH FOR SEVERE ALLERGIC REACTION AND CALL 911 hydroxyzine pamoate 25 mg capsule 25 mg PO TID PRN (Reason: anxiety) Qty: 90 2RF cetirizine [All Day Allergy (cetirizine)] 10 mg tablet 10 mg PO DAILY PRN (Reason: allergy symptoms) Qty: 60 2RF aripiprazole [Abilify] 10 mg tablet 10 mg PO DAILY Qty: 30 3RF Referrals Follow up/Referrals: Nicole Karimi APRN [Primary Care Provider, Family Practice] - See instructions Activity Restrictions/Add. Instructions Additional Instructions/Restrictions: Please follow-up with [facility]. Please monitor for signs of infection. Please take Tylenol and ibuprofen as needed for pain. Clinical Impressions Clinical Impression: Encounter for Nexplanon removal Instructions Patient Instructions: DI for Skin Abscess Print Language Print Language: Togolese Discharge ED Provider: Hilton Charles General Adult HPI General Chief complaint: Skin/Abscess/Foreign Body Stated complaint: control implant L arm moved Time Seen by Provider: 07/30/24 00:00 Mode of Arrival: Ambulatory Source of Information: Patient Description of Symptoms (Recalled from ER Triage Doc. by RN): pt presents for evaluation of her control implant in her left arm that has moved causing pain and numbness below the level of her implant. Pt reports to calling her PCP and being advised to come to the ED. History of Present Illness HPI narrative: 24-year-old female presents with complaint about her Nexplanon. She reports that it has been moving over the last week and is causing her pain in her arm feels a little numb and she would like it taken out. Denies any other complaints. Related Data Home Medications ?Medication ?Instructions ?Recorded ?Confirmed albuterol sulfate 90 mcg/actuation 1 puff inhalation Q6HP PRN 11/06/23 07/22/24 aerosol inhaler Shortness Of Breath Or Wheezing epinephrine 0.3 mg/0.3 mL 0.3 ml SQ 06/01/24 07/22/24 injection, auto-injector Previous Rx's ?Medication ?Instructions ?Recorded hydroxyzine pamoate 25 mg capsule 25 mg PO TID PRN anxiety #90 caps 05/10/24 galcanezumab-gnlm 120 mg/mL 120 mg SQ QMONTH #1 mL 06/11/24 subcutaneous pen injector (Emgality Pen) aripiprazole 10 mg tablet (Abilify) 10 mg PO DAILY #30 tabs 06/24/24 cetirizine 10 mg tablet (All Day 10 mg PO DAILY PRN allergy 06/24/24 Allergy (cetirizine)) symptoms #60 tabs desvenlafaxine succinate 100 mg 100 mg PO DAILY 30 days #30 tabs 07/22/24 tablet,extended release 24 hr (Pristiq) metformin 500 mg tablet,extended 1,000 mg (2 x 500 mg) PO DAILY 30 07/22/24 release 24hr (osmotic) days #60 tabs Allergies Allergy/AdvReac Type Severity Reaction Status Date / Time amoxicillin Allergy Other Verified 07/22/24 14:25 cephalexin Allergy Other Verified 07/22/24 14:25 ketorolac (From Toradol) Allergy Other Verified 07/22/24 14:25 clavulanic acid (From AdvReac Intermediate Verified 07/22/24 14:25 Augmentin) PFSH [facility] Disclaimer: The information contained in this section may have been updated after the patient was seen, as this information can be updated by other users. Medical History Urinary tract bacterial infections Recurrent urinary tract infection affecting in first trimester Nephrolithiasis Migraine 28 weeks gestation of contractions History of depression Hx of appendicitis History of hypertension Hx of anxiety disorder FH: cholecystectomy delivery delivered Surgical History Hx of cholecystectomy History of colpectomy History of appendectomy Family History Other No significant family history Social History Smoking Status: Never smoker alcohol intake: never substance use type: denies use current occupational status: unemployed Travel in the last 8 weeks?: None Have you lived/traveled outside US in past 30 days?: No Contact w/someone who lives/traveled outside US past 30 days?: No Exposure to someone with infectious disease in past 14 days?: No Do you have a fever (greater than 100.4 F or 38 C)?: No Have you tested positive for COVID-19?: No Exposed to someone with COVID-19 in past 14 days?: No Do you have a sore throat?: No Do you have a cough?: No Do you have any weakness?: No Do you have any diarrhea?: No Are you experiencing any unusual bleeding?: No Do you have any muscle aches/pain?: No Do you have any abdominal pain?: No Are you experiencing loss of taste or smell?: No Other Medical History Have you received the Flu Vaccine for this season: No Have you received the Pneumonia Vaccine: No ROS Obtained: Yes All systems reviewed & no additional complaints except as documented Physical Exam General General appearance: alert and in no apparent distress Head Head exam: atraumatic and normocephalic Eye Eye exam: Present normal appearance, PERRL and EOMI ENT ENT exam: Present normal oropharynx and normal external ear exam Neck Neck exam: Present normal inspection and full ROM Chest Chest inspection: Present normal inspection and symmetric chest wall rise; Absent tenderness Respiratory Respiratory exam: Present normal lung sounds bilaterally; Absent respiratory distress Cardiovascular Cardiovascular exam: Present regular rate and normal rhythm Abdominal Exam Abdominal exam: Present soft; Absent distention, tenderness or guarding Extremities Exam Extremities exam: Present normal inspection (Nexplanon is palpable in the posterior medial aspect of the mid left upper arm); Absent edema or joint swelling Back Exam Back exam: Present normal inspection; Absent tenderness Neurological Exam Neurological exam: Present alert and oriented X3; Absent motor sensory deficit Psychiatric Psychiatric exam: Present normal affect and normal mood Skin Skin exam: Present warm, dry and normal color Lymphatic Lymphatic Findings: no adenopathy Medical Decision Making Medical Records Medical records reviewed: Yes I reviewed the patient's medical records. Screening: Per USPSTF and CDC recommendations, given the prevalence of disease in our region, it is our hospital?s policy to screen for HIV and viral Hepatitis for all patients aged 18 and over and those with ongoing risk factors. Jan Inquiry Pt receiving controlled substance: No Jan was queried for this patient: No Vital Signs: 07/30/24 00:00 07/30/24 00:54 Temperature 98.1 F 98.1 F Temperature Source Oral Oral Pulse Rate 68 Pulse Rate [Left Radial] 93 H Respiratory Rate 18 16 Blood Pressure 158/88 H Blood Pressure [Right Arm] 165/112 H Blood Pressure Mean [Right Arm] 129 Blood Pressure Position Sitting Blood Pressure Position [Right Arm] Sitting 02 Sat by Pulse Oximetry 100 Oxygen Delivery Method Room Air Room Air Lab Data Lab results reviewed: Yes I reviewed the patient's lab results. Orders (Tests/Meds): ED MEDICATIONS Discontinued Medications Generic Name Dose Route Start Last Admin Trade Name Bren PRN Reason Stop Dose Admin Lidocaine/Epinephrine 0 ml 07/30/24 00:40 07/30/24 00:42 Lidocaine 1% W/Epi 1:100,000 20ml Vial SQ 07/30/24 00:41 30 mg ONCE ONE Administration Medical Decision Narrative: 24-year-old female without pertinent past medical history presents for pain from a migratory Nexplanon and request to be taken out.. History was obtained via interactive discussion with patient. On arrival, patient is [afebrile, hemodynamically stable, satting appropriately, alert, oriented x4, GCS 15], moving all extremities spontaneously. Full physical exam performed and significant for palpable Nexplanon in the left upper arm. I have recommended we give her lidocaine patch and she follow-up with [facility] for removal. She reports that she would prefer that we take it out now. I discussed with her the risks and benefits of this procedure and she agreed. The Nexplanon was removed and a single suture was placed over the incision. Patient was discharged in stable condition. Procedures Risk/Benefits of Procedure(s) Were Explained: Yes Laceration Laceration 1: Site: upper extremity (Left upper arm) Size (cm): 0.5 Description: linear Depth: simple, single layer Local Anesthetic: lidocaine 1% and with epi Amount of anesthesia used (mL): 4 Skin layer closed with: other (fast gut) Size (cm): 5-0 Number of sutures: 1 Technique: simple, interrupted Foreign Body Removal Time Out Performed: Yes Site: left and upper extremity Description of foreign body: other (Nexplanon) Sedation/Analgesia: other (1% lidocaine with epi, 4 mL) Technique: removal with forceps, incision made to facilitate removal and bedside ultrasound guidance Confirmed by:: direct visualization Complications: none Post-procedure exam: awake, alert Neurovascular: normal distal pulse Critical Care Critical Care Time Critical Care Time: No
--- OUTSIDE RECORDS SUMMARY | 2024-07-30 00:09 | XMS_ITS | Clinical Summary ---
Author Organization [facility] Address [address] [place] [address] Care Team Providers Care Senior Accountant Analyst Name Role Phone Pcp, No Primary Care [...] - 05/13/2024 7:16 PM EDT Hospital Encounter [facility] [address] [place] [address] Brandy Valdivia DO Unspecified mood (affective) disorder [...] Recorded Patient Health Questionnaire-2 Score 4 05/13/2024 [place] Depression Scale Answer Date Recorded [place] Depression Scale Total 14 01/17/2022 The thought [...] 2 - PCV) 07/18/2018 [facility]-Pap Smear 07/18/2020 [id number] Vaccine (3 - season) 2023 01/31/2021, 12/19/2020 [...] Antigen Negative Negative 05/13/2024 7:[address] [facility] Blood Venous blood specimen / Unknown Venipuncture / Unknown 05/13/2024 3:51 PM EDT 05/13/2024 3:52 PM EDT us Capo R Krista PA LAB BLOOD ORDERABLES Final Result [facility] [address] [place] [address] * Hepatitis C Antibody with Reflex to HCV Quant PCR - Empath (05/13/2024 3:51 PM EDT) Pathologist [facility] Hepatitis C Antibody Negative Negative 05/13/2024 6:[address] [facility] Blood Venous blood specimen / Unknown Venipuncture / Unknown 05/13/2024 3:51 PM EDT 05/13/2024 3:52 PM EDT us Capo R Krista PA LAB BLOOD ORDERABLES Final Result Performing Organization Address [facility]/ZIP Co de Phone Number [facility] [address] [place] [address] * HIV 1 & 2 Antibody/Antigen Screen (05/13/2024 3:51 PM EDT) Pathologist [facility] HIV 1 & 2 Antibody/Antigen Screen Non [...] BLOOD ORDERABLES Final Result Performing Organization Address City/[facility]/ZIP Co de Phone Number [facility] [address] [place] [address] from Last 3 Months Additional Health Concerns Active Problems Noted Date Diagnosed Date CPM S20 PP LABOR (OBSTETRICS) 09/17/2021 [facility] [place] [id number] MEDICA[facility] Care Teams Senior Accountant Analyst Relationship Specialty Start Date End Date Pcp, [place] [address] PCP - General Family Medicine 09/17/21
--- NOTE | 2024-07-30 00:13 | PC.NURSE ---
ed provider at the bedside
[2024-07-30] MEDS: LIDOCAINE 1% W/EPI 1:100,000 20ML VIAL SQ (00:42)
--- NOTE | 2024-07-30 00:43 | PC.NURSE ---
late entry 0030 This RN to assist ED provider with removal of BC implant to LUE
[2024-07-30 00:54] VITALS: BP 158/88; PULSE 68; RESP 16; TEMP 36.7; O2SAT 100
== END 2024-07-30 00:55 | disposition home or self-care (01) ==
PROVIDERS: Emergency Provider Emergency Medicine; PCP Nurse Practitioner Family
DX: M79.602 Pain in left arm (principal); Z30.46 Encounter for surveillance of implantable subdermal contraceptive; I10 Essential (primary) hypertension; F41.8 Other specified anxiety disorders
CPT/HCPCS: 99283; J2004

== ENCOUNTER 2024-08-02 11:49 | Outpatient (CLI) | payer OTHER, SELFPAY ==
--- OUTSIDE RECORDS SUMMARY | 2024-08-02 11:52 | XMS_ITS | Clinical Summary ---
Author Organization [facility] Address [address] [place] [address] Care Team Providers Care Hvac R Tech Name Role Phone Pcp, No Primary Care [...] - 05/13/2024 7:16 PM EDT Hospital Encounter [facility] [address] [place] [address] Brandy Valdivia DO Unspecified mood (affective) disorder [...] Recorded Patient Health Questionnaire-2 Score 4 05/13/2024 [place] Depression Scale Answer Date Recorded [place] Depression Scale Total 14 01/17/2022 The thought [...] 2 - PCV) 07/18/2018 [facility]-Pap Smear 07/18/2020 [id number] Vaccine (3 - season) 2023 01/31/2021, 12/19/2020 [...] Antigen Negative Negative 05/13/2024 7:51 PM EDT [facility] Blood Venous blood specimen / Unknown Venipuncture / Unknown 05/13/2024 3:51 PM EDT 05/13/2024 3:52 PM EDT us Capo R Krista PA LAB BLOOD ORDERABLES Final Result [facility] [address] [place] [address] * Hepatitis C Antibody with Reflex to HCV Quant PCR - Empath (05/13/2024 3:51 PM EDT) Pathologist [facility] Hepatitis C Antibody Negative Negative 05/13/2024 6:36 PM EDT [facility] Blood Venous blood specimen / Unknown Venipuncture / Unknown 05/13/2024 3:51 PM EDT 05/13/2024 3:52 PM EDT us Capo R Krista PA LAB BLOOD ORDERABLES Final Result Performing Organization Address [facility]/ZIP Co de Phone Number [facility] [address] [place] [address] * HIV 1 & 2 Antibody/Antigen Screen (05/13/2024 3:51 PM EDT) Pathologist [facility] HIV 1 & 2 Antibody/Antigen Screen Non Reactive Non Reactive 05/13/2024 6:36 PM EDT [facility] Comment:Screening for HIV 1 & 2 antibodies, and P24 antigen is NONREACTIVE. No confirmatory testing is required. Blood Venous blood specimen / Unknown Venipuncture / Unknown 05/13/2024 3:51 PM EDT 05/13/2024 3:52 PM EDT us Capo R Krista PA LAB BLOOD ORDERABLES Final Result Performing Organization Address City/[facility]/ZIP Co de Phone Number [facility] [address] [place] [address] from Last 3 Months Additional Health Concerns Active Problems Noted Date Diagnosed Date CPM S20 PP LABOR (OBSTETRICS) 09/17/2021 Insurance Care Teams Hvac R Tech Relationship Specialty Start Date End Date Pcp, [place] [address] PCP - General Family Medicine 09/17/21
[2024-08-02 13:40] LABS: HCG,Quantitative < 2 mIU/ml (0-5.42)
[2024-08-03 12:11] LABS: Progesterone 0.2 ng/mL (.)
== END 2024-08-02 23:59 | disposition home or self-care (01) ==
LOC: LAB 11:50
PROVIDERS: PCP Family Medicine; Visit Provider Obstetrics & Gynecology
DX: Z32.01 Encounter for pregnancy test, result positive (principal)
CPT/HCPCS: 36415; 84144; 84702

== ENCOUNTER 2024-08-09 09:22 | Emergency (ER) | payer OTHER, SELFPAY ==
--- NOTE | 2024-08-09 09:23 | ED_ITS ---
Discharge Plan Disposition Patient Disposition: Home, Self-Care Prescriptions Prescriptions: New ondansetron 4 mg tablet,disintegrating 4 mg PO DAILY PRN (Reason: nausea and vomiting) 4 Days Qty: 10 0RF No Action albuterol sulfate 90 mcg/actuation HFA aerosol inhaler 1 puff inhalation Q6HP PRN (Reason: Shortness Of Breath Or Wheezing) Patient Comments: INHALE 2 PUFFS BY MOUTH EVERY 6 HOURS NEEDED FOR SHORTNESS OF BREATH OR WHEEZING Emgality Pen 120 mg/mL pen injector 120 mg SQ QMONTH Qty: 1 2RF desvenlafaxine succinate [Pristiq] 100 mg tablet extended release 24 hr 100 mg PO DAILY 30 Days Qty: 30 3RF metformin 500 mg tablet extended release 24hr 1,000 mg PO DAILY 30 Days Qty: 60 2RF epinephrine 0.3 mg/0.3 mL auto-injector 0.3 ml SQ Patient Comments: INJECT 1 PEN INTRAMUCILARLY SINGLE DPSE NEEDED INTO OUTER THIGH FOR SEVERE ALLERGIC REACTION AND CALL 911 hydroxyzine pamoate 25 mg capsule 25 mg PO TID PRN (Reason: anxiety) Qty: 90 2RF cetirizine [All Day Allergy (cetirizine)] 10 mg tablet 10 mg PO DAILY PRN (Reason: allergy symptoms) Qty: 60 2RF aripiprazole [Abilify] 10 mg tablet 10 mg PO DAILY Qty: 30 3RF Referrals Follow up/Referrals: Daryl Garcia MD [Primary Care Provider, Internal Medicine] - See instructions Activity Restrictions/Add. Instructions Additional Instructions/Restrictions: Please follow-up with your OB in the next week. If your symptoms continue please come back to the emergency department for further management. Clinical Impressions Clinical Impression: Nausea & vomiting Instructions Patient Instructions: DI for Diarrhea and Traveler's Diarrhea -- Adult, DI for Diarrhea and Traveler's Diarrhea -- Child, DI for Nausea -- Adult, DI for Nausea -- Child Print Language Print Language: Japanese Discharge ED Provider: Tam Marie Adult HPI General Chief complaint: Nausea/Vomiting/Diarrhea Stated complaint: Sharp abd pain- can't feel IUD strings Time Seen by Provider: 08/09/24 09:23 History of Present Illness HPI narrative: Amelie Landin is a 24-year-old past medical history of anxiety, depression presenting for abdominal pain. Patient states she started having bilateral lower quadrant abdominal pain starting yesterday and has been persistent since it began. She recently had an IUD placed and has had issues with the IUDs in the past as she said one of her IUDs fell out a couple of years ago. Today the she was unable to feel the strings, along with the abdominal pain prompting the visit to the emergency department. She has had some spotting since yesterday but no abnormal discharge. Additionally she has had a couple episodes of loose stool and nausea. Denies other complaints at this time and has not been febrile. She took ibuprofen prior to arrival. Related Data Home Medications ?Medication ?Instructions ?Recorded ?Confirmed albuterol sulfate 90 mcg/actuation 1 puff inhalation Q 6HP PRN 11/06/23 08/03/24 aerosol inhaler Shortness Of Breath Or Wheez ing epinephrine 0.3 mg/0.3 mL 0.3 ml SQ 06/01/24 08/03/24 injection, auto-injector Previous Rx's ?Medication ?Instructions ?Recorded hydroxyzine pamoate 25 mg capsule 25 mg PO TID PRN anx iety #90 caps 05/10/24 galcanezumab-gnlm 120 mg/mL 120 mg SQ QMONTH #1 mL subcutaneous pen injector (Emgality Pen) aripiprazole 10 mg tablet (Abilify) 10 mg PO DAILY #30 tabs 06/24/24 cetirizine 10 mg tablet (All Day 10 mg PO DAILY PRN al lergy 06/24/24 Allergy (cetirizine)) symptoms #60 tabs desvenlafaxine succinate 100 mg 100 mg PO DAILY 30 day s #30 tabs 07/22/24 tablet,extended release 24 hr (Pristiq) metformin 500 mg tablet,extended 1,000 mg (2 x 500 mg) PO DAILY 30 07/22/24 release 24hr (osmotic) days #60 tabs ondansetron 4 mg disintegrating 4 mg PO DAILY PRN naus ea and 08/09/24 tablet vomiting 4 days #10 tabs Allergies Allergy/AdvReac Type Severity Reaction Status Date / Time amoxicillin Allergy Other Verified 08/03/24 09:10 cephalexin Allergy Other Verified 08/03/24 09:10 ketorolac (From Toradol) Allergy Other Verified 08/03/24 09:10 clavulanic acid (From AdvReac Intermediate Verified 08/03/24 09:10 Augmentin) [facility] Disclaimer: The information contained in this section may have been updated after the patient was seen, as this information can be updated by other users. Medical History Urinary tract bacterial infections Recurrent urinary tract infection affecting in first trimester Nephrolithiasis Migraine 28 weeks gestation of contractions History of depression Hx of appendicitis History of hypertension Hx of anxiety disorder FH: cholecystectomy delivery delivered Surgical History Hx of cholecystectomy History of colpectomy History of appendectomy Family History Other No significant family history Social History Smoking Status: Never smoker alcohol intake: never substance use type: denies use current occupational status: unemployed Travel in the last 8 weeks?: None Have you lived/traveled outside US in past 30 days?: No Contact w/someone who lives/traveled outside US past 30 days?: No Exposure to someone with infectious disease in past 14 days?: No Do you have a fever (greater than 100.4 F or 38 C)?: No Have you tested positive for COVID-19?: No Exposed to someone with COVID-19 in past 14 days?: No Do you have a sore throat?: No Do you have a cough?: No Do you have any weakness?: No Do you have any diarrhea?: No Are you experiencing any unusual bleeding?: No Do you have any muscle aches/pain?: Yes Do you have any abdominal pain?: No Are you experiencing loss of taste or smell?: No Other Medical History Have you received the Flu Vaccine for this season: No Have you received the Pneumonia Vaccine: No ROS Obtained: Yes All systems reviewed & no additional complaints except as documented Physical Exam General General appearance: alert and in no apparent distress Head Head exam: atraumatic Eye Eye exam: Present normal appearance ENT ENT exam: Present normal exam Respiratory Respiratory exam: Present normal lung sounds bilaterally; Absent respiratory distress or wheezes Cardiovascular Cardiovascular exam: Present regular rate Abdominal Exam Abdominal exam: Present soft and tenderness (Mild bilateral lower quadrant); Absent distention, guarding or rebound Extremities Exam Extremities exam: Present normal inspection Neurological Exam Neurological exam: Present alert Medical Decision Making Medical Records Screening: Per USPSTF and CDC recommendations, given the prevalence of disease in our region, it is our hospital?s policy to screen for HIV and viral Hepatitis for all patients aged 18 and over and those with ongoing risk factors. Jan Inquiry Pt receiving controlled substance: No Vital Signs: 08/09/24 09:30 08/09/24 09:31 08/09/24 10:51 Temperature 98.1 F Temperature Source Oral Pulse Rate 94 H 80 Pulse Rate [Left Radial] 85 Respiratory Rate 20 18 Blood Pressure 135/70 114/67 Blood Pressure [Right Arm] 135/70 Blood Pressure Mean 81 Blood Pressure Mean [Right Arm] 91 02 Sat by Pulse Oximetry 100 100 99 Oxygen Delivery Method Room Air Room Air 08/09/24 11:01 08/09/24 11:31 08/09/24 11:43 Temperature 98.2 F Temperature Source Pulse Rate 83 70 80 Pulse Rate [Left Radial] Respiratory Rate 16 20 Blood Pressure 117/69 117/65 118/70 Blood Pressure [Right Arm] Blood Pressure Mean 84 74 Blood Pressure Mean [Right Arm] 02 Sat by Pulse Oximetry 99 97 Oxygen Delivery Method Room Air Lab Data Lab Results 08/09/24 09:46: WBC 8.4, RBC 4.99, Hgb 13.3, Hct 40.2, MCV 80.6 L, MCH 26.7 L, MCHC 33.1, RDW 15.0, Plt Count 325, MPV 8.6, Neut % (Auto) 59.3, Lymph % (Auto) 27.9, [place] % (Auto) 5.3, Eos % (Auto) 6.6, Baso % (Auto) 0.8, Neut # (Auto) 5.0, Lymph # (Auto) 2.3, [place] # (Auto) 0.4, Eos # (Auto) 0.6 H, Baso # (Auto) 0.1, Sodium 137, Potassium 4.4, Chloride 101, Carbon Dioxide 26, Anion Gap 14.4, BUN 14, Creatinine 0.90, Estimated Creat Clear 79, Estimated GFR 76, Est GFR ( Amer) 92, Glucose 109 H, Calcium 8.9, Total Bilirubin 0.3, AST 40 H, ALT 43, Alkaline Phosphatase 75, Total Protein 7.5, Albumin 4.5, Globulin 3.0, Albumin/Globulin Ratio 1.5, Lipase 104, Serum HCG, Qual Negative 08/09/24 09:46 08/09/24 09:46 Orders (Tests/Meds): ED MEDICATIONS Discontinued Medications Generic Name Dose Route Start Last Admin Trade Name Bren PRN Reason Stop Dose Admin Acetaminophen 1,000 mg 08/09/24 09:47 08/09/24 09:56 Acetaminophen 500mg Tab PO 08/09/24 09:48 1,000 mg ONCE ONE Administration Dicyclomine HCl 10 mg 08/09/24 09:47 08/09/24 09:56 Dicyclomine 10mg Capsule PO 08/09/24 09:48 10 mg ONCE ONE Administration Ondansetron HCl 4 mg 08/09/24 09:47 08/09/24 09:56 Ondansetron 4mg Odt SL 08/09/24 09:48 4 mg ONCE ONE Administration ORDERS Category Date Time Status US transvaginal Stat Exams 08/09/24 09:47 Completed CBC w/Auto Diff [Complete Blood Count Auto Diff] Stat Lab 08/09/24 09:46 Completed Comprehensive Metabolic Panel Stat Lab 08/09/24 09:46 Completed HCG Qualitative, Serum Stat Lab 08/09/24 09:46 Completed Lipase Stat Lab 08/09/24 09:46 Completed Medical Decision Narrative: In summary, this 24-year-old female presents to the emergency department today with abdominal pain. On initial evaluation patient is sitting up in bed in no acute distress, she has very mild abdominal tenderness with recent IUD placement. On speculum exam I could not obviously find patient's IUD strings so an ultrasound was ordered. Differential diagnosis includes but is not limited to IUD misplacement, gastroenteritis, uterine perforation, electrolyte abnormality. Based on these concerns, I ordered transvaginal ultrasound, labs and pain medication. Patient received Bentyl, Tylenol and Zofran for treatment. Labs personally reviewed demonstrate no leukocytosis, no anemia, mild hyperglycemia. Personally reviewed patient's ultrasound showed no large amount of free fluid On reassessment patient's pain well-controlled, was well-appearing IUD in place and discussed with patient that she will need to follow-up with her OB for close follow-up. Discussed lab and imaging finding and was given strict return precautions and discharge.. Critical Care Critical Care Time Critical Care Time: No
[2024-08-09 09:30] VITALS: BP 135/70; PULSE 94; O2SAT 100
[2024-08-09 09:31] VITALS: BP 135/70; PULSE 85; RESP 20; TEMP 36.7; O2SAT 100; BMI 42.5
--- OUTSIDE RECORDS SUMMARY | 2024-08-09 09:39 | XMS_ITS | Clinical Summary ---
Author Organization [facility] Address [address] [place] [address] Care Team Providers Care Manipulative Therapy Specialist Name Role Phone Pcp, No Primary Care [...] section 10/10/2023 HTN in , chronic 10/15/2021 Resolved Problems Problem Noted Date Diagnosed Date [...] - 05/13/2024 7:16 PM EDT Hospital Encounter [facility] [address] [place] [address] Brandy Valdivia DO Unspecified mood (affective) disorder [...] Recorded Patient Health Questionnaire-2 Score 4 05/13/2024 [place] Depression Scale Answer Date Recorded [place] Depression Scale Total 14 01/17/2022 The thought of harming myself has occurred to me . Never 01/17/2022 PHQ-9 Answer Date Recorded Patient Health Questionnaire-9 Score 18 05/13/2024 PHQ-2A Answer Date Recorded Patient Health Questionnaire-2 Score 3 12/11/2022 Comments No Sex and Gender Information Value Date Recorded [...] Full Mouth 1999 [facility]-Hepatitis C Screening 1999 [facility]-/Child/Adol SDOH Screenings 1999 HPV Vaccines (1 - 3-dose series) 07/18/2014 [facility]- SDOH Screenings 07/18/2017 [facility]-Adult SDOH Screenings 07/18/2017 [facility]-Pneumococcal Vaccine: Pediatrics (0 to 5 Years) and At-Risk Patients (6 to 49 Years) (1 of 2 - PCV) 07/18/2018 [facility]-Pap Smear 07/18/2020 [id number] Vaccine (3 - season) 2023 01/31/2021, 12/19/2020 [...] on patient's age to complete this topic [facility]-Rotavirus Vaccines Aged Out No lo nger [...] Antigen Negative Negative 05/13/2024 7:51 PM EDT [facility] Blood Venous blood specimen / Unknown Venipuncture / Unknown 05/13/2024 3:51 PM EDT 05/13/2024 3:52 PM EDT [facility] BLOOD ORDERABLES Final Result Performing Organization Address City/[facility]/ZIP Co de Phone Number [facility] [address] [place] [address] * Hepatitis C Antibody with Reflex to HCV Quant PCR - Empath (05/13/2024 3:51 PM EDT) Hepatitis C Antibody Negative Negative 05/13/2024 6:36 PM EDT [facility] Blood Venous blood specimen / Unknown Venipuncture / Unknown 05/13/2024 3:51 PM EDT 05/13/2024 3:52 PM EDT [facility] BLOOD ORDERABLES Final Result Performing Organization Address [facility] Co de Phone Number [facility] [address] [place] [address] * HIV 1 & 2 Antibody/Antigen Screen (05/13/2024 3:51 PM EDT) Pathologist [facility] HIV 1 & 2 Antibody/Antigen Screen Non Reactive Non Reactive 05/13/2024 6:36 PM EDT [facility] Comment:Screening for HIV 1 & 2 antibodies, and P24 antigen is NONREACTIVE. No confirmatory testing is required. Blood Venous blood specimen / Unknown Venipuncture / Unknown 05/13/2024 3:51 PM EDT 05/13/2024 3:52 PM EDT [facility] BLOOD ORDERABLES Final Result Performing Organization Address [facility] Co de Phone Number [facility] [address] [place] [address] from Last 3 Months Additional Health Concerns Active Problems Noted Date Diagnosed Date CPM S20 PP LABOR (OBSTETRICS) 09/17/[address] [facility] MEDICAID Care Teams Manipulative Therapy Specialist Relationship Specialty Start Date End Date Pcp, Effie [address] [place] [address] PCP - General Family Medicine 09/17/21
--- NOTE | 2024-08-09 09:47 | US_ITS ---
PROCEDURE INFORMATION: Exam: US Pelvis, Transvaginal, Non-Obstetric Exam date and time: 08/09/2024 10:03 AM Age: 24 years old Clinical indication: Pelvic pain; Prior surgery; Surgery date: 1-6 months; Surgery type: C section; Additional info: Lower abdominal pain, recent iud placement TECHNIQUE: Imaging protocol: Real-time transvaginal pelvic (non-obstetric) ultrasound with image documentation. Transvaginal imaging was used for better evaluation of the endometrium, adnexa, and/or cervix. COMPARISON: US TRANSVAGINAL 05/21/2024 1:55 PM FINDINGS: Uterus: Uterus is normal. Endometrial stripe is normal thickness. There is an IUD well-positioned within the endometrial canal. Right ovary/adnexa: Normal appearing small, simple follicles. No mass. Normal ovarian blood flow on color Doppler. Left ovary/adnexa: Poorly visualized but grossly normal. Urinary bladder: Urinary bladder is limited. Intraperitoneal space: No free fluid. IMPRESSION: Well-positioned IUD, otherwise unremarkable study.
[2024-08-09 09:54] LABS: Basophils # 0.1 K/mm3 (0-0.2); Basophils % 0.8 % (0.1-2.0); Eosinophils # 0.6 Kmm3 (0.0-0.4); Eosinophils % 6.6 % (0.1-12.0); Hematocrit 40.2 % (37.0-47.0); Hemoglobin 13.3 g/dL (12.2-16.2); Immature Granulocytes # 0.01 10^3uL; Immature Granulocytes % 0.1 %; Lymphocytes # 2.3 K/mm3 (0.7-4.5); Lymphocytes % 27.9 % (10-50); Mean Corpuscular HGB Conc 33.1 g/dL (31.8-35.4); Mean Corpuscular Hemoglobin 26.7 pg (27.0-31.2); Mean Corpuscular Volume 80.6 fl (81-99); Mean Platelet Volume 8.6 fl (7.4-10.4); Monocytes # 0.4 K/mm3 (0.1-1.0); Monocytes % 5.3 % (1.7-9.3); Neutrophils % 59.3 % (37.0-80.0); Nucleated Red Blood Cells # 0 10^3/uL; Nucleated Red Blood Cells % 0 %; Platelet Count 325 K/mm3 (142-424); Red Blood Count 4.99 M/mm3 (4.20-5.40); Red Cell Distribution Width-SD 43.3 fL; White Blood Count 8.4 K/mm3 (4.8-10.8)
[2024-08-09] MEDS: DICYCLOMINE 10MG CAPSULE 10 MG PO (09:56)
[2024-08-09] MEDS: ACETAMINOPHEN 500MG TAB 1000 MG PO (09:56)
[2024-08-09] MEDS: ONDANSETRON 4MG ODT 4 MG SL (09:56)
[2024-08-09 10:00] LABS: Chloride 101 mmol/L (98-107)
[2024-08-09 10:01] LABS: Albumin Level 4.5 g/dl (3.5-5.0); Potassium 4.4 mmoL/L (3.5-5.1); Sodium 137 mmol/L (136-145)
[2024-08-09 10:03] LABS: Blood Urea Nitrogen 14 mg/dl (7-17); Creatinine Clearance Estimated 79 mL/min (50-200); Estimated Glomerular Filt Rate 76 ml/min (>60); GFR (African American) 92 ML/MIN (>60)
[2024-08-09 10:04] LABS: Albumin/Globulin Ratio 1.5 (1.1-1.8); Alkaline Phosphatase 75 U/L (38-126); Anion Gap 14.4 mEq/L (5-15); Bilirubin,Total 0.3 mg/dl (0.2-1.3); Calcium 8.9 mg/dl (8.4-10.2); Carbon Dioxide 26 mmol/L (22.0-30.0); Glucose 109 mg/dl (74-100); Lipase 104 U/L (23-300); Total Protein,Serum 7.5 g/dl (6.3-8.2)
[2024-08-09 10:05] LABS: Alanine Aminotransferase 43 U/L (12-78); Aspartate Amino Transferase 40 U/L (14-36)
--- NOTE | 2024-08-09 10:17 | PC.NURSE ---
pt back from US at this time
[2024-08-09 10:20] LABS: HCG Qualitative, Serum Negative (Negative)
[2024-08-09 10:51] VITALS: BP 114/67; PULSE 80; RESP 18; O2SAT 99
[2024-08-09 11:01] VITALS: BP 117/69; PULSE 83; O2SAT 99
[2024-08-09 11:31] VITALS: BP 117/65; PULSE 70; RESP 16; O2SAT 97
[2024-08-09 11:43] VITALS: BP 118/70; PULSE 80; RESP 20; TEMP 36.8; O2SAT 98
== END 2024-08-09 11:53 | disposition home or self-care (01) ==
PROVIDERS: Emergency Provider Student in an Organized Health Care Education/Training Program; PCP Family Medicine
DX: R10.30 Lower abdominal pain, unspecified (principal); R11.2 Nausea with vomiting, unspecified
CPT/HCPCS: 76830; 80053; 83690; 84703; 85025; 99284; Q0162

== ENCOUNTER 2024-08-16 09:17 | Outpatient (CLI) | payer OTHER, SELFPAY ==
--- OUTSIDE RECORDS SUMMARY | 2024-08-16 09:19 | XMS_ITS | Clinical Summary ---
Author Organization [facility] Address [address] [place] [address] Care Team Providers Care Commercial Cleaner Name Role Phone Pcp, No Primary Care [...] 10/15/2021 10/10/2023 History of recurrent UTIs 10/15/2021 Immunizations Immunization Administration Dates Next Due Tdap [...] Recorded Patient Health Questionnaire-2 Score 4 05/13/2024 [place] Depression Scale Answer Date Recorded [place] Depression Scale Total 14 01/17/2022 The thought [...] 05/13/2024 1:42 PM EDT Plan of Treatment Upcoming Encounters Date Type Department Care Team (Late st Contact Info) Description 09/16/2024 10:10 AM EDT Consult [facility] [address] [place] [address] Grayson Grewal MD [address] [place] [address] Health Maintenance Due Date Last Done Comments [...] 2 - PCV) 07/18/2018 [facility]-Pap Smear 07/18/2020 [id number] Vaccine (3 - season) 2023 01/31/2021, 12/19/2020 [...] I/II DIFFERENTIATION STAT 05/13/2024 3:51 PM EDT from Last 3 Months or Most Recently Relevant to Health Maintenance Results * HIV 1 & 2 Antibody/Antigen Screen (05/13/2024 3:51 PM EDT) HIV 1 & 2 Antibody/Antigen Screen Non Reactive Non Reactive 05/13/2024 6:[address] [facility] Comment:Screening for HIV 1 & 2 antibodies, and P24 antigen is NONREACTIVE. No confirmatory testing is required. Blood Venous blood specimen / Unknown Venipuncture / Unknown 05/13/2024 3:51 PM EDT 05/13/2024 3:52 PM EDT [facility] BLOOD ORDERABLES Final Result [facility] [address] [place] [address] from Last 3 Months or Most Recently Relevant to Health Maintenance Additional Health Concerns Active Problems Noted Date Diagnosed Date CPM S20 PP LABOR (OBSTETRICS) 09/17/2021 Insurance Care Teams Commercial Cleaner Relationship Specialty Start Date End Date Pcp, No [address] [place] [address] PCP - General Family Medicine 09/17/21
--- NOTE | 2024-08-16 09:30 | US_ITS ---
PROCEDURE INFORMATION: Exam: US Pelvis, Transvaginal, Non-Obstetric Exam date and time: 08/16/2024 9:40 AM Age: 24 years old Clinical indication: Pelvic pain; Additional info: Check iud position, stabbing RT side pain, backpain TECHNIQUE: Imaging protocol: Real-time transvaginal pelvic (non-obstetric) ultrasound with image documentation. Transvaginal imaging was used for better evaluation of the endometrium, adnexa, and/or cervix. COMPARISON: US TRANSVAGINAL 08/09/2024 10:03 AM FINDINGS: Uterus: The uterus measures 9.9 x 4.8 x 6.1 cm. Normal size, contour and echotexture. No mass. The endometrial echo complex measures 0.4 cm. Trace amount of fluid in the endocervical canal. Right ovary/adnexa: The right ovary measures 2.8 x 2.9 x 2.2 cm. Blood flow is documented. No mass. Left ovary/adnexa: The left ovary measures 2.2 x 3.6 x 1.7 cm. Blood flow is documented. No mass. Urinary bladder: Normal as imaged. Intraperitoneal space: Trace amount of minimally complex free fluid in the pelvis. IMPRESSION: 1. IUD appears to be in appropriate position. 2. Trace amount of minimally complex free fluid in the pelvis.
== END 2024-08-16 23:59 | disposition home or self-care (01) ==
LOC: RAD 09:17
PROVIDERS: PCP Family Medicine; Visit Provider Obstetrics & Gynecology
DX: R93.5 Abnormal findings on diagnostic imaging of other abdominal regions, including retroperitoneum (principal); Z30.431 Encounter for routine checking of intrauterine contraceptive device; M54.9 Dorsalgia, unspecified
CPT/HCPCS: 76830

== ENCOUNTER 2024-08-16 09:59 | Emergency (ER) | payer OTHER, SELFPAY ==
[2024-08-16] VITALS (8 sets, daily range): BP systolic 140–155; BP diastolic 77–98; PULSE 56–79; RESP 16–18; TEMP 36.7–36.8; O2SAT 99–100; BMI 42.5
--- NOTE | 2024-08-16 10:15 | CT_ITS ---
FINAL REPORT TECHNIQUE: After the administration of intravenous contrast, axial images were obtained through the abdomen and pelvis by computed tomography. The study was performed with techniques to keep radiation dose as low as reasonably achievable, (ALARA). Individual dose reduction techniques using automated exposure control or adjustment of mA and/or kV according to the patient's size were employed. CLINICAL HISTORY: right lower abdominal pain states bilateral back pain with right being sharper. also states vaginal bleeding COMPARISON: CTA abdomen and pelvis 05/21/2024 FINDINGS: Abdomen: The lung bases are clear. The liver parenchyma is homogeneous. The gallbladder is mildly distended. There are few small gallstones in the dependent portion of the gallbladder. The spleen, pancreas, adrenals and kidneys appear unremarkable. The aorta is normal in caliber. Pelvis: Extensive postoperative changes are noted in the right lower quadrant. The uterus is anteverted. A new IUD is seen in the uterus. There is a small rounded density at the base of the urinary bladder on image 104 series 3 measuring 3 mm in diameter. This appears to be located in the posterior wall of the urinary bladder. IMPRESSION: New IUD. Gallstones. Postoperative changes right lower quadrant. Density posterior wall urinary bladder not clearly seen on the previous exam and may be related to calcification of the wall of the urinary bladder. Reviewed, Interpreted and Dictated by Vipul Birmingham MD Transcribed by Kait Ross Authenticated and [facility]
--- OUTSIDE RECORDS SUMMARY | 2024-08-16 10:18 | XMS_ITS | Clinical Summary ---
Author Organization [facility] Address [address] [place] [address] Care Team Providers Care Client Account Manager Name Role Phone Pcp, No Primary Care [...] Recorded Patient Health Questionnaire-2 Score 4 05/13/2024 [place] Depression Scale Answer Date Recorded [place] Depression Scale Total 14 01/17/2022 The thought [...] Info) Description 09/16/2024 10:10 AM EDT Consult [place] [facility] [address] [place] [address] Grayson Grewal MD [address] [place] [address] Health Maintenance Due Date Last [...] 2 - PCV) 07/18/2018 [facility]-Pap Smear 07/18/2020 [id number] Vaccine (3 - season) 2023 01/31/2021, 12/19/2020 [...] Reactive Non Reactive 05/13/2024 6:36 PM EDT [facility] Comment:Screening for HIV 1 & 2 antibodies, and P24 antigen is NONREACTIVE. No confirmatory testing is required. Blood Venous blood specimen / Unknown Venipuncture / Unknown 05/13/2024 3:51 PM EDT 05/13/2024 3:52 PM EDT [facility] BLOOD ORDERABLES Final Result [facility] [address] [place] [address] from Last 3 Months or Most Recently Relevant to Health Maintenance Additional Health Concerns Active Problems Noted Date Diagnosed Date CPM S20 PP LABOR (OBSTETRICS) 09/17/2021 Insurance Care Teams Client Account Manager Relationship Specialty Start Date End Date Pcp, No [address] [place] [address] PCP - General Family Medicine 09/17/21
[2024-08-16 10:30] LABS: Basophils # 0.1 K/mm3 (0-0.2); Basophils % 0.6 % (0.1-2.0); Eosinophils # 0.8 Kmm3 (0.0-0.4); Eosinophils % 9.6 % (0.1-12.0); Hematocrit 39.7 % (37.0-47.0); Hemoglobin 13.3 g/dL (12.2-16.2); Immature Granulocytes # 0.02 10^3uL; Immature Granulocytes % 0.2 %; Lymphocytes # 2.2 K/mm3 (0.7-4.5); Lymphocytes % 25.6 % (10-50); Mean Corpuscular HGB Conc 33.5 g/dL (31.8-35.4); Mean Corpuscular Hemoglobin 27.3 pg (27.0-31.2); Mean Corpuscular Volume 81.4 fl (81-99); Mean Platelet Volume 8.9 fl (7.4-10.4); Monocytes # 0.5 K/mm3 (0.1-1.0); Monocytes % 5.3 % (1.7-9.3); Neutrophils % 58.7 % (37.0-80.0); Nucleated Red Blood Cells # 0 10^3/uL; Nucleated Red Blood Cells % 0 %; Platelet Count 297 K/mm3 (142-424); Red Blood Count 4.88 M/mm3 (4.20-5.40); Red Cell Distribution Width 15.1 % (11.5-17.5); Red Cell Distribution Width-SD 43.8 fL; White Blood Count 8.6 K/mm3 (4.8-10.8)
[2024-08-16] MEDS: 0.9 % SODIUM CHLORIDE 1000ML 1,000 ML 999 ML IV (10:32)
[2024-08-16] MEDS: ONDANSETRON 4MG/2ML VIAL 4 MG IV (10:33)
[2024-08-16] MEDS: ACETAMINOPHEN 1,000MG/100ML VIAL 1000 MG IV (10:33)
--- NOTE | 2024-08-16 10:33 | ED_ITS ---
<Statement entered by Minh Ramon MD - 08/16/24 13:25> I was consulted by the SHANNAN, and we discussed the complexity of the problems being addressed. I approved the treatment and management plan for this patient's care in the emergency department, thus performing a substantive portion of the medical decision making. Minh Ramon MD Discharge Plan Disposition Patient Disposition: Home, Self-Care Prescriptions Prescriptions: No Action Emgality Pen 120 mg/mL pen injector 120 mg SQ QMONTH Qty: 1 2RF metformin 500 mg tablet extended release 24hr 1,000 mg PO DAILY 30 Days Qty: 60 2RF epinephrine 0.3 mg/0.3 mL auto-injector 0.3 ml SQ Patient Comments: INJECT 1 PEN INTRAMUCILARLY SINGLE DPSE NEEDED INTO OUTER THIGH FOR SEVERE ALLERGIC REACTION AND CALL 911 cetirizine [All Day Allergy (cetirizine)] 10 mg tablet 10 mg PO DAILY PRN (Reason: allergy symptoms) Qty: 60 2RF ttlktmqyixexqop-yaihubucu-OY [Bromfed DM] 2-30-10 mg/5 mL syrup 10 ml PO Q4-6H PRN (Reason: cold symptoms) Qty: 118 1RF Airsupra 90-80 mcg/actuation HFA aerosol inhaler 2 inh inhalation QID PRN (Reason: shortness of breath or wheezing) Qty: 10.7 1RF ondansetron 4 mg tablet,disintegrating 4 mg PO DAILY PRN (Reason: nausea and vomiting) 4 Days Qty: 10 0RF Referrals Follow up/Referrals: Tremaine Varela MD [Staff Physician, General Surgery] - See instructions Bryon Wilkins MD [Referring, Urology] - See instructions Daryl Garcia MD [Primary Care Provider, Internal Medicine] - See instructions Activity Restrictions/Add. Instructions Additional Instructions/Restrictions: Increase fluids and rest. Take meds as directed. Please make follow-up appointments with urology for bladder calcifications and general surgery for gallstones. If any worsening pain or problems please return to the ER or call your PCP. Clinical Impressions Clinical Impression: Vaginal bleeding, Cholelithiases, Bladder wall thickening Instructions Patient Instructions: Anatomy of a Gallstone, DI for Abnormal Uterine Bleeding Print Language Print Language: Mohawk Discharge ED Provider: Minh Ramon General Adult HPI <Vidya Raza (ED), MATERIALS SPECIALIST - Last Filed: 08/16/24 13:19> General Chief complaint: Vaginal Bleeding Stated complaint: Sent by Ultrasound; IUD Pain in R side Time Seen by Provider: 08/16/24 10:03 Mode of Arrival: Ambulatory Source of Information: Patient Description of Symptoms (Recalled from ER Triage Doc. by RN): Patient presents to ed for abnormal vaginal bleeding since 08/14 accompanied by lower back pain nonradiating. Patient reports filling a pad approx. every 2 hours. Reports no clots. LMP 08/02. Today reports pain in RLQ. Contacted [facility] [employer]W OPERATOR who ordered outpatient transvaginal US, patient then wished to be seen in ED. IUD placed 2 weeks ago with no reportable complaints. , delivery on 04/20/2024. History of Present Illness HPI narrative: 24-year-old female presents to the ED today for right-sided sharp abdominal pain since Friday. She started having vaginal bleeding with back pain and nausea as well. Patient did have some sharp pain with urination this morning but stopped after she urinated. She has no fever or chills. She had the Nexplanon placed and then had to have that removed had an IUD placed 2 weeks ago and had an ultrasound this morning to check placement. Her second. This month started 02 August. She had a baby April 20 she is a . Patient says she has tenderness across the lower entire low abdomen but more in the right lower. Related Data Home Medications ?Medication ?Instructions ?Recorded ?Confirmed epinephrine 0.3 mg/0.3 mL 0.3 ml SQ 06/01/24 08/12/24 injection, auto-injector Previous Rx's ?Medication ?Instructions ?Recorded galcanezumab-gnlm 120 mg/mL 120 mg SQ QMONTH #1 mL subcutaneous pen injector (Emgality Pen) cetirizine 10 mg tablet (All Day 10 mg PO DAILY PRN al lergy 06/24/24 Allergy (cetirizine)) symptoms #60 tabs metformin 500 mg tablet,extended 1,000 mg (2 x 500 mg) PO DAILY 30 07/22/24 release 24hr (osmotic) days #60 tabs ondansetron 4 mg disintegrating 4 mg PO DAILY PRN naus ea and 08/09/24 tablet vomiting 4 days #10 tabs albuterol 90 mcg-budesonide 80 2 inh inhalation QID IL N shortness 08/12/24 mcg/actuation HFA aerosol inhaler of breath or wheezin g #10.7 grams (Airsupra) dgrolicooznconb-irhojwldmtjucos-ES 10 ml PO Q4-6H PRN cold symptoms 08/12/24 2 mg-30 mg-10 mg/5 mL oral syrup #118 mL (Bromfed DM) Allergies Allergy/AdvReac Type Severity Reaction Status Date / Time amoxicillin Allergy Other Verified 08/16/24 12:03 cephalexin Allergy Other Verified 08/16/24 12:03 ketorolac (From Toradol) Allergy Other Verified 08/16/24 12:03 clavulanic acid (From AdvReac Intermediate Other Verified 08/16/24 12:03 Augmentin) PFS <Vidya Raza (ED), MATERIALS SPECIALIST - Last Filed: 08/16/24 13:19> [facility] Disclaimer: The information contained in this section may have been updated after the patient was seen, as this information can be updated by other users. Medical History Urinary tract bacterial infections Recurrent urinary tract infection affecting in first trimester Nephrolithiasis Migraine 28 weeks gestation of contractions History of depression Hx of appendicitis History of hypertension Hx of anxiety disorder FH: cholecystectomy delivery delivered Surgical History Hx of cholecystectomy History of colpectomy History of appendectomy Family History Other No significant family history Social History Smoking Status: Never smoker second hand exposure: No alcohol intake: never substance use type: denies use current occupational status: unemployed Travel in the last 8 weeks?: None household members: spouse housing: apartment marital status: Have you lived/traveled outside US in past 30 days?: No Contact w/someone who lives/traveled outside US past 30 days?: No Exposure to someone with infectious disease in past 14 days?: No Do you have a fever (greater than 100.4 F or 38 C)?: No Have you tested positive for COVID-19?: No Exposed to someone with COVID-19 in past 14 days?: No Do you have a sore throat?: No Do you have a cough?: No Do you have any weakness?: No Do you have any diarrhea?: No Are you experiencing any unusual bleeding?: No Do you have any muscle aches/pain?: No Do you have any abdominal pain?: Yes Are you experiencing loss of taste or smell?: No Other Medical History Have you received the Flu Vaccine for this season: No Have you received the Pneumonia Vaccine: No <Vidya Raza (ED), MATERIALS SPECIALIST - Last Filed: 08/16/24 13:19> ROS Obtained: Yes Systems reviewed as appropriate & no additional complaints except as documented Constitutional Constitutional: Reports as per HPI Physical Exam <Vidya Raza (ED), MATERIALS SPECIALIST - Last Filed: 08/16/24 13:19> General General appearance: alert and in no apparent distress Head Head exam: atraumatic and normocephalic Eye Eye exam: Present PERRL and EOMI ENT ENT exam: Present normal oropharynx and mucous membranes moist Neck Neck exam: Present full ROM and trachea midline Respiratory Respiratory exam: Present normal lung sounds bilaterally Cardiovascular Cardiovascular exam: Present regular rate, normal rhythm, normal heart sounds, +S1 and +S2 Abdominal Exam Abdominal exam: Present soft and normal bowel sounds Abdominal tenderness: Present RLQ, suprapubic and diffuse Extremities Exam Extremities exam: Present normal inspection, full ROM and normal capillary refill Back Exam Back exam: Present normal inspection Neurological Exam Neurological exam: Present alert, oriented X3 and normal gait Skin Skin exam: Present warm, dry and intact Medical Decision Making <Vidya Raza (ED), MATERIALS SPECIALIST - Last Filed: 08/16/24 13:19> Medical Records Screening: Per USPSTF and CDC recommendations, given the prevalence of disease in our region, it is our hospital?s policy to screen for HIV and viral Hepatitis for all patients aged 18 and over and those with ongoing risk factors. Vital Signs: 08/16/24 10:04 08/16/24 10:10 08/16/24 11:04 Temperature 98.1 F Temperature Source Oral Pulse Rate 70 72 Pulse Rate [Right Radial] 69 Respiratory Rate 18 16 18 Blood Pressure 151/98 H 141/78 H Blood Pressure [Right Arm] 151/98 H Blood Pressure Mean 115 97 Blood Pressure Mean [Right Arm] 115 Blood Pressure Source [Right Arm] Automatic Cuff Blood Pressure Position [Right Arm] Sitting 02 Sat by Pulse Oximetry 100 100 100 Oxygen Delivery Method Room Air 08/16/24 11:30 08/16/24 12:00 08/16/24 12:30 Temperature Temperature Source Pulse Rate 57 L 79 70 Pulse Rate [Right Radial] Respiratory Rate 18 Blood Pressure 154/83 H 155/77 H 148/87 H Blood Pressure [Right Arm] Blood Pressure Mean 96 Blood Pressure Mean [Right Arm] Blood Pressure Source [Right Arm] Blood Pressure Position [Right Arm] 02 Sat by Pulse Oximetry 100 100 100 Oxygen Delivery Method Room Air Room Air 08/16/24 13:03 Temperature Temperature Source Pulse Rate 56 L Pulse Rate [Right Radial] Respiratory Rate Blood Pressure 150/96 H Blood Pressure [Right Arm] Blood Pressure Mean Blood Pressure Mean [Right Arm] Blood Pressure Source [Right Arm] Blood Pressure Position [Right Arm] 02 Sat by Pulse Oximetry 100 Oxygen Delivery Method Room Air Lab Data Lab Results 08/16/24 10:23: WBC 8.6, RBC 4.88, Hgb 13.3, Hct 39.7, MCV 81.4, MCH 27.3, MCHC 33.5, RDW 15.1, Plt Count 297, MPV 8.9, Neut % (Auto) 58.7, Lymph % (Auto) 25.6, [place] % (Auto) 5.3, Eos % (Auto) 9.6, Baso % (Auto) 0.6, Neut # (Auto) 5.0, Lymph # (Auto) 2.2, [place] # (Auto) 0.5, Eos # (Auto) 0.8 H, Baso # (Auto) 0.1, Sodium 136, Potassium 4.0, Chloride 102, Carbon Dioxide 26, Anion Gap 12.0, BUN 9, Creatinine 0.70, Estimated Creat Clear 102, Estimated GFR 102, Est GFR ( Amer) 123, Glucose 98, Calcium 8.6, Magnesium 2.2, Total Bilirubin 0.4, AST 30, ALT 45, Alkaline Phosphatase 76, Total Protein 7.2, Albumin 4.4, Globulin 2.8, Albumin/Globulin Ratio 1.6, Lipase 90 08/16/24 11:00: Urine Color Yellow, Urine Appearance Clear, Urine pH 6.0, Ur Specific [place] 1.025, Urine Protein Negative, Urine Glucose (UA) Negative, Urine Ketones Negative, Urine Blood 3+ A, Urine Nitrate Negative, Urine Bilirubin Negative, Urine Urobilinogen 0.2, Ur Leukocyte Esterase Negative, Urine RBC 10-20, Urine WBC Occasional, Ur Squamous Epith Cells 10-20, Urine Bacteria Trace, Urine Mucus Trace, Urine HCG, Qual Negative 08/16/24 10:23 08/16/24 10:23 Orders (Tests/Meds): ED MEDICATIONS Discontinued Medications Generic Name Dose Route Start Last Admin Trade Name Freq PRN Reason Stop Dose Admin Acetaminophen 1,000 mg 08/16/24 10:14 08/16/24 10:33 Acetaminophen 1,000mg/100ml Vial IV 08/16/24 10:15 1,000 mg ONCE ONE Administration Sodium Chloride 1,000 mls @ 999 mls/hr 08/16/24 10:14 08/16/24 10:32 Sod Chlor 0.9% 1000ml Bag IV 08/16/24 11:14 999 mls/hr .Q1H1M ONE Administration Iopamidol 75 ml 08/16/24 11:40 08/16/24 11:41 Iopamidol-370 (76%);100ml Bottle IV 08/16/24 11:41 75 ml ONCE ONE Administration Ondansetron HCl 4 mg 08/16/24 10:14 08/16/24 10:33 Ondansetron 4mg/2ml Vial IV 08/16/24 10:15 4 mg ONCE ONE Administration Sodium Chloride 10 ml 08/16/24 11:40 08/16/24 11:41 Sodium Chloride 0.9% 10ml Syr (Rad Only) IV 08/16/24 11:41 10 ml ONCE ONE Administration ORDERS Category Date Time Status CT abdomen pelvis w con Stat Cat Scan 08/16/24 10:15 Completed CBC [Complete Blood Count Auto Diff] Stat Lab 08/16/24 10:23 Completed Comprehensive Metabolic Panel Stat Lab 08/16/24 10:23 Completed Lipase Stat Lab 08/16/24 10:23 Completed Magnesium Stat Lab 08/16/24 10:23 Completed Urinalysis and Microscopic Stat Lab 08/16/24 11:00 Completed Urine , HCG Qual. Stat Lab 08/16/24 11:00 Completed Medical Decision Narrative: patient is a 24-year-old female presenting to the emergency department for evaluation of right sided abdominal pain, vaginal bleeding, back pain and nausea since Friday. She has been having multiple periods per month since she had her baby in April. She had an IUD placed 2 weeks ago and she had an ultrasound today to verify placement. Patient is hemodynamically stable and nontoxic- appearing upon arrival, afebrile. Differential diagnosis includes IUD displacement, appendicitis, PCOS, cysts, among others. Workup will be conducted with hematologic labs, specific imaging, provocative tests. Initial inventions include analgesics. Initial workup reviewed by me hematologic labs are remarkable for nothing acute, hematuria. See radiology report for formal imaging read. Patient does have gallstones and calcification on the bladder wall. I discussed this with Dr. Ramon and he is okay with patient following up outpatient with urology and surgery for the gallstones. I did discuss this with patient and she is also agreeable to following up outpatient. Upon repeat evaluation patient's pain is improved. Patient is safe for discharge home with close follow-up. <Minh Ramon MD - Last Filed: 08/16/24 13:26> Jan Inquiry Pt receiving controlled substance: No Vital Signs: 08/16/24 10:04 08/16/24 10:10 08/16/24 11:04 Temperature 98.1 F Temperature Source Oral Pulse Rate 70 72 Pulse Rate [Right Radial] 69 Respiratory Rate 18 16 18 Blood Pressure 151/98 H 141/78 H Blood Pressure [Right Arm] 151/98 H Blood Pressure Mean 115 97 Blood Pressure Mean [Right Arm] 115 Blood Pressure Source [Right Arm] Automatic Cuff Blood Pressure Position [Right Arm] Sitting 02 Sat by Pulse Oximetry 100 100 100 Oxygen Delivery Method Room Air 08/16/24 11:30 08/16/24 12:00 08/16/24 12:30 Temperature Temperature Source Pulse Rate 57 L 79 70 Pulse Rate [Right Radial] Respiratory Rate 18 Blood Pressure 154/83 H 155/77 H 148/87 H Blood Pressure [Right Arm] Blood Pressure Mean 96 Blood Pressure Mean [Right Arm] Blood Pressure Source [Right Arm] Blood Pressure Position [Right Arm] 02 Sat by Pulse Oximetry 100 100 100 Oxygen Delivery Method Room Air Room Air 08/16/24 13:03 Temperature Temperature Source Pulse Rate 56 L Pulse Rate [Right Radial] Respiratory Rate Blood Pressure 150/96 H Blood Pressure [Right Arm] Blood Pressure Mean Blood Pressure Mean [Right Arm] Blood Pressure Source [Right Arm] Blood Pressure Position [Right Arm] 02 Sat by Pulse Oximetry 100 Oxygen Delivery Method Room Air Lab Data Lab Results 08/16/24 10:23: WBC 8.6, RBC 4.88, Hgb 13.3, Hct 39.7, MCV 81.4, MCH 27.3, MCHC 33.5, RDW 15.1, Plt Count 297, MPV 8.9, Neut % (Auto) 58.7, Lymph % (Auto) 25.6, [place] % (Auto) 5.3, Eos % (Auto) 9.6, Baso % (Auto) 0.6, Neut # (Auto) 5.0, Lymph # (Auto) 2.2, [place] # (Auto) 0.5, Eos # (Auto) 0.8 H, Baso # (Auto) 0.1, Sodium 136, Potassium 4.0, Chloride 102, Carbon Dioxide 26, Anion Gap 12.0, BUN 9, Creatinine 0.70, Estimated Creat Clear 102, Estimated GFR 102, Est GFR ( Amer) 123, Glucose 98, Calcium 8.6, Magnesium 2.2, Total Bilirubin 0.4, AST 30, ALT 45, Alkaline Phosphatase 76, Total Protein 7.2, Albumin 4.4, Globulin 2.8, Albumin/Globulin Ratio 1.6, Lipase 90 08/16/24 11:00: Urine Color Yellow, Urine Appearance Clear, Urine pH 6.0, Ur Specific [place] 1.025, Urine Protein Negative, Urine Glucose (UA) Negative, Urine Ketones Negative, Urine Blood 3+ A, Urine Nitrate Negative, Urine Bilirubin Negative, Urine Urobilinogen 0.2, Ur Leukocyte Esterase Negative, Urine RBC 10-20, Urine WBC Occasional, Ur Squamous Epith Cells 10-20, Urine Bacteria Trace, Urine Mucus Trace, Urine HCG, Qual Negative Orders (Tests/Meds): ED MEDICATIONS Discontinued Medications Generic Name Dose Route Start Last Admin Trade Name Freq PRN Reason Stop Dose Admin Acetaminophen 1,000 mg 08/16/24 10:14 08/16/24 10:33 Acetaminophen 1,000mg/100ml Vial IV 08/16/24 10:15 1,000 mg ONCE ONE Administration Sodium Chloride 1,000 mls @ 999 mls/hr 08/16/24 10:14 08/16/24 10:32 Sod Chlor 0.9% 1000ml Bag IV 08/16/24 11:14 999 mls/hr .Q1H1M ONE Administration Iopamidol 75 ml 08/16/24 11:40 08/16/24 11:41 Iopamidol-370 (76%);100ml Bottle IV 08/16/24 11:41 75 ml ONCE ONE Administration Ondansetron HCl 4 mg 08/16/24 10:14 08/16/24 10:33 Ondansetron 4mg/2ml Vial IV 08/16/24 10:15 4 mg ONCE ONE Administration Sodium Chloride 10 ml 08/16/24 11:40 08/16/24 11:41 Sodium Chloride 0.9% 10ml Syr (Rad Only) IV 08/16/24 11:41 10 ml ONCE ONE Administration ORDERS Category Date Time Status CT abdomen pelvis w con Stat Cat Scan 08/16/24 10:15 Completed CBC [Complete Blood Count Auto Diff] Stat Lab 08/16/24 10:23 Completed Comprehensive Metabolic Panel Stat Lab 08/16/24 10:23 Completed Lipase Stat Lab 08/16/24 10:23 Completed Magnesium Stat Lab 08/16/24 10:23 Completed Urinalysis and Microscopic Stat Lab 08/16/24 11:00 Completed Urine , HCG Qual. Stat Lab 08/16/24 11:00 Completed Critical Care <Minh Ramon MD - Last Filed: 08/16/24 13:26> Critical Care Time Critical Care Time: No
[2024-08-16 10:40] LABS: Albumin Level 4.4 g/dl (3.5-5.0); Chloride 102 mmol/L (98-107)
[2024-08-16 10:41] LABS: Sodium 136 mmol/L (136-145)
[2024-08-16 10:43] LABS: Alanine Aminotransferase 45 U/L (12-78); Albumin/Globulin Ratio 1.6 (1.1-1.8); Alkaline Phosphatase 76 U/L (38-126); Aspartate Amino Transferase 30 U/L (14-36); Bilirubin,Total 0.4 mg/dl (0.2-1.3); Blood Urea Nitrogen 9 mg/dl (7-17); Carbon Dioxide 26 mmol/L (22.0-30.0); Creatinine Clearance Estimated 102 mL/min (50-200); Estimated Glomerular Filt Rate 102 ml/min (>60); GFR (African American) 123 ML/MIN (>60); Globulin 2.8 g/dL (1.3-3.2); Total Protein,Serum 7.2 g/dl (6.3-8.2)
[2024-08-16 10:44] LABS: Calcium 8.6 mg/dl (8.4-10.2); Glucose 98 mg/dl (74-100); Lipase 90 U/L (23-300); Magnesium 2.2 mg/dl (1.6-2.3)
--- NOTE | 2024-08-16 10:58 | PC.NURSE ---
Pt up to bathroom
[2024-08-16 11:09] LABS: Microscopic, Urine URINE MICROSCOPIC (MICROSCOPIC)
[2024-08-16 11:13] LABS: Appearance,Urine CLEAR (Clear); Bilirubin,Urine Negative (Negative); Blood, Urine 3+ (Negative); Color,Urine YELLOW (Yellow); Glucose,Urine (UA) Negative (Negative); Ketones,Urine Negative (Negative); Leukocyte Esterase,Urine Negative (Negative); Nitrate,Urine Negative (Negative); Protein,Urine Negative (Negative); Specific Gravity, Urine 1.025 (1.005-1.030); Urobilinogen,Urine 0.2 EU/dl (0.2)
[2024-08-16 11:15] LABS: Urine Pregnancy, HCG Qual. Negative (Negative)
[2024-08-16 11:26] LABS: Bacteria,Urine Trace /lpf; Mucus,Urine Trace /lpf; WBC,Urine Occasional #/hpf (0-3)
[2024-08-16] MEDS: SODIUM CHLORIDE 0.9% 10ML SYR (RAD ONLY) 10 ML IV (11:41)
[2024-08-16] MEDS: IOPAMIDOL-370 (76%);100ML BOTTLE 75 ML IV (11:41)
--- NOTE | 2024-08-16 12:26 | INFXCTL.NOTE ---
I spoke with Lizz in radiology. She states the pts CT's are being read at this time.
== END 2024-08-16 11:39 | disposition home or self-care (01) ==
PROVIDERS: Nurse Practitioner; Emergency Provider Emergency Medicine; PCP Family Medicine
DX: N93.9 Abnormal uterine and vaginal bleeding, unspecified (principal); K80.20 Calculus of gallbladder without cholecystitis without obstruction; N32.89 Other specified disorders of bladder; Z97.5 Presence of (intrauterine) contraceptive device
CPT/HCPCS: 74177; 80053; 81001; 81025; 83690; 83735; 85025; 96361; 96374; 96375; 99284; J0131; J2405; J7030; Q9967

== ENCOUNTER 2024-08-16 20:55 | Emergency (ER) | payer OTHER, SELFPAY ==
--- OUTSIDE RECORDS SUMMARY | 2024-08-16 21:02 | XMS_ITS | Clinical Summary ---
Author Organization [facility] Address [address] [place] [address] Care Team Providers Care Manager Local Name Role Phone Pcp, No Primary Care [...] Recorded Patient Health Questionnaire-2 Score 4 05/13/2024 Wedron Depression Scale Answer Date Recorded Wedron Depression Scale Total 14 01/17/2022 The thought [...] Info) Description 09/16/2024 10:10 AM EDT Consult [place] [facility] [address] [place] [address] Grayson Grewal MD [address] [place] [address] Health Maintenance Due Date Last [...] 2 - PCV) 07/18/2018 UKY-Pap Smear 07/18/2020 [id number] Vaccine (3 - season) 2023 01/31/2021, 12/19/2020 [...] Reactive Non Reactive 05/13/2024 6:36 PM EDT [facility] Comment:Screening for HIV 1 & 2 antibodies, and P24 antigen is NONREACTIVE. No confirmatory testing is required. 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
[2024-08-16 21:07] VITALS: BP 129/78; PULSE 83; RESP 16; TEMP 36.8; O2SAT 98; BMI 42.5
--- NOTE | 2024-08-16 21:08 | HMH.EDGENADL ---
Discharge Plan Disposition Patient Disposition: Home, Self-Care Prescriptions Prescriptions: New phenazopyridine 200 mg tablet 200 mg PO Q8H Qty: 14 0RF nitrofurantoin macrocrystal 100 mg capsule 100 mg PO BID 5 Days Qty: 10 0RF Rx Instructions: must administer with a meal/food No Action Emgality Pen 120 mg/mL pen injector 120 mg SQ QMONTH Qty: 1 2RF metformin 500 mg tablet extended release 24hr 1,000 mg PO DAILY 30 Days Qty: 60 2RF epinephrine 0.3 mg/0.3 mL auto-injector 0.3 ml SQ Patient Comments: INJECT 1 PEN INTRAMUCILARLY SINGLE DPSE NEEDED INTO OUTER THIGH FOR SEVERE ALLERGIC REACTION AND CALL 911 cetirizine [All Day Allergy (cetirizine)] 10 mg tablet 10 mg PO DAILY PRN (Reason: allergy symptoms) Qty: 60 2RF btnqbumtnrruymv-xdzvyklzq-YI [Bromfed DM] 2-30-10 mg/5 mL syrup 10 ml PO Q4-6H PRN (Reason: cold symptoms) Qty: 118 1RF Airsupra 90-80 mcg/actuation HFA aerosol inhaler 2 inh inhalation QID PRN (Reason: shortness of breath or wheezing) Qty: 10.7 1RF ondansetron 4 mg tablet,disintegrating 4 mg PO DAILY PRN (Reason: nausea and vomiting) 4 Days Qty: 10 0RF ondansetron 4 mg tablet,disintegrating 4 mg PO Q8H PRN (Reason: nausea and vomiting) 5 Days Qty: 30 0RF naproxen 500 mg tablet 500 mg PO Q12H PRN (Reason: pain) Qty: 14 0RF Referrals Follow up/Referrals: Daryl Garcia MD [Primary Care Provider, Internal Medicine] - See instructions Activity Restrictions/Add. Instructions Additional Instructions/Restrictions: Pyridium as prescribed. Macrobid twice daily for 5 days. Follow-up with your family doctor regarding this visit to the emergency department within 1 week to ensure improvement of symptoms. Clinical Impressions Clinical Impression: Cystitis Instructions Patient Instructions: DI for Acute Abdominal Pain Print Language Print Language: Slovak Discharge ED Provider: Coy Li General Adult HPI <KATHI Cardozo - Last Filed: 08/16/24 22:00> General Chief complaint: Abdominal Pain Stated complaint: Unable to pee,lower back pain,abdominal pain Time Seen by Provider: 08/16/24 20:59 Mode of Arrival: Ambulatory Source of Information: Patient Limitations: No Limitations History of Present Illness HPI narrative: 24-year-old female presents the emergency department with lower quadrant abdominal pain, and no urination since this morning, of note patient was seen in the emergency department today on 08/16/2024, for right sided sharp abdominal pain, since 08/14/2024, also of note she has had some vaginal bleeding and lower back pain as well as nausea, and some dysuria per patient this morning. Denies any fever chills any other systemic symptoms, no chest pain or shortness of breath, no diarrhea no constipation, of note patient had recent IUD placement 2 weeks ago. Workup in the emergency department this morning to include CT abdomen pelvis, basic laboratory studies, UA, TVUS, laboratory studies were unremarkable, urine was noted for hematuria, patient did have some cholelithiasis, and calcification of the bladder wall. She was given general surgery and urology follow-up, and her symptomatology improved after analgesia and antiemetics in the emergency department. Other past medical history consistent with MDD, SERG, depression, initial triage vitals are unremarkable. Onset (ago): day(s) Related Data Home Medications ?Medication ?Instructions ?Recorded ?Confirmed epinephrine 0.3 mg/0.3 mL 0.3 ml SQ 06/01/24 08/12/24 injection, auto-injector Previous Rx's ?Medication ?Instructions ?Recorded galcanezumab-gnlm 120 mg/mL 120 mg SQ QMONTH #1 mL 06/11/24 subcutaneous pen injector (Emgality Pen) cetirizine 10 mg tablet (All Day 10 mg PO DAILY PRN allergy 06/24/24 Allergy (cetirizine)) symptoms #60 tabs metformin 500 mg tablet,extended 1,000 mg (2 x 500 mg) PO DAILY 30 07/22/24 release 24hr (osmotic) days #60 tabs ondansetron 4 mg disintegrating 4 mg PO DAILY PRN nausea and 08/09/24 tablet vomiting 4 days #10 tabs albuterol 90 mcg-budesonide 80 2 inh inhalation QID PRN shortness 08/12/24 mcg/actuation HFA aerosol inhaler of breath or wheezing #10.7 grams (Airsupra) hnkwndlbjycipbs-csejsjbafmmuxel-CJ 10 ml PO Q4-6H PRN cold symptoms 08/12/24 2 mg-30 mg-10 mg/5 mL oral syrup #118 mL (Bromfed DM) naproxen 500 mg tablet 500 mg PO Q12H PRN pain #14 tabs 08/16/24 nitrofurantoin macrocrystal 100 mg 100 mg PO BID 5 days #10 caps 08/16/24 capsule ondansetron 4 mg disintegrating 4 mg PO Q8H PRN nausea and 08/16/24 tablet vomiting 5 days #30 tabs phenazopyridine 200 mg tablet 200 mg PO Q8H 6 doses #14 tabs 08/16/24 Allergies Allergy/AdvReac Type Severity Reaction Status Date / Time amoxicillin Allergy Other Verified 08/16/24 12:03 cephalexin Allergy Other Verified 08/16/24 12:03 ketorolac (From Toradol) Allergy Other Verified 08/16/24 12:03 clavulanic acid (From AdvReac Intermediate Other Verified 08/16/24 12:03 Augmentin) [facility] <KATHI Cardozo - Last Filed: 08/16/24 22:00> [facility] Disclaimer: The information contained in this section may have been updated after the patient was seen, as this information can be updated by other users. Medical History Urinary tract bacterial infections Recurrent urinary tract infection affecting in first trimester Nephrolithiasis Migraine 28 weeks gestation of contractions History of depression Hx of appendicitis History of hypertension Hx of anxiety disorder FH: cholecystectomy delivery delivered Surgical History Hx of cholecystectomy History of colpectomy History of appendectomy Family History Other No significant family history Social History Smoking Status: Never smoker second hand exposure: No alcohol intake: never substance use type: denies use current occupational status: unemployed Travel in the last 8 weeks?: None household members: spouse housing: apartment marital status: Have you lived/traveled outside [place] in past 30 days?: No Contact w/someone who lives/traveled outside [place] past 30 days?: No Exposure to someone with infectious disease in past 14 days?: No Do you have a fever (greater than 100.4 F or 38 C)?: No Have you tested positive for COVID-19?: No Exposed to someone with COVID-19 in past 14 days?: No Do you have a sore throat?: No Do you have a cough?: No Do you have any weakness?: No Do you have any diarrhea?: No Are you experiencing any unusual bleeding?: No Do you have any muscle aches/pain?: No Do you have any abdominal pain?: No Are you experiencing loss of taste or smell?: No Other Medical History Have you received the Flu Vaccine for this season: No Have you received the Pneumonia Vaccine: No <KATHI Cardozo - Last Filed: 08/16/24 22:00> ROS Obtained: Yes All systems reviewed & no additional complaints except as documented Physical Exam <KATHI Cardozo - Last Filed: 08/16/24 22:00> General General appearance: alert and in no apparent distress Head Head exam: atraumatic and normocephalic Eye Eye exam: Present PERRL and EOMI ENT ENT exam: Present mucous membranes moist Neck Neck exam: Present normal inspection Chest Chest inspection: Present normal inspection and symmetric chest wall rise Respiratory Respiratory exam: Present normal lung sounds bilaterally; Absent respiratory distress Cardiovascular Cardiovascular exam: Present regular rate and normal rhythm Abdominal Exam Abdominal exam: Present soft and tenderness; Absent guarding, rebound or rigidity Abdominal tenderness: Present suprapubic Comment: Very minimal suprapubic tenderness to palpation, otherwise patient's abdomen is soft, no guarding, no rebound no rigidity Extremities Exam Extremities exam: Present normal inspection Neurological Exam Neurological exam: Present alert and oriented X3 Psychiatric Psychiatric exam: Present normal affect Skin Skin exam: Present warm and dry Medical Decision Making <KATHI Cardozo - Last Filed: 08/16/24 22:00> Medical Records Medical records reviewed: Yes I reviewed the patient's medical records. Screening: Per USPSTF and CDC recommendations, given the prevalence of disease in our region, it is our hospital?s policy to screen for HIV and viral Hepatitis for all patients aged 18 and over and those with ongoing risk factors. Jan Inquiry Pt receiving controlled substance: No Jan was queried for this patient: No Vital Signs: 08/16/24 21:07 Temperature 98.2 F Temperature Source Oral Pulse Rate [Left] 83 Respiratory Rate 16 Blood Pressure [Right Arm] 129/78 Blood Pressure Mean [Right Arm] 95 Blood Pressure Source [Right Arm] Automatic Cuff Blood Pressure Position [Right Arm] Sitting 02 Sat by Pulse Oximetry 98 Oxygen Delivery Method Room Air Lab Data Lab Results 08/16/24 21:53: Urine Color Yellow, Urine Appearance Clear, Urine pH 6.0, Ur Specific [place] 1.020, Urine Protein Negative, Urine Glucose (UA) Negative, Urine Ketones Negative, Urine Blood 2+ A, Urine Nitrate Negative, Urine Bilirubin Negative, Urine Urobilinogen 0.2, Ur Leukocyte Esterase Negative, Urine RBC 10-20, Urine WBC 5-10, Ur Squamous Epith Cells 10-20, Calcium Oxalate Crystal 1+, Urine Bacteria Trace, Urine Sperm Occ Orders (Tests/Meds): ED MEDICATIONS Generic Name Dose Route Start Last Admin Trade Name Freq PRN Reason Stop Dose Admin Nitrofurantoin Macrocrystals 100 mg 08/16/24 22:42 Nitrofurantoin 100mg Capsule PO 08/16/24 22:43 ONCE ONE Discontinued Medications Generic Name Dose Route Start Last Admin Trade Name Freq PRN Reason Stop Dose Admin Phenazopyridine HCl 200 mg 08/16/24 21:24 08/16/24 21:32 Phenazopyridine 200mg Tablet PO 08/16/24 21:25 200 mg ONCE ONE Administration ORDERS Category Date Time Status Urinalysis and Microscopic Stat Lab 08/16/24 21:53 Completed Medical Decision Narrative: 24-year-old female presents emergency department with lower abdominal pain urinary retention, differential diagnosis to include but not limited to, acute urinary retention, urinary outflow obstruction, acute UTI, acute cystitis, illness anxiety disorder among others. BladderScan the patient, obtain new urinalysis, and will give 200 mg p.o. Pyridium as a bladder antispasmodic, as patient has had no other real change in her symptomatology except for increasing lower abdominal pain, and urinary retention, patient had unremarkable TVUS, CT abd pelvis, basic laboratory studies, urinalysis, IUD was in place, showed some cholelithiasis, and acute cystitis type pathology on CT abdomen pelvis and TVUS, laboratory studies were nonactionable, and urinalysis was only notable for hematuria this a.m. I discussed this patient's case with the attending physician Dr. Li at shift change he will be assuming the patient's care/workup. <Coy Li MD - Last Filed: 08/16/24 22:44> Vital Signs: 08/16/24 21:07 Temperature 98.2 F Temperature Source Oral Pulse Rate [Left] 83 Respiratory Rate 16 Blood Pressure [Right Arm] 129/78 Blood Pressure Mean [Right Arm] 95 Blood Pressure Source [Right Arm] Automatic Cuff Blood Pressure Position [Right Arm] Sitting 02 Sat by Pulse Oximetry 98 Oxygen Delivery Method Room Air Lab Data Lab Results 08/16/24 21:53: Urine Color Yellow, Urine Appearance Clear, Urine pH 6.0, Ur Specific [place] 1.020, Urine Protein Negative, Urine Glucose (UA) Negative, Urine Ketones Negative, Urine Blood 2+ A, Urine Nitrate Negative, Urine Bilirubin Negative, Urine Urobilinogen 0.2, Ur Leukocyte Esterase Negative, Urine RBC 10-20, Urine WBC 5-10, Ur Squamous Epith Cells 10-20, Calcium Oxalate Crystal 1+, Urine Bacteria Trace, Urine Sperm Occ Orders (Tests/Meds): ED MEDICATIONS Generic Name Dose Route Start Last Admin Trade Name Freq PRN Reason Stop Dose Admin Nitrofurantoin Macrocrystals 100 mg 08/16/24 22:42 Nitrofurantoin 100mg Capsule PO 08/16/24 22:43 ONCE ONE Discontinued Medications Generic Name Dose Route Start Last Admin Trade Name Freq PRN Reason Stop Dose Admin Phenazopyridine HCl 200 mg 08/16/24 21:24 08/16/24 21:32 Phenazopyridine 200mg Tablet PO 08/16/24 21:25 200 mg ONCE ONE Administration ORDERS Category Date Time Status Urinalysis and Microscopic Stat Lab 08/16/24 21:53 Completed Medical Decision Narrative: 24-year-old female presents emergency department with lower abdominal pain urinary retention, differential diagnosis to include but not limited to, acute urinary retention, urinary outflow obstruction, acute UTI, acute cystitis, illness anxiety disorder among others. BladderScan the patient, obtain new urinalysis, and will give 200 mg p.o. Pyridium as a bladder antispasmodic, as patient has had no other real change in her symptomatology except for increasing lower abdominal pain, and urinary retention, patient had unremarkable TVUS, CT abd pelvis, basic laboratory studies, urinalysis, IUD was in place, showed some cholelithiasis, and acute cystitis type pathology on CT abdomen pelvis and TVUS, laboratory studies were nonactionable, and urinalysis was only notable for hematuria this a.m. I discussed this patient's case with the attending physician Dr. Li at shift change he will be assuming the patient's care/workup. Guillermo: I assumed primary responsibility for this patient after SHANNAN signed out. Urinalysis unremarkable, occasional sperm in urinalysis, unsure if this is related. Red blood cells and blood. Given complete workup today, I did not feel was necessary to get further imaging or labs. Bladder scan less than 100 on postvoid. Given Pyridium, Macrobid, sent home in stable condition with outpatient follow-up. Critical Care <KATHI Cardozo - Last Filed: 08/16/24 22:00> Critical Care Time Critical Care Time: No
[2024-08-16] MEDS: PHENAZOPYRIDINE 200MG TABLET 200 MG PO (21:32)
[2024-08-16 22:01] LABS: Microscopic, Urine URINE MICROSCOPIC (MICROSCOPIC)
[2024-08-16 22:03] LABS: Appearance,Urine CLEAR (Clear); Bilirubin,Urine Negative (Negative); Blood, Urine 2+ (Negative); Color,Urine YELLOW (Yellow); Glucose,Urine (UA) Negative (Negative); Ketones,Urine Negative (Negative); Leukocyte Esterase,Urine Negative (Negative); Nitrate,Urine Negative (Negative); Protein,Urine Negative (Negative); Urobilinogen,Urine 0.2 EU/dl (0.2)
--- NOTE | 2024-08-16 22:22 | PC.NURSE ---
Pt's bladder scan was 69ML post void
[2024-08-16 22:30] VITALS: BP 105/73; PULSE 81; O2SAT 99
[2024-08-16 22:35] LABS: Bacteria,Urine Trace /lpf; Calcium Oxalate Crystals,Urine 1+ /lpf; Sperm,Urine OCC /lpf
[2024-08-16] MEDS: NITROFURANTOIN 100MG CAPSULE 100 MG PO (22:46)
[2024-08-16 22:49] VITALS: BP 105/73; PULSE 81; RESP 14; TEMP 36.8; O2SAT 99
== END 2024-08-16 22:50 | disposition home or self-care (01) ==
PROVIDERS: Physician Assistant; Emergency Provider Emergency Medicine; PCP Family Medicine
DX: N30.00 Acute cystitis without hematuria (principal); R10.30 Lower abdominal pain, unspecified; R30.0 Dysuria; M54.59 Other low back pain; N93.9 Abnormal uterine and vaginal bleeding, unspecified; K80.20 Calculus of gallbladder without cholecystitis without obstruction; N32.89 Other specified disorders of bladder; Z97.5 Presence of (intrauterine) contraceptive device
CPT/HCPCS: 51798; 81001; 96361; 96374; 99283; 99284

== ENCOUNTER 2024-09-29 13:57 | Emergency (ER) | payer OTHER, SELFPAY ==
--- OUTSIDE RECORDS SUMMARY | 2024-08-18 11:08 | XMS_ITS | Encounter Summary ---
Author Organization Healthcare Address [address] [place] [address] Care Team Providers Care Cardiac Catheterization Technologist Name Role Phone Pcp, No Primary Care Provider Unavailabl e Reason for Visit * Reason Comments Abdominal Pain * Auth/Cert (Routine) Specialty Diagnoses / Procedures Referred By Contac t Referred To Contact Diagnoses Right upper quadrant pain Calculus of gallbladder without cholecystitis without obstruction Acute cystitis without hematuria Symptomatic cholelithiasis Nausea and vomiting, unspecified vomiting type Selena Farmer MD [address] [address] Phone: tel: fax: [facility] [address] [place] [address] Phone: tel: Referral ID Status Reason Start Date Expiration Date Visits Re quested Visits Authorized [id number] 1 1 Encounter Details Date Type Department Care Team (Latest Contact Info) Description 08/18/2024 11:08 AM EDT - 08/19/2024 7:50 PM EDT Hospital Encounter [facility] [address] [place] [address] Marc Arceo MD [address] [place] [address] Selena Farmer MD [address] [address] Calculus of gallbladder without cholecystitis without obstruction (Primary Dx); Nausea and vomiting, unspecified vomiting type; Right upper quadrant pain; Acute cystitis without hematuria Discharge Disposition: Home or Self Care Social History Tobacco Use Types Packs/Day Years Used Date Smoking Tobacco: Never Smokeless Tobacco: Never Alcohol Use Standard Drinks/Week Comments Never 0 (1 standard drink = 0.6 oz pur e alcohol) PHQ-2 Answer Date Recorded Patient Health Questionnaire-2 Score 4 05/13/2024 [place] Depression Scale Answer Date Recorded [place] Depression Scale Total 14 01/17/2022 The thought of harming myself has occurred to me . Never 01/17/2022 PHQ-9 Answer Date Recorded Patient Health Questionnaire-9 Score 18 05/13/2024 Humiliation, Afraid, Rape, and Kick questionnair e Answer Date Recorded Within the last year, have y ou been afraid of your partner or ex-partner? No 08/19/2024 Within the last year, have y ou been humiliated or emotionally abused in other ways by your partner or ex-partner? No Within the last year, have y ou been kicked, hit, slapped, or otherwise physically hurt by your partner or ex-partner? No 08/19/2024 Within the last year, have y ou been raped or forced to have any kind of sexual activity by your partner or ex-partner? No 08/19/2024 Hunger Vital Sign Answer Date Recorded Within the past 12 months, y ou worried that your food would run out before you got the money to buy more. Never true 08/20/19 25 Within the past 12 months, t he food you bought just didn't last and you didn't have money to get more. Never true 08/19/2024 PRAPARE - Transportation Answer Date Re corded In the past 12 months, has l ack of transportation kept you from medical appointments or from getting medications? No 04/2024 In the past 12 months, has l ack of transportation kept you from meetings, work, or from getting things needed for daily living? No 08/19/2024 Housing Stability Vital Sign Answer Laureano e Recorded In the last 12 months, was t here a time when you were not able to pay the mortgage or rent on time? No 08/19/2024 Number of Times Moved in the Last Year Not on fi le 08/19/2024 At any time in the past 12 m [facility], were you homeless or living in a [place] [facility] (including now)? No 08/19/2024 Utilities Answer Date Recorded In the past 12 months has e electric, gas, oil, or water company threatened to shut off services in your home? No 08/19/2024 PHQ-2A Answer Date Recorded Patient Health Questionnaire-2 Score 3 12/11/2022 Comments No Sex and Gender Information Value Date Recorded Sex Assigned at Not on file Legal Sex Female 10:13 AM EDT Gender Identity Not on file Sexual Orientation Not on file documented as of this encounter Last Filed Vital Signs Vital Sign Reading Time Taken Comments Blood Pressure 144/80 08/19/2024 7:00 PM EDT Pulse 102 08/19/2024 7:30 PM EDT Temperature 36.6 C (97.9 F) 08/19/2024 6:30 PM EDT Respiratory Rate 23 08/19/2024 7:30 PM EDT Oxygen Saturation 97% 08/19/2024 7:00 PM EDT Inhaled Oxygen Concentration - - Weight 109 kg (240 lb) 08/19/2024 2:47 PM EDT Height 161 cm (5' 3.39 ) 08/18/2024 10:38 AM EDT Body Mass Index 42 08/18/2024 10:38 AM EDT documented in this encounter Functional Status * Calculated C-SSRS Risk Score (Lifetime/Recent) Answer Date of Assessment Author No Risk Indicated 08/21/2024 9:38 AM EDT Justine Thornton RN * Question Answer Date of Assessment Author 1. Wish to be (Past 1 Month) No 08/21/2024 9:38 AM EDT Justine Thornton RN 2. Non-Specific Active Suici doris Thoughts (Past 1 Month) No 08/21/2024 9:38 AM EDT Rossy Thornton RN 6. Suicidal Behavior (Lifetime) No 9:38 AM EDT Justine Thornton RN documented as of this encounter Discharge Instructions * Discharge Instructions* Tameka Dubon, AUDIO VISUAL MANAGER - 08/19/2024 1:04 PM EDT Discharge Instructions: Precautions: - You have received sedation/anesthesia today. You may not drive, drink alcohol, or do anything that requires a clear head for the next 24 hours. Medications: - You should take Tylenol every 6 hours for mild - moderate pain. - You should take methocarbamol 4 times per day for muscle spasms. - You have been prescribed pain medications to be taken as needed for severe pain. Do NOT take any home narcotics while taking pain medicine we have prescribed. - You should take the stool softener prescribed as long as you are taking narcotics. - You may resume your previous medications unless otherwise instructed. Nutrition: - You should eat a low-fat diet until your body adjusts to not having a gallbladder to aid digestion, focusing on liquids to keep yourself hydrated. Activity: - Walking and climbing stairs is ok and encouraged. You should refrain from any strenuous activity/exercise until your follow up appointment. - No lifting anything >5-10lbs for the next 6 weeks. - You may not drive for 48 hours after surgery, or while taking narcotics. Dressing: - Underneath your dressing you have steri strips across your incision. Do not pick them off, they will fall off on their own after approximately 2 weeks. - A special skin glue is used to close and cover your incision. Do not pick it off, it will fall ofon its own after approximately 2 weeks. The glue is waterproof but you should not soak your incision or take a tub bath for 2 weeks. - You may shower. Let the soapy water run over your incisions. Do not scrub at your incisions. After you shower, pat your incisions dry with a clean towel. Potential Issues: - It is normal to have some pain and soreness, especially around the incisions - A small amount of clear drainage from the incision may be expected, call the office if the drainage becomes bloody, purulent (pus), or foul-smelling - Call the office if you start to have increased redness, drainage, swelling, or increased pain around your incision - Call the office if you have a fever greater than 101 F - Call the office if you have severe abdominal discomfort, nausea and vomiting, or feeling unwell Follow Up: - You will be called by clinic staff in two weeks for a post-operative check. Questions or Concerns and Appointments For appointments please call our General Surgery Clinic at [phone]. If there are questions or concerns after discharge from the hospital, call Dahlia Gonzalez, Nurse Coordinator between 7am-3pm at [phone]. If it is after hours, weekends, and holidays please call [phone] and ask for the resident professional sports scout for Emergency General Surgery. Medication requests should be made between the hours of 9:00 AM to 3:00 PM Friday thru Friday. Please note that based upon recent changes to [place] law related to prescribing opioid pain medications, our providers will not provide refills on controlled medications after your hospital discharge following a major surgery or trauma. [place], [place] 201 KAR9:260. documented in this encounter Medications at Time of Discharge Albuterol-Budeso nide (Airsupra) 90-80 MCG/ACT aerosol Inhale 2 puffs 4 times a day. galcanezumab-gnl m (Emgality) 120 MG/ML injection Inject 1 Syringe under the skin every 30 days. Next injection is due on 08/25/2024. metFORMIN, OSM, (Fortamet) 500 MG 24 hr tablet Take 2 tablets by mouth 1 time each day with dinner. Do not crush, chew, or split. ARIPiprazole (Abilify) 5 MG tablet Take 1 tablet by mouth in the morning. 03/25/2022 desvenlafaxine (Pristiq) 50 MG 24 hr tablet Take 1 tablet by mouth in the morning. Do not crush, chew, or split. fluticasone (Flonase) 50 MCG/ACT nasal spray Administer 1 spray into each nostril in the morning. Shake gently. Before first use, prime pump. After use, clean tip and replace cap. hydrOXYzine pamoate (Vistaril) 25 MG capsule Take 1 capsule by mouth 3 (three) times a day as needed for anxiety. labetalol (Normodyne) 100 MG tablet Take 1 tablet by mouth in the morning and 1 tablet before bedtime. methocarbamol (Robaxin) 500 MG tablet Take 1 tablet by mouth 4 times a day for 10 days. 40 tablet 08/19/2024 naloxone (Narcan) 4 mg/0.1 mL nasal spray 1. Give 1 spray in nostril for no/slow breathing or cannot wake after opioid use 2. Call 911 3. Repeat in other nostril if symptoms continue 1 each 08/19/2024 Vit-Fe Fumarate-FA ( PO) Take by mouth. Zuranolone (Zurzuvae) 25 MG capsule Take 50 mg by mouth nightly. acetaminophen (Tylenol) 500 MG tablet Take 2 tablets by mouth every 6 hours for 10 days. 80 tablet 08/19/2024 5 nitrofurantoin, macrocrystal-mon ohydrate, (Macrobid) 100 MG capsuleIndicatio ns:Acute cystitis without hematuria Take 1 capsule by mouth 2 times a day for 6 doses. 6 capsule 08/19/2024 5 oxyCODONE (Roxicodone) 5 MG immediate release tablet Take 1 tablet by mouth every 6 hours as needed for severe pain for up to 3 days. 12 tablet 08/19/2024 5 senna-docusate (Tabitha-Colace) 8.6-50 MG tablet Take 1 tablet by mouth daily for 10 days. 10 tablet 08/19/2024 5 documented as of this encounter Miscellaneous Notes * Suzy Mendenhall RN - 08/19/2024 6:46 PM EDT Images from the original note were not included. [id number] Scopolamine Transdermal Patch Brand Name(s): Transderm Scop?? Transdermal scopolamine ?? This branded product is no longer on the market. Generic alternatives may be available. WHY is this medicine prescribed? Scopolamine is used to prevent nausea and vomiting caused by motion sickness or medications used during surgery. Scopolamine is in a class of medications called antimuscarinics. It works by blocking the effects of a certain natural substance (acetylcholine) on the central nervous system. HOW should this medicine be used? Scopolamine comes as a patch to be placed on the hairless skin behind your ear. When used to help prevent nausea and vomiting caused by motion sickness, apply the patch at least 4 hours before its effects will be needed and leave in place for up to 3 days. If treatment is needed for longer than 3 days to help prevent nausea and vomiting caused by motion sickness, remove the current patch and apply a new patch behind the other ear. When used to prevent nausea and vomiting from medications used with surgery, apply the patch as directed by your doctor and leave it in place for 24 hours after your surgery. Follow the directions on your prescription label carefully, and ask your doctor or pharmacist to explain any part you do not understand. Use the scopolamine patch exactly as directed. To apply the patch, follow these instructions: ?? After washing the area behind the ear, wipe the area with a clean, dry tissue to ensure that thearea is dry. Avoid placing on areas of your skin that have cuts, pain, or tenderness. ?? Remove the patch from its protective pouch. Peel off the clear plastic protective strip and discard it. Don't touch the exposed adhesive layer with your fingers. ?? Place the adhesive side against the skin. ?? After you have placed the patch behind your ear, wash your hands thoroughly with soap and water. Do not cut the patch. Limit contact with water while swimming and bathing because it may cause the patch may fall off. Ifthe scopolamine patch falls off, discard the patch, and apply a new one on the hairless area behindthe other ear. When the scopolamine patch is no longer needed, remove the patch and fold it in half with the sticky side together and dispose of it. Wash your hands and the area behind your ear thoroughly with soapand water to remove any traces of scopolamine from the area. If a new patch needs to be applied, place a fresh patch on the hairless area behind your other ear. If you have used scopolamine patches for several days or longer, you may experience withdrawal symptoms that could start 24 hours or more after removing the scopolamine patch such as difficulty with balance, dizziness, nausea, vomiting, stomach cramps, sweating, headache, confusion, muscle weakness, slow heart rate or low blood pressure. Call your doctor right away if your symptoms become severe. Ask your pharmacist or doctor for a copy of the wool sorter's information for the patient. Are there OTHER USES for this medicine? This medication is sometimes prescribed for other uses; ask your doctor or pharmacist for more information. What SPECIAL PRECAUTIONS should I follow? Before using scopolamine patches, ?? tell your doctor and pharmacist if you are allergic to scopolamine, other belladonna alkaloids, any other medications, or any of the ingredients in scopolamine patches. Ask your doctor or pharmacist, check the package label, or check the Medication Guide for a list of the ingredients. ?? tell your doctor and pharmacist what prescription and nonprescription medications, vitamins, nutritional supplements, and herbal products you are taking or plan to take while using scopolamine patches. Your doctor may need to change the doses of your medications or monitor you carefully for sideeffects. ?? tell your doctor if you have angle-closure glaucoma (a condition where the fluid is suddenly blocked and unable to flow out of the eye causing a quick, severe increase in eye pressure which may lead to a loss of vision). Your doctor will probably tell you not to use scopolamine patch. ?? tell your doctor if you have or have ever had open-angle glaucoma (increase in internal eye pressure that damages the optic nerve); seizures; psychotic disorders (conditions that cause difficulty telling the difference between things or ideas that are real and things or ideas that are not real);stomach or intestinal obstruction; difficulty urinating; preeclampsia (condition during with increased blood pressure, high protein levels in the urine, or organ problems); or heart, liver,or kidney disease. ?? tell your doctor if you are , plan to become , or are . If you become while using scopolamine patches, call your doctor immediately. ?? if you are having surgery, including dental surgery, tell the doctor or dentist that you are using scopolamine patches. ?? you should know that scopolamine patch may make you drowsy. Do not drive a car or operate machinery until you know how scopolamine patches will affect you. If you participate in water sports, use caution because this medication can have disorienting effects. ?? talk to your doctor about the safe use of alcoholic beverages while using this medication. Alcohol can make the side effects caused by scopolamine patches worse. ?? talk to your doctor about the risks and benefits of using scopolamine if you are 65 years of ageor older. Older adults should not usually use scopolamine because it is not as safe or effective asother medications that can be used to treat the same condition. What should I do IF I FORGET to take a dose? Apply the missed patch as soon as you remember it. Do not apply more than one patch at a time. What SIDE EFFECTS can this medicine cause? Some side effects can be serious. If you experience any of the following symptoms, remove the patchand call your doctor immediately: ?? rash ?? redness ?? eye pain, redness, or discomfort; blurred vision; seeing halos or colored images ?? agitation ?? seeing things or hearing voices that do not exist (hallucinating) ?? confusion ?? believing things that are not true ?? not trusting others or feeling that others want to hurt you ?? difficulty speaking ?? seizure ?? painful or difficulty urinating ?? stomach pain, nausea, or vomiting Scopolamine patches may cause other side effects. Call your doctor if you have any unusual problemswhile you are using this medication. If you experience a serious side effect, you or your doctor may send a report to the Food and Drug Administration's (FDA) MedWatch Adverse Event Reporting program online (https://www.fda.gov/Safety/MedWatch) or by phone ( ). What should I know about STORAGE and DISPOSAL of this medication? Keep this medication in the container it came in, tightly closed, and out of reach of children. Store it at room temperature and away from excess heat and moisture (not in the bathroom). Store patches in an upright position; do not bend or roll them. Keep all medication out of sight and reach of children as many containers are not child-resistant. Always lock safety caps. Place the medication in a safe location - one that is up and away and out of their sight and reach. https://www.upandaway.org Dispose of unneeded medications in a way so that pets, children, and other people cannot take them.Do not flush this medication down the toilet. Use a medicine take-back program. Talk to your pharmacist about take-back programs in your community. Visit the FDA's Safe Disposal of Medicines website h ttps://goo.gl/c4Rm4p for more information. What should I do in case of OVERDOSE? In case of overdose or if someone swallows a scopolamine patch, call your local poison control center at . If the victim has collapsed or is not breathing, call local emergency servicesat [phone]. Symptoms of overdose may include the following: ?? dry skin ?? dry mouth ?? difficulty urinating ?? fast or irregular heartbeat ?? tiredness ?? drowsiness ?? confusion ?? agitation ?? seeing things or hearing voices that do not exist (hallucinating) ?? seizure ?? vision changes ?? coma What OTHER INFORMATION should I know? Keep all appointments with your doctor and the laboratory. Before having any laboratory test, tell your doctor and the laboratory personnel that you are usingscopolamine patch. Remove the scopolamine patch before having a magnetic resonance imaging scan (MRI). Do not let anyone else use your medication. Ask your pharmacist any questions you have about refilling your prescription. Keep a written list of all of the prescription and nonprescription (itjo-lfu-xyekfxt) medicines, vitamins, minerals, and dietary supplements you are taking. Bring this list with you each time you visit a doctor or if you are admitted to the hospital. You should carry the list with you in case of earl rgencies. This report on medications is for your information only, and is not considered individual patient advice. Because of the changing nature of drug information, please consult your physician or pharmacist about specific clinical use. The [employer] represents that the information provided hereunder was formulated with a reasonable standard of care, and in conformity with professional standards in the field. The [employer] makes no representations or warranties, express or implied, including, but not limited to, any implied warranty of merchantability and/or fitness for a particular purpose, with respect to such information and specifically disclaims all such warranties. Users are advised that decisions regarding drug therapy are complex medical decisions requiring the independent, informed decision of an appropriate health landcare facilitator, and the information is provided for informational purposes only. The entire monograph for a drug should be reviewed for a thorough understanding of the drug's actions, uses and side effects. The [employer] does not endorse or recommend the use of any drug.The information is not a substitute for medical care. AHFS?? Patient Medication Information?. ?? Copyright, 2023. The [employer]??, [address], [address], [place], [place]. All Rights Reserved. Duplication for commercial use must be authorized by [facility]. Selected Revisions: August 01, 2018. AHFS?? Patient Medication Information?. ?? Copyright, 2024 * Jose Guadalupe ProsperFORMERLY [facility] - Suzy Dykes RN - 08/19/2024 6:45 PM EDT Images from the original note were not included. [id number] Using an Incentive Spirometer An incentive spirometer is a handheld device that helps you do deep breathing exercises after surgery. It also helps lower the risk of breathing problems if you have a lung disease or condition. These exercises expand your lungs, aid in circulation, and may help prevent pneumonia. Deep breathing exercises also help you breathe better and improve lung function by: ?? Keeping your lungs clear. ?? Making your breathing muscles stronger. ?? Helping prevent respiratory complications or problems. The incentive spirometer gives you a way to take an active part in your recovery. A nurse or respiratory therapist will teach you breathing exercises. To do these exercises, you will breathe in through your mouth and not your nose. The incentive spirometer only works correctly if you breathe in through your mouth. Deep breathing expands the lungs, aids circulation, and helps prevent pneumonia. Your health care provider or their staff will tell you how to use the device, your targeted volume(s), and provide other helpful tips to prevent complications (such as pain, dizziness, feeling lightheaded) when blowing in the incentive spirometer. Steps to clear lungs Step 1. Exhale normally. Then, inhale normally. ?? Relax and breathe out. Step 2. Place your lips tightly around the mouthpiece. ?? Make sure the device is upright and not tilted. ?? Sit up and breathe out (exhale) fully. ?? Tightly seal your lips around the mouthpiece. Step 3. Inhale as much air as you can through the mouthpiece. Don't breathe through your nose. ?? Breathe in (inhale) slowly and deeply. ?? Hold your breath long enough to keep the balls, piston, or disk raised for at least 3 to 5 seconds, or as instructed by your health care provider. ?? Exhale slowly to allow the balls, piston, or disk to fall before repeating. Note: Some spirometers have an indicator to let you know that you are breathing in too fast. If theindicator goes off, breathe in more slowly. Step 4. Repeat the exercise regularly. ?? Do sets of 10 exercises every hour while you're awake, or as instructed by your health care provider. Don't do more than 30 breaths in each set. ?? If you were taught deep breathing and coughing exercises, do them regularly as instructed by your provider, nurse, or respiratory therapist. Follow-up care Make a follow-up appointment as directed by your health care provider. Also, follow up with your provider as advised if your symptoms don't improve or continue to get worse. When to contact your doctor Contact your health care provider right away if you have: ?? A fever 100.4?? (38??C) or higher, or as advised by your provider. ?? Brownish, bloody, or smelly sputum (phlegm that you cough up). Call 911 Call 911 if any of these occur: ?? Shortness of breath that doesn't get better after taking your medicine ?? Cool, moist, pale, or blue skin ?? Trouble breathing or swallowing, wheezing ?? Fainting or loss of consciousness ?? Feeling of dizziness or weakness, or a sudden drop in blood pressure ?? Feeling very ill ?? Lightheadedness ?? Chest pain or rapid heart rate Last Reviewed Date: 2024 00:00:00 ?? [id number] [employer]. All rights reserved. This information is not intended as a substitute for professional medical care. Always follow your healthcare professional's instructions. * Anesthesia PACU Signout - Fernando Juarez DO - 08/19/2024 6:43 PM EDT Patient: Amelie Landin Anesthesia Type: general Vitals Value Taken Time BP 144/83 08/19/24 18:30 Temp 36.6 ??C (97.9 ??F) 08/19/24 18:30 Pulse 100 08/19/24 18:41 Resp 16 08/19/24 18:41 SpO2 100 % 08/19/24 18:41 Vitals shown include unfiled device data. Anesthesia PACU Signout Patient location during evaluation: PACU Patient participation: complete - patient participated Level of consciousness: awake Pain management: adequate (pain score 0-3) Airway patency: natural airway Hydration status: acceptable PONV: none Cardiovascular status: acceptable Respiratory status: acceptable, nonlabored ventilation and room air Discharge Disposition: home Comments: Patient is s/p Procedure(s) and Anesthesia Type: * CHOLECYSTECTOMY, LAPAROSCOPIC - General. Patient remains HDS on room air, neurologically appropriate, pain is controlled, and tolerating PO w/o N/V. Patient is appropriate for discharge from PACU to home for continued postop care. Cosigned by Sravan Schmitt MD at 08/19/2024 8:10 PM EDT Associated attestation - Sravan Schmitt MD - 08/19/2024 8:10 PM EDT I saw and evaluated the patient with the resident/fellow. I discussed the case with the resident/fellow and agree with the findings and plan as documented. * Discharge Summary - Tameka Dubon APRN - 08/19/2024 4:55 PM EDT Hospitalization Admit Date/Time: 08/18/2024 11:08 AM Admitting Attending: Selena Farmer Discharge Date: 08/19/24 Discharge Attending Physician: Selena Farmer MD PCP name and Address: Pcp, Effie [address] [place] [address] / [place] [address] Referring provider name and address: No referring provider defined for this encounter. Chief Concern, Brief History of Present Illness, and Hospital Course Amelie Landin is a 24 y.o. female presenting to [facility] on 08/18/2024 with abdominal pain since Friday. She presented to OSH earlier in the week with similar complaints and was found to have cholelithiasis and UTI. She reports ongoing RUQ pain that is worse with meals and associated with nausea and emesis. Surgical history is significant for 2 sections, a laparoscopic appendectomy and subsequent laparoscopic right colectomy 2 years ago. Copied from admission H&P. Copied from admission H&P. Diagnosis: acute cholecystitis Surgery: s/p lap indigo (Yousif) 08/19 Post-operatively they did well. At time of discharge they were tolerating PO intake and pain was under control. Clinic staff will call in two weeks for a post-operative check. Surgeries and Procedures Procedures performed in this encounter Procedures Case Request Operating Room: CHOLECYSTECTOMY, LAPAROSCOPIC CHOLECYSTECTOMY, LAPAROSCOPIC (N/A) Medication List .. acetaminophen 500 MG tablet Commonly known as: Tylenol Take 2 tablets by mouth every 6 hours for 10 days. Airsupra 90-80 MCG/ACT aerosol Generic drug: Albuterol-Budesonide Inhale 2 puffs 4 times a day. ARIPiprazole 5 MG tablet Commonly known as: Abilify Take 1 tablet by mouth in the morning. desvenlafaxine 50 MG 24 hr tablet Commonly known as: Pristiq Take 1 tablet by mouth in the morning. Do not crush, chew, or split. fluticasone 50 MCG/ACT nasal spray Commonly known as: Flonase Administer 1 spray into each nostril in the morning. Shake gently. Before first use, prime pump. After use, clean tip and replace cap. galcanezumab-gnlm 120 MG/ML injection Commonly known as: Emgality Inject 1 Syringe under the skin every 30 days. Next injection is due on 08/25/2024. hydrOXYzine pamoate 25 MG capsule Commonly known as: Vistaril Take 1 capsule by mouth 3 (three) times a day as needed for anxiety. labetalol 100 MG tablet Commonly known as: Normodyne Take 1 tablet by mouth in the morning and 1 tablet before bedtime. metFORMIN (OSM) 500 MG 24 hr tablet Commonly known as: Fortamet Take 2 tablets by mouth 1 time each day with dinner. Do not crush, chew, or split. methocarbamol 500 MG tablet Commonly known as: Robaxin Take 1 tablet by mouth 4 times a day for 10 days. naloxone 4 mg/0.1 mL nasal spray Commonly known as: Narcan 1. Give 1 spray in nostril for no/slow breathing or cannot wake after opioid use 2. Call 911 3. Repeat in other nostril if symptoms continue nitrofurantoin (macrocrystal-monohydrate) 100 MG capsule Commonly known as: Macrobid Take 1 capsule by mouth 2 times a day for 6 doses. oxyCODONE 5 MG immediate release tablet Commonly known as: Roxicodone Take 1 tablet by mouth every 6 hours as needed for severe pain for up to 3 days. PO Take by mouth. senna-docusate 8.6-50 MG tablet Commonly known as: Tabitha-Colace Take 1 tablet by mouth daily for 10 days. Zurzuvae 25 MG capsule Generic drug: Zuranolone Take 50 mg by mouth nightly. Where to Get Your Medications These medications were sent to [facility] - [place], [place] - [address] [place] [address] acetaminophen 500 MG tablet methocarbamol 500 MG tablet naloxone 4 mg/0.1 mL nasal spray nitrofurantoin (macrocrystal-monohydrate) 100 MG capsule oxyCODONE 5 MG immediate release tablet senna-docusate 8.6-50 MG tablet Discharge Diagnosis Medical Problems Active and Resolved Hospital Problems Hospital Calculus of gallbladder without cholecystitis without obstruction Nausea and vomiting Right upper quadrant pain * (Principal) Symptomatic cholelithiasis Acute cystitis without hematuria Post Discharge Instructions Precautions: - You have received sedation/anesthesia today. You may not drive, drink alcohol, or do anything that requires a clear head for the next 24 hours. Medications: - You should take Tylenol every 6 hours for mild - moderate pain. - You should take methocarbamol 4 times per day for muscle spasms. - You have been prescribed pain medications to be taken as needed for severe pain. Do NOT take any home narcotics while taking pain medicine we have prescribed. - You should take the stool softener prescribed as long as you are taking narcotics. - You may resume your previous medications unless otherwise instructed. Nutrition: - You should eat a low-fat diet until your body adjusts to not having a gallbladder to aid digestion, focusing on liquids to keep yourself hydrated. Activity: - Walking and climbing stairs is ok and encouraged. You should refrain from any strenuous activity/exercise until your follow up appointment. - No lifting anything >5-10lbs for the next 6 weeks. - You may not drive for 48 hours after surgery, or while taking narcotics. Dressing: - Underneath your dressing you have steri strips across your incision. Do not pick them off, they will fall off on their own after approximately 2 weeks. - A special skin glue is used to close and cover your incision. Do not pick it off, it will fall ofon its own after approximately 2 weeks. The glue is waterproof but you should not soak your incision or take a tub bath for 2 weeks. - You may shower. Let the soapy water run over your incisions. Do not scrub at your incisions. After you shower, pat your incisions dry with a clean towel. Potential Issues: - It is normal to have some pain and soreness, especially around the incisions - A small amount of clear drainage from the incision may be expected, call the office if the drainage becomes bloody, purulent (pus), or foul-smelling - Call the office if you start to have increased redness, drainage, swelling, or increased pain around your incision - Call the office if you have a fever greater than 101 F - Call the office if you have severe abdominal discomfort, nausea and vomiting, or feeling unwell Follow Up: - You will be called by clinic staff in two weeks for a post-operative check. Questions or Concerns and Appointments For appointments please call our General Surgery Clinic at [phone]. If there are questions or concerns after discharge from the hospital, call Dahlia Gonzalez, Nurse Coordinator between 7am-3pm at [phone]. If it is after hours, weekends, and holidays please call [phone] and ask for the resident professional sports scout for Emergency General Surgery. Medication requests should be made between the hours of 9:00 AM to 3:00 PM Friday thru Friday. Please note that based upon recent changes to [place] law related to prescribing opioid pain medications, our providers will not provide refills on controlled medications after your hospital discharge following a major surgery or trauma. [place] 201 KAR9:260. Outpatient Follow-Up Future Appointments Date Time Provider Department Center 09/16/2024 10:10 AM Grayson G[facility]al MD [facility] Test Results Pending At Discharge Pending Labs Order Current Status Surgical Pathology Exam In process Pertinent Physical Exam At Time of Discharge Physical Exam Vitals reviewed. Constitutional: General: She is not in acute distress. Appearance: Normal appearance. She is obese. She is not ill-appearing. HENT: Head: Normocephalic and atraumatic. Nose: Nose normal. Mouth/Throat: Mouth: Mucous membranes are moist. Eyes: Pupils: Pupils are equal, round, and reactive to light. Cardiovascular: Rate and Rhythm: Normal rate and regular rhythm. Pulmonary: Effort: Pulmonary effort is normal. No respiratory distress. Breath sounds: No stridor. Abdominal: Palpations: Abdomen is soft. Comments: Soft, non-distended, appropriately tender post operatively, incisions clean/dry/intact w/dermabond. Musculoskeletal: Cervical back: Neck supple. Skin: General: Skin is warm and dry. Neurological: General: No focal deficit present. Mental Status: She is oriented to person, place, and time. Psychiatric: Mood and Affect: Mood is not anxious. Discharge Disposition/Condition Disposition: Home Condition: Stable (s/sx potential problems absent or manageable) I spent >30 minutes of patient care and instruction time in preparation for this discharge. Cosigned by Selena Farmer MD at 08/20/2024 5:24 AM EDT * Op Note - Selena Farmer MD - 08/19/2024 3:21 PM EDT Operative Note Date: 08/19/24 Location: [place] OR Name: Amelie Landin, : 2000, Diagnoses: Pre-op Diagnosis Calculus of gallbladder without cholecystitis without obstruction Nausea and vomiting, unspecified vomiting type Right upper quadrant pain Post-op Diagnosis Acute on chronic cholecystitis Procedure(s): Lap cholecystectomy Attending Surgeon(s): Selena Briceno - Primary Linseed Oil Refiner(s): Musa Valle, M3 Eloise Jacob, M3 Anesthesia: General ASA: III Blood Administration: Blood Product Administration History None Estimated Blood Loss: 50 mL Drains: * None in log * Specimen: Specimens ID Source Frozen? 1 Gallbladder No Description: gallbladder Findings: Mild acute inflammation Indications: Amelie Landin is an 24 y.o. female who is having surgery for Calculus of gallbladderwithout cholecystitis without obstruction Nausea and vomiting, unspecified vomiting type Right upper quadrant pain. Narrative: I brought this patient to the operating room placed her supine on the operating table and anesthetized her. Time-out was performed. The abdomen was prepped and draped in the usual sterile fashion. She received clindamycin as an antibiotic because of a serious rash with 1st generation cephalosporinsin the past. We entered at the umbilicus using a Quesada technique and the entry was smooth. We useda total of 40 cc of bupivacaine in the 4 incisions. We placed a 5 mm trocar in the epigastrium and 2 trocars in the right upper quadrant. There was no complication on entry. The gallbladder was mildly acutely inflamed. We grabbed the gallbladder raised at cephalad and exposed the portal structures.I opened the peritoneum on the front and the back of the gallbladder and carried that incision all the way to the fundus. I then widely opened the sister hepatic triangle. A posterior branch of the artery lying in the liver bed low in the back was entered with a little bit of arterial bleeding thatwas controlled with 2 clips. I circumferentially isolated the duct and the artery and then took the gallbladder off of the liver bed all the way to just a little bit of fundus. There were 2 and only 2 structures into the gallbladder. I doubly clipped proximally singly clipped distally and divided. The gallbladder was entered during the dissection. I aspirated the bile clear, aspirated any blood clear and irrigated and examined the gallbladder bed very carefully to assure hemostasis and no bile leak. The gallbladder was removed from the abdomen in a catchment bag and the wounds were closed in layers with absorbable suture. Sharp and sponge counts were correct. Blood loss was about 50 cc. Shetolerated the procedure well there were no complications. There were NO signs of surgical site infection (SSI) present at the time of surgery (PATOS). Complications: None; patient tolerated the procedure well. Submitted by: Selena Farmer MD - 08/19/2024 * Significant Event - Diamond Ferreira MD - 08/19/2024 1:26 PM EDT Patient to OR for laparoscopic cholecystectomy. Appropriate for OR. Consent signed and in media tab. Diamond Resendiz MD General Surgery PGY4 * Hospital Course - Tameka Dubon APRN - 08/19/2024 12:50 PM EDT Amelie Landin is a 24 y.o. female presenting to [facility] on 08/18/2024 with abdominal pain since Friday. She presented to OSH earlier in the week with similar complaints and was found to have cholelithiasis and UTI. She reports ongoing RUQ pain that is worse with meals and associated with nausea and emesis. Surgical history is significant for 2 sections, a laparoscopic appendectomy and subsequent laparoscopic right colectomy 2 years ago. Copied from admission H&P. Copied from admission H&P. Diagnosis: acute cholecystitis Surgery: s/p lap indigo (Yousif) 08/19 Post-operatively they did well. At time of discharge they were tolerating PO intake and pain was under control. Clinic staff will call in two weeks for a post-operative check. * Progress Notes - Carli Vanessa - 08/19/2024 12:39 PM EDT Case Management Adult Initial Progress Note Amelie Landin 24 y.o. female CSN: [id number] Admission: 08/18/2024 11:08 AM Primary Problem: Symptomatic cholelithiasis Or Nurse Manager reviewed chart and spoke with patient to complete this Initial Case Management Assessment. PCP: Pcp, No Emergency Contact: Extended Emergency Contact Information Primary Emergency Contact: Carson Landin [facility] Relation: Spouse Secondary Emergency Contact: Jaqueline Gross [facility] Relation: Mother Father: Brad Gross [facility] Insurance: Primary Visit Coverage Payer Plan Sponsor Code Group Number Group Name [id number] MEDICAID [facility] MEDICAID [place] Primary Visit Coverage Subscriber Subscriber ID Subscriber Name Subscriber SSN Subscriber Address [id number] AMELIE LANDIN [id number] [address] [facility] [facility] [place] [address] Patient information: Primary Caregiver: Self Support System: Immediate family Daily Living Activities: Functional Status: Independent Living Arrangements: Children, Family Type of Residence: Private residence [address] [address] Smoker in the Home?: No Current DME: Equipment Currently Used at Home: Cpap, other (see comments) Current DME Provider: zana Income Information: Income Source: Employed Income/Expense Information: Income meets expenses Current Resources Utilized: None Housing Circumstances-Z Codes: Housing Circumstances (select all that apply): None Applicable Patient Referred to: Anticipated Discharge Date: tbd Patient's Discharge Goal: home Assistance Available at Discharge: self Discharge Transport: family Follow Up Transport: self Home Health / Home Infusion / Outpatient Dialysis Services: Current DME Provider: zana Living Will/Advance Directive/Power of Burlapper /Guardian: Have you reviewed your Advance Directive and is it valid for this stay?: No Information Provided on Healthcare Directives: No Pre-existing DNR/DNI Order: No Additional Comments: SW confirmed pt address and phone number. Pt gets meds at [email or web address]. Carli Vanessa Cosigned by Paola Avila at 08/19/2024 12:44 PM EDT Associated attestation - Paola Avila - 08/19/2024 12:44 PM EDT SW was with the pt at time of assmt and note. Pt PCP is Dr.Marshall Olena Brewer - Dahlia Gonzalez RN - 08/19/2024 9:19 AM EDT Images from the original note were not included. 13761 Preventing a Surgical Site Infection A risk of any surgery is an infection at the surgical site. The surgical site is a cut the surgeon makes in the skin to do the surgery. Surgical site infections can range in type. It may be a minor skin infection. Or it may be severe and include tissue under the skin or other organs. In some cases,a severe infection can cause . The information below tells you: ?? About surgical site infections. ?? What hospitals do to prevent them. ?? How they?re treated if they do occur. ?? What you can do to prevent an infection. Hand washing reduces the risk of infection. What causes a surgical site infection? Germs are everywhere. They?re on your skin, in the air, and on things you touch. Many germs are good. Some are harmful. Surgical site infections occur when harmful germs enter your body through the incision in your skin. Some infections are caused by germs that are in the air or on objects. But most are caused by germs found on and in your own body. Who is at risk for a surgical site infection? Anyone can have a surgical site infection. Your risk is higher if you: ?? Are an older adult. ?? Have a weak immune system. ?? Have other health conditions such as diabetes. ?? Take certain medicines, such as steroids. ?? Are a smoker. ?? Have certain types of surgery, such as abdominal surgery. ?? Have poor nutrition. ?? Are very overweight. ?? Have a surgery that lasts longer than 2 hours. What are the symptoms of a surgical site infection? An infection often shows up as skin redness, pain, and swelling around the incision that gets worse. Later, a cloudy or greenish-yellow fluid may come from the incision. The fluid may smell bad. The incision may pull apart or open up. You are likely to have a fever and may feel very ill. Symptoms can appear at any time. They may happen from hours to weeks after surgery. Implants such as an artificial knee or hip can become infected at any time after the surgery. How is a surgical site infection treated? ?? A surgical site infection is treated with antibiotics. The type of medicine you get will depend on what may be causing the infection. Most serious wound infections need wound care. In some cases, surgery may be needed on the infected wound. ?? An infected skin wound may be reopened and cleaned. A deep wound may need to be packed with gauze. The gauze is changed often until the wound starts to heal from the inside out. Your health care provider will decide the best way to treat your infection. ?? If an infection occurs where an implant is placed, the implant may be removed. ?? If you have an infection deeper in your body, you may need surgery to treat it. What hospitals do to prevent surgical site infections Many hospitals take these steps to help prevent surgical site infections: ?? Handwashing. Before the surgery, your surgeon and all surgery staff scrub their hands and arms with an antiseptic soap. ?? Clean skin. The site where your incision is made is carefully cleaned with an antiseptic solution. ?? Sterile clothing and drapes. The surgical team wears medical uniforms. These are known as scrub suits. They wear long-sleeved surgical gowns, masks, caps, shoe covers, and sterile gloves. Your body is fully covered with a large sterile sheet (sterile drape). There is an opening in the sheet where the incision is made. ?? Clean air. Operating rooms have special air filters. They use positive pressure airflow to prevent unfiltered air from entering the room. ?? Careful use of antibiotics. Antibiotics are given no more than 60 minutes before the incision ismade. They are generally stopped within 24 hours after surgery. This depends on the type of surgery. This helps kill germs but prevents problems that can occur when antibiotics are taken longer. ?? Controlled blood sugar levels. Your blood sugar level may rise. This can be because of the stress of the surgery. Your blood sugar level is watched closely to make sure it stays within a normal range. High blood sugar delays wound healing. This increases the risk of infection. ?? Controlled body temperature. A vzjgl-farf-nhhjev temperature during or after surgery prevents oxygen from reaching the wound. This makes it harder for your body to fight infection. Hospitals may warm I.V. fluids, and provide warm-air blankets. Your temperature is watched throughout the surgery. ?? Safe hair removal. Any hair that must be removed is clipped right before the incision, not shaved with a razor. This prevents tiny nicks and cuts where germs can enter. ?? Wound care. After surgery, a closed wound is covered with a sterile dressing for 1 to 2 days. Open wounds are packed with sterile gauze and covered with a sterile dressing. What you can do to prevent a surgical site infection ?? Ask questions. Learn what your hospital is doing to prevent infection. ?? If instructed, shower or bathe with plain soap the night before and the day of your surgery. Follow all instructions you're given. You may be asked to use a special cleanser that you don?t rinse off. ?? If you smoke, stop as long as possible before and after the surgery. Ask your provider about ways to quit. ?? Take antibiotics only when your provider tells you to. Using antibiotics when they?re not neededcan create germs that are harder to kill. Finish the entire prescription of your antibiotics even if you feel better. ?? Ask health care workers to clean their hands with plain soap and water or with an alcohol-based hand jewel sorter before and after caring for you. Don?t be afraid to remind them. ?? After surgery, eat healthy foods. Care for your incision as directed by your health care team. When to contact your doctor Contact your provider or seek medical care right away if: ?? The pain at the surgical site gets worse. ?? A red streak, worse redness, or puffiness appears near the incision. ?? Yellowish, cloudy, or bad-smelling fluid leaks from the incision. ?? Your stitches dissolve before the wound heals. ?? You have a fever of 100.4?? F ( 38??C ) or higher, or as advised by your provider. ?? You have a tired feeling that doesn?t go away. Last Reviewed Date: 2024 00:00:00 ?? 6362-3111 [employer]. All rights reserved. This information is not intended as a substitute for professional medical care. Always follow your healthcare professional's instructions. * Jose Guadalupe Brewer - Dahlia Gonzalez RN - 08/19/2024 9:19 AM EDT Images from the original note were not included. 00805 Having Laparoscopic Cholecystectomy You?ve had painful attacks caused by gallstones. Because of this, you are having surgery to remove your gallbladder. This is called cholecystectomy. A method called laparoscopy will be used. This allows surgery to be done through a few small cuts (incisions). Possible incision sites. Before your surgery ?? Tell your health care provider what medicines you take. This includes prescription medicines, fyfn-mlf-vubcqxp medicines, illegal drugs, herbs, vitamins, and other supplements. Be sure to mention if you take prescription blood thinners. This includes warfarin, clopidogrel, lovenox, rivaroxaban, e doxaban, apixaban, and dabigatran. Also tell your provider if you take NSAIDs, such as naproxen, ibuprofen, or aspirin. You may be asked to stop taking certain medicines several days before surgery. ?? If you drink alcohol, tell your provider how much you drink. This is very important if you are aheavy drinker or have had alcohol withdrawal symptoms in the past. Alcohol withdrawal can be dangerous. But the symptoms can be safely managed if your provider knows your alcohol history. ?? Have any tests your provider asks for, such as blood and urine tests and an electrocardiogram (ECG). ?? Don?t eat or drink after midnight the night before your surgery. This includes water, coffee, and mints. ?? Wash with a special scrub, if you are told to do so. The day of surgery ?? Your provider may have you take your normal medicine with a sip of water. Check with your provider. When you arrive, you will prepare for surgery: ?? An I.V. (intravenous) line will be put into a vein in your arm or hand. This I.V. line is the way you are given fluids and medicine. ?? An anesthesiologist will talk with you about your health history and the anesthesia you will getduring the procedure. You will likely receive general anesthesia, which allows you to sleep comfortably throughout the procedure. During laparoscopic surgery For this surgery, a thin tube with a tiny camera is used. This is called a laparoscope. The scope sends images from inside your body to a video screen. This lets the surgeon view and work on your gallbladder. ?? Small incisions are made in your belly (abdomen). The scope is put through one of the incisions.Surgical tools are put through other incisions. ?? Small clips are used to close off the connection between the gallbladder and the bile duct. The gallbladder is then detached from the liver. ?? The gallbladder is removed through one of the incisions. Bile still flows from the liver to the small intestine. ?? When the surgery is done, all tools are removed. Incisions are closed with stitches (sutures), surgical glue, or ольга. ?? Your surgeon may have done this procedure using a surgical robot. The surgeon guides a special robot instead of guiding the surgical tools by hand. This is commonly called robotic surgery. It usesseveral small incisions, and the recovery is generally the same as with laparoscopy. Sometimes, a laparoscopic surgery may need to be changed to an open surgery. This method uses one large incision. This change may happen because of scar tissue, unusual anatomy, or for some other unexpected reason. After surgery You will be sent to the postanesthesia care unit (PACU) to be closely monitored. You will likely gohome the same day. In some cases, an overnight stay for observation is needed. When you are released to go home, have a family member or friend ready to drive you. Follow all post-op instructions given by your provider. This may include not driving, working, or lifting heavy objects for a period oftime. Risks of this surgery All surgeries have risks. The risks of gallbladder surgery include: ?? Bleeding. ?? Infection. ?? Injury to the common bile duct or nearby organs. ?? Blood clots in the legs or lungs. ?? Bile leaks. ?? A hernia at the incision site. ?? Pneumonia. Last Reviewed Date: 2024 00:00:00 ?? [id number] [employer]. All rights reserved. This information is not intended as a substitute for professional medical care. Always follow your healthcare professional's instructions. * Assessment & Plan Note - Julio Cesar Mcelroy MD - 08/18/2024 6:21 PM EDT Associated Problem(s): Acute cystitis without hematuria Continue Macrobid 08/17-08/22 * Assessment & Plan Note - Julio Cesar Mcelroy MD - 08/18/2024 4:24 PM EDT Associated Problem(s): Calculus of gallbladder without cholecystitis without obstruction Proceed with lap ccy given two ED visits and pain since Friday Consent in chart IVF NPO at midnight * Assessment & Plan Note - Julio Cesar Mcelroy MD - 08/18/2024 4:24 PM EDT Associated Problem(s): Nausea and vomiting IV antiemetics * Assessment & Plan Note - Julio Cesar Mcelroy MD - 08/18/2024 4:24 PM EDT Associated Problem(s): Right upper quadrant pain See cholelithiasis * H&P - Julio Cesar Mcelroy MD - 08/18/2024 3:30 PM EDTAssociated Order(s): Consult to Emergency General Surgery Reason for Consultation: cholelithiasis Requesting Service: Emergency Department Consult to Emergency General Surgery Consult performed by: Julio Cesar Mcelroy MD Consult ordered by: Dipika Fletcher PA History Of Present Illness Amelie Landin is a 24 y.o. female presenting to [facility] on 08/18/2024 with abdominal pain since Friday. She presented to OSH earlier in the week with similar complaints and was found to have cholelithiasis and UTI. She reports ongoing RUQ pain that is worse with meals and associated with nausea and emesis. Surgical history is significant for 2 sections, a laparoscopic appendectomy and subsequent laparoscopic right colectomy 2 years ago. History Obtained From: Patient Past Medical History She has a past medical history of Allergies, Anxiety and depression, Arthritis, Hypertension, Migraines, and Stomach disease. Reviewed as documented above Surgical History She has a past surgical history that includes Appendectomy and oral surgery. Reviewed as documented above Family History Family History[1] Reviewed as documented above Social History She reports that she has never smoked. She has never used smokeless tobacco. She reports that she does not drink alcohol and does not use drugs. Reviewed as documented above Allergies Amoxil [amoxicillin], Augmentin [amoxicillin-pot clavulanate], Cephalexin, and Shrimp extract Reviewed as documented above Medications Current Medications[2] Reviewed as documented above Review of Systems Relevant review of systems was obtained as able and is negative unless stated above in HPI. Last Recorded Vitals Blood pressure 133/84, pulse 59, temperature 36.6 ??C (97.9 ??F), temperature source Oral, resp. rate 14, height 1.61 m (5' 3.39 ), weight 109 kg (240 lb), SpO2 98%, unknown if currently . Physical Exam Vitals reviewed. Constitutional: General: She is not in acute distress. Appearance: She is obese. HENT: Head: Normocephalic and atraumatic. Eyes: General: No scleral icterus. Extraocular Movements: Extraocular movements intact. Cardiovascular: Rate and Rhythm: Normal rate. Pulmonary: Effort: Pulmonary effort is normal. No respiratory distress. Abdominal: Palpations: Abdomen is soft. Tenderness: There is abdominal tenderness (Minimal) in the right upper quadrant. Musculoskeletal: General: No deformity. Skin: General: Skin is warm and dry. Coloration: Skin is not jaundiced. Neurological: General: No focal deficit present. Mental Status: She is alert. Psychiatric: Mood and Affect: Mood normal. Behavior: Behavior normal. Recent Results Labs in last 18 hours CBC WBC 8.95 Hb 13.5 Plt 308 Hct 39.8 ANC 5.59 INR ??, PTT ??, Anti-Xa ?? BMP Na 136 Cl 103 BUN 9 Glu 92 K 4.4 Co2 20 (L) Cr 0.71 Ca 9.3 iCa ?? Mg ??, Phos ?? Lactate ?? LFT AST 34 AlkPhos 81 T Prot 7.2 ALK 43 (H) Bili 0.4 Alb ?? D.Bili ?? Radiology I personally and independently reviewed the CT images and Ultrasound images available at today's visit which showed: Evidence of cholelithiasis without any obvious signs of acute cholecystitis. Priorstaple line from right colectomy. Assessment & Plan Calculus of gallbladder without cholecystitis without obstruction Present on Admission: Unknown Proceed with lap ccy given two ED visits and pain since Friday Consent in chart IVF NPO at midnight Nausea and vomiting Present on Admission: Unknown IV antiemetics Right upper quadrant pain Present on Admission: Unknown See cholelithiasis Symptomatic cholelithiasis Present on Admission: Yes Acute cystitis without hematuria Present on Admission: Unknown Continue Macrobid 08/17-08/22 Dispo: Continue Current Level of Care CODE STATUS: not specified This Consult, Assessment, and Plan has been discussed with Dr. Farmer, Attending Physician Julio Cesar Mcelroy MD [1] Family History Problem Relation Name Age of Onset Heart disease Mother Hypertension Mother Migraines Mother Anxiety and depression Mother Anxiety and depression Father [2] Current Facility-Administered Medications Medication Dose Route Frequency Provider Last Rate Last Admin morphine PF 4 mg 4 mg Intravenous q1h PRN Marc Arceo MD Current Outpatient Medications Medication Sig Dispense Refill albuterol 108 (90 Base) MCG/ACT inhaler Inhale 2 puffs every 6 hours as needed. ARIPiprazole (Abilify) 5 MG tablet Take 1 tablet by mouth in the morning. desvenlafaxine (Pristiq) 50 MG 24 hr tablet Take 1 tablet by mouth in the morning. Do not crush, chew, or split. fluticasone (Flonase) 50 MCG/ACT nasal spray Administer 1 spray into each nostril in the morning. Shake gently. Before first use, prime pump. After use, clean tip and replace cap. hydrOXYzine pamoate (Vistaril) 25 MG capsule Take 1 capsule by mouth 3 (three) times a day as needed for anxiety. labetalol (Normodyne) 100 MG tablet Take 1 tablet by mouth in the morning and 1 tablet before bedtime. Vit-Fe Fumarate-FA ( PO) Take by mouth. Zuranolone (Zurzuvae) 25 MG capsule Take 50 mg by mouth nightly. Cosigned by Selena Farmer MD at 08/19/2024 5:17 PM EDT Associated attestation - Selena Farmer MD - 08/19/2024 5:17 PM EDT I saw and evaluated the patient with the resident/fellow. I discussed the case with the resident/fellow and agree with the findings and plan as documented. She is cholecystitis. We will try to get her done tonight but it might be tomorrow. * Care Plan - Alecia Jennings RN - 08/18/2024 10:28 AM EDT Problem: Adult Inpatient Plan of Care Goal: Plan of Care Review Outcome: Ongoing, Progressing Flowsheets (Taken 08/19/2024 1244) Plan of Care Reviewed With: patient Goal: Patient-Specific Goal (Individualized) Outcome: Ongoing, Progressing Flowsheets (Taken 08/19/2024 1244) Patient/Family-Specific Goals (Include Timeframe): pt will be free from falls Goal: Absence of Hospital-Acquired Illness or Injury Outcome: Ongoing, Progressing Intervention: Identify and Manage Fall Risk Flowsheets (Taken 08/19/2024 1244) Safety Promotion/Fall Prevention: activity supervised Intervention: Prevent Skin Injury Flowsheets (Taken 08/19/2024 1244) Skin Protection: incontinence pads utilized Intervention: Prevent and Manage VTE (Venous Thromboembolism) Risk Flowsheets (Taken 08/19/2024 1244) VTE Prevention/Management: SCDs (sequential compression devices) on Intervention: Prevent Infection Flowsheets (Taken 08/19/2024 1244) Infection Prevention: hand hygiene promoted Goal: Optimal Comfort and Wellbeing Outcome: Ongoing, Progressing Intervention: Monitor Pain and Promote Comfort Flowsheets (Taken 08/19/2024 1244) Pain Management Interventions: medication offered but refused Intervention: Provide Person-Centered Care Flowsheets (Taken 08/19/2024 1244) Trust Relationship/Rapport: care explained Goal: Readiness for Transition of Care Outcome: Ongoing, Progressing Intervention: Mutually Develop Transition Plan Flowsheets (Taken 08/19/2024 1244) Readmission Within the Last 30 Days: no previous admission in last 30 days * ED Provider Notes - Dipika Fletcher PA - 08/18/2024 10:28 AM EDT - HPI Chief Complaint Patient presents with Abdominal Pain PIT NOTE Amelie Landin is a 24 y.o. female with PMH PCOS, HTN, asthma, anxiety and depression who presentsto the ED with abdominal pain. Pt c/o right sided abdominal pain. She states she was dx with gallstones and UTI at OSH. She reports allergy to Augmentin, Amoxicillin, and Toradol. Patient denies illicit substance, smoking, or alcohol use. Denies daily medications. Denies possibility of . Patient has no other complaints at this time. KMH: Patient states that she has had right-sided abdominal pain since 08/14. She reports that she went to the emergency department on 08/16 at which time she was diagnosed with gallstones and was also told that she has a UTI. Patient states that she was prescribed Macrobid which she began taking yesterday. She has had 2 doses so far. Patient reports that the right-sided abdominal pain has worsened since that time. Pain is worsened with eating. She has been taking Motrin without relief. Patient also reports that she was having vaginal bleeding and hematuria when she presented to the OSH. She denies any vaginal bleeding today. She states that she is unsure if she has hematuria as she is taking pyridium which has colored her urine orange. Reports that her last menstrual period was 2 weeks ago.She recently had an IUD inserted 3 weeks ago. Notably, she had her 2nd child on April 20 2024. Shedenies any chest pain, vomiting, fevers, or other concerns. audio visual manager used: No Patient History Past Medical History[1] Surgical History[2] Family History[3] Social History[4] Allergies: Allergies[5] Physical Exam ED Triage Vitals [08/18/24 1038] Temp Heart Rate Resp BP 36.6 ??C (97.9 ??F) 89 18 (!) 159/82 SpO2 Temp Source Heart Rate Source Patient Position 98 % Oral -- Sitting BP Location FiO2 (%) Right arm -- Physical Exam Constitutional: General: She is not in acute distress. HENT: Head: Normocephalic. Comments: No facial swelling Mouth/Throat: Mouth: Mucous membranes are moist. Pharynx: Oropharynx is clear. Cardiovascular: Rate and Rhythm: Normal rate and regular rhythm. Heart sounds: Normal heart sounds. Pulmonary: Effort: Pulmonary effort is normal. No respiratory distress. Breath sounds: Normal breath sounds and air entry. Comments: Speaking full sentences. Symmetric chest rise Abdominal: General: There is no distension. Tenderness: There is no right CVA tenderness or left CVA tenderness. Comments: RUQ tenderness to palpation. Otherwise soft and nontender to palpation. Musculoskeletal: General: No deformity. Normal range of motion. Cervical back: Normal range of motion. Comments: Atraumatic, moves all extremities spontaneously Neurological: Mental Status: She is alert. Mental status is at baseline. Comments: Awake Psychiatric: Behavior: Behavior normal. [place] Coma Scale Score: 15 ED Course & MDM Date/Time: 08/18/2024 3:27 PM Scribe Attestation: This note was dictated to me, Taylor Hendricks, acting as a scribe for Marc Arceo MD. Attending Attestation: The documentation was recorded by Tyalor Hendricks acting as scribe in my presence at the time of the encounter and accurately reflects the service I personally performed. - Assessment: 24 y.o. female presents to ED with complaint of RUQ abdominal pain for the past 5 days. It should be noted that the chronic conditions includes asthma, PCOS, depression which currently is at goal therapy. This complicates the clinical picture because it Comorbidities: may be exacerbating symptoms Differential Diagnosis: Cholecystitis, cholelithiasis, pyelonephritis, colitis, other I reviewed the patient's records from the outside hospital. She had a CT abdomen and pelvis with contrast performed on 08/16/2024 which demonstrated gallstones as well as a density on the posterior wall of the urinary bladder which may be related to calcification of the wall of the urinary bladder.Patient was referred to Urology and General surgery. Patient had a transvaginal ultrasound performed on 08/16/2024 which demonstrated IUD in the appropriate position. She had normal flow to both ovaries without evidence of mass. There was a trace amount of minimally complex free fluid in the pelvis. On arrival today, patient is hemodynamically stable and overall well appearing. She has right upperquadrant tenderness to palpation but otherwise her abdominal exam is benign. Labs obtained which were unremarkable. Right upper quadrant ultrasound demonstrates hyperechoic focus along the fundus of the gallbladder which may sludge versus stone. Given that the patient is symptomatic, I consulted SGE who will evaluate the patient. UA demonstrates presence of nitrites which is likely secondary to Pyridium. There is bacteria present but no other concerning features. Care handed off pending SGE evaluation. In order to fully explore the differential diagnosis the following treatments and tests were ordered: ED Medication Administration from 08/18/2024 1028 to 08/18/2024 1527 Date/Time Order Dose Route Action 08/18/2024 1117 EDT acetaminophen (Tylenol) tablet 1,000 mg 1,000 mg Oral Given 08/18/2024 1117 EDT lactated Ringer's infusion 1,000 mL 1,000 mL Intravenous New Bag 08/18/2024 1117 EDT ondansetron (Zofran) injection 4 mg 4 mg Intravenous Given All Other Orders Ordered Status Ordering Provider 08/18/24 1504 Consult to Emergency General Surgery Once Provider: (Not yet assigned) Acknowledged DIPIKA FLETCHER 08/18/24 1449 Urinalysis Microscopic Examination Once In process DIPIKA FLETCHER 08/18/24 1442 Urinalysis with reflex microscopic (Culture NOT Included) STAT Preliminary result DIPIKA FLETCHER 08/18/24 1056 hCG qualitative STAT Final result MARC ARCEO 08/18/24 1056 Insert peripheral IV Continuous Acknowledged MARC ARCEO 08/18/24 1056 US Abdomen Focused Region GB (RUQ ), Bile Ducts (RUQ ) Once Final result MARC ARCEO 08/18/24 1056 Lactate, venous Once Final result MARC ARCEO 08/18/24 1056 CMP STAT Final result MARC ARCEO 08/18/24 1056 Lipase STAT Final result MARC ARCEO 08/18/24 1056 CBC w/diff STAT Final result MARC ARCEO ED Course as of 08/18/24 1646 FriAug 18, 2024 1147 Records requested from [facility] [KH] 1403 Records requested again [KH] 1624 Care assumed pending SGE eval. Hx of PCOS, baby in april, no breast feeding. Abd pain x 4 days. IUD put in one month ago. [place] over the weekend- TVUS and CT done- IUD in correct place. Some free fluid, CT showed calcification of bladder and gallstones. Urology appt on 09/09 and general surge ry. Today with worsening RUQ pain, taking azo and treating for UTI, no bleeding today. On macrobid started yesterday, had two doses. Labs WNL, RUQ pain SGE for stones vs no shadowing. [ER] ED Course User Index [ER] Stephy Lobo APRN [KH] Dipika Fletcher, KATHI Social Determinates of Health Risks (including Economic Stability, Education and level of understanding, Healthcare access and quality and concerning social factors): None identified on this visit Ultimately, this patient was was signed out [facility] the [facility] (Signed Out) Patient care assumed by [facility], Yamil REESE, at shift change, tentative planat the time of sign-out was pending SGE evaluation ED Prescriptions None - [1] Past Medical History: Diagnosis Date Allergies Anxiety and depression Arthritis Hypertension Migraines Stomach disease [2] Past Surgical History: Procedure Laterality Date APPENDECTOMY ORAL SURGERY [3] Family History Problem Relation Name Age of Onset Heart disease Mother Hypertension Mother Migraines Mother Anxiety and depression Mother Anxiety and depression Father [4] Tobacco Use Smoking status: Never Smokeless tobacco: Never Substance Use Topics Alcohol use: Never Drug use: Never [5] Allergies Allergen Reactions Amoxil [Amoxicillin] Rash Augmentin [Amoxicillin-Pot Clavulanate] Rash Cephalexin Rash Shrimp Extract Unknown - Patient states they do not know rxn details Dipika Fletcher PA 08/18/24 1647 Cosigned by Marc Arceo MD at 08/20/2024 11:05 AM EDT Associated attestation - Marc Arceo MD - 08/20/2024 11:05 AM EDT I attest to being involved in more than half the total time in patient care. * ED Triage Notes - Christoph Choi RN - 08/18/2024 10:28 AM EDT Patient here today for abdominal pain. Patient seen at [facility] and was dx with gallstones. Patient states pain is 8/10. * Progress Notes - Stephy Lobo APRN - 08/18/2024 10:28 AM EDT Images from the original note were not included. ED TRANSFER OF CARE NOTE Transferring provider: Dipika Irby PA-C Transferring attending: Dr. Arceo KYLE Time: 1628 I received sign-out and accepted care of this patient from the previous ED providers caring for this patient. I reviewed the patient's history, exam, work- up, and treatment plan up to this point. Please see the primary ED Provider Note for complete elements of the history, physical exam, and ED course. PERTINENT HISTORY: In brief, Amelie Landin is a 24 y.o. female with relevant PMH PCOS, recent and IUD placement who presented to the ED for evaluation of worseing RUQ pain with gallstones. PENDING: I accepted care of this patient from the previous provider while waiting for evaluation and/or recommendations from: General Surgery. Ultimately, the aforementioned service recommended admitto general surgery, for cholecystectomy ED Medication Administration from 08/18/2024 1028 to 08/18/2024 1818 Date/Time Order Dose Route Action 08/18/2024 1117 EDT acetaminophen (Tylenol) tablet 1,000 mg 1,000 mg Oral Given 08/18/2024 1117 EDT lactated Ringer's infusion 1,000 mL 1,000 mL Intravenous New Bag 08/18/2024 1117 EDT ondansetron (Zofran) injection 4 mg 4 mg Intravenous Given 08/18/2024 1230 EDT lactated Ringer's infusion 1,000 mL 0 mL Intravenous Stopped ED COURSE: ED Course as of 08/18/242051Aug 18, 2024 1147 Records requested from [facility] [] 1403 Records requested again [KH] 1624 Care assumed pending E eval. Hx of PCOS, baby in april, no breast feeding. Abd pain x 4 days. IUD put in one month ago. [place] over the weekend- TVUS and CT done- IUD in correct place. Some free fluid, CT showed calcification of bladder and gallstones. Urology appt on 09/09 and general surge ry. Today with worsening RUQ pain, taking azo and treating for UTI, no bleeding today. On macrobid started yesterday, had two doses. Labs WNL, RUQ pain SGE for stones vs no shadowing. [ER] ED Course User Index [ER] Stephy Lobo APRN [] Dipika Fletcher PA Clinical Impressions as of 08/18/242051 Calculus of gallbladder without cholecystitis without obstruction Right upper quadrant pain Ultimately, this patient Was admitted (Admission) The primary encounter diagnosis was Calculus of gallbladder without cholecystitis without obstruction. Diagnoses of Nausea and vomiting, unspecified vomiting type and Right upper quadrantpain were also pertinent to this visit.. Patient believed to require admission for the listed diagnoses. The General Surgery service was consulted for admission and was agreeable to admit to Acute Floor (Med/Surg). ED Prescriptions None Disposition Admit Admitting/Attending Physician: SELENA FARMER [[id number]] Provider Care Team: E EMERGENCY GENERAL SURGERY FLOOR 1 [[id number]] Are they the primary team?: Yes [1] - Stephy Lobo APRN Cosigned by Jose F Martines MD at 08/24/2024 7:53 AM EDT Associated attestation - Jose F Martines MD - 08/24/2024 7:53 AM EDT I attest to being involved in providing substantive part of the medical decision making in patient care. documented in this encounter Plan of Treatment Not on file documented as of this encounter Goals Goal Patient Goal Type Associated Problems Recent Progress Patient-Stated? Author Delayed Delivery Care Plan CPM S20 PP LABOR (OBSTETRICS) No Open Scheduling, Background documented as of this encounter Procedures Procedure Name Priority Date/Time Associated Diagnosis Comments SURGICAL PATHOLOGY EXAM Routine 08/19/2024 4:11 PM EDT Calculus of gallbladder without cholecystitis without obstruction Nausea and vomiting, unspecified vomiting type Right upper quadrant pain MD LAP,CHOLECYSTECTOMY 08/19/2024 2:43 PM EDT Calculus of gallbladder without cholecystitis without obstruction Nausea and vomiting, unspecified vomiting type Right upper quadrant pain EXTRA TUBE LAVENDER TOP Routine 08/19/2024 3:32 AM EDT EXTRA TUBE LIGHT GREEN TOP Routine 08/19/2024 3:32 AM EDT EXTRA TUBES Routine 08/19/2024 3:32 AM EDT URINALYSIS MICROSCOPIC FOR UA REFLEX STAT 08/18/2024 2:44 PM EDT URINALYSIS WITH REFLEX MICROSCOPIC STAT 08/18/2024 2:44 PM EDT US ABDOMEN FOCUSED REGION STAT 08/18/2024 12:59 PM EDT LACTATE, VENOUS STAT 08/18/2024 11:07 AM EDT CBC WITH AUTO DIFFERENTIAL STAT 08/18/2024 11:07 AM EDT TEST QUALITATIVE PLASMA STAT 08/18/2024 11:07 AM EDT LIPASE, PLASMA STAT 08/18/2024 11:07 AM EDT COMPREHENSIVE METABOLIC PANEL, PLASMA STAT 08/18/2024 11:07 AM EDT documented in this encounter Results * Surgical Pathology Exam (08/19/2024 4:11 PM EDT) Case Report Surgical Pathology Case: [id number] Authorizing Provider: Selena Farmer MD Collected: 08/19/2024 1611 Ordering Location: [facility] Received: 08/19/2024 1649 Pathologist: Selena Quiles MD Specimen: Gallbladder, gallbladder 08/24/2024 2:11 PM EDT [facility] Final Diagnosis A. GALLBLADDER, CHOLECYSTECTOMY: - CHRONIC CHOLECYSTITIS. 08/24/2024 2:11 PM EDT [facility] at 1411 EDT Clinical Information Calculus of gallbladder without cholecystitis without obstruction [K80.20] Nausea and vomiting, unspecified vomiting type [R11.2] Right upper quadrant pain [R10.11] 08/24/2024 2:11 PM EDT [facility] Gross Description A. GALLBLADDER Received in formalin labeled gallbladder , is an intact gallbladder measuring 6.1 x 3.3 x 1.2 cm. The serosa is pink-yellow, smooth, and glistening. The cystic duct is patent. Wall thickness averages 0.3 cm. The mucosa is pink-yellow and velvety with a red-yellow translucent fluid. No stones are grossly identified. No masses or polyps are grossly identified. Electrical Apprentice sections are submitted in cassette A1. Cold Time: 38m Anaid Hood 08/24/2024 2:11 PM EDT [facility] Note: A resident was involved in the service. I attest I examined the relevant preparations for the specimens and confirmed the diagnosis or interpretation. 08/24/2024 2:11 PM EDT [facility] Tissue Gallbladder structure / Unknown 08/19/2024 4:11 PM EDT 08/19/2024 4:49 PM EDT Comment:Pre-op diagnosis: Calculus of gallbladder without cholecystitis without obstruction [K80.20] Nausea and vomiting, unspecified vomiting type [R11.2] Right upper quadrant pain [R10.11] Selena Farmer MD LAB PATHOLOGY ORDERABLES Fin al Result Performing Organization Address City/[facility] [place] [address] * Lavender Top (08/19/2024 3:32 AM EDT) Extra Hold for add-ons 08/19/2024 3:[address] [facility] Comment:Auto resulted. Blood Venous blood specimen / Unknown 08/19/2024 3:32 AM EDT 08/19/2024 3:47 AM EDT Selena Farmer MD LAB BLOOD ORDERABLES Final R esult Performing Organization Address [facility] [place] [address] * Light Green Top (08/19/2024 3:32 AM EDT) Extra Hold for add-ons 08/19/2024 3:[address] [facility] Comment:Auto resulted. Blood Venous blood specimen / Unknown 08/19/2024 3:32 AM EDT 08/19/2024 3:47 AM EDT Selena Farmer MD LAB BLOOD ORDERABLES Final R esult Performing Organization Address [facility] [place] [address] * Urinalysis Microscopic Examination (08/18/2024 2:44 PM EDT) Urine Urine specimen obtained by clean catch procedure / Unknown Non-blood Collection / Unknown 08/18/2024 2:44 PM EDT 08/18/2024 2:47 PM EDT us Dipika ARMENTA LAB URINE ORDERABLES Final Re sult [facility] [address] [place] [address] * (ABNORMAL) Urinalysis with reflex microscopic (Culture NOT Included) (08/18/2024 2:44 PM EDT) Color, Urine Dark Yellow LAB URINALYSIS - AUTOMATED METHOD 08/18/2024 3:57 PM EDT [facility] Clarity, Urine Clear LAB URINALYSIS - AUTOMATED METHOD 08/18/2024 3:57 PM EDT [facility] Spec [place], Urine 1.014 1.005 - 1.030 LAB URINALYSIS - AUTOMATED METHOD 08/18/2024 3:57 PM EDT [facility] pH, Urine 6.0 5.0 - 8.0 LAB URINALYSIS - AUTOMATED METHOD 08/18/2024 3:57 PM EDT [facility] Protein, Urine Negative Negative mg/dL LAB URINALYSIS - AUTOMATED METHOD 08/18/2024 3:57 PM EDT [facility] Glucose, Urine Negative Negative mg/dL LAB URINALYSIS - AUTOMATED METHOD 08/18/2024 3:57 PM EDT [facility] Ketones, Urine Negative Negative mg/dL LAB URINALYSIS - AUTOMATED METHOD 08/18/2024 3:57 PM EDT [facility] Blood, Urine Negative Negative LAB URINALYSIS - AUTOMATED METHOD 08/18/2024 3:57 PM EDT [facility] Bilirubin, Urine Negative Negative LAB URINALYSIS - AUTOMATED METHOD 08/18/2024 3:57 PM EDT [facility] Urobilinogen, Urine 1.0 0.2 to 1.0 mg/dL LAB URINALYSIS - AUTOMATED METHOD 08/18/2024 3:57 PM EDT [facility] Leukocytes, Urine Trace(A) Negative LAB URINALYSIS - AUTOMATED METHOD 08/18/2024 3:57 PM EDT [facility] Nitrite, Urine Positive(A) Negative LAB URINALYSIS - AUTOMATED METHOD 08/18/2024 3:57 PM EDT [facility] RBC, Urine 1 0 to 3 /HPF LAB URINALYSIS - AUTOMATED METHOD 08/18/2024 3:57 PM EDT [facility] Comment:This result was prev iously suppressed from the chart. WBC, Urine 0 - 5 0 to 5 /HPF LAB URINALYSIS - AUTOMATED METHOD 08/18/2024 3:57 PM EDT [facility] Comment:This result was prev iously suppressed from the chart. Squamous Epithelial Cells 3 - 5 0 to 5 /HPF LAB URINALYSIS - AUTOMATED METHOD 08/18/2024 3:57 PM EDT [facility] Comment:This result was prev iously suppressed from the chart. Hyaline Casts 0 - 2 0 to 5 /LPF LAB URINALYSIS - AUTOMATED METHOD 08/18/2024 3:57 PM EDT [facility] Comment:This result was prev iously suppressed from the chart. Bacteria, Urine Present Negative LAB URINALYSIS - AUTOMATED METHOD 08/18/2024 3:57 PM EDT [facility] Comment:This result was prev iously suppressed from the chart. Urine Urine specimen obtained by clean catch procedure / Unknown Non-blood Collection / Unknown 08/18/2024 2:44 PM EDT 08/18/2024 2:47 PM EDT Narrative [facility] - 08/18/2024 3:57 PM EDT Performed by manual method us Dipika ARMENTA LAB URINE ORDERABLES Final Re sult [facility] [address] [place] [address] * US Abdomen Focused Region GB (RUQ ), Bile Ducts (RUQ ) (08/18/2024 12:59 PM EDT) Anatomical Region Laterality Modality Abdomen Ultrasound Impressions 08/18/2024 1:16 PM EDT No shadowing mobile stones evident. Small nonmobile hyperechoic focus along the fundus of the gallbladder nonspecific. This could represent small adherent area of sludge or nonshadowing stone Small comet tail artifact along the anterior aspect of the gallbladder suggesting an area of adenomyomatosis CRITICAL RESULT: No. COMMUNICATION: Per this written report. Drafted by Israel Faust MD on 08/18/2024 1:10 PM Final report signed by Israel Faust MD on 08/18/2024 1:16 PM Narrative 08/18/2024 1:16 PM EDT CLINICAL INDICATION: Cholelithiasis TECHNIQUE: Focused static and cine grayscale ultrasound images of portions of the gallbladder and right upper quadrant were obtained COMPARISON: None. FINDINGS: Gallbladder: Hyperechoic area is present along the posterior aspect of the gallbladder nonmobile and without shadowing. This could represent a small area of adherent sludge or an adherent nonshadowing stone. Small area of comet tail artifact noted along the anterior aspect of the gallbladder wall. No gallbladder wall thickening, pericholecystic fluid, or biliary dilatation. Other: N/A Procedure Note Israel Faust MD - 08/18/2024 CLINICAL INDICATION: Cholelithiasis TECHNIQUE: Focused static and cine grayscale ultrasound images of portions of thegallbladder and right upper quadrant were obtained COMPARISON: None. FINDINGS: Gallbladder: Hyperechoic area is present along the posterior aspect of thegallbladder nonmobile and without shadowing. This could represent a smallarea of adherent sludge or an adherent nonshadowing stone. Small area ofcomet tail artifact noted along the anterior aspect of the gallbladderwall. No gallbladder wall thickening, pericholecystic fluid, or biliarydilatation. Other: N/A IMPRESSION: No shadowing mobile stones evident. Small nonmobile hyperechoic focus along the fundus of the gallbladdernonspecific. This could represent small adherent area of sludge ornonshadowing stone Small comet tail artifact along the anterior aspect of the gallbladdersuggesting an area of adenomyomatosis CRITICAL RESULT: No. COMMUNICATION: Per this written report. Drafted by Israel Faust MD on 08/18/2024 1:10 PM Final report signed by Israel Fasut MD on 08/18/2024 1:16 PM Marc Arceo MD IM US PROCEDURES Fin al Result * hCG qualitative (08/18/2024 11:07 AM EDT) Test Negative Negative 08/18/2024 11:37 AM EDT [facility] Blood Venous blood specimen / Unknown Venipuncture / Unknown 08/18/2024 11:07 AM EDT 08/18/2024 11:13 AM EDT Narrative [facility] - 08/18/2024 11:37 AM EDT Reference Range: Males and non- females: Negative. us Marc Arceo MD LAB BLOOD ORDERABLES Final Result Performing Organization Address City/[facility]/ZIP Co de Phone Number [facility] [address] [place] [address] * Lactate, venous (08/18/2024 11:07 AM EDT) Lactate, Venous, Whole Blood 1.9 0.5 - 2.2 mmol/L LAB HEMATOLOGY METHOD 08/18/2024 11:18 AM EDT [facility] Blood Venous blood specimen / Unknown Venipuncture / Unknown 08/18/2024 11:07 AM EDT 08/18/2024 11:16 AM EDT us Marc Arceo MD LAB BLOOD ORDERABLES Final Result Performing Organization Address City/[facility] Co de Phone Number [facility] [address] [place] [address] * (ABNORMAL) CBC w/diff (08/18/2024 11:07 AM EDT) WBC Count 8.95 3.70 - 10.30 10*3/uL LAB HEMATOLOGY METHOD 08/18/2024 11:16 AM EDT [facility] RBC Count 4.98 3.90 - 5.20 10*6/uL LAB HEMATOLOGY METHOD 08/18/2024 11:16 AM EDT [facility] HGB 13.5 11.2 - 15.7 g/dL LAB HEMATOLOGY METHOD 08/18/2024 11:16 AM EDT [facility] HCT 39.8 34.0 - 45.0 % LAB HEMATOLOGY METHOD 08/18/2024 11:16 AM EDT [facility] Platelet Count 308 155 - 369 10*3/uL LAB HEMATOLOGY METHOD 08/18/2024 11:16 AM EDT [facility] MCV 80 79 - 98 fL LAB HEMATOLOGY METHOD 08/18/2024 11:16 AM EDT [facility] MCH 27.1 26.0 - 32.0 pg LAB HEMATOLOGY METHOD 08/18/2024 11:16 AM EDT [facility] MCHC 33.9 30.7 - 35.5 g/dL LAB HEMATOLOGY METHOD 08/18/2024 11:16 AM EDT [facility] RDW 14.9(H) 11.5 - 14.5 % LAB HEMATOLOGY METHOD 08/18/2024 11:16 AM EDT [facility] MPV 9.2 8.8 - 12.5 fL LAB HEMATOLOGY METHOD 08/18/2024 11:16 AM EDT [facility] nRBC 0.0 <=0.0 per 100 WBCs LAB HEMATOLOGY METHOD 08/18/2024 11:16 AM EDT [facility] Differential Type Automated LAB HEMATOLOGY METHOD 08/18/2024 11:16 AM EDT [facility] Neutrophils % 63 % LAB HEMATOLOGY METHOD 08/18/2024 11:16 AM EDT [facility] Lymphocytes % 24 % LAB HEMATOLOGY METHOD 08/18/2024 11:16 AM EDT [facility] Monocytes % 4 % LAB HEMATOLOGY METHOD 08/18/2024 11:16 AM EDT [facility] Eosinophils % 8 % LAB HEMATOLOGY METHOD 08/18/2024 11:16 AM EDT [facility] Basophils % 1 % LAB HEMATOLOGY METHOD 08/18/2024 11:16 AM EDT [facility] Immature Granulocytes % 0 % LAB HEMATOLOGY METHOD 08/18/2024 11:16 AM EDT [facility] Neutrophils Absolute 5.59 1.60 - 6.10 10*3/uL LAB HEMATOLOGY METHOD 08/18/2024 11:16 AM EDT [facility] Lymphocytes Absolute 2.13 1.20 - 3.90 10*3/uL LAB HEMATOLOGY METHOD 08/18/2024 11:16 AM EDT [facility] Monocytes Absolute 0.39 0.30 - 0.90 10*3/uL LAB HEMATOLOGY METHOD 08/18/2024 11:16 AM EDT [facility] Eosinophils Absolute 0.75(H) 0.00 - 0.50 10*3/uL LAB HEMATOLOGY METHOD 08/18/2024 11:16 AM EDT [facility] Basophils Absolute 0.07 0.00 - 0.10 10*3/uL LAB HEMATOLOGY METHOD 08/18/2024 11:16 AM EDT [facility] Immature Granulocytes Absolute 0.02 0.00 - 0.06 10*3/uL LAB HEMATOLOGY METHOD 08/18/2024 11:16 AM EDT [facility] Blood Venous blood specimen / Unknown Venipuncture / Unknown 08/18/2024 11:07 AM EDT 08/18/2024 11:13 AM EDT Narrative [facility] - 08/18/2024 11:16 AM EDT Therapeutic decision making should be based on absolute values, rather than percentages. us Marc Arceo MD LAB BLOOD ORDERABLES Final Result [facility] [address] [place] [address] * Lipase (08/18/2024 11:07 AM EDT) Lipase, Plasma 34 19 - 63 U/L 08/18/2024 11:37 AM EDT [facility] Blood Venous blood specimen / Unknown Venipuncture / Unknown 08/18/2024 11:07 AM EDT 08/18/2024 11:13 AM EDT us Marc Arceo MD LAB BLOOD ORDERABLES Final Result [facility] [address] [place] [address] * (ABNORMAL) CMP (08/18/2024 11:07 AM EDT) Glucose, Plasma 92 74 - 99 mg/dL 08/18/2024 11:37 AM EDT [facility] BUN, Plasma 9 7 - 21 mg/dL 08/18/2024 11:37 AM EDT [facility] Creatinine, Plasma 0.71 0.60 - 1.10 mg/dL 08/18/2024 11:37 AM EDT [facility] BUN/Creatinine Ratio 13 08/18/2024 11:37 AM EDT [facility] Sodium, Plasma 136 136 - 145 mmol/L 08/18/2024 11:37 AM EDT [facility] Potassium, Plasma 4.4 3.6 - 4.9 mmol/L 08/18/2024 11:37 AM EDT [facility] Comment:Hemolyzed, result ma y be falsely increased. Chloride, Plasma 103 97 - 107 mmol/L 08/18/2024 11:37 AM EDT [facility] CO2, Plasma 20(L) 22 - 29 mmol/L 08/18/2024 11:37 AM EDT [facility] Anion Gap 13 6 - 16 mmol/L 08/18/2024 11:37 AM EDT [facility] Total Calcium, Plasma 9.3 8.9 - 10.2 mg/dL 08/18/2024 11:37 AM EDT [facility] Total Protein 7.2 6.3 - 7.9 g/dL 08/18/2024 11:37 AM EDT [facility] Albumin, Plasma 4.5 3.5 - 5.2 g/dL 08/18/2024 11:37 AM EDT [facility] AST, Plasma 34 10 - 35 U/L 08/18/2024 11:37 AM EDT [facility] Comment:Hemolyzed, result ma y be falsely increased. ALT, Plasma 43(H) 10 - 35 U/L 08/18/2024 11:37 AM EDT [facility] Alkaline Phosphatase, Plasma 81 35 - 104 U/L 08/18/2024 11:37 AM EDT [facility] Total Bilirubin, Plasma 0.4 0.2 - 1.1 mg/dL 08/18/2024 11:37 AM EDT [facility] eGFRcr 121.2 mL/min/1.7 3m*2 08/18/2024 11:37 AM EDT [facility] Comment:Reported eGFRcr in m L/min/1.73m2 is based the CKD-EPI 2020 equation that does not use a race coefficient. Blood Venous blood specimen / Unknown Venipuncture / Unknown 08/18/2024 11:07 AM EDT 08/18/2024 11:13 AM EDT Marc Arceo MD LAB BLOOD ORDERABLES Final Result [facility] [address] [place] [address] documented in this encounter Visit Diagnoses Diagnosis Symptomatic cholelithiasis- Primary Calculus of gallbladder without cholecystitis without obstruction Nausea and vomiting, unspecified vomiting type Right upper quadrant pain Abdominal pain, right upper quadrant Acute cystitis without hematuria Calculus of gallbladder without cholecystitis without obstruction Nausea and vomiting Nausea with vomiting Right upper quadrant pain Abdominal pain, right upper quadrant Acute cystitis without hematuria documented in this encounter Admitting Diagnoses Diagnosis Calculus of gallbladder without cholecystitis without obstruction Nausea and vomiting Nausea with vomiting Right upper quadrant pain Abdominal pain, right upper quadrant Symptomatic cholelithiasis documented in this encounter Administered Medications Inactive Administered Medications - up to 3 most recent administrations Medication Order MAR Action Action Date Dose Rate Site acetaminophen (Tylenol) tablet 1,000 mg 1,000 mg, Oral, Once, 1 dose, On Fri08/18/24 at 1100, STAT Given 08/18/2024 11:17 AM EDT 1,000 mg acetaminophen (Tylenol) tablet 1,000 mg 1,000 mg, Oral, Every 6 hours scheduled, First dose on Fri08/18/24 at 1820, Until Discontinued, Routine Given 08/19/2024 4:55 PM EDT 1,000 mg Given 08/19/2024 5:04 AM EDT 1,000 mg Given 08/18/2024 11:04 PM EDT 1,000 mg dextrose 5 % and lactated Ringer's infusion 100 mL/hr, Intravenous, Continuous, Starting on Fri08/18/24 at 1820, Until Fri08/19/24 at 2213, Routine New Bag 08/19/2024 4:11 AM EDT 100 mL/hr 100 mL/hr New Bag 08/18/2024 6:32 PM EDT 100 mL/hr 100 mL/hr droperidol (Inapsine) injection 0.625 mg 0.625 mg, Intravenous, Once as needed, 1 dose, Starting on Fri08/19/24 at 1619, Until Fri08/19/24 at 2213, Routine, Recovery (Phase I only), nausea, vomiting enoxaparin (Lovenox) syringe 30 mg 30 mg, Subcutaneous, Daily, First dose on Fri08/18/24 at 1820, Until Discontinued, Routine, On hold since Fri08/19/2024 at 0512 until manually unheld Given 08/18/2024 6:27 PM EDT 30 mg Le ft Lower Abdomen fentaNYL (Sublimaze) injection 25 mcg 25 mcg, Intravenous, Every 5 min PRN, 2 doses, Starting on Fri08/19/24 at 1619, Until Fri08/19/24 at 1702, Routine, Recovery (Phase I only), pain score of 3-4 out of 10 Given 08/19/2024 5:02 PM EDT 25 mcg Given 08/19/2024 4:51 PM EDT 25 mcg fentaNYL (Sublimaze) injection 50 mcg 50 mcg, Intravenous, Once, 1 dose, On Fri08/19/24 at 1900, Routine, Recovery (Phase I only) Given 08/19/2024 6:09 PM EDT 50 mcg heparin (porcine) injection 7,500 Units 7,500 Units, Subcutaneous, Once, 1 dose, On Fri08/19/24 at 1530, Routine, Holding - Preprocedure Given 08/19/2024 2:50 PM EDT 7,500 Units Right Lower Abdomen HYDROmorphone (Dilaudid) injection 0.5 mg 0.5 mg, Intravenous, Every 10 min PRN, 2 doses, Starting on Fri08/19/24 at 1619, Until Fri08/19/24 at 1734, Routine, Recovery (Phase I only), pain score of 9-10 out of 10 Given 08/19/2024 5:34 PM EDT 0.5 mg Given 08/19/2024 5:22 PM EDT 0.5 mg hydrOXYzine pamoate (Vistaril) capsule 25 mg 25 mg, Oral, Daily PRN, Starting on Fri08/18/24 at 1955, Until Fri08/19/24 at 2213, Routine, anxiety Given 08/19/2024 8:22 AM EDT 25 mg Given 08/18/2024 7:59 PM EDT 25 mg lactated Ringer's infusion 1,000 mL 1,000 mL, Intravenous, Once, 1 dose, On Fri08/18/24 at 1100, STAT New Bag 08/18/2024 11:17 AM EDT 1,000 mL lactated Ringer's infusion 75 mL/hr, Intravenous, Once, 1 dose, On Fri08/19/24 at 1530, Routine New Bag 08/19/2024 2:53 PM EDT 75 mL/hr 75 mL/hr methocarbamol (Robaxin) injection 1,000 mg 1,000 mg, Intravenous, Once, 1 dose, On Fri08/19/24 at 1900, Routine, Recovery (Phase I only) Given 08/19/2024 6:13 PM EDT 1,000 mg naloxone (Narcan) injection 0.4 mg 0.4 mg, Intravenous, As needed, Starting on Fri08/19/24 at 1619, Until Fri08/19/24 at 2213, Routine, Recovery (Phase I only), respiratory depression nitrofurantoin (macrocrystal-monohydrate) (Macrobid) capsule 100 mg 100 mg, Oral, 2 times daily, 8 doses, First dose on Fri08/18/24 at 2100, Last dose on Fri08/22/24 at 0900, Routine Given 08/19/2024 8:22 AM EDT 100 mg Given 08/18/2024 9:36 PM EDT 100 mg ondansetron (Zofran) injection 4 mg 4 mg, Intravenous, Once, 1 dose, On Fri08/18/24 at 1100, STAT Given 08/18/2024 11:17 AM EDT 4 mg ondansetron (Zofran) injection 4 mg 4 mg, Intravenous, Every 6 hours PRN, Starting on Fri08/18/24 at 1818, Until Fri08/19/24 at 2213, Routine, vomiting, nausea ondansetron ODT (Zofran-ODT) disintegrating tablet 4 mg 4 mg, Oral, Every 6 hours PRN, Starting on Fri08/18/24 at 1818, Until Fri08/19/24 at 2213, Routine, nausea, vomiting Given 08/19/2024 1:26 PM EDT 4 mg Given 08/19/2024 3:20 AM EDT 4 mg Given 08/18/2024 8:28 PM EDT 4 mg oxyCODONE (Roxicodone) immediate release tablet 10 mg 10 mg, Oral, Once as needed, 2 doses, Starting on Fri08/19/24 at 1619, Until Fri08/19/24 at 221, Routine, Recovery (Phase I only), pain score of 6-8 out of 10 Given 08/19/2024 4:51 PM EDT 10 mg oxyCODONE (Roxicodone) immediate release tablet 5 mg 5 mg, Oral, Every 4 hours PRN, Starting on Fri08/18/24 at 1818, Until Fri08/19/24 at 2213, Routine, severe pain Given 08/19/2024 3:20 AM EDT 5 mg Given 08/18/2024 11:03 PM EDT 5 mg Given 08/18/2024 6:28 PM EDT 5 mg oxyCODONE (Roxicodone) immediate release tablet 5 mg 5 mg, Oral, Once as needed, 2 doses, Starting on Fri08/19/24 at 1619, Until Fri08/19/24 at 221, Routine, Recovery (Phase I only), pain score of 3-5 out of 10 polyethylene glycol (Miralax) packet 17 g 17 g, Oral, Daily, First dose on Fri08/18/24 at 1820, Until Discontinued, Routine scopolamine (Transderm-Scop) patch 1 patch 1 patch, Transdermal, Once, 1 dose, On Fri08/19/24 at 1530, Routine, Holding - Preprocedure Medication Applied 08/19/2024 2:50 PM EDT 1 patch Behind Right Ear sodium chloride 0.9 % flush 10 mL 10 mL, Intravenous, Every 12 hours, First dose on Fri08/19/24 at 1530, Until Discontinued, Routine, Holding - Preprocedure Given 08/19/2024 2:53 PM EDT 10 mL sodium chloride 0.9 % flush 10 mL 10 mL, Intravenous, As needed, Starting on Fri08/19/24 at 1437, Until Fri08/19/24 at 2213, Routine, Holding - Preprocedure, line care sodium chloride 0.9 % flush 10 mL 10 mL, Intravenous, Every 12 hours, First dose on Fri08/18/24 at 1820, Until Discontinued, Routine Given 08/19/2024 5:05 AM EDT 10 mL Given 08/18/2024 6:28 PM EDT 10 mL documented in this encounter Active and Recently Administered Medications Times are shown in EDT. Scheduled Medication Order 08/17/2024 08/18/2024 08/19/2024 acetaminophen (Tylenol) tablet 1,000 mg (COMPLETED) 1,000 mg, Oral, Once, 1 dose, On Fri08/18/24 at 1100, STAT 1117 (Given - Provider: Makenzie Santillan, CHANTE) acetaminophen (Tylenol) tablet 1,000 mg 1,000 mg, Oral, Every 6 hours scheduled, First dose on Fri08/18/24 at 1820, Until Discontinued, Routine 1828 (Given - Provider: Makenzie Santillan RN)2304 (Given - Provider: Dee Dee Hyatt) 0504 (Given - Provider: Henry York)1324 (Not Given - Provider: Yanira Jo RN - Reason: Patient/family refused)1416 (APR Hold - Provider: Automatic Transfer Provider - Reason: Patient in procedure)1651 (MAR Unhold - Provider: Suzy Dykes RN)1655 (Given - Provider: Suzy Dykes RN) enoxaparin (Lovenox) syringe 30 mg 30 mg, Subcutaneous, Daily, First dose on Fri08/18/24 at 1820, Until Discontinued, Routine, On hold since Fri08/19/2024 at 0512 until manually unheld 182 (Given - Provider: Makenzie Santillan RN) 0512 (Held by provider - Provider: Jin Martinez MD - Reason: Upcoming test/procedure)0900 (Dose Auto Held - Provider: Jin Martinez MD)2213 (Unheld by provider - Provider: Automatic Discharge Provider) fentaNYL (Sublimaze) injection 50 mcg (COMPLETED) 50 mcg, Intravenous, Once, 1 dose, On Fri08/19/24 at 1900, Routine, Recovery (Phase I only) 1809 (Given - Provid er: Suzy Dykes RN) heparin (porcine) injection 7,500 Units (COMPLETED) 7,500 Units, Subcutaneous, Once, 1 dose, On [place]by 08/19/24 at 1530, Routine, Holding - Preprocedure 1450 (Given - Provid er: Angle Najera, CHANTE) lactated Ringer's infusion 1,000 mL (COMPLETED) 1,000 mL, Intravenous, Once, 1 dose, On Fri08/18/24 at 1100, STAT 1117 (New Bag - Provider: Makenzie Santillan, RN)1230 (Stopped - Provider: Makenzie Santillan, CHANTE) lactated Ringer's infusion (COMPLETED) 75 mL/hr, Intravenous, Once, 1 dose, On [place]by 08/19/24 at 1530, Routine 1453 (New Bag - Prov ider: Angle Najera, CHANTE) methocarbamol (Robaxin) injection 1,000 mg (COMPLETED) 1,000 mg, Intravenous, Once, 1 dose, On [place] 08/19/24 at 1900, Routine, Recovery (Phase I only) 1813 (Given - Provid er: Suzy Dykes RN) nitrofurantoin (macrocrystal-monohydrate ) (Macrobid) capsule 100 mg 100 mg, Oral, 2 times daily, 8 doses, First dose on Fri08/18/24 at 2100, Last dose on Fri08/22/24 at 0900, Routine 2136 (Given - Provider: Dee Dee Hyatt) 0822 (Given - Provider: Alecia Jennings, CHANTE)1416 (APR Hold - Provider: Automatic Transfer Provider - Reason: Patient in procedure)1651 (MAR Unhold - Provider: Suzy Dykes, CHANTE)2100 (Canceled Entry - Provider: Automatic Discharge Provider - Comment: Automatically canceled at discontinue of medication order) ondansetron (Zofran) injection 4 mg (COMPLETED) 4 mg, Intravenous, Once, 1 dose, On Fri08/18/24 at 1100, STAT 1117 (Given - Provider: Makenzie Santillan RN) polyethylene glycol (Miralax) packet 17 g 17 g, Oral, Daily, First dose on Fri08/18/24 at 1820, Until Discontinued, Routine 1836 (Not Given - Provider: Makenzie Santillan RN - Reason: Patient/family refused - Comment: bowel movement this morning) 0823 (Not Given - Provider: Alecia Jennings RN - Reason: NPO)1416 (APR Hold - Provider: Automatic Transfer Provider - Reason: Patient in procedure)1651 (APR Unhold - Provider: Suzy Dykes, CHANTE) scopolamine (Transderm-Scop) patch 1 patch 1 patch, Transdermal, Once, 1 dose, On Fri08/19/24 at 1530, Routine, Holding - Preprocedure 1450 (Medication Elicia lied - Provider: Angle Najera RN)1950 (Due: Medication Removed - Provider: Automatic Discharge Provider - Comment: Time automatically adjusted from order being discontinued) sodium chloride 0.9 % flush 10 mL(Linked Group 1) 10 mL, Intravenous, Every 12 hours, First dose on Darby 08/19/24 at 1530, Until Discontinued, Routine, Holding - Preprocedure 1453 (Given - Provid er: Angle Najera RN) sodium chloride 0.9 % flush 10 mL (CANCELED)(Linked Group 2) 10 mL, Intravenous, Every 12 hours, First dose on Fri08/18/24 at 1820, Until Discontinued, Routine 1828 (Given - Provider: Makenzie Santillan RN) 0505 (Given - Provider: Henry York) Continuous Medication Order 08/17/2024 08/18/2024 08/19/2024 dextrose 5 % and lactated Ringer's infusion 100 mL/hr, Intravenous, Continuous, Starting on Fri08/18/24 at 1820, Until Darby 08/19/24 at 2213, Routine 1832 (New Bag - Provider: Makenzie Santillan RN) 0411 (New Bag - Provider: Henry York) PRN Medication Order 08/17/2024 08/18/2024 08/19/2024 bupivacaine PF (Marcaine) 0.25 % injection (CANCELED) As needed, Starting on Fri08/19/24 at 1526, Until Darby 08/19/24 at 1644, Routine, Intraprocedure 1526 (Given - Provid er: Selena Farmer MD) droperidol (Inapsine) injection 0.625 mg 0.625 mg, Intravenous, Once as needed, 1 dose, Starting on Fri08/19/24 at 1619, Until Darby 7 at 2213, Routine, Recovery (Phase I only), nausea, vomiting fentaNYL (Sublimaze) injection 25 mcg (COMPLETED) 25 mcg, Intravenous, Every 5 min PRN, 2 doses, Starting on Darby 08/19/24 at 1619, Until Darby 725 at 1702, Routine, Recovery (Phase I only), pain score of 3-4 out of 10 165 (Given - Provid er: Suzy Dykes RN)170 (Given - Provider: Suzy Dykes RN) HYDROmorphone (Dilaudid) injection 0.5 mg (COMPLETED) 0.5 mg, Intravenous, Every 10 min PRN, 2 doses, Starting on Darby 08/19/24 at 1619, Until Darby 7 at 1734, Routine, Recovery (Phase I only), pain score of 9-10 out of 10 172 (Given - Provid er: Suzy Dykes RN)173 (Given - Provider: Suzy Dykes RN) hydrOXYzine pamoate (Vistaril) capsule 25 mg 25 mg, Oral, Daily PRN, Starting on Fri08/18/24 at 1955, Until Darby 7 at 2213, Routine, anxiety 1958 (Given - Provider: Dee Dee Hyatt) 0822 (Given - Provider: Alecia Jennings RN)141 (MAR Hold - Provider: Automatic Transfer Provider - Reason: Patient in procedure)165 (MAR Unhold - Provider: Suzy Dykes, CHANTE) naloxone (Narcan) injection 0.4 mg 0.4 mg, Intravenous, As needed, Starting on Darby 08/19/24 at 1619, Until Darby 725 at 2213, Routine, Recovery (Phase I only), respiratory depression ondansetron (Zofran) injection 4 mg(Linked Group 3) 4 mg, Intravenous, Every 6 hours PRN, Starting on Fri08/18/24 at 1818, Until Darby 725 at 2213, Routine, vomiting, nausea 2027 (See Alternative - Provider: Dee Dee Hyatt) 0320 (See Alternative - Provider: Henry York)1326 (See Alternative - Provider: Yanira Jo, CHANTE)141 (MAR Hold - Provider: Automatic Transfer Provider - Reason: Patient in procedure)1650 (APR Unhold - Provider: Suzy Dykes RN) ondansetron ODT (Zofran-ODT) disintegrating tablet 4 mg(Linked Group 3) 4 mg, Oral, Every 6 hours PRN, Starting on Fri08/18/24 at 1818, Until Darby 08/19/24 at 2213, Routine, nausea, vomiting 2027 (Given - Provider: Dee Dee Hyatt) 0320 (Given - Provider: Henry York)132 (Given - Provider: Yanira Jo RN)141 (APR Hold - Provider: Automatic Transfer Provider - Reason: Patient in procedure)1650 (APR Unhold - Provider: Suzy Dykes, CHANTE) oxyCODONE (Roxicodone) immediate release tablet 10 mg(Linked Group 4) 10 mg, Oral, Once as needed, 2 doses, Starting on Darby 08/19/24 at 1619, Until Darby 7 at 2213, Routine, Recovery (Phase I only), pain score of 6-8 out of 10 1650 (Given - Provid er: Suzy Dykes RN) oxyCODONE (Roxicodone) immediate release tablet 5 mg 5 mg, Oral, Every 4 hours PRN, Starting on Fri08/18/24 at 1818, Until Darby 7 at 2213, Routine, severe pain 1827 (Given - Provider: Makenzie Santillan RN)230 (Given - Provider: Dee Dee Hyatt) 0320 (Given - Provider: Henry York)141 (MAR Hold - Provider: Automatic Transfer Provider - Reason: Patient in procedure)1650 (MAR Unhold - Provider: Suzy Dykes, CHANTE) oxyCODONE (Roxicodone) immediate release tablet 5 mg(Linked Group 4) 5 mg, Oral, Once as needed, 2 doses, Starting on Darby 08/19/24 at 1619, Until Darby 08/19/24 at 2213, Routine, Recovery (Phase I only), pain score of 3-5 out of 10 1651 (See Alternativ e - Provider: Suzy Dykes, CHANTE) sodium chloride 0.9 % flush 10 mL(Linked Group 1) 10 mL, Intravenous, As needed, Starting on Fri08/19/24 at 1437, Until Fri08/19/24 at 2213, Routine, Holding - Preprocedure, line care Linked Groups Order Group 1: Insert peripheral IV (CANCELED) Once, On Fri08/19/24 at 1438, For 1 occurrence, Holding - Preprocedure And Saline lock IV (CANCELED) Once, On Fri08/19/24 at 1438, For 1 occurrence, Holding - Preprocedure And sodium chloride 0.9 % flush 10 mLJump to med 10 mL, Intravenous, Every 12 hours, First dose on Fri08/19/24 at 1530, Until Discontinued, Routine, Holding - Preprocedure And sodium chloride 0.9 % flush 10 mLJump to med 10 mL, Intravenous, As needed, Starting on Fri08/19/24 at 1437, Until Fri08/19/24 at 2213, Routine, Holding - Preprocedure, line care Group 2: Insert peripheral IV (CANCELED) Once, On Fri08/18/24 at 1819, For 1 occurrence And Saline lock IV (CANCELED) Once, On Fri08/18/24 at 1819, For 1 occurrence And sodium chloride 0.9 % flush 10 mL (CANCELED)Jump to med 10 mL, Intravenous, Every 12 hours, First dose on Fri08/18/24 at 1820, Until Discontinued, Routine And sodium chloride 0.9 % flush 10 mL (CANCELED) 10 mL, Intravenous, As needed, Starting on Fri08/18/24 at 1818, Until Fri08/19/24 at 0718, Routine, line care Group 3: ondansetron ODT (Zofran-ODT) disintegrating tablet 4 mgJump to med 4 mg, Oral, Every 6 hours PRN, Starting on Fri08/18/24 at 1818, Until Fri08/19/24 at 2213, Routine, nausea, vomiting Or ondansetron (Zofran) injection 4 mgJump to med 4 mg, Intravenous, Every 6 hours PRN, Starting on Fri08/18/24 at 1818, Until Darby 08/19/24 at 2213, Routine, vomiting, nausea Group 4: oxyCODONE (Roxicodone) immediate release tablet 5 mgJump to med 5 mg, Oral, Once as needed, 2 doses, Starting on Fri08/19/24 at 1619, Until Darby 08/19/24 at 2213, Routine, Recovery (Phase I only), pain score of 3-5 out of 10 Or oxyCODONE (Roxicodone) immediate release tablet 10 mgJump to med 10 mg, Oral, Once as needed, 2 doses, Starting on Fri08/19/24 at 1619, Until Darby 08/19/24 at 2213, Routine, Recovery (Phase I only), pain score of 6-8 out of 10 documented in this encounter Additional Health Concerns Active Problems Noted Date Diagnosed Date 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
--- OUTSIDE RECORDS SUMMARY | 2024-08-19 12:15 | XMS_ITS | Encounter Summary ---
Author Organization Healthcare Address [address] [place] [address] Care Team Providers Care Pharmaceutical Sales Name Role Phone Pcp, No Primary Care Provider Unavailabl e Reason for Visit * Reason Comments Abdominal Pain * Auth/Cert (Routine) Specialty Diagnoses / Procedures Referred By Contac t Referred To Contact Diagnoses Right upper quadrant pain Calculus of gallbladder without cholecystitis without obstruction Acute cystitis without hematuria Symptomatic cholelithiasis Nausea and vomiting, unspecified vomiting type Selena Farmer MD [address] [address] Phone: tel: fax: [facility] [address] [place] [address] Phone: tel: Referral ID Status Reason Start Date Expiration Date Visits Re quested Visits Authorized [id number] 1 1 Encounter Details Date Type Department Care Team (Late st Contact Info) Description 08/19/2024 12:15 PM EDT - 08/19/2024 3:00 PM EDT Surgery [facility] [address] [place] [address] Selena Farmer MD [address] [address] CHOLECYSTECTOMY, LAPAROSCOPIC [[id number] (CPT )] Surgery Details Date/Time Status Location OR Service Patient Class Case Class Case Type Trauma Case? 08/19/2024 12:15 PM Posted [facility] 12 General Surgery Inpatient T-Timed: to be done within 24 hours Panel 1 Procedure LRB Anes Op Region Wound Class Comments CHOLECYSTECTOMY, LAPAROSCOPIC N/A General Surgeon Surgeon Role Service Panel Selena Farmer MD Primary General Surgery 1 Arpita Antoine MD Resident - Assisting 1 Diamond Ferreira MD Resident - Assisting 1 documented in this encounter Social History Tobacco Use Types Packs/Day Years Used Date Smoking Tobacco: Never Smokeless Tobacco: Never Alcohol Use Standard Drinks/Week Comments Never 0 (1 standard drink = 0.6 oz pur e alcohol) PHQ-2 Answer Date Recorded Patient Health Questionnaire-2 Score 4 05/13/2024 [place] Depression Scale Answer Date Recorded [place] Depression Scale Total 14 01/17/2022 The thought [...] any time in the past 12 m ont, were you homeless or living in a chcf (including now)? No 08/19/2024 Utilities Answer Date Recorded In the past 12 months has th e [employer], gas, oil, or water [employer] threatened to shut off services in your [...] Sign Reading Time Taken Comments Blood Pressure 139/86 08/19/2024 2:47 PM EDT Pulse 78 08/19/2024 2:47 PM EDT Temperature 36.8 C (98.3 F) 08/19/2024 2:47 PM EDT Respiratory Rate 16 08/19/2024 2:47 PM EDT Oxygen Saturation 99% 08/19/2024 2:47 PM EDT Inhaled Oxygen Concentration - - Weight 109 kg (240 lb) 08/19/2024 2:47 PM EDT Height 161 cm (5' 3.39 ) 08/18/2024 10:38 AM EDT Body Mass Index 42 08/18/2024 10:38 AM EDT documented in this encounter Functional Status * Calculated C-SSRS Risk Score (Lifetime/Recent) Answer Date of Assessment Author No Risk Indicated 08/19/2024 2:40 PM EDT Angle Olivarez RN * Question Answer Date of Assessment Author 1. Wish to be (Past 1 Month) No 08/19/2024 2:40 PM EDT Lonnie Najera RN 2. Non-Specific Active Suicidal Thoughts (Past 1 Month) No 08/19/2024 2:40 PM EDT Lonnie Najera RN 6. Suicidal Behavior (Lifetime) No 08/19/2024 2:40 PM EDT Lonnie Najera, RN documented as of this encounter Discharge Instructions * Discharge Instructions* Mary Dubondebora Noland, ORACLE HRMS DEVELOPER - 08/19/2024 1:04 PM EDT Discharge Instructions: [...] please call our General Surgery Clinic at [phone]. If there are questions or concerns after discharge from the hospital, call Dahlia Gonzalez, Nurse Coordinator between 7am-3pm at [phone]. If it is after hours, weekends, and holidays please call [phone] and ask for the resident flight control tower operator for Emergency General Surgery. Medication requests should be made between the hours of 9:00 AM to 3:00 PM Friday thru Friday. Please note that based upon recent changes to [place] law related to prescribing opioid pain medications, [...] from the original note were not included. [id number] Scopolamine Transdermal Patch Brand Name(s): Transderm Scop?? [...] or doctor for a copy of the business system manager's information for the patient. Are there OTHER [...] and out of their sight and reach. [email or web address].[employer]ivis[employer].org Dispose of unneeded medications in a way [...] is not breathing, call local emergency servicesat 421. Symptoms of overdose may include the following: [...] of all of the prescription and nonprescription (kylo-qym-ksxsymv) medicines, vitamins, minerals, and dietary supplements you [...] or pharmacist about specific clinical use. The [place] [employer] represents that the information provided hereunder was formulated with a reasonable standard of care, and in conformity with professional standards in the field. The [place] [employer] makes no representations or warranties, express or implied, including, but not limited to, any implied warranty of merchantability and/or fitness for a particular purpose, with respect to such information and specifically disclaims all such warranties. Users are advised that decisions regarding drug therapy are complex medical decisions requiring the independent, informed decision of an appropriate health patient care technician, and the information is provided for informational purposes only. The entire monograph for a drug should be reviewed for a thorough understanding of the drug's actions, uses and side effects. The [place] [employer] does not endorse or recommend the use of any drug.The information is not a substitute for medical care. AHFS?? Patient Medication Information?. ?? Copyright, 2023. The [place] [employer]??, [address] [facility], [address], [place], [place]. All Rights Reserved. Duplication for commercial use must be authorized by [facility]. Selected Revisions: August 01, 2018. AHFS?? Patient Medication Information?. ?? Copyright, 2024 * Jose Guadalupe ChengJAY - Suzy Dykes RN - 08/19/2024 6:45 PM EDT Images from the original note were not included. 22676 Using an Incentive Spirometer An incentive spirometer [...] rate Last Reviewed Date: 2024 00:00:00 ?? 7037-0923 The Actions. All rights reserved. This information is not [...] Farmer MD PCP name and Address: Pcp, No [address] [facility] [address] Referring provider name and address: No referring provider defined for this encounter. Chief Concern, Brief History of Present Illness, and Hospital Course Amelie Landin is a 24 y.o. female presenting to [facility] on 08/18/2024 with abdominal pain since Friday. [...] Your Medications These medications were sent to [facility] [place], [place] - [address] [facility] [address] [facility] [address] acetaminophen 500 MG tablet methocarbamol 500 MG [...] please call our General Surgery Clinic at [phone]. If there are questions or concerns after discharge from the hospital, call Dahlia Gonzalez, Nurse Coordinator between 7am-3pm at [phone]. If it is after hours, weekends, and holidays please call [phone] and ask for the resident flight control tower operator for Emergency General Surgery. Medication requests should be made between the hours of 9:00 AM to 3:00 PM Friday thru Friday. Please note that based upon recent changes to [place] law related to prescribing opioid pain medications, our providers will not provide refills on controlled medications after your hospital discharge following a major surgery or trauma. [place], [place] 201 KAR9:260. Outpatient Follow-Up Future Appointments Date Time Provider Department Center 09/16/2024 10:10 AM Grayson Grewal MD [facility] Test Results Pending At Discharge Pending Labs [...] PM EDT Operative Note Date: 08/19/24 Location: [facility] Name: Amelie Landin, : 2000, Diagnoses: Pre-op Diagnosis Calculus of gallbladder without cholecystitis without obstruction Nausea and vomiting, unspecified vomiting type Right upper quadrant pain Post-op Diagnosis Acute on chronic cholecystitis Procedure(s): Lap cholecystectomy Attending Surgeon(s): Selena Briceno Primary Software Design Manager(s): Payton Hassan, M3 Anesthesia: General ASA: III Blood Administration: [...] is a 24 y.o. female presenting to [facility] on 08/18/2024 with abdominal pain since Friday. [...] Note Amelie Landin 24 y.o. female CSN: [id number] Admission: 08/18/2024 11:08 AM Primary Problem: Symptomatic cholelithiasis Car Ferrier reviewed chart and spoke with patient to complete this Initial Case Management Assessment. PCP: Pcp, No Emergency Contact: Extended Emergency Contact Information Primary Emergency Contact: MushtaqCarson [facility] Relation: Spouse Secondary Emergency Contact: RenatoAngelaJaqueline [facility] Relation: Mother Father: Brad Gross [facility] Insurance: Primary Visit Coverage Payer Plan Sponsor Code Group Number Group Name UHC MEDICAID UHC MEDICAID [place] Primary Visit Coverage Subscriber Subscriber ID Subscriber Name Subscriber N Subscriber Address [id number] AMELIE LANDIN [id number] [address] [place] [address] Patient information: Primary Caregiver: Self Support System: Immediate family Daily Living Activities: Functional Status: Independent Living Arrangements: Children, Family Type of Residence: Private residence [address] [facility] [address] Smoker in the Home?: No Current DME: [...] DME Provider: zana Living Will/Advance Directive/Power of Sheet Metal Lay Out Worker /Guardian: Have you reviewed your Advance Directive and is it valid for this stay?: No Information Provided on Healthcare Directives: No Pre-existing DNR/DNI Order: No Additional Comments: SW confirmed pt address and phone number. Pt gets meds at [facility]. Carli Vanessa Cosigned by Paola Avila at 08/19/2024 12:44 PM EDT Associated attestation - Paola Avila - 08/19/2024 12:44 PM EDT SW was with the pt at time of assmt and note. Pt PCP is Dahlia Espinoza RN - 08/19/2024 9:19 AM EDT Images from the original note were not included. [address] Preventing a Surgical Site Infection A risk [...] of infection. ?? Controlled body temperature. A pwsso-pspy-rvtgpv temperature during or after surgery prevents oxygen [...] and water or with an alcohol-based hand real estate firm manager before and after caring for you. Don?t [...] away. Last Reviewed Date: 2024 00:00:00 ?? 9650-7311 The Actions. All rights reserved. This information is not intended as a substitute for professional medical care. Always follow your healthcare professional's instructions. * Jose Guadalupe OnFHIR - Dahlia Gonzalez RN - 08/19/2024 9:19 AM EDT Images from the original note were not included. 30508 Having Laparoscopic Cholecystectomy You?ve had painful attacks [...] medicines you take. This includes prescription medicines, lqsj-eyi-vemedfb medicines, illegal drugs, herbs, vitamins, and other [...] between the gallbladder and the bile duct. Thegallbladder is then detached from the liver. ?? [...] Pneumonia. Last Reviewed Date: 2024 00:00:00 ?? 7266-2884 The Actions. All rights reserved. This information is not [...] is a 24 y.o. female presenting to [facility] on 08/18/2024 with abdominal pain since Friday. [...] obstruction Present on Admission: Unknown Proceed with ulises ccy given two ED visits and pain [...] chest pain, vomiting, fevers, or other concerns. typewriter assembler used: No Patient History Past Medical History[1] [...] baseline. Comments: Awake Psychiatric: Behavior: Behavior normal. [place] Coma Scale Score: 15 ED Course & MDM Date/Time: 08/18/2024 3:27 PM Scribe Attestation: This note was dictated to me, Taylor Hendricks, acting as a scribe for Marc Arceo MD. Attending Attestation: The documentation was recorded by Taylor Hendricks acting as scribe in my presence [...] 1147 Records requested from [facility] [KH] 1403 Records requested again [KH] 1624 Care assumed pending SGE eval. Hx of PCOS, baby in april, no breast feeding. Abd pain x 4 days. IUD put in one month ago. [place] over the weekend- TVUS and CT done- [...] patient was was signed out to the oncoming provider (Signed Out) Patient care assumed by oncoming provider, Yamil REESE, at shift change, tentative [...] PA-C Transferring attending: Dr. Arceo KYLE Time: 8 I received sign-out and accepted care of [...] 1147 Records requested from [facility] [KH] 1403 Records requested again [KH] 1624 [...] [ER] ED Course User Index [ER] Stephy Lobo, ORACLE HRMS DEVELOPER [KH] Dipika Fletcher PA Clinical Impressions as of [...] None Disposition Admit Admitting/Attending Physician: SELENA FARMER [[id number]] Provider Care Team: [facility] 1 [271] Are [...] unspecified vomiting type Right upper quadrant pain UT LAP,CHOLECYSTECTOMY 08/19/2024 2:43 PM EDT Calculus of [...] PM EDT) Case Report Surgical Pathology Case: [id number] Authorizing Provider: Selena Farmer MD Collected: 08/19/2024 1611 Ordering Location: [facility] Received: 08/19/2024 1649 Pathologist: Selena Quiles MD Specimen: Gallbladder, gallbladder 08/24/2024 2:11 PM EDT [facility] Final Diagnosis A. GALLBLADDER, CHOLECYSTECTOMY: - CHRONIC CHOLECYSTITIS. 08/24/2024 2:11 PM EDT [facility] at 1411 EDT Clinical Information Calculus of gallbladder without cholecystitis without obstruction [K80.20] Nausea and vomiting, unspecified vomiting type [R11.2] Right upper quadrant pain [R10.11] 08/24/2024 2:11 PM EDT [facility] Gross Description A. GALLBLADDER Received in formalin labeled gallbladder , is an intact gallbladder measuring 6.1 x 3.3 x 1.2 cm. The serosa is pink-yellow, smooth, and glistening. The cystic duct is patent. Wall thickness averages 0.3 cm. The mucosa is pink-yellow and velvety with a red-yellow translucent fluid. No stones are grossly identified. No masses or polyps are grossly identified. Staking Technician sections are submitted in cassette A1. Cold Time: 38m Anaid Hood 08/24/2024 2:11 PM EDT [facility] Note: A resident was involved in the service. I attest I examined the relevant preparations for the specimens and confirmed the diagnosis or interpretation. 08/24/2024 2:11 PM EDT [facility][1] Tissue Gallbladder structure / Unknown 08/19/2024 4:11 PM EDT 08/19/2024 4:49 PM EDT Comment:Pre-op diagnosis: Calculus of gallbladder without cholecystitis without obstruction [K80.20] Nausea and vomiting, unspecified vomiting type [R11.2] Right upper quadrant pain [R10.11] Selena Farmer MD LAB PATHOLOGY ORDERABLES Fin al Result Performing Organization Address [facility]/ZIP Co de Phone Number [facility] [address] [place] [address] * Lavender Top (08/19/2024 3:32 AM EDT) Extra Hold for add-ons 08/19/2024 3:57 AM EDT [facility] Comment:Auto resulted. Blood Venous blood specimen / Unknown 08/19/2024 3:32 AM EDT 08/19/2024 3:47 AM EDT Selena Farmer MD LAB BLOOD ORDERABLES Final R esult Performing Organization Address [facility] Co de Phone Number [facility] [address] [place] [address] * Light Green Top (08/19/2024 3:32 AM EDT) Extra Hold for add-ons 08/19/2024 3:57 AM EDT [facility] Comment:Auto resulted. Blood Venous blood specimen / Unknown 08/19/2024 3:32 AM EDT 08/19/2024 3:47 AM EDT Selena Farmer MD LAB BLOOD ORDERABLES Final R esult Performing Organization Address [facility]/ZIP Co de Phone Number [facility] [address] [place] [address] * Urinalysis Microscopic Examination (08/18/2024 2:44 PM EDT) Urine Urine specimen obtained by clean catch procedure / Unknown Non-blood Collection / Unknown 08/18/2024 2:44 PM EDT 08/18/2024 2:47 PM EDT us Dipika ARMENTA LAB URINE ORDERABLES Final Re sult [facility] [address] [place] [address] * (ABNORMAL) Urinalysis with reflex microscopic (Culture NOT Included) (08/18/2024 2:44 PM EDT) Color, Urine Dark Yellow LAB URINALYSIS - AUTOMATED METHOD 08/18/2024 3:57 PM EDT [facility] Clarity, Urine Clear LAB URINALYSIS - AUTOMATED METHOD 08/18/2024 3:57 PM EDT [facility] Spec [place], Urine 1.014 1.005 - 1.030 LAB URINALYSIS - AUTOMATED METHOD 08/18/2024 3:57 PM EDT [facility] pH, Urine 6.0 5.0 - 8.0 LAB URINALYSIS - AUTOMATED METHOD 08/18/2024 3:57 PM EDT [facility] Protein, Urine Negative Negative mg/dL LAB URINALYSIS - AUTOMATED METHOD 08/18/2024 3:57 PM EDT [facility] Glucose, Urine Negative Negative mg/dL LAB URINALYSIS - AUTOMATED METHOD 08/18/2024 3:57 PM EDT [facility] Ketones, Urine Negative Negative mg/dL LAB URINALYSIS - AUTOMATED METHOD 08/18/2024 3:57 PM EDT [facility] Blood, Urine Negative Negative LAB URINALYSIS - AUTOMATED METHOD 08/18/2024 3:57 PM EDT [facility] Bilirubin, Urine Negative Negative LAB URINALYSIS - AUTOMATED METHOD 08/18/2024 3:57 PM EDT [facility] Urobilinogen, Urine 1.0 0.2 to 1.0 mg/dL LAB URINALYSIS - AUTOMATED METHOD 08/18/2024 3:57 PM EDT [facility] Leukocytes, Urine Trace(A) Negative LAB URINALYSIS - AUTOMATED METHOD 08/18/2024 3:57 PM EDT [facility] Nitrite, Urine Positive(A) Negative LAB URINALYSIS - AUTOMATED METHOD 08/18/2024 3:57 PM EDT [facility] RBC, Urine 1 0 to 3 /HPF LAB URINALYSIS - AUTOMATED METHOD 08/18/2024 3:57 PM EDT [facility] Comment:This result was prev iously suppressed from the chart. WBC, Urine 0 - 5 0 to 5 /HPF LAB URINALYSIS - AUTOMATED METHOD 08/18/2024 3:57 PM EDT [facility] Comment:This result was prev iously suppressed from the chart. Squamous Epithelial Cells 3 - 5 0 to 5 /HPF LAB URINALYSIS - AUTOMATED METHOD 08/18/2024 3:57 PM EDT [facility] Comment:This result was prev iously suppressed from the chart. Hyaline Casts 0 - 2 0 to 5 /LPF LAB URINALYSIS - AUTOMATED METHOD 08/18/2024 3:57 PM EDT [facility] Comment:This result was prev iously suppressed from the chart. Bacteria, Urine Present Negative LAB URINALYSIS - AUTOMATED METHOD 08/18/2024 3:57 PM EDT [facility] Comment:This result was prev iously suppressed from the chart. Urine Urine specimen obtained by clean catch procedure / Unknown Non-blood Collection / Unknown 08/18/2024 2:44 PM EDT 08/18/2024 2:47 PM EDT Narrative [facility] - 08/18/2024 3:57 PM EDT Performed by manual method us Dipika ARMENTA LAB URINE ORDERABLES Final Re sult [facility] [address] [place] [address] * US Abdomen Focused Region GB (RUQ [...] Per this written report. Drafted by Israel Fauts MD on 08/18/2024 1:10 PM Final report [...] Israel Faust MD on 08/18/2024 1:16 PM us Marc Arceo MD IMG US PROCEDURES Fin al Result * hCG qualitative (08/18/2024 11:07 AM EDT) Pathologist [facility] Test Negative Negative 08/18/2024 11:37 AM EDT [facility] Blood Venous blood specimen / Unknown Venipuncture / Unknown 08/18/2024 11:07 AM EDT 08/18/2024 11:13 AM EDT Narrative [facility] - 08/18/2024 11:37 AM EDT Reference Range: Males and non- females: Negative. Marc Arceo MD LAB BLOOD ORDERABLES Final Result [facility] [address] [place] [address] * Lactate, venous (08/18/2024 11:07 AM EDT) [facility] Lactate, Venous, Whole Blood 1.9 0.5 - 2.2 mmol/L LAB HEMATOLOGY METHOD 08/18/2024 11:18 AM EDT [facility] Blood Venous blood specimen / Unknown Venipuncture / Unknown 08/18/2024 11:07 AM EDT 08/18/2024 11:16 AM EDT Marc Arceo MD LAB BLOOD ORDERABLES Final Result [facility] [address] [place] [address] * (ABNORMAL) CBC w/diff (08/18/2024 11:07 AM EDT) [facility] WBC Count 8.95 3.70 - 10.30 10*3/uL LAB HEMATOLOGY METHOD 08/18/2024 11:16 AM EDT [facility] RBC Count 4.98 3.90 - 5.20 10*6/uL LAB HEMATOLOGY METHOD 08/18/2024 11:16 AM EDT [facility] HGB 13.5 11.2 - 15.7 g/dL LAB HEMATOLOGY METHOD 08/18/2024 11:16 AM EDT [facility] HCT 39.8 34.0 - 45.0 % LAB HEMATOLOGY METHOD 08/18/2024 11:16 AM EDT [facility] Platelet Count 308 155 - 369 10*3/uL LAB HEMATOLOGY METHOD 08/18/2024 11:16 AM EDT [facility] MCV 80 79 - 98 fL LAB HEMATOLOGY METHOD 08/18/2024 11:16 AM EDT [facility] MCH 27.1 26.0 - 32.0 pg LAB HEMATOLOGY METHOD 08/18/2024 11:16 AM EDT [facility] MCHC 33.9 30.7 - 35.5 g/dL LAB HEMATOLOGY METHOD 08/18/2024 11:16 AM EDT [facility] RDW 14.9(H) 11.5 - 14.5 % LAB HEMATOLOGY METHOD 08/18/2024 11:16 AM EDT [facility] MPV 9.2 8.8 - 12.5 fL LAB HEMATOLOGY METHOD 08/18/2024 11:16 AM EDT [facility] nRBC 0.0 <=0.0 per 100 WBCs LAB HEMATOLOGY METHOD 08/18/2024 11:16 AM EDT [facility] Differential Type Automated LAB HEMATOLOGY METHOD 08/18/2024 11:16 AM EDT [facility] Neutrophils % 63 % LAB HEMATOLOGY METHOD 08/18/2024 11:16 AM EDT [facility] Lymphocytes % 24 % LAB HEMATOLOGY METHOD 08/18/2024 11:16 AM EDT [facility] Monocytes % 4 % LAB HEMATOLOGY METHOD 08/18/2024 11:16 AM EDT [facility] Eosinophils % 8 % LAB HEMATOLOGY METHOD 08/18/2024 11:16 AM EDT [facility] Basophils % 1 % LAB HEMATOLOGY METHOD 08/18/2024 11:16 AM EDT [facility] Immature Granulocytes % 0 % LAB HEMATOLOGY METHOD 08/18/2024 11:16 AM EDT [facility] Neutrophils Absolute 5.59 1.60 - 6.10 10*3/uL LAB HEMATOLOGY METHOD 08/18/2024 11:16 AM EDT [facility] Lymphocytes Absolute 2.13 1.20 - 3.90 10*3/uL LAB HEMATOLOGY METHOD 08/18/2024 11:16 AM EDT [facility] Monocytes Absolute 0.39 0.30 - 0.90 10*3/uL LAB HEMATOLOGY METHOD 08/18/2024 11:16 AM EDT [facility] Eosinophils Absolute 0.75(H) 0.00 - 0.50 10*3/uL LAB HEMATOLOGY METHOD 08/18/2024 11:16 AM EDT [facility] Basophils Absolute 0.07 0.00 - 0.10 10*3/uL LAB HEMATOLOGY METHOD 08/18/2024 11:16 AM EDT [facility] Immature Granulocytes Absolute 0.02 0.00 - 0.06 10*3/uL LAB HEMATOLOGY METHOD 08/18/2024 11:16 AM EDT [facility] Blood Venous blood specimen / Unknown Venipuncture / Unknown 08/18/2024 11:07 AM EDT 08/18/2024 11:13 AM EDT Narrative [facility] - 08/18/2024 11:16 AM EDT Therapeutic decision making should be based on absolute values, rather than percentages. Marc Arceo MD LAB BLOOD ORDERABLES Final Result [facility] [address] [place] [address] * Lipase (08/18/2024 11:07 AM EDT) Lipase, Plasma 34 19 - 63 U/L 08/18/2024 11:37 AM EDT [facility] Blood Venous blood specimen / Unknown Venipuncture / Unknown 08/18/2024 11:07 AM EDT 08/18/2024 11:13 AM EDT Marc Arceo MD LAB BLOOD ORDERABLES Final Result [facility] [address] [place] [address] * (ABNORMAL) CMP (08/18/2024 11:07 AM EDT) Glucose, Plasma 92 74 - 99 mg/dL 08/18/2024 11:37 AM EDT [facility] [facility] BUN, Plasma 9 7 - 21 mg/dL 08/18/2024 11:37 AM EDT [facility] Creatinine, Plasma 0.71 0.60 - 1.10 mg/dL 08/18/2024 11:37 AM EDT [facility] BUN/Creatinine Ratio 13 08/18/2024 11:37 AM EDT [facility] Sodium, Plasma 136 136 - 145 mmol/L 08/18/2024 11:37 AM EDT [facility] Potassium, Plasma 4.4 3.6 - 4.9 mmol/L 08/18/2024 11:37 AM EDT [facility] Comment:Hemolyzed, result ma y be falsely increased. Chloride, Plasma 103 97 - 107 mmol/L 08/18/2024 11:37 AM EDT [facility] CO2, Plasma 20(L) 22 - 29 mmol/L 08/18/2024 11:37 AM EDT [facility] Anion Gap 13 6 - 16 mmol/L 08/18/2024 11:37 AM EDT [facility] Total Calcium, Plasma 9.3 8.9 - 10.2 mg/dL 08/18/2024 11:37 AM EDT [facility] Total Protein 7.2 6.3 - 7.9 g/dL 08/18/2024 11:37 AM EDT [facility] Albumin, Plasma 4.5 3.5 - 5.2 g/dL 08/18/2024 11:37 AM EDT [facility] AST, Plasma 34 10 - 35 U/L 08/18/2024 11:37 AM EDT [facility] Comment:Hemolyzed, result ma y be falsely increased. ALT, Plasma 43(H) 10 - 35 U/L 08/18/2024 11:37 AM EDT [facility] Alkaline Phosphatase, Plasma 81 35 - 104 U/L 08/18/2024 11:37 AM EDT [facility] Total Bilirubin, Plasma 0.4 0.2 - 1.1 mg/dL 08/18/2024 11:37 AM EDT [facility] eGFRcr 121.2 mL/min/1.7 3m*2 08/18/2024 11:37 AM EDT [facility] Comment:Reported eGFRcr in m L/min/1.73m2 is based the CKD-EPI 2020 equation that does not use a race coefficient. Blood Venous blood specimen / Unknown Venipuncture / Unknown 08/18/2024 11:07 AM EDT 08/18/2024 11:13 AM EDT Marc Arceo MD LAB BLOOD ORDERABLES Final Result [facility] [address] [place] [address] documented in this encounter Visit Diagnoses Diagnosis [...] quadrant pain Abdominal pain, right upper quadrant documented in this encounter Admitting Diagnoses Diagnosis [...] Given 08/18/2024 11:04 PM EDT 1,000 mg bupivacaine PF (Marcaine) 0.25 % injection As needed, Starting on Darby 08/19/24 at 1526, Until Darby 08/19/24 at 1644, Routine, Intraprocedure Given 08/19/2024 3:26 PM EDT 30 mL Abdominal Tissue dextrose 5 % and lactated Ringer's infusion 100 mL/hr, Intravenous, Continuous, Starting on Fri08/18/24 at 1820, Until Darby 08/19/24 at 2213, Routine New Bag 08/19/2024 4:11 AM EDT 100 mL/hr 100 mL/hr New Bag 08/18/2024 6:32 PM EDT 100 mL/hr 100 mL/hr droperidol (Inapsine) injection 0.625 mg 0.625 mg, Intravenous, Once as needed, 1 dose, Starting on Darby 08/19/24 at 1619, Until [...] 08/19/24 at 1619, Until Darby 08/19/24 at 1702, Routine, Recovery (Phase I only), pain score of 3-4 out of 10 Given 08/19/2024 5:02 PM EDT 25 mcg Given 08/19/2024 4:51 PM EDT 25 mcg fentaNYL (Sublimaze) injection 50 mcg 50 mcg, Intravenous, Once, 1 dose, On Darby 08/19/24 at 1900, Routine, Recovery (Phase I only) Given 08/19/2024 6:09 PM EDT 50 mcg heparin (porcine) injection 7,500 Units 7,500 Units, Subcutaneous, Once, 1 dose, On Darby 08/19/24 at 1530, Routine, Holding - Preprocedure Given 08/19/2024 2:50 PM EDT 7,500 Units Right Lower Abdomen HYDROmorphone (Dilaudid) injection 0.5 mg 0.5 mg, Intravenous, Every 10 min PRN, 2 doses, Starting on Darby 08/19/24 at 1619, Until Darby 08/19/24 at 1734, Routine, Recovery (Phase I only), [...] procedure)1651 (MAR Unhold - Provider: Suzy Dykes, CHANTE)1655 (Given - Provider: Suzy Dykes, CHANTE) enoxaparin (Lovenox) syringe 30 mg 30 mg, [...] 50 mcg, Intravenous, Once, 1 dose, On Darby 08/19/24 at 1900, Routine, Recovery (Phase I only) 1809 (Given - Provid er: Suzy Dykes, CHANTE) heparin (porcine) injection 7,500 Units (COMPLETED) 7,500 Units, Subcutaneous, Once, 1 dose, On Darby 08/19/24 at 1530, Routine, Holding - Preprocedure 1450 (Given - Provid er: Angle Najera, CHANTE) lactated Ringer's infusion 1,000 mL (COMPLETED) 1,000 mL, Intravenous, Once, 1 dose, On Fri08/18/24 at 1100, STAT 1117 (New Bag - Provider: Makenzie Santillan, CHANTE)1230 (Stopped - Provider: Makenzie Santillan RN) lactated Ringer's infusion (COMPLETED) 75 mL/hr, Intravenous, Once, 1 dose, On Darby 08/19/24 at 1530, Routine 1453 (New Bag - Prov ider: Angle Najera, CHANTE) methocarbamol (Robaxin) injection 1,000 mg (COMPLETED) 1,000 mg, Intravenous, Once, 1 dose, On Darby 08/19/24 at 1900, Routine, Recovery (Phase I only) 1813 (Given - Provid er: Suzy Dykes, CHANTE) nitrofurantoin (macrocrystal-monohydrate ) (Macrobid) capsule 100 mg 100 mg, Oral, 2 times daily, 8 doses, First dose on Fri08/18/24 at 2100, Last dose on Fri08/22/24 at 0900, Routine 2136 (Given - Provider: Dee Dee Hyatt) 0822 (Given - Provider: Alecia Jennings RN)1416 (MAR Hold - Provider: Automatic Transfer Provider [...] Provider: Alecia Jennings RN - Reason: NPO)1416 (MAR Hold - Provider: Automatic Transfer Provider - Reason: Patient in procedure)1651 (APR Unhold - Provider: Suzy Dykes RN) scopolamine (Transderm-Scop) patch 1 patch 1 patch, Transdermal, Once, 1 dose, On Darby 08/19/24 at [...] % injection (CANCELED) As needed, Starting on Darby 08/19/24 at 1526, Until Darby 08/19/24 at 1644, Routine, Intraprocedure 1526 (Given - Provid er: Selena Farmer MD) droperidol (Inapsine) injection 0.625 mg 0.625 mg, Intravenous, Once as needed, 1 dose, Starting on Darby 08/19/24 at 1619, Until Darby 08/19/24 at 2213, Routine, Recovery (Phase I only), nausea, vomiting fentaNYL (Sublimaze) injection 25 mcg (COMPLETED) 25 mcg, Intravenous, Every 5 min PRN, 2 doses, Starting on Darby 08/19/24 at 1619, Until Darby 08/19/24 at 1702, Routine, Recovery (Phase I only), pain score of 3-4 out of 10 165 (Given - Provid er: Suzy Dykes RN)170 (Given - Provider: Suyz Dykes RN) HYDROmorphone (Dilaudid) injection 0.5 mg (COMPLETED) 0.5 mg, Intravenous, Every 10 min PRN, 2 doses, Starting on Darby 08/19/24 at 1619, Until Darby 08/19/24 at 1734, Routine, Recovery (Phase I only), pain score of 9-10 out of 10 172 (Given - Provid er: Suzy Dykes RN)173 (Given - Provider: Suzy Dykes RN) hydrOXYzine pamoate (Vistaril) capsule 25 mg 25 mg, Oral, Daily PRN, Starting on Fri08/18/24 at 1955, Until Darby 08/19/24 at 2213, Routine, anxiety 1958 (Given - Provider: Dee Dee Hyatt) 08 (Given - Provider: Alecia Jennings RN)1416 (MAR Hold - Provider: Automatic Transfer Provider - Reason: Patient in procedure)165 (MAR Unhold - Provider: Suzy Dykes RN) naloxone (Narcan) injection 0.4 mg 0.4 mg, Intravenous, As needed, Starting on Darby 08/19/24 at 1619, Until Darby 7 at 2213, Routine, Recovery (Phase I only), respiratory depression ondansetron (Zofran) injection 4 mg(Linked Group 3) 4 mg, Intravenous, Every 6 hours PRN, Starting on Fri08/18/24 at 1818, Until Darby 7 at 2213, Routine, vomiting, nausea 2027 (See Alternative - Provider: Dee Dee Hyatt) 0320 (See Alternative - Provider: Henry York)1326 (See Alternative - Provider: Yanira Jo, CHANTE)141 (MAR Hold - Provider: Automatic Transfer Provider - Reason: Patient in procedure)1650 (MAR Unhold - Provider: Suzy Dykes RN) ondansetron ODT (Zofran-ODT) disintegrating tablet 4 mg(Linked Group 3) 4 mg, Oral, Every 6 hours PRN, Starting on Fri08/18/24 at 1818, Until Darby 08/19/24 at 2213, Routine, nausea, vomiting 2027 (Given - Provider: Dee Dee Hyatt) 0320 (Given - Provider: Henry York)132 (Given - Provider: Yanira Jo, CHANTE)141 (MAR Hold - Provider: Automatic Transfer Provider - Reason: Patient in procedure)1650 (MAR Unhold - Provider: Suzy Dykes RN) oxyCODONE (Roxicodone) immediate release tablet 10 mg(Linked [...] pain 1827 (Given - Provider: Makenzie Santillan RN)2303 (Given - Provider: Dee Dee Hyatt) 0320 (Given - Provider: Henry York)1416 (MAR Hold - Provider: Automatic Transfer Provider - Reason: Patient in procedure)1651 (MAR Unhold - Provider: Suzy Dykes, CHANTE) oxyCODONE (Roxicodone) immediate release tablet 5 mg(Linked Group 4) 5 mg, Oral, Once as needed, 2 doses, Starting on Darby 08/19/24 at 1619, Until Darby 08/19/24 at 2213, Routine, Recovery (Phase I only), pain score of 3-5 out of 10 165 (See Alternativ e - Provider: Suzy Dykes, CHANTE) sodium chloride 0.9 % flush 10 mL(Linked Group 1) 10 mL, Intravenous, As needed, Starting on Darby 08/19/24 at 1437, Until Darby 08/19/24 at 2213, Routine, Holding - Preprocedure, line care Linked Groups Order Group 1: Insert peripheral IV (CANCELED) Once, On Darby 08/19/24 at 1438, For 1 occurrence, Holding - Preprocedure And Saline lock IV (CANCELED) Once, On Darby 08/19/24 at 1438, For 1 occurrence, Holding - Preprocedure And sodium chloride 0.9 % flush 10 mLJump to med 10 mL, Intravenous, Every 12 hours, First dose on Darby 08/19/24 at 1530, Until Discontinued, Routine, Holding - Preprocedure And sodium chloride 0.9 % flush 10 mLJump to med 10 mL, Intravenous, As needed, Starting on Darby 08/19/24 at 1437, Until Darby 08/19/24 at 2213, Routine, Holding - Preprocedure, line [...] needed, Starting on Fri08/18/24 at 1818, Until Darby 08/19/24 at 0718, Routine, line care Group 3: ondansetron ODT (Zofran-ODT) disintegrating tablet 4 mgJump to med 4 mg, Oral, Every 6 hours PRN, Starting on Fri08/18/24 at 1818, Until Fri08/19/24 at 2213, Routine, nausea, vomiting Or ondansetron (Zofran) injection 4 mgJump to med 4 mg, Intravenous, Every 6 hours PRN, Starting on Fri08/18/24 at 1818, Until Fri08/19/24 at 2213, Routine, vomiting, nausea Group 4: [...] documented as of this encounter Care Teams Pharmaceutical Sales Relationship Specialty Start Date End Date Pcp, [place] [address] PCP - General Family Medicine 09/17/21 documented as of this encounter
--- OUTSIDE RECORDS SUMMARY | 2024-08-19 14:58 | XMS_ITS | Encounter Summary ---
Author Organization Healthcare Address [address] [place] [address] Care Team Providers Care Campus Manager Name Role Phone Pcp, No Primary Care Provider Unavailabl e Reason for Visit * Auth/Cert (Routine) Specialty Diagnoses / Procedures Referred By Contac t Referred To Contact Diagnoses Right upper quadrant pain Calculus of gallbladder without cholecystitis without obstruction Acute cystitis without hematuria Symptomatic cholelithiasis Nausea and vomiting, unspecified vomiting type Miguel Dodd MD [address] [facility] [address] [place] [address] Phone: tel: fax: [facility] [address] [place] [address] Phone: tel: Referral ID Status Reason Start Date Expiration Date Visits Re quested Visits Authorized [id number] 1 1 Encounter Details Date Type Department Care Team (Late st Contact Info) Description 08/19/2024 2:58 PM EDT Anesthesia Event [facility] [address] [place] [address] Jamie Lutz DO [address] [place] [address] Raven Lazaro CRNA [address] [place] [address] Anesthesia Record Procedure Summary Procedure Name Responsible Anesthesiologist Anesthesia Start Time Anesthesia Stop Time CHOLECYSTECTOMY, LAPAROSCOPIC Jamie Lutz DO 08/19/24 1458 08/19/24 1647 Events Date Time Event Comment 08/19/2024 1426 1458 An Start The patient was reevaluated immediately before sedation and remains eligible for anesthesia plan. 1458 An Start Data 1458 In Room 1507 An Induction The patient was reevaluated immediately before moderate or deep sedation use and before anesthesia induction. 1509 An Intubation 1510 Anesthesia Ready 1521 Proc Start 1636 Proc Fin 1638 An Extubation 1640 an stop data 1642 Out of Room 1647 Handoff to Receiving I compl eted my handoff to the receiving clinician during which we: 1. Identified the patient 2. Identified the responsible provider 3. Reviewed the pertinent medical history 4. Discussed the surgical course 5. Reviewed intra-op anesthesia management and issues during anesthesia 6. Set expectations for post-procedure period 7. Allowed opportunity for questions and acknowledgement of understanding. 1647 An Stop Meds Name Total fentaNYL (Sublimaze) injection 50 mcg/mL 100 mcg midazolam (Versed) injection 1 mg/mL 2 m g propofol (Diprivan) injection 10 mg/mL 2 00 mg ondansetron (Zofran) injection 2 mg/mL 4 mg dexamethasone (Decadron) injection 4 mg/ mL 4 mg Lidocaine HCl 100 MG/5ML 60 mg rocuronium (ZeMuron) injection 10 mg/mL 50 mg succinylcholine (Anectine) injection 20 mg/mL 140 mg HYDROmorphone PF (Dilaudid) injection 1 mg/mL 1 mg sugammadex (Bridion) injection 100 mg/mL 200 mg clindamycin (Cleocin) 900 mg in 50 mL (p remix) 900 mg lactated Ringer's infusion 700 mL * Agents Name O2 N2O Air Sevoflurane Isoflurane Desflurane Inspired Desflurane Inspired Isoflurane Inspired Sevoflurane N2O Inspired N2O * Blood No blood administrations on file. Lines, Drains, and Airways Type Details Placement Removal Wound 08/19/24; 1621; Surg ical; Abdomen; Right, Upper 08/19/24 1621 by Jose Martin Frias RN Wound Traumatic; Abdomen; Left, Lower 08/19/24 1621 by Wound 08/19/24; 1624; Surg ical; Abdomen; Left, Upper 08/19/24 1624 by Jose Martin Frias RN Peripheral IV Catheter Size: 20 G; Orientation: Right; Location: Antecubital; Site Prep: Chlorhexidine ; Insertion Attempts: 1; Patient Tolerance: Tolerated well; Removal Date: 08/19/24; Removal Time: 1944; Removal Reason: Discharge 08/19/24 1324 by 08/19/24 1945 by Suzy Dykes RN ETT Placement Date: 05/11; Placement Time: 1509 (created via procedure documentation); Mask Ventilation: 0; Technique: Direct laryngoscopy; Type: ETT - single; Single Lumen Tube Size: 7 mm; Cuffed: Yes; Laryngoscope: Tyrell; Blade Size: 3; Location: Oral; Grade View: Grade I; Insertion Attempts: 1; Placement Verification: Auscultation, Capnometry; Airway Comments: Atraumatic. No change to dentition. ; Placed by: RUBIN; Removal Date: 08/19/24; Removal Time: 16308/19/24 1509 by Whitney Kohler CRNA, DNP 08/19/24 1638 by Whitney Kohler CRNA, DNP documented in this encounter Social History Tobacco Use Types Packs/Day Years Used Date Smoking Tobacco: Never Smokeless Tobacco: Never Alcohol Use Standard Drinks/Week Comments Never 0 (1 standard drink = 0.6 oz pur e alcohol) PHQ-2 Answer Date Recorded Patient Health Questionnaire-2 Score 4 05/13/2024 [place] Depression Scale Answer Date Recorded [place] Depression Scale Total 14 01/17/2022 The thought [...] any time in the past 12 m [facility], were you homeless or living in a snf (including now)? No 08/19/2024 Utilities Answer Date Recorded In the past 12 months has th e electric, gas, oil, or water company threatened to shut off services in your home? No 08/19/2024 PHQ-2A Answer Date Recorded Patient Health Questionnaire-2 Score 3 12/11/2022 Comments No Sex and Gender Information Value Date Recorded Sex Assigned at Not on file Legal Sex Female 10:13 AM EDT Gender Identity Not on file Sexual Orientation Not on file documented as of this encounter Functional Status * Calculated C-SSRS Risk Score (Lifetime/Recent) Answer Date of Assessment Author No Risk Indicated 08/21/2024 9:38 AM HEIKET Justine Thornton RN * Question Answer Date of Assessment Author 1. Wish to be (Past 1 Month) No 08/21/2024 9:38 AM HEIKET Justine Thornton RN 2. Non-Specific Active Suici doris Thoughts (Past 1 Month) No 08/21/2024 9:38 AM HEIKET Rossy Thornton RN 6. Suicidal Behavior (Lifetime) No 9:38 AM EDT Justine Thornton RN documented as of this encounter Miscellaneous Notes * Anesthesia Postprocedure Evaluation - Whitney Kohler CRNA, DNP - 08/19/2024 4:51 PM EDT Patient: Amelie Landin Anesthesia Type: general Vitals Value Taken Time BP 161/90 08/19/24 16:45 Temp 36.7 ??C (98.1 ??F) 08/19/24 16:45 Pulse 99 08/19/24 16:45 Resp 16 08/19/24 16:45 SpO2 100 % 08/19/24 16:45 Vitals shown include unfiled device data. Anesthesia Post Evaluation Patient location during evaluation: PACU Patient participation: complete - patient participated Level of consciousness: awake and baseline Pain management: adequate (pain score 0-3) Airway patency: natural airway Cardiovascular status: acceptable and hemodynamically stable Respiratory status: acceptable and face mask Hydration status: acceptable Nausea/Vomiting: No No notable events documented. * Anesthesia Procedure Notes - Whitney Kohler CRNA, DNP - 08/19/2024 3:21 PM EDTAssociated Order(s): Airway Airway Date/Time: 08/19/2024 3:09 PM Reason: elective Airway not difficult General Information and Staff Patient location during procedure: OR DENTIST: Whitney Kohler CRNA, DNP Performed: RUBIN Patient Condition Indications for airway management: anesthesia Patient position: sniffing Final Airway Details Final airway type: endotracheal airway Successful airway: ETT Cuffed: yes Successful intubation technique: direct laryngoscopy Adjuncts used in placement: intubating stylet Endotracheal tube insertion site: oral Blade: Ytrell Blade size: #3 ETT size (mm): 7.0 Cormack-Lehane Classification: grade I - full view of glottis Placement verified by: chest auscultation and capnometry Measured from: lips ETT to lips (cm): 20 Additional Comments Atraumatic. No change to dentition. * Anesthesia Preprocedure Evaluation - Jamie Lutz DO - 08/19/2024 7:45 AM EDT Procedure Information Date/Time: 08/19/24 1215 Procedure: CHOLECYSTECTOMY, LAPAROSCOPIC Location: [facility] Surgeons: Miguel Dodd MD HPI Amelie Landin is a 24 y.o. female with body mass index is 42 kg/m??. and PMHx of anxiety, depression, recent diagnosis of JENNY (Hasn't gotten CPAP yet) who presents with Symptomatic cholelithiasis now for CHOLECYSTECTOMY, LAPAROSCOPIC (N/A). Pt reports prior h/o anesthesia without complications. Endorses some nausea but denies vomiting/indigestion or cardiopulmonary symptoms. NPO to solids and clears >8 hours. test negative 08/18/24 NPO STATUS: since MN Activity Level/METS: >4 ALLERGIES Allergies[1] MEDICATIONS Outpatient Current Outpatient Medications Medication Instructions albuterol 108 (90 Base) MCG/ACT inhaler 2 puffs, Every 6 hours PRN ARIPiprazole (ABILIFY) 5 mg, Daily desvenlafaxine (PRISTIQ) 50 mg, Daily fluticasone (Flonase) 50 MCG/ACT nasal spray 1 spray, Daily hydrOXYzine pamoate (VISTARIL) 25 mg, 3 times daily PRN labetalol (NORMODYNE) 100 mg, 2 times daily Vit-Fe Fumarate-FA ( PO) Take by mouth. Zurzuvae 50 mg, Nightly Scheduled Current Scheduled Medications[2] PRNs Current PRN Medications[3] SURGICAL HX: Surgical History[4] SOCIAL HX: Social History[5] OBJECTIVE DATA Blood pressure 120/76, pulse 61, temperature 36.5 ??C (97.7 ??F), resp. rate 18, height 1.61 m (5' 3.39 ), weight 109 kg (240 lb), SpO2 98%, unknown if currently . LABS Lab Results Component Value Date WBC 8.95 08/18/2024 HGB 13.5 08/18/2024 HCT 39.8 08/18/2024 MCV 80 08/18/2024 PLT 308 08/18/2024 Lab Results Component Value Date CALCIUM 9.3 08/18/2024 BUN 9 08/18/2024 CREATININE 0.71 08/18/2024 BCR 13 08/18/2024 NA 136 08/18/2024 K 4.4 08/18/2024 CL 103 08/18/2024 CO2 20 (L) 08/18/2024 ANIONGAP 13 08/18/2024 No results found for: APTT , INR Lab Results Component Value Date GLUCOSE 92 08/18/2024 EKG No results found for this or any previous visit (from the past 4464 hours). ECHO No echocardiogram results found for the past 12 months CXR: Physical Exam Airway Mallampati: II Mouth opening: normal TM distance: >3 FB Neck ROM: full Cardiovascular Rhythm: regular Rate: normal Dental Pulmonary Breath sounds clear to auscultation Neurological Oriented: normal to time, normal to place and normal to person and oriented to person, place and time Skin Skin: warm and dry Musculoskeletal Extremities -normal exam Anesthesia Plan ASA 3 Plan was reviewed with: DENTIST Anesthesia technique(s) discussed with the patient/family: general Anesthesia plan agreed upon was: general Anesthetic plan and risks discussed with patient. Use of blood products discussed with patient who consented to blood products. ROS Anesthesia: Date of last anesthetic: Last for 3 months ago. Nose itches with anesthesia. Oxycodone cuases itching as well. history of previous anesthesia and obstructive sleep apnea. Cardiovascular: no hypertension: Respiratory: asthma: well controlled. HEENT: Does not have loose teeth. Neurological: headaches. Autoimmune: Does not have lupus or rheumatoid arthritis. Gastrointestinal: Does not have GERD. Genitourinary: Negative ROS. Hematological/Lymphatic: Does not have anemia. no history of chemotherapy no history of radiation Endocrine/Metabolic: does not have diabetes mellitus. Does not have thyroid disorder. [1] Allergies Allergen Reactions Amoxil [Amoxicillin] Rash Augmentin [Amoxicillin-Pot Clavulanate] Rash Cephalexin Rash Shrimp Extract Unknown - Patient states they do not know rxn details [2] acetaminophen, 1,000 mg, Oral, q6h JEFFERSON [Held by provider] enoxaparin, 30 mg, Subcutaneous, Daily nitrofurantoin (macrocrystal-monohydrate), 100 mg, Oral, BID polyethylene glycol, 17 g, Oral, Daily [3] PRN medications: hydrOXYzine pamoate, ondansetron ODT OR ondansetron, oxyCODONE [4] Past Surgical History: Procedure Laterality Date APPENDECTOMY ORAL SURGERY [5] Social History Tobacco Use Smoking status: Never Smokeless tobacco: Never Substance Use Topics Alcohol use: Never Drug use: Never documented in this encounter Plan of Treatment Not on file documented as of this encounter Goals Goal Patient Goal Type Associated Problems Recent Progress Patient-Stated? Author Delayed Delivery Care Plan CPM S20 PP LABOR (OBSTETRICS) No Open Scheduling, Background documented as of this encounter Procedures Procedure Name Priority Date/Time Associated Diagnosis Comments PB ANESTHESIA PLACEHOLDER Routine 08/19/2024 3:09 PM EDT CO AN ELECTIVE ENDOTRACHEAL AIRWAY Routine 08/19/2024 3:09 PM EDT documented in this encounter Results * CO AN ELECTIVE ENDOTRACHEAL AIRWAY, PB ANESTHESIA PLACEHOLDER (08/19/2024 3:09 PM EDT) Narrative Whitney Kohler CRNA, DNP - 08/19/2024 3:09 PM EDT Whitney Kohler CRNA, DNP 08/19/2024 3:22 PM Airway Date/Time: 08/19/2024 3:09 PM Reason: elective Airway not difficult General Information and Staff Patient location during procedure: OR DENTIST: Whitney Kohler CRNA, DNP Performed: RUBIN Patient Condition Indications for airway management: anesthesia Patient position: sniffing Final Airway Details Final airway type: endotracheal airway Successful airway: ETT Cuffed: yes Successful intubation technique: direct laryngoscopy Adjuncts used in placement: intubating stylet Endotracheal tube insertion site: oral Blade: Tyrell Blade size: #3 ETT size (mm): 7.0 Cormack-Lehane Classification: grade I - full view of glottis Placement verified by: chest auscultation and capnometry Measured from: lips ETT to lips (cm): 20 Additional Comments Atraumatic. No change to dentition. us Jamie Lutz DO ANESTHESIA ORDERABLES Final Result documented in this encounter Visit Diagnoses Not on filedocumented in this encounter Administered Medications Inactive Administered Medications - up to 3 most recent administrations Medication Order MAR Action Action Date Dose Rate Site clindamycin (Cleocin) IV solution Intravenous, As needed, Starting on Darby 08/19/24 at 1512, Until Darby 08/19/24 at 1651, Routine, Anesthesia Intraprocedure Given 08/19/2024 3:12 PM EDT 900 mg dexamethasone (Decadron) injection Intravenous, As needed, Starting on Darby 08/19/24 at 1522, Until Darby 08/19/24 at 1651, Routine, Anesthesia Intraprocedure Given 08/19/2024 3:22 PM EDT 4 mg fentaNYL (Sublimaze) injection Intravenous, As needed, Starting on Darby 08/19/24 at 1507, Until Darby 08/19/24 at 1651, Routine, Anesthesia Intraprocedure Given 08/19/2024 3:10 PM EDT 50 mcg Given 08/19/2024 3:07 PM EDT 50 mcg HYDROmorphone PF (Dilaudid) injection Intravenous, As needed, Starting on Darby 08/19/24 at 1541, Until Darby 08/19/24 at 1651, Routine, Anesthesia Intraprocedure Given 08/19/2024 4:38 PM EDT 0.5 mg Given 08/19/2024 3:41 PM EDT 0.5 mg lactated Ringer's infusion Intravenous, Continuous PRN, Starting on Darby 08/19/24 at 1507, Until Darby 08/19/24 at 1651, Routine New Bag 08/19/2024 3:07 PM EDT Lidocaine HCl prefilled syringe Buccal, As needed, Starting on Darby 08/19/24 at 1507, Anesthesia Intraprocedure Given 08/19/2024 3:07 PM EDT 60 mg midazolam (Versed) injection Intravenous, As needed, Starting on Darby 08/19/24 at 1458, Until Darby 08/19/24 at 1651, Routine, Anesthesia Intraprocedure Given 08/19/2024 2:58 PM EDT 2 mg ondansetron (Zofran) injection Intravenous, As needed, Starting on Darby 08/19/24 at 1615, Until Darby 08/19/24 at 1651, Routine, Anesthesia Intraprocedure Given 08/19/2024 4:15 PM EDT 4 mg propofol (Diprivan) injection Intravenous, As needed, Starting on Darby 08/19/24 at 1507, Until Darby 08/19/24 at 1651, Routine, Anesthesia Intraprocedure Given 08/19/2024 3:07 PM EDT 200 mg rocuronium (ZeMuron) injection Intravenous, As needed, Starting on Darby 08/19/24 at 1519, Until Darby 08/19/24 at 1651, Routine, Anesthesia Intraprocedure Given 08/19/2024 3:19 PM EDT 40 mg Given 08/19/2024 3:07 PM EDT 10 mg succinylcholine (Anectine) injection Intravenous, As needed, Starting on Darby 08/19/24 at 1507, Until Darby 08/19/24 at 1651, Routine, Anesthesia Intraprocedure Given 08/19/2024 3:07 PM EDT 140 mg sugammadex (Bridion) 100 MG/ML injection Intravenous, As needed, Starting on Darby 08/19/24 at 1632, Until Darby 08/19/24 at 1651, Routine, Anesthesia Intraprocedure Given 08/19/2024 4:32 PM EDT 200 mg documented in this encounter Additional Health Concerns Active Problems Noted Date Diagnosed Date CPM S20 PP LABOR (OBSTETRICS) 09/17/2021 Assessment Noted Time PHQ-9 Depression Total Score: 18 05/13/ 025 1:43 PM EDT A fall risk assessment has been complete d for the patient 10/10/2023 10:04 AM EDT A Body Mass Index follow-up plan has been documented for the patient 10/17/2023 11:29 AM EDT documented as of this encounter Care Teams Campus Manager Relationship Specialty Start [place] [address] PCP - General Family Medicine 09/17/21 documented as of this encounter
--- OUTSIDE RECORDS SUMMARY | 2024-08-21 07:29 | XMS_ITS | Encounter Summary ---
Author Organization Healthcare Address [address] [place] [id number] Care Team Providers Care Slotter Operator Helper Name Role Phone Pcp, No Primary Care Provider Unavailabl e Reason for Visit * Reason Comments Chest Pain Shortness of Breath Encounter Details Date Type Department Care Team ([facility] st Contact Info) Description 08/21/2024 7:29 AM EDT - 08/21/2024 5:06 PM EDT Emergency [facility] Emergency Department [address] [place] [address] Kaitlyn Jerez MD [address] [place] [address] Blake Newsome MD [address] [place] [address] Chest pain, unspecified type (Primary Dx) Discharge Disposition: Home or Self Care Social History Tobacco Use Types Packs/Day Years Used Date Smoking Tobacco: Never Smokeless Tobacco: Never Alcohol Use Standard Drinks/Week Comments Never 0 (1 standard drink = 0.6 oz pur e alcohol) PHQ-2 Answer Date Recorded Patient Health Questionnaire-2 Score 4 05/13/2024 Pray Depression Scale Answer Date Recorded Pray Depression Scale Total 14 01/17/2022 The thought [...] any time in the past 12 m [facility], were you homeless or living in a prison (including now)? No 08/19/2024 Utilities Answer Date [...] Sign Reading Time Taken Comments Blood Pressure 124/66 08/21/2024 4:57 PM EDT Pulse 55 08/21/2024 4:57 PM EDT Temperature 36.6 C (97.8 F) 08/21/2024 2:52 PM EDT Respiratory Rate 13 08/21/2024 4:57 PM EDT Oxygen Saturation 94% 08/21/2024 4:57 PM EDT Inhaled Oxygen Concentration - - Weight 109 kg (240 lb) 08/21/2024 7:28 AM EDT Height - - Body Mass Index 42 08/18/2024 10:38 AM [...] this encounter Discharge Instructions * Discharge Instructions* Tasneem Ryan MD - 08/21/2024 4:23 PM EDT Please take tylenol and ibuprofen as needed for pain. Follow up with your surgery team as directed,return if you have new or worsening of symptoms. documented in this encounter Medications at Time [...] as of this encounter Miscellaneous Notes * Consults - Efrem Goldsmith MD - 08/21/2024 5:06 PM EDTAssociated Order(s): Consult to Emergency General Surgery Reason for Consultation: Chest pain in setting of recent cholecystectomy Requesting Service: Emergency Department Consult to Emergency General Surgery Consult performed by: Efrem Goldsmith MD Consult ordered by: Kaitlyn Jerez MD History Of Present Illness Amelie Landin is a 24 y.o. female with a PMH of arthritis, HTN, and migraines s/p cholecystectomy2 days prior per Dr. Dodd presenting to [facility] on 08/21/2024 with chest pain and shortness of breath. Patient denies any abdominal pain, nausea, or vomiting. She denies any fevers or nausea. She denies any other acute complaints at this time. Patient had chest pain workup including CTPE prot ocol in the emergency department which was negative. A CT abdomen and pelvis was performed which demonstrated mild fat stranding in the gallbladder fossa consistent with recent cholecystectomy. EGS service is being consulted to evaluate for possible postoperative component of patient's chest pain. History Obtained From: Patient Past Medical History [...] Allergies Amoxil [amoxicillin], Augmentin [amoxicillin-pot clavulanate], Cephalexin, Shrimp extract, and Toradol [ketorolac tromethamine] Reviewed as documented above Medications Current Medications[2] Reviewed as documented above Review of Systems Relevant review of systems was obtained as able and is negative unless stated above in HPI. Last Recorded Vitals Blood pressure 124/66, pulse 55, temperature 36.6 ??C (97.8 ??F), temperature source Oral, resp. rate 13, weight 109 kg (240 lb), SpO2 94%, unknown if currently . Physical Exam Vitals reviewed. Constitutional: General: She is not in acute distress. Appearance: Normal appearance. She is not ill-appearing or toxic-appearing. HENT: Head: Normocephalic and atraumatic. Mouth/Throat: Mouth: Mucous membranes are moist. Dentition: Normal dentition. Pharynx: Oropharynx is clear. No oropharyngeal exudate or posterior oropharyngeal erythema. Eyes: Extraocular Movements: Extraocular movements intact. Pupils: Pupils are equal, round, and reactive to light. Cardiovascular: Rate and Rhythm: Normal rate and regular rhythm. Pulses: Radial pulses are 2+ on the right side and 2+ on the left side. Dorsalis pedis pulses are 2+ on the right side and 2+ on the left side. Heart sounds: S1 normal and S2 normal. No murmur heard. No friction rub. No gallop. Pulmonary: Effort: Pulmonary effort is normal. No respiratory distress. Breath sounds: Normal breath sounds. Abdominal: General: Bowel sounds are normal. There is no distension. Palpations: Abdomen is soft. Tenderness: There is no abdominal tenderness. There is no guarding or rebound. Comments: Negative Ryan's sign. No peritoneal signs on abdominal exam. Musculoskeletal: Right lower leg: No edema. Left lower leg: No edema. Lymphadenopathy: Cervical: No cervical adenopathy. Skin: General: Skin is warm and dry. Coloration: Skin is not pale. Neurological: Mental Status: She is alert and oriented to person, place, and time. Motor: Motor function is intact. No weakness. Gait: Gait is intact. Recent Results Labs in last 18 hours CBC WBC 9.11 Hb 12.2 Plt 277 Hct 37.6 ANC 4.53 INR ??, PTT ??, Anti-Xa ?? BMP Na 138 Cl 103 BUN 10 Glu 89 K 4.3 Co2 23 Cr 0.88 Ca 8.7 (L) iCa ?? Mg ??, Phos ?? Lactate ?? LFT AST 36 (H) AlkPhos 71 T Prot 6.6 ALK 49 (H) Bili 0.4 Alb ?? D.Bili ?? Radiology I personally and independently reviewed the CT images available at today's visit which showed: No acute pulmonary embolism. Mild fat stranding consistent with recent cholecystectomy. Assessment & Plan Chest pain, unspecified type Non-Hospital Problems HTN in , chronic Overview Deleted 10/10/2023 3:33 PM by Leeann Galeana, LONGWALL HEADGATE OPERATOR, CNM 9 weeks gestation of History of PCOS Overview Signed 10/10/2023 3:36 PM by Leeann Galeana APRN, CNM Needs early MDS, plan with NOB labs. Mild intermittent asthma without complication Overview Signed 10/10/2023 3:39 PM by Leeann Galeana APRN, CNM Has inhaler as needed. Severe episode of recurrent major depressive disorder, without psychotic features (CMS/HCC) Overview Signed 10/10/2023 3:38 PM by Leeann Galeana APRN, CNM Taking Abilify and Pristiq- managed by PCP- Dr rGace Ellis. Nausea and vomiting in prior to 22 weeks gestation Overview Signed 10/10/2023 3:40 PM by Leeann Galeana APRN, CNM Start [place]. History of section Symptomatic cholelithiasis Acute cystitis without hematuria Calculus of gallbladder without cholecystitis without obstruction Nausea and vomiting Right upper quadrant pain Patient's abdominal exam is benign. Laboratory evaluation does not demonstrate leukocytosis or any other signs or symptoms of infection. Patient's CT imaging does not demonstrate any intra-abdominal abscess. There is mild fat stranding which is not unexpected in the setting of cholecystectomy 2 days prior. I do not suspect the patient has presentation is related to an acute complication of prior cholecystectomy. Patient is appropriate for standard outpatient follow up and post cholecystectomy care. -No acute operative intervention -Routine outpatient follow up -Dispo per emergency department Dispo: Per the Emergency Department CODE STATUS: full code This Consult, Assessment, and Plan has been discussed with Dr. Miguel Dodd, Attending Physician Efrem Goldsmith MD [1] Family History Problem Relation Name Age of Onset Heart disease Mother Hypertension Mother Migraines Mother Anxiety and depression Mother Anxiety and depression Father [2] No current facility-administered medications for this encounter. Current Outpatient Medications Medication Sig Dispense Refill acetaminophen (Tylenol) 500 MG tablet Take 2 tablets by mouth every 6 hours for 10 days. 80 tablet 0 Albuterol-Budesonide (Airsupra) 90-80 MCG/ACT aerosol Inhale 2 puffs 4 times a day. ARIPiprazole (Abilify) 5 MG tablet Take 1 [...] use, clean tip and replace cap. galcanezumab-gnlm (Emgality) 120 MG/ML injection Inject 1 Syringe under the skin every 30 days. Next injection is due on 08/25/2024. hydrOXYzine pamoate (Vistaril) 25 MG capsule Take 1 capsule by mouth 3 (three) times a day as needed for anxiety. labetalol (Normodyne) 100 MG tablet Take 1 tablet by mouth in the morning and 1 tablet before bedtime. metFORMIN, OSM, (Fortamet) 500 MG 24 hr tablet Take 2 tablets by mouth 1 time each day with dinner.Do not crush, chew, or split. methocarbamol (Robaxin) 500 MG tablet Take 1 tablet by mouth 4 times a day for 10 days. 40 tablet 0 naloxone (Narcan) 4 mg/0.1 mL nasal spray 1. Give 1 spray in nostril for no/slow breathing or cannot wake after opioid use 2. Call 911 3. Repeat in other nostril if symptoms continue 1 each 0 nitrofurantoin, macrocrystal-monohydrate, (Macrobid) 100 MG capsule Take 1 capsule by mouth 2 timesa day for 6 doses. 6 capsule 0 oxyCODONE (Roxicodone) 5 MG immediate release tablet Take 1 tablet by mouth every 6 hours as neededfor severe pain for up to 3 days. 12 tablet 0 Vit-Fe Fumarate-FA ( PO) Take by mouth. senna-docusate (Tabitha-Colace) 8.6-50 MG tablet Take 1 tablet by mouth daily for 10 days. 10 tablet 0 Zuranolone (Zurzuvae) 25 MG capsule Take 50 mg by mouth nightly. Cosigned by Miguel Dodd MD at 08/22/2024 8:59 AM EDT Associated attestation - Miguel Dodd MD - 08/22/2024 8:59 AM EDT Signature only. I discussed this case with the team,. * ED Provider Notes - Yair Maldonado MD - 08/21/2024 7:13 AM EDT - HPI Chief Complaint Patient presents with Chest Pain Shortness of Breath HPI Amelie Landin is a 24 y.o. female who presents with Chest Pain and Shortness of Breath Patient reports that she had her gallbladder taken out 2 days ago after having symptomatic gallstones. She was discharged after an uncomplicated hospital course however today she woke up this morningwith chest pain and shortness of breath. States that her pain was unrelenting and states that in his substernal. She also has pleuritic chest pain. She has had some cough but denies any hemoptysis. Has had some lightheadedness. Denies fevers, states she has had some chills. Patient History Past Medical History[1] Surgical History[2] Family History[3] Social History[4] Allergies: Allergies[5] Physical Exam ED Triage Vitals [08/21/24 0722] Temp Heart Rate Resp BP (!) 36.1 ??C (97 ??F) 63 18 131/78 SpO2 Temp Source Heart Rate Source Patient Position 99 % Oral -- -- BP Location FiO2 (%) -- -- Physical Exam Vitals and nursing note reviewed. Constitutional: General: She is not in acute distress. Appearance: She is well-developed. HENT: Head: Normocephalic and atraumatic. Eyes: Conjunctiva/sclera: Conjunctivae normal. Cardiovascular: Rate and Rhythm: Normal rate and regular rhythm. Heart sounds: No murmur heard. Pulmonary: Effort: Pulmonary effort is normal. No tachypnea, bradypnea or respiratory distress. Breath sounds: Normal breath sounds. No decreased breath sounds or wheezing. Abdominal: Palpations: Abdomen is soft. Tenderness: There is no abdominal tenderness. Musculoskeletal: General: No swelling. Cervical back: Neck supple. Right lower leg: No edema. Left lower leg: No edema. Skin: General: Skin is warm and dry. Capillary Refill: Capillary refill takes less than 2 seconds. Neurological: Mental Status: She is alert. Psychiatric: Mood and Affect: Mood normal. [place] Coma Scale Score: 15 HEART Score: 0 ED Course & MDM - Assessment: 24 y.o. female presents to ED with complaint of chest pain. It should be noted that the chronic conditions includes asthma, which currently is at goal therapy. This complicates the clinical picture because it Comorbidities: complicates the clinical workup Differential Diagnosis: Pneumonia, PE, ACS, asthma exacerbation, among others In order to fully explore the differential diagnosis the following treatments and tests were ordered: ED Medication Administration from 08/21/2024 0713 to 08/21/2024 1448 Date/Time Order Dose Route Action 08/21/2024 1040 EDT iohexol (OMNIPaque) 350 MG/ML injection 100 mL 100 mL Intravenous Given 08/21/2024 1113 EDT fentaNYL (Sublimaze) injection 50 mcg 50 mcg Intravenous Given 08/21/2024 1134 EDT ondansetron (Zofran) injection 4 mg 4 mg Intravenous Given 08/21/2024 1341 EDT methocarbamol (Robaxin) tablet 1,500 mg 1,500 mg Oral Given 08/21/2024 1348 EDT lidocaine (Lidoderm) 5 % patch 1 patch 1 patch Apply externally Not Given All Other Orders Ordered Status Ordering Provider 08/21/24 1309 Consult to Emergency General Surgery Once Provider: (Not yet assigned) Acknowledged YAIR MALDONADO 08/21/24 1005 Troponin T, High Sensitivity, 2 Hour, Plasma PROCEDURE ONCE Final result YAIR MALDONADO 08/21/[address] Abdomen Pelvis w IV Contrast Once Final result YAIR MALDONADO 08/21/[address] Angio Pulmonary Embolism Once Final result YAIR MALDONADO 08/21/24 0802 BNP STAT Final result YAIR MALDONADO 08/21/24 0802 CBC w/diff STAT Final result YAIR MALDONADO 08/21/24 0802 CMP STAT Final result YAIR MALDONADO 08/21/24 0802 Troponin now and 120 min STAT Final result YAIR MALDONADO 08/21/24 0802 hCG qualitative STAT Final result YAIR MALDONADO 08/21/24 0717 ECG Adult Once Final result KAITLYN JEREZ ED Course as of 08/21/24 1448 Sat Aug 21, 2024 0820 Does not satisfied PERC criteria. In the setting of recent surgery, obtaining CT PE [RM] 0949 CBC w/diff(!) No leukocytosis, hemoglobin stable, not actionable [RM] 1011 CMP(!) Not actionable [RM] 1011 Troponin now and 120 min Within normal limits [RM] 1011 BNP Within normal limits [RM] 1011 ECG Adult Encounter Date: 08/21/24 -ECG Adult: Result Value EKG DIAGNOSIS CLASS Borderline Normal Ventricular Rate 50 Atrial Rate 50 IA Interval 152 QRSD Interval 86 QT Interval 446 QTC Interval 406 P [place] 46 R [place] 68 T Wave [place] 46 Diagnosis Sinus bradycardia with sinus arrhythmia Diagnosis Otherwise normal ECG *Note: Due to a large number of results and/or encounters for the requested time period, some results have not been displayed. A complete set of results can be found in Results Review. On my interpretation, No obvious interval/segment abnormalities. No obvious acute ischemic findingssuch as ST segment elevation/depression, hyperacute T waves, etc. No delta waves, prolonged QT interval, deformities in leads V1/V2 suggestive of Brugada syndrome, or heightened QRS complexes suggestive of LVH. Sinus bradycardia. [RM] 1250 Troponin T, High Sensitivity, 2 Hour, Plasma Within normal limits [RM] 1309 General surgery consulted in the setting of this patient's fat stranding seen on CT scan afterrecent cholecystectomy [RM] ED Course User Index [RM] Yair Maldonado MD Clinical Impressions as of 08/21/24 1448 Chest pain, unspecified type Social Determinates of Health Risks (including Economic Stability, Education and level of understanding, Healthcare access and quality and concerning social factors): Lives far away Ultimately, this patient was was signed out to the [facility] provider (Signed Out) Patient care assumed by [facility] provider, Connor, at shift change, tentative plan at the time of sign-out was f/u EGS recs ED Prescriptions None - [1] Past Medical [...] states they do not know rxn details Toradol [Ketorolac Tromethamine] Dizziness Yair Maldonado MD Resident 08/21/24 1448 Cosigned by Kaitlyn Jerez MD at 08/22/2024 9:41 AM EDT Associated attestation - Kaitlyn Jerez MD - 08/22/2024 9:41 AM EDT I saw and evaluated the patient with the resident/fellow. I discussed the case with the resident/fellow and agree with the findings and plan as documented. * ED Triage Notes - Rochelle Bauer RN - 08/21/2024 7:13 AM EDT Patient has her gallbladder out 2 days ago and awoke this am with cp and soa, called her doctor's office and was directed to the ED * Progress Notes - Tasneem Ryan MD - 08/21/2024 7:13 AM EDT ED TRANSFER OF CARE NOTE Transferring provider: Joel Transferring attending: Meri KYLE Time: 1400 I received sign-out and accepted care of [...] a 24 y.o. female with relevant PMH cholecystectomy two days ago who presented to the ED for evaluation of abdominal pain. HEART Score: 0 PENDING: I accepted care of this patient from the previous provider while waiting for evaluation and/or recommendations from: General Surgery. Ultimately, the aforementioned service recommended the patient was appropriate for discharge, will follow up in clinic as needed. Patient discharged with strict return precautions given. ED Medication Administration from 08/21/2024 0713 to 08/21/2024 1621 Date/Time Order Dose Route Action 08/21/2024 1040 EDT iohexol (OMNIPaque) 350 MG/ML injection 100 mL 100 mL Intravenous Given 08/21/2024 1113 EDT fentaNYL (Sublimaze) injection 50 mcg 50 mcg Intravenous Given 08/21/2024 1134 EDT ondansetron (Zofran) injection 4 mg 4 mg Intravenous Given 08/21/2024 1341 EDT methocarbamol (Robaxin) tablet 1,500 mg 1,500 mg Oral Given 08/21/2024 1348 EDT lidocaine (Lidoderm) 5 % patch 1 patch 1 patch Apply externally Not Given 08/21/2024 1618 EDT gi cocktail oral solution 30 mL 30 mL Oral Given ED COURSE: ED Course as of 08/21/24 1621 Sat Aug 21, 2024 0820 Does not satisfied PERC criteria. In the setting of recent surgery, obtaining CT PE [RM] 0949 CBC w/diff(!) No leukocytosis, hemoglobin stable, not actionable [RM] 1011 CMP(!) Not actionable [RM] 1011 Troponin now and 120 min Within normal limits [RM] 1011 BNP Within normal limits [RM] 1011 ECG Adult Encounter Date: 08/21/24 -ECG Adult: Result Value EKG DIAGNOSIS CLASS Borderline Normal Ventricular Rate 50 Atrial Rate 50 IA Interval 152 QRSD Interval 86 QT Interval 446 QTC Interval 406 P [place] 46 R [place] 68 T Wave [place] 46 Diagnosis Sinus bradycardia with sinus arrhythmia Diagnosis Otherwise normal ECG *Note: Due to a large number of results and/or encounters for the requested time period, some results have not been displayed. A complete set of results can be found in Results Review. On my interpretation, No obvious interval/segment abnormalities. No obvious acute ischemic findingssuch as ST segment elevation/depression, hyperacute T waves, etc. No delta waves, prolonged QT interval, deformities in leads V1/V2 suggestive of Brugada syndrome, or heightened QRS complexes suggestive of LVH. Sinus bradycardia. [RM] 1250 Troponin T, High Sensitivity, 2 Hour, Plasma Within normal limits [RM] 1309 General surgery consulted in the setting of this patient's fat stranding seen on CT scan afterrecent cholecystectomy [RM] ED Course User Index [RM] Yair Maldonado MD Clinical Impressions as of 08/21/24 1621 Chest pain, unspecified type Dispo: discharge ED Prescriptions None - Tasneem Ryan MD Cosigned by Blake Newsome MD at 08/21/2024 5:49 PM EDT Associated attestation - Blake Newsome MD - 08/21/2024 5:49 PM EDT Seen by resident only. documented in this encounter Plan of Treatment Not on file documented as of this encounter Goals Goal Patient Goal Type Associated Problems Recent Progress Patient-Stated? Author Delayed Delivery Care Plan CPM S20 PP LABOR (OBSTETRICS) No Open Scheduling, Background documented as of this encounter Procedures Procedure Name Priority Date/Time Associated Diagnosis Comments TROPONIN T, HIGH SENSITIVITY, 2 HOUR, PLASMA Timed 08/21/2024 11:[address] ANGIO PULMONARY EMBOLISM STAT 08/21/2024 10:[address] ABDOMEN PELVIS W IV CONTRAST STAT 08/21/2024 10:50 AM EDT TROPONIN T, HIGH SENSITIVITY, 0 HOUR, PLASMA, REFLEX TO 2 HOUR STAT 08/21/2024 9:28 AM EDT N-TERMINAL PROBNP, PLASMA STAT 08/21/2024 9:28 AM EDT TEST QUALITATIVE PLASMA STAT 08/21/2024 9:28 AM EDT COMPREHENSIVE METABOLIC PANEL, PLASMA STAT 08/21/2024 9:28 AM EDT CBC WITH AUTO DIFFERENTIAL STAT 08/21/2024 9:27 AM EDT ECG ADULT STAT 08/21/2024 7:23 AM EDT documented in this encounter Results * Troponin T, High Sensitivity, 2 Hour, Plasma (08/21/2024 11:43 AM EDT) Troponin T, High Sensitivity, 2 Hour <6 <14 ng/L 08/21/2024 12:04 PM EDT [facility] Troponin Delta Interpretation Not Calculated 08/21/2024 12:04 PM EDT [facility] Comment:Specimen not collect ed within acceptable timeframe. Delta will not be calculated. Blood Venous blood specimen / Unknown 08/21/2024 11:43 AM EDT 08/21/2024 11:45 AM EDT us Kaitlyn Jerez MD LAB BLOOD ORDERABLES Final Result [facility] [address] [place] [address] * CT Abdomen Pelvis w IV Contrast (08/21/2024 10:50 AM EDT) Anatomical Region Laterality Modality Abdomen, Pelvis Computed Tomogra phy Impressions 08/21/2024 11:30 AM EDT 1. No pulmonary embolism. Mild dilatation of cardiac left ventricle. 2. Status post cholecystectomy with mild stranding within the surgical site which is nonspecific given the recent surgery. Otherwise, no acute findings within the abdomen or pelvis. CRITICAL RESULT: No. COMMUNICATION: Per this written report. Drafted by Tania Hatch MD on 08/21/2024 11:22 AM Final report signed by Tania Hatch MD on 08/21/2024 11:30 AM Narrative 08/21/2024 11:30 AM EDT CLINICAL INDICATION: recent surgery, chest pain TECHNIQUE: Imaging of the chest abdomen and pelvis was performed, from thoracic inlet through pubic symphysis, using spiral technique, following administration of IV contrast, Omnipaque 350, 100 mL according to the CT PE protocol and CT Abdomen/Pelvis protocol. Delayed (excretory phase) images were performed through the kidneys. Reformatted images in the coronal, sagittal, and oblique planes were generated from the axial data set to facilitate diagnostic accuracy. In addition, 3D images were created and reviewed. Total DLP (Dose-Length Product): 2353.17 mGy.cm (accession [id number]), 2353.17 mGy.cm (accession [id number]). Please note: The reported value represents the total of one or more individual components during the CT acquisition on this date and at this time, and as such, the same value may appear in more than one CT report depending on the interpreting/reporting physicians. COMPARISON: None. FINDINGS: Chest: Pulmonary Arteries/Vessels: No pulmonary embolism. Pleural/Pericardial Space: No pneumothorax. No pleural effusions. No pericardial effusion. Lymph Nodes: No lymphadenopathy within the chest. Lungs: Except for minimal dependent atelectasis, the lungs are clear. Mediastinum: Mild dilatation of cardiac left ventricle. No enlarged lymph nodes. No pleural or pericardial effusions. Chest Wall: No chest wall hematoma or contusion. Bones: No acute fracture within the chest. Abdomen: Liver/Gallbladder/Biliary System: The liver demonstrates homogeneous enhancement. Gallbladder is removed. There is mild stranding around the gallbladder fossa which is nonspecific given recent surgical state. No intra- or extra-hepatic biliary ductal dilatation. Spleen: The spleen enhances homogeneously. Pancreas: The pancreas enhances homogeneously. Adrenals: The adrenals are morphologically unremarkable. Kidneys: The kidneys demonstrate symmetric nephrogram and excretion. No renal or ureteral calculi. No hydronephrosis. Bowel/Mesentery: The small bowel loops are not dilated. The large bowel loops are not dilated. The appendix is absent. Vessels/Lymph Nodes: The abdominal aorta is unremarkable. No lymphadenopathy within the abdomen or pelvis. Fluid Survey: No free fluid in the abdomen. No free fluid in the pelvis. Pelvis: Unremarkable urinary bladder. Intrauterine device in place. No soft tissue lesions involving adnexa Body Wall: Normal. Bones: No acute fracture within the abdomen or pelvis. Procedure Note Tania Hatch MD - 08/21/2024 CLINICAL INDICATION: recent surgery, chest pain TECHNIQUE: Imaging of the chest abdomen and pelvis was performed, from thoracic inletthrough pubic symphysis, using spiral technique, following administrationof IV contrast, Omnipaque 350, [address] mL according to the CT PE protocol andCT Abdomen/Pelvis protocol. Delayed (excretory phase) images wereperformed through the kidneys. Reformatted images in the coronal,sagittal, and oblique planes were generated from the axial data set tofacilitate diagnostic accuracy. In addition, 3D images were created andreviewed. Total DLP (Dose-Length Product): 2353.17 mGy.cm (accession [id number]),2353.17 mGy.cm (accession [id number]). Please note: The reported valuerepresents the total of one or more individual components during the CTacquisition on this date and at this time, and as such, the same value mayappear in more than one CT report depending on the interpreting/reportingphysicians. COMPARISON: None. FINDINGS: Chest: Pulmonary Arteries/Vessels: No pulmonary embolism. Pleural/Pericardial Space: No pneumothorax. No pleural effusions. Nopericardial effusion. Lymph Nodes: No lymphadenopathy within the chest. Lungs: Except for minimal dependent atelectasis, the lungs are clear. Mediastinum: Mild dilatation of cardiac left ventricle. No enlarged lymphnodes. No pleural or pericardial effusions. Chest Wall: No chest wall hematoma or contusion. Bones: No acute fracture within the chest. Abdomen: Liver/Gallbladder/Biliary System: The liver demonstrates homogeneousenhancement. Gallbladder is removed. There is mild stranding around thegallbladder fossa which is nonspecific given recent surgical state. Nointra- or extra-hepatic biliary ductal dilatation. Spleen: The spleen enhances homogeneously. Pancreas: The pancreas enhances homogeneously. Adrenals: The adrenals are morphologically unremarkable. Kidneys: The kidneys demonstrate symmetric nephrogram and excretion. Norenal or ureteral calculi. No hydronephrosis. Bowel/Mesentery: The small bowel loops are not dilated. The large bowelloops are not dilated. The appendix is absent. Vessels/Lymph Nodes: The abdominal aorta is unremarkable. Nolymphadenopathy within the abdomen or pelvis. Fluid Survey: No free fluid in the abdomen. No free fluid in the pelvis. Pelvis: Unremarkable urinary bladder. Intrauterine device in place. Nosoft tissue lesions involving adnexa Body Wall: Normal. Bones: No acute fracture within the abdomen or pelvis. IMPRESSION: 1. No pulmonary embolism. Mild dilatation of cardiac left ventricle. 2. Status post cholecystectomy with mild stranding within the surgicalsite which is nonspecific given the recent surgery. Otherwise, no acutefindings within the abdomen or pelvis. CRITICAL RESULT: No. COMMUNICATION: Per this written report. Drafted by Tania Hatch MD on 08/21/2024 11:22 AM Final report signed by Tania Hatch MD on 08/21/2024 11:30 AM us Kaitlyn Jerez MD IMG CT PROCEDURES Final Re sult * CT Angio Pulmonary Embolism (08/21/2024 10:50 AM EDT) Anatomical Region Laterality Modality Chest Computed Tomogra phy Impressions 08/21/2024 11:30 AM EDT 1. No pulmonary embolism. Mild dilatation of cardiac left ventricle. 2. Status post cholecystectomy with mild stranding within the surgical site which is nonspecific given the recent surgery. Otherwise, no acute findings within the abdomen or pelvis. CRITICAL RESULT: No. COMMUNICATION: Per this written report. Drafted by Tania Hatch MD on 08/21/2024 11:22 AM Final report signed by Tania Hatch MD on 08/21/2024 11:30 AM Narrative 08/21/2024 11:30 AM EDT CLINICAL INDICATION: recent surgery, chest pain TECHNIQUE: Imaging of the chest abdomen and pelvis was performed, from thoracic inlet through pubic symphysis, using spiral technique, following administration of IV contrast, Omnipaque 350, 100 mL according to the CT PE protocol and CT Abdomen/Pelvis protocol. Delayed (excretory phase) images were performed through the kidneys. Reformatted images in the coronal, sagittal, and oblique planes were generated from the axial data set to facilitate diagnostic accuracy. In addition, 3D images were created and reviewed. Total DLP (Dose-Length Product): 2353.17 mGy.cm (accession [id number]), 2353.17 mGy.cm (accession [id number]). Please note: The reported value represents the total of one or more individual components during the CT acquisition on this date and at this time, and as such, the same value may appear in more than one CT report depending on the interpreting/reporting physicians. COMPARISON: None. FINDINGS: Chest: Pulmonary Arteries/Vessels: No pulmonary embolism. Pleural/Pericardial Space: No pneumothorax. No pleural effusions. No pericardial effusion. Lymph Nodes: No lymphadenopathy within the chest. Lungs: Except for minimal dependent atelectasis, the lungs are clear. Mediastinum: Mild dilatation of cardiac left ventricle. No enlarged lymph nodes. No pleural or pericardial effusions. Chest Wall: No chest wall hematoma or contusion. Bones: No acute fracture within the chest. Abdomen: Liver/Gallbladder/Biliary System: The liver demonstrates homogeneous enhancement. Gallbladder is removed. There is mild stranding around the gallbladder fossa which is nonspecific given recent surgical state. No intra- or extra-hepatic biliary ductal dilatation. Spleen: The spleen enhances homogeneously. Pancreas: The pancreas enhances homogeneously. Adrenals: The adrenals are morphologically unremarkable. Kidneys: The kidneys demonstrate symmetric nephrogram and excretion. No renal or ureteral calculi. No hydronephrosis. Bowel/Mesentery: The small bowel loops are not dilated. The large bowel loops are not dilated. The appendix is absent. Vessels/Lymph Nodes: The abdominal aorta is unremarkable. No lymphadenopathy within the abdomen or pelvis. Fluid Survey: No free fluid in the abdomen. No free fluid in the pelvis. Pelvis: Unremarkable urinary bladder. Intrauterine device in place. No soft tissue lesions involving adnexa Body Wall: Normal. Bones: No acute fracture within the abdomen or pelvis. Procedure Note Tania Hatch MD - 08/21/2024 CLINICAL INDICATION: recent surgery, chest pain TECHNIQUE: Imaging of the chest abdomen and pelvis was performed, from thoracic inletthrough pubic symphysis, using spiral technique, following administrationof IV contrast, Omnipaque 350, [address] mL [address] PE protocol andCT Abdomen/Pelvis protocol. Delayed (excretory phase) images wereperformed through the kidneys. Reformatted images in the coronal,sagittal, and oblique planes were generated from the axial data set tofacilitate diagnostic accuracy. In addition, 3D images were created andreviewed. Total DLP (Dose-Length Product): 2353.17 mGy.cm (accession [id number]),2353.17 mGy.cm (accession [id number]). Please note: The reported valuerepresents the total of one or more individual components during the CTacquisition on this date and at this time, and as such, the same value mayappear in more than one CT report depending on the interpreting/reportingphysicians. COMPARISON: None. FINDINGS: Chest: Pulmonary Arteries/Vessels: No pulmonary embolism. Pleural/Pericardial Space: No pneumothorax. No pleural effusions. Nopericardial effusion. Lymph Nodes: No lymphadenopathy within the chest. Lungs: Except for minimal dependent atelectasis, the lungs are clear. Mediastinum: Mild dilatation of cardiac left ventricle. No enlarged lymphnodes. No pleural or pericardial effusions. Chest Wall: No chest wall hematoma or contusion. Bones: No acute fracture within the chest. Abdomen: Liver/Gallbladder/Biliary System: The liver demonstrates homogeneousenhancement. Gallbladder is removed. There is mild stranding around thegallbladder fossa which is nonspecific given recent surgical state. Nointra- or extra-hepatic biliary ductal dilatation. Spleen: The spleen enhances homogeneously. Pancreas: The pancreas enhances homogeneously. Adrenals: The adrenals are morphologically unremarkable. Kidneys: The kidneys demonstrate symmetric nephrogram and excretion. Norenal or ureteral calculi. No hydronephrosis. Bowel/Mesentery: The small bowel loops are not dilated. The large bowelloops are not dilated. The appendix is absent. Vessels/Lymph Nodes: The abdominal aorta is unremarkable. Nolymphadenopathy within the abdomen or pelvis. Fluid Survey: No free fluid in the abdomen. No free fluid in the pelvis. Pelvis: Unremarkable urinary bladder. Intrauterine device in place. Nosoft tissue lesions involving adnexa Body Wall: Normal. Bones: No acute fracture within the abdomen or pelvis. IMPRESSION: 1. No pulmonary embolism. Mild dilatation of cardiac left ventricle. 2. Status post cholecystectomy with mild stranding within the surgicalsite which is nonspecific given the recent surgery. Otherwise, no acutefindings within the abdomen or pelvis. CRITICAL RESULT: No. COMMUNICATION: Per this written report. Drafted by Tania Hatch MD on 08/21/2024 11:22 AM Final report signed by Tania Htach MD on 08/21/2024 11:30 AM us Kaitlyn Jerez MD IMG CT PROCEDURES Final Re sult * BNP (08/21/2024 9:28 AM EDT) N-Terminal, PROBNP, Plasma 132 0 - 449 pg/mL 08/21/2024 10:05 AM EDT [facility] Blood Venous blood specimen / Unknown Venipuncture / Unknown 08/21/2024 9:28 AM EDT 08/21/2024 9:32 AM EDT Kaitlyn Jerez MD LAB BLOOD ORDERABLES Final Result [facility] [address] [place] [address] * hCG qualitative (08/21/2024 9:28 AM EDT) Pathologist [facility] Test Negative Negative 08/21/2024 10:05 AM EDT [facility] Blood Venous blood specimen / Unknown Venipuncture / Unknown 08/21/2024 9:28 AM EDT 08/21/2024 9:32 AM EDT Narrative [facility] - 08/21/2024 10:05 AM EDT Reference Range: Males and non- females: Negative. Kaitlyn Jerez MD LAB BLOOD ORDERABLES Final Result Performing Organization Address City/[facility]/ZIP Co de Phone Number [facility] [address] [place] [address] * Troponin now and 120 min (08/21/2024 9:28 AM EDT) [facility] Troponin T, High Sensitivity, 0 Hour <6 <14 ng/L 08/21/2024 10:05 AM EDT [facility] Blood Venous blood specimen / Unknown Venipuncture / Unknown 08/21/2024 9:28 AM EDT 08/21/2024 9:32 AM EDT Kaitlyn Jerez MD LAB BLOOD ORDERABLES Final Result [facility] [address] [place] [address] * (ABNORMAL) CMP (08/21/2024 9:28 AM EDT) [facility] Glucose, Plasma 89 74 - 99 mg/dL 08/21/2024 10:05 AM EDT [facility] BUN, Plasma 10 7 - 21 mg/dL 08/21/2024 10:05 AM EDT [facility] Creatinine, Plasma 0.88 0.60 - 1.10 mg/dL 08/21/2024 10:05 AM EDT [facility] BUN/Creatinine Ratio 11 08/21/2024 10:05 AM EDT [facility] Sodium, Plasma 138 136 - 145 mmol/L 08/21/2024 10:05 AM EDT [facility] Potassium, Plasma 4.3 3.6 - 4.9 mmol/L 08/21/2024 10:05 AM EDT [facility] Comment:Hemolyzed, result ma y be falsely increased. Chloride, Plasma 103 97 - 107 mmol/L 08/21/2024 10:05 AM EDT [facility] CO2, Plasma 23 22 - 29 mmol/L 08/21/2024 10:05 AM EDT [facility] Anion Gap 12 6 - 16 mmol/L 08/21/2024 10:05 AM EDT [facility] Total Calcium, Plasma 8.7(L) 8.9 - 10.2 mg/dL 08/21/2024 10:05 AM EDT [facility] Total Protein 6.6 6.3 - 7.9 g/dL 08/21/2024 10:05 AM EDT [facility] Albumin, Plasma 4.2 3.5 - 5.2 g/dL 08/21/2024 10:05 AM EDT [facility] AST, Plasma 36(H) 10 - 35 U/L 08/21/2024 10:05 AM EDT [facility] Comment:Hemolyzed, result ma y be falsely increased. ALT, Plasma 49(H) 10 - 35 U/L 08/21/2024 10:05 AM EDT [facility] Alkaline Phosphatase, Plasma 71 35 - 104 U/L 08/21/2024 10:05 AM EDT [facility] Total Bilirubin, Plasma 0.4 0.2 - 1.1 mg/dL 08/21/2024 10:05 AM EDT [facility] eGFRcr 93.7 mL/min/1.7 3m*2 08/21/2024 10:05 AM EDT [facility] Comment:Reported eGFRcr in m L/min/1.73m2 is based the CKD-EPI 2020 equation that does not use a race coefficient. Blood Venous blood specimen / Unknown Venipuncture / Unknown 08/21/2024 9:28 AM EDT 08/21/2024 9:32 AM EDT us Kaitlyn Jerez MD LAB BLOOD ORDERABLES Final Result [facility] [address] [place] [address] * (ABNORMAL) CBC w/diff (08/21/2024 9:27 AM EDT) WBC Count 9.11 3.70 - 10.30 10*3/uL LAB HEMATOLOGY METHOD 08/21/2024 9:34 AM EDT [facility] RBC Count 4.52 3.90 - 5.20 10*6/uL LAB HEMATOLOGY METHOD 08/21/2024 9:34 AM EDT [facility] HGB 12.2 11.2 - 15.7 g/dL LAB HEMATOLOGY METHOD 08/21/2024 9:34 AM EDT [facility] HCT 37.6 34.0 - 45.0 % LAB HEMATOLOGY METHOD 08/21/2024 9:34 AM EDT [facility] Platelet Count 277 155 - 369 10*3/uL LAB HEMATOLOGY METHOD 08/21/2024 9:34 AM EDT [facility] MCV 83 79 - 98 fL LAB HEMATOLOGY METHOD 08/21/2024 9:34 AM EDT [facility] MCH 27.0 26.0 - 32.0 pg LAB HEMATOLOGY METHOD 08/21/2024 9:34 AM EDT [facility] MCHC 32.4 30.7 - 35.5 g/dL LAB HEMATOLOGY METHOD 08/21/2024 9:34 AM EDT [facility] RDW 15.5(H) 11.5 - 14.5 % LAB HEMATOLOGY METHOD 08/21/2024 9:34 AM EDT [facility] MPV 8.9 8.8 - 12.5 fL LAB HEMATOLOGY METHOD 08/21/2024 9:34 AM EDT [facility] nRBC 0.0 <=0.0 per 100 WBCs LAB HEMATOLOGY METHOD 08/21/2024 9:34 AM EDT [facility] Differential Type Automated LAB HEMATOLOGY METHOD 08/21/2024 9:34 AM EDT [facility] Neutrophils % 50 % LAB HEMATOLOGY METHOD 08/21/2024 9:34 AM EDT [facility] Lymphocytes % 33 % LAB HEMATOLOGY METHOD 08/21/2024 9:34 AM EDT [facility] Monocytes % 6 % LAB HEMATOLOGY METHOD 08/21/2024 9:34 AM EDT [facility] Eosinophils % 10 % LAB HEMATOLOGY METHOD 08/21/2024 9:34 AM EDT [facility] Basophils % 1 % LAB HEMATOLOGY METHOD 08/21/2024 9:34 AM EDT [facility] Immature Granulocytes % 0 % LAB HEMATOLOGY METHOD 08/21/2024 9:34 AM EDT [facility] Neutrophils Absolute 4.53 1.60 - 6.10 10*3/uL LAB HEMATOLOGY METHOD 08/21/2024 9:34 AM EDT [facility] Lymphocytes Absolute 3.03 1.20 - 3.90 10*3/uL LAB HEMATOLOGY METHOD 08/21/2024 9:34 AM EDT [facility] Monocytes Absolute 0.58 0.30 - 0.90 10*3/uL LAB HEMATOLOGY METHOD 08/21/2024 9:34 AM EDT [facility] Eosinophils Absolute 0.90(H) 0.00 - 0.50 10*3/uL LAB HEMATOLOGY METHOD 08/21/2024 9:34 AM EDT [facility] Basophils Absolute 0.06 0.00 - 0.10 10*3/uL LAB HEMATOLOGY METHOD 08/21/2024 9:34 AM EDT [facility] Immature Granulocytes Absolute 0.01 0.00 - 0.06 10*3/uL LAB HEMATOLOGY METHOD 08/21/2024 9:34 AM EDT [facility] Blood Venous blood specimen / Unknown Venipuncture / Unknown 08/21/2024 9:27 AM EDT 08/21/2024 9:32 AM EDT [facility] - 08/21/2024 9:34 AM EDT Therapeutic decision making should be based on absolute values, rather than percentages. Kaitlyn Jerez MD LAB BLOOD ORDERABLES Final Result [facility] [address] [place] [address] * ECG Adult (08/21/2024 7:23 AM EDT) EKG DIAGNOSIS CLASS Borderline Normal MUSE ECG Ventricular Rate 50 BPM MUSE ECG Atrial Rate 50 BPM MUSE ECG IA Interval 152 ms MUSE ECG QRSD Interval 86 ms MUSE ECG QT Interval 446 ms MUSE ECG QTC Interval 406 ms MUSE ECG P [place] 46 degrees MUSE ECG R [place] 68 degrees MUSE ECG T Wave [place] 46 degrees MUSE ECG Diagnosis Sinus bradycardia with sinus arrhythmia MUSE ECG Diagnosis Otherwise normal ECG MUSE ECG Diagnosis Confirmed by Jimmie Jasmine ([id number]) on 08/21/2024 11:33:25 AM MUSE ECG 08/21/2024 7:23 AM EDT 08/21/2024 11:33 AM EDT Kaitlyn Jerez MD ECG ORDERABLES Final Resu lt Performing Organization Address City/[facility] Co de Phone Number MUSE ECG documented in this encounter Visit Diagnoses Diagnosis Chest pain, unspecified type- Primary documented in this encounter Administered Medications Inactive Administered Medications - up to 3 most recent administrations Medication Order MAR Action Action Date Dose Rate Site fentaNYL (Sublimaze) injection 50 mcg 50 mcg, Intravenous, Once, 1 dose, On 08/21/24 at 1105, STAT Given 08/21/2024 11:13 AM EDT 50 mcg gi cocktail oral solution 30 mL 30 mL, Oral, Once, 1 dose, On 08/21/24 at 1615, STAT Given 08/21/2024 4:18 PM EDT 30 mL iohexol (OMNIPaque) 350 MG/ML injection 100 mL 100 mL, Intravenous, Once in imaging, 1 dose, Starting on 08/21/24 at 1011, Until 08/21/24 at 1040, Routine, Imaging Protocol Orders Given 08/21/2024 10:40 AM EDT 100 mL methocarbamol (Robaxin) tablet 1,500 mg 1,500 mg, Oral, Once, 1 dose, On 08/21/24 at 1320, STAT Given 08/21/2024 1:41 PM EDT 1,500 mg ondansetron (Zofran) injection 4 mg 4 mg, Intravenous, Once, 1 dose, On 08/21/24 at 1110, STAT Given 08/21/2024 11:34 AM EDT 4 mg documented in this encounter Active and Recently Administered Medications Times are shown in EDT. Scheduled Medication Order 08/19/2024 08/20/2024 08/21/2024 fentaNYL (Sublimaze) injection 50 mcg (COMPLETED) 50 mcg, Intravenous, Once, 1 dose, On 08/21/24 at 1105, STAT 1113 (Given - Provid er: Linda Sims RN) gi cocktail oral solution 30 mL (COMPLETED) 30 mL, Oral, Once, 1 dose, On 08/21/24 at 1615, STAT 1618 (Given - Provid er: Justine Thornton) iohexol (OMNIPaque) 350 MG/ML injection 100 mL (COMPLETED) 100 mL, Intravenous, Once in imaging, 1 dose, Starting on 08/21/24 at 1011, Until 08/21/24 at 1040, Routine, Imaging Protocol Orders 1040 (Given - Provid er: Silvina Jack) lidocaine (Lidoderm) 5 % patch 1 patch 1 patch, Apply externally, Once, 1 dose, On 08/21/24 at 1320, Administer over 12 Hours, STAT 1348 (Not Given - Pr ovider: Justine Thornton - Reason: Patient/family refused) methocarbamol (Robaxin) tablet 1,500 mg (COMPLETED) 1,500 mg, Oral, Once, 1 dose, On 08/21/24 at 1320, STAT 1341 (Given - Provid er: Justine Thornton) ondansetron (Zofran) injection 4 mg (COMPLETED) 4 mg, Intravenous, Once, 1 dose, On 08/21/24 at 1110, STAT 1134 (Given - Provid er: Justine Thornton) documented in this encounter Additional Health Concerns Active Problems Noted Date Diagnosed Date CPM S20 PP LABOR (OBSTETRICS) 09/17/2021 Assessment Noted Time PHQ-9 Depression Total Score: 18 //2 025 1:43 PM EDT A fall risk assessment has been complete d for the patient 10/10/2023 10:04 AM EDT A Body Mass Index follow-up plan has been documented for the patient 10/17/2023 11:29 AM EDT documented as of this encounter 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
--- OUTSIDE RECORDS SUMMARY | 2024-09-09 09:00 | XMS_ITS | Encounter Summary ---
Author Organization Healthcare Address [address] [place] [address] Care Team Providers Care Complex Care Nurse Practitioner Name Role Phone Pcp, No Primary Care Provider Unavailabl e Reason for Visit * Reason Comments Sleep Apnea * Consultation (Routine) - Closed Specialty Diagnoses / Procedures Referred By Sarita t Referred To Contact Diagnoses Sleep apnea Sylvia Juan PT [place] Referral ID Status Reason Start Date Expiration Date V isits Requested Visits Authorized [id number] Closed Specialty Services Required 08/10/2024 02/09/2026 1 1 Encounter Details Date Type Department Care Team (Late st Contact Info) Description 09/09/2024 9:00 AM EDT Consult [facility] [address], [address] [place] [address] Grayson Grewal MD [address] [place] [address] Sleep-disordered breathing (Primary Dx); Class 3 severe obesity with body mass index (BMI) of 40.0 to 44.9 in adult, unspecified obesity type, unspecified whether serious comorbidity present; 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; Snoring Social History Tobacco Use Types Packs/Day Years Used Date Smoking Tobacco: Never Smokeless Tobacco: Never Tobacco Cessation:Counseling Given: Not Answered Alcohol Use Standard Drinks/Week Comments Never 0 (1 standard drink = 0.6 oz pur e alcohol) PHQ-2 Answer Date Recorded Patient Health Questionnaire-2 Score 4 05/13/2024 [place] Depression Scale Answer Date Recorded [place] Depression Scale Total 14 01/17/2022 The thought [...] any time in the past 12 m [facility], were you homeless or living [...] Sign Reading Time Taken Comments Blood Pressure - - Pulse - - Temperature - - Respiratory Rate - - Oxygen Saturation - - Inhaled Oxygen Concentration - - Weight 110 kg (242 lb 4.6 oz) 09/09/2024 9:11 AM EDT Height 162.6 cm (5' 4 ) 09/09/2024 9:11 AM EDT Body Mass Index 41.59 09/09/2024 9:11 AM EDT documented in this encounter Miscellaneous Notes * Progress Notes - Efrem Lira MD - 09/09/2024 9:[address] Juan, I had the pleasure of seeing your patient, Amelie Landin in the [facility] today in consultation regarding her sleep disordered breathing and possible tonsil enlargement. As you are aware, Amelie is a 24 y.o. female with sleep disordered breathing who comes in today for evaluation. Patient states she has had troubles with sleeping since is with her current 4-month-old. She reports snoring, light sleeping, difficulty falling asleep, waking up multiple times throughout the night catching her breath. Amelie also complains of gasping while sleeping. She reports drinking 3-4 bottles of water a day. Denies any nasal obstructive symptoms. [facility] 5.8 with lowest desaturation being 84%. She reports she has lost weight since being . There is no personal or family history of bleeding disorders, easy bruisability or anesthesia risks. She reports that she has never smoked. She has never used smokeless tobacco. Her 14 point review of systems, family and social history are otherwise negative as reported by ourpatient history form. She denies any constitutional symptoms. She is accompanied by her , son, and daughter to the visit today. Current Medications[1] Allergies: Amoxil [amoxicillin], Augmentin [amoxicillin-pot clavulanate], Cephalexin, Shrimp extract, and Toradol [ketorolac tromethamine] PERTINENT SOCIAL HISTORY: She reports no history of alcohol use.; She reports no history of drug use. [place] Sleepiness Scale (ESS): 19 (Normal <10) Ht 1.626 m (5' 4 ) Wt 110 kg (242 lb 4.6 oz) BMI 41.59 kg/m?? Physical examination today reveals a morbidly obese (>40) female in no apparent distress. Her head is normocephalic and atraumatic. Her ear canals are clear and her tympanic membranes are normal in appearance. Her hearing is grossly intact and symmetric bilaterally. Her nasal exam reveals a relatively straight septum and mild turbinate hypertrophy with a good nasal airway bilaterally. Oral exam reveals good dentition, moist mucous membranes, good palatal elevation and tongue mobility.Type 1 occlusion with mild orthognathia Her is a Mallampati IV (only hard palate visible). Her tonsils are 1+. Her neck examination reveals no adenopathy, supple, symmetrical, trachea midline, thyroid not enlarged, symmetric, no tenderness/mass/nodules, and large circumference . Her heart and lungs are clear to auscultation. Assessment/Plan: I do not see large tonsils on exam nor does she have nasal obstructive symptoms. I do not think hersleep apnea symptoms are from enlarged tonsils or adenoids. I discussed the contribution of weight in addition to her large tongue being associated with her symptoms. She is not a surgical candidate and I would recommend proceeding with CPAP as well as weight loss. She expressed understanding and all questions were answered. I will plan to see her back on an as-needed basis. The patient received dietary education because they have an above normal BMI. The patient has been counseled on tobacco cessation: Not Applicable; time spent in discussion: Not applicable, current non smoker. The patient was seen and examined with Dr. Lira and I agree with their assessment and plan as described in our note. Digital speech recognition software was used to dictate this note and, despite all efforts to proofread, some dictation errors may occur. If you have any questions, please do not he sitate to contact me. Thank you again for allowing me to participate in her care. Best personal regards, Grayson Grewal MD [1] Current Outpatient Medications: Albuterol-Budesonide (Airsupra) 90-80 MCG/ACT aerosol, Inhale 2 puffs 4 times a day., Disp: , Rfl: galcanezumab-gnlm (Emgality) 120 MG/ML injection, Inject 1 Syringe under the skin every 30 days. Next injection is due on 08/25/2024., Disp: , Rfl: metFORMIN, OSM, (Fortamet) 500 MG 24 hr tablet, Take 2 tablets by mouth 1 time each day with dinner. Do not crush, chew, or split., Disp: , Rfl: ARIPiprazole (Abilify) 5 MG tablet, Take 1 tablet by mouth in the morning., Disp: , Rfl: desvenlafaxine (Pristiq) 50 MG 24 hr tablet, Take 1 tablet by mouth in the morning. Do not crush, chew, or split., Disp: , Rfl: fluticasone (Flonase) 50 MCG/ACT nasal spray, Administer 1 spray into each nostril in the morning. Shake gently. Before first use, prime pump. After use, clean tip and replace cap., Disp: , Rfl: hydrOXYzine pamoate (Vistaril) 25 MG capsule, Take 1 capsule by mouth 3 (three) times a day as needed for anxiety., Disp: , Rfl: labetalol (Normodyne) 100 MG tablet, Take 1 tablet by mouth in the morning and 1 tablet before bedtime., Disp: , Rfl: methocarbamol (Robaxin) 500 MG tablet, Take 1 tablet by mouth 4 times a day for 10 days. (Patient not taking: Reported on 09/09/2024), Disp: 40 tablet, Rfl: 0 naloxone (Narcan) 4 mg/0.1 mL nasal spray, 1. Give 1 spray in nostril for no/slow breathing or cannot wake after opioid use 2. Call 911 3. Repeat in other nostril if symptoms continue (Patient not takin. Give 1 spray in nostril for no/slow breathing or cannot wake after opioid use 2. Call 911 3. Repeat in other nostril if symptoms continue Reported on 09/09/2024), Disp: 1 each, Rfl: 0 Vit-Fe Fumarate-FA ( PO), Take by mouth., Disp: , Rfl: Zuranolone (Zurzuvae) 25 MG capsule, Take 50 mg by mouth nightly., Disp: , Rfl: Cosigned by Grayson Grewal MD at 09/09/2024 10:52 AM EDT Associated attestation - Grayson Grewal MD - 09/09/2024 10:52 AM EDT The patient was seen and examined with Dr. Lira, I discussed and I agree with their assessment and plan as described in our note. documented in this encounter Plan of Treatment Not on file documented as of this encounter Goals Goal Patient Goal Type Associated Problems Recent Progress Patient-Stated? 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 Repetitive intrusions of sleep Snoring Other dyspnea and respiratory abnormality documented in this encounter Additional Health Concerns Active Problems Noted Date Diagnosed Date CPM S20 PP LABOR (OBSTETRICS) 09/17/2021 Assessment Noted Time PHQ-9 Depression Total Score: 18 05/13/2 025 1:43 PM EDT A fall risk assessment has been complete d for the patient 10/10/2023 10:04 AM EDT A Body Mass Index follow-up plan has been documented for the patient 09/09/2024 10:52 AM EDT documented as of this encounter Care Teams Complex Care Nurse Practitioner Relationship Specialty Start Date End Date Pcp, Effie [address] [place] [address] PCP - General Family Medicine 09/17/21 documented as of this encounter
--- NOTE | 2024-09-29 14:12 | ECG_ITS ---
APPROVED REPORT Exam: Resting ECG HR:66 bpm ECG Measurements Heart Rate 66 AXES UT 154 P 67 QRSd 91 QRS 86 QT 414 T 68 QTc 428 Conclusion SINUS RHYTHM WITH SINUS ARRHYTHMIA NORMAL ECG UNCONFIRMED REPORT Electronically signed by : Arnulfo Maldonado, 09/29/2024 15:48:21
[2024-09-29 14:13] VITALS: BP 133/71; PULSE 64; RESP 18; TEMP 36.8; O2SAT 99; BMI 40.7
--- OUTSIDE RECORDS SUMMARY | 2024-09-29 14:17 | XMS_ITS | Encounter Summary ---
Author Organization Healthcare Address [address] [place] [address] Care Team Providers Care In Home Nanny Name Role Phone Pcp, No Primary Care Provider Unavailabl e Encounter Details Date Type Department Care Team (Latest Contact Info) Description 08/21/2024 Travel Social History Tobacco Use Types Packs/Day Years Used Date Smoking Tobacco: Never Smokeless Tobacco: Never Alcohol Use Standard Drinks/Week Comments Never 0 (1 standard drink = 0.6 oz pur e alcohol) PHQ-2 Answer Date Recorded Patient Health Questionnaire-2 Score 4 05/13/2024 [place] Depression Scale Answer Date Recorded [place] Depression Scale Total 14 01/17/2022 The [...] were you homeless or living in a [facility] (including now)? No 08/19/2024 Utilities Answer Date Recorded In the past 12 months has th e [employer], gas, oil, or water [employer] threatened to shut off services in your [...] 6. Suicidal Behavior (Lifetime) No 9:38 AM HEIKET Justine Thornton RN documented as of this encounter Plan of Treatment Not on file documented as of this encounter Goals Goal Patient Goal Type Associated Problems Recent Progress Patient-Stated? Author Delayed Delivery Care Plan CPM S20 PP LABOR (OBSTETRICS) No Open Scheduling, Background documented as of this encounter Visit Diagnoses Not on filedocumented in this encounter Additional Health Concerns Active [...] documented as of this encounter Care Teams In Home Nanny Relationship Specialty Start Date End Date Pcp, No [address] [place] [address] PCP - General Family Medicine 09/17/21 documented as of this encounter
--- OUTSIDE RECORDS SUMMARY | 2024-09-29 14:17 | XMS_ITS | Encounter Summary ---
Author Organization Healthcare Address [address] [place] [address] Care Team Providers Care Screw Cutter Name Role Phone Pcp, No Primary Care Provider Unavailabl e Encounter Details Date Type Department Care Team (Latest Contact Info) Description 08/18/2024 Travel Social History Tobacco Use Types Packs/Day Years Used Date Smoking Tobacco: Never Smokeless Tobacco: Never Alcohol Use Standard Drinks/Week Comments Never 0 (1 standard drink = 0.6 oz pur e alcohol) PHQ-2 Answer Date Recorded Patient Health Questionnaire-2 Score 4 05/13/2024 [place] Depression Scale Answer Date Recorded [place] Depression Scale Total 14 01/17/2022 The thought [...] any time in the past 12 m [facility], were you homeless or living in a nursing home (including now)? No 08/19/2024 Utilities Answer Date Recorded In the past 12 months has th e [employer], gas, oil, or water [employer] threatened to shut off services in your [...] Date of Assessment Author No Risk Indicated 08/18/2024 11:55 AM EDT Makenzie Santillan RN * Question Answer Date of Assessment Author 1. Wish to be (Past 1 Month) No 08/18/2024 11:55 AM HEIKET Makenzie Santillan RN 2. Non-Specific Active Suici doris Thoughts (Past 1 Month) No 08/18/2024 11:55 AM EDT Tiera Santillan RN 6. Suicidal Behavior (Lifetime) No 11:55 AM HEIKET Makenzie Santillan RN documented as of this encounter Plan [...] documented as of this encounter Care Teams Screw Cutter Relationship Specialty Start Date End Date Pcp, Effie [address] [place] [address] PCP - General Family Medicine 09/17/21 documented as of this encounter
--- OUTSIDE RECORDS SUMMARY | 2024-09-29 14:17 | XMS_ITS | Encounter Summary ---
Author Organization Healthcare Address [address] [place] [address] Care Team Providers Care Lumber Press Operator Name Role Phone Pcp, No Primary Care Provider Unavailabl e Encounter Details Date Type Department Care Team (Late st Contact Info) Description 09/01/2024 Telephone [facility] [address], [address] [place] [address] Dahlia Gonzalez, RN CH-PAV A 7 T2 UNI Social History Tobacco Use Types Packs/Day Years Used Date Smoking Tobacco: Never Smokeless Tobacco: Never Alcohol Use Standard Drinks/Week Comments Never 0 (1 standard drink = 0.6 oz pur e alcohol) PHQ-2 Answer Date Recorded Patient Health Questionnaire-2 Score 4 05/13/2024 [place] Depression Scale Answer Date Recorded [place] Depression Scale Total 14 01/17/2022 The thought [...] any time in the past [address] [facility], were you homeless or living in a [...] on file documented as of this encounter Miscellaneous Notes * Telephone Encounter - Dahlia Gonzalez RN - 09/01/2024 12:16 PM EDT SGE Nurse Navigator Call Back Note Called patient re: recent discharge from hospital- 08/18/24-08/19/24 Dx- symptomatic cholelithiasis Procedure- 08/19 Yousif sood Surgical pathology exam results- A. GALLBLADDER, CHOLECYSTECTOMY: - CHRONIC CHOLECYSTITIS. Medications prescribed at discharge- acetaminophen 500 MG tablet methocarbamol 500 MG tablet naloxone 4 mg/0.1 mL nasal spray nitrofurantoin (macrocrystal-monohydrate) 100 MG capsule oxyCODONE 5 MG immediate release tablet senna-docusate 8.6-50 MG tablet Spoke with: Sri Amelie No answer. Message left with contact information. documented in this encounter Plan of Treatment [...] documented as of this encounter Care Teams Lumber Press Operator Relationship Specialty Start Date End Date Pcp, No [address] [place] [address] PCP - General Family Medicine 09/17/21 documented as of this encounter
--- OUTSIDE RECORDS SUMMARY | 2024-09-29 14:17 | XMS_ITS | Encounter Summary ---
Author Organization Healthcare Address [address] [place] [address] Care Team Providers Care Talent Acquisition Operations Manager Name Role Phone Pcp, No Primary Care Provider Unavailabl e Reason for Visit * Reason Onset Date Comments HCN - Patient Message 08/23/2024 Follow up after ED surgery Encounter Details Date Type Department Care Team (Late st Contact Info) Description 08/23/2024 Telephone [facility] General Surgery [address] [place] [address] Miguel Dodd MD [address] [place] [address] HCN - Patient Message (Follow up after ED surgery ) Social History Tobacco Use Types Packs/Day Years Used Date Smoking Tobacco: Never Smokeless Tobacco: Never Alcohol Use Standard Drinks/Week Comments Never 0 (1 standard drink = 0.6 oz pur e alcohol) PHQ-2 Answer Date Recorded Patient Health Questionnaire-2 Score 4 05/13/2024 [place] Depression Scale Answer Date Recorded [place] Depression Scale Total 14 01/17/2022 The thought [...] any time in the past 12 m [facility], were you homeless or living in a group home (including now)? No 08/19/2024 Utilities Answer Date Recorded In the past 12 months has e [employer], gas, oil, or water [employer] threatened to shut off services in your home? No 08/19/2024 PHQ-2A Answer Date Recorded Patient Health Questionnaire-2 Score 3 12/11/2022 Comments No Sex and Gender Information Value Date Recorded Sex Assigned at Not on file Legal Sex Female 10:13 AM EDT Gender Identity Not on file Sexual Orientation Not on file documented as of this encounter Miscellaneous Notes * Telephone Encounter - Farideh Barahona RN - 08/23/2024 10:26 AM EDT Returned call. Advised that she will be called 2 weeks postop, no follow up needed unless she is having complications. Pt denies any issues. She is returned to work today and needs work restrictions for light duty to avoid heavy lifting. Completed and copy sent via email per request. * Telephone Encounter - Amelie Treviño - 08/23/2024 9:57 AM EDT Patient Phone Message Reason for Call: Pt requesting a return call to discuss scheduling a follow up after recent ED surgery. Pt also requesting a work excuse [email or web address] Best contact number and optimal time of day to reach caller: [phone] Note: Please do not reply to this message. Follow-up communication and further actions as a result of this message need to be communicated with the patient directly, if the patient is not active onMyChart. If the patient is active on MyChart, they will receive notification of the communication/outcome via [facility]. documented in this encounter Plan of Treatment [...] documented as of this encounter Care Teams Talent Acquisition Operations Manager Relationship Specialty Start Date End Date Pcp, [place] [address] PCP - General Family Medicine 09/17/21 documented as of this encounter
--- OUTSIDE RECORDS SUMMARY | 2024-09-29 14:17 | XMS_ITS | Clinical Summary ---
Author Organization [facility] Address [address] [place] [address] Care Team Providers Care Manager Of Tax Name Role Phone Provider, No Known Primary Care Provider Unavail able Allergies Active Allergy Reactions Criticality Noted Date Comments Amoxicillin Rash Low 09/17/2021 Cephalexin Rash Low 08/27/2022 Ketorolac Anaphylaxis High 12/24/2023 Medications VIT-FE FUMARATE-FA PO Take by mouth. Active acetaminophen (TYLENOL) 650 MG 8 hr tablet Take 1 tablet by mouth Every 6 (Six) Hours As Needed. 10/06/2023 Active albuterol sulfate HFA 108 (90 Base) MCG/ACT inhaler Inhale 2 puffs Every 6 (Six) Hours As Needed. Active ARIPiprazole (ABILIFY) 10 MG tablet Take 1 tablet by mouth Daily. 11/22/2023 Active Desvenlafaxine Succinate ER 25 MG tablet sustained-relea se 24 hour Take 2 tablets by mouth Daily. 11/22/2023 Active levocetirizine (XYZAL) 5 MG tablet Take 1 tablet by mouth Every Evening. 12/09/2023 Active omeprazole (priLOSEC) 20 MG capsule Take 1 capsule by mouth Daily. 12/23/2023 Active SUMAtriptan (IMITREX) 50 MG tablet Take 1 tablet by mouth. 12/23/2023 Active aspirin 81 MG EC tablet Take 1 tablet by mouth Daily. Active magnesium gluconate (MAGONATE) 500 MG tablet Take 0.5 tablets by mouth Daily. Active Active Problems Problem Noted Date Diagnosed Date Suspected placental problem not found 12/24/2023 History of delivery 12/24/2023 Obesity affecting , antepartum 12/24/19 24 Social History Tobacco Use Types Packs/Day Years Used Date Smoking Tobacco: Never Smokeless Tobacco: Never Tobacco Cessation:Counseling Given: Not Answered Alcohol Use Standard Drinks/Week Comments Not Currently 0 (1 standard drink = 0.6 oz pur e alcohol) Comments No Sex and Gender Information Value Date Recorded Sex Assigned at Not on file Legal Sex Female 8:44 AM EST Gender Identity Not on file Sexual Orientation Not on file Last Filed Vital Signs Vital Sign Reading Time Taken Comments Blood Pressure 124/59 12/24/2023 9:01 AM EST Pulse - - Temperature - - Respiratory Rate - - Oxygen Saturation - - Inhaled Oxygen Concentration - - Weight 112 kg (246 lb) 12/24/2023 9:01 AM EST Height 160 cm (5' 3 ) 12/24/2023 9:03 AM EST Body Mass Index 43.58 12/24/2023 9:01 AM EST Plan of Treatment Health Maintenance Due Date Last Done Comments Annual Gynecologic Pelvic and Breast Exam 1999 HPV VACCINES (1 - 3-dose series) 07/18/2014 Pneumococcal Vaccine 0-49 (1 of 2 - PCV) 07/18/2018 PAP SMEAR 07/18/2020 COVID-19 Vaccine ( - 2023- season) 2023 ANNUAL PHYSICAL 12/22/2023 HEPATITIS C SCREENING 12/22/2023 INFLUENZA VACCINE 11/17/2024 TDAP/TD VACCINES (2 - Td or Tdap) 11/02/2031 022 CHLAMYDIA SCREENING Discontinued 09/26/2023 Insurance Care Teams Manager Of Tax Relationship Specialty Start Date End Date Provider, [place] [address] PCP - General 12/22/23
--- OUTSIDE RECORDS SUMMARY | 2024-09-29 14:18 | XMS_ITS | Encounter Summary ---
Author Organization Healthcare Address [address] [place] [address] Care Team Providers Care Pet Care Technician Name Role Phone Pcp, No Primary Care Provider Unavailabl e Encounter Details Date Type Department Care Team (Latest Contact Info) Description 09/09/2024 Travel Social History Tobacco Use Types Packs/Day Years Used Date Smoking Tobacco: Never Smokeless Tobacco: Never Alcohol Use Standard Drinks/Week Comments Never 0 (1 standard drink = 0.6 oz pur e alcohol) PHQ-2 Answer Date Recorded Patient Health Questionnaire-2 Score 4 05/13/2024 [place] Depression Scale Answer Date Recorded [place] Depression Scale Total 14 01/17/2022 The thought [...] time in the past 12 m [facility], were you homeless or living in a intermediate (including now)? No 08/19/2024 Utilities Answer Date Recorded In the past 12 months has th e [email or web address], gas, oil, or water company threatened to shut off services in your home? No 08/19/2024 PHQ-2A Answer Date Recorded Patient Health Questionnaire-2 Score 3 12/11/2022 Comments No Sex and Gender Information Value Date Recorded Sex Assigned at Not on file Legal Sex Female 10:13 AM EDT Gender Identity Not on file Sexual Orientation Not on file documented as of this encounter Plan of [...] documented as of this encounter Care Teams Pet Care Technician Relationship Specialty Start Date End Date Pcp, No [address] [place] [address] PCP - General Family Medicine 09/17/21 documented as of this encounter
--- OUTSIDE RECORDS SUMMARY | 2024-09-29 14:18 | XMS_ITS | Clinical Summary ---
Author Organization Healthcare Address [address] [place] [address] Care Team Providers Care Training Representative Name Role Phone Pcp, No Primary Care Provider Unavailabl e Allergies Active Allergy Reactions Criticality Noted Date Comments Amoxicillin Rash Low 09/17/2021 Amoxicillin-Pot Clavulanate Rash Low 09/18/19 22 Cephalexin Rash Low 08/27/2022 Shrimp Extract Unknown - Patient st ates they do not know rxn details Low 08/27/2022 Ketorolac Tromethamine Dizziness Low 08/21/2024 Medications ARIPiprazole (Abilify) 5 MG tablet Take 1 [...] morning and 1 tablet before bedtime. Active methocarbamol (Robaxin) 500 MG tablet Take 1 tablet by mouth 4 times a day for 10 days. 40 tablet Active Additional Information Patient not taking.Reported on 09/09/2024 naloxone (Narcan) 4 mg/0.1 mL nasal spray 1. Give 1 spray in nostril for no/slow breathing or cannot wake after opioid use 2. Call 911 3. Repeat in other nostril if symptoms continue 1 each Active Additional Information Patient not taking.Reported on 09/09/2024 Albuterol-Budes onide (Airsupra) 90-80 MCG/ACT aerosol Inhale 2 puffs 4 times a day. Active metFORMIN, OSM, (Fortamet) 500 MG 24 hr tablet Take 2 tablets by mouth 1 time each day with dinner. Do not crush, chew, or split. Active galcanezumab-gn lm (Emgality) 120 MG/ML injection Inject 1 Syringe under the skin every 30 days. Next injection is due on 08/25/2024. Active Active Problems Problem Noted Date Diagnosed Date Sleep-disordered breathing 09/09/2024 Calculus of gallbladder with out cholecystitis without obstruction 08/18/2024 Assessment & Plan (08/18/2024 4:24 PM EDT): Proceed with ulises sheikh given two ED visits and pain since Friday Consent in chart IVF NPO at midnight Nausea and vomiting 08/18/2024 Assessment & Plan (08/18/2024 4:24 PM EDT): IV antiemetics Right upper quadrant pain 08/18/2024 Assessment & Plan (08/18/2024 4:24 PM EDT): See cholelithiasis Symptomatic cholelithiasis 08/18/2024 Acute cystitis without hematuria 08/18/2024 Assessment & Plan (08/18/2024 6:21 PM EDT): Continue Macrobid 08/17-08/22 9 weeks gestation of 10/10/2023 History of [...] Encounters Date Type Department Care Team Description 09/09/2024 9:00 AM EDT Consult [facility] Otolaryngology [address] [place] [address] Grayson Grewal MD Sleep-disordered breathing (Primary Dx); Class 3 severe obesity with body mass index (BMI) of 40.0 to 44.9 in adult, unspecified obesity type, unspecified whether serious comorbidity present; 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; Snoring 09/09/2024 Travel 09/01/2024 Telephone [facility] General Surgery [address] [facility], [address]st [place] [address] Dahlia Gonzalez RN 08/23/2024 Telephone [place] [id number] [facility], [address] [place] [address] Miguel Dodd MD HCN - Patient Message (Follow up after ED surgery ) 08/21/2024 7:29 AM EDT - 08/21/2024 5:06 PM EDT Emergency [facility] [address] [place] [address] Wilbert Jerez MD Vincent, Evan L, MD Chest pain, unspecified type (Primary Dx) Discharge Disposition: Home or Self Care 08/21/2024 Travel 08/19/2024 2:58 PM EDT Anesthesia Event [facility] [address] [place] [address] Jamie Lutz DO Maze, Whitley A, CRNA 08/19/2024 12:15 PM EDT - 08/19/2024 3:00 PM EDT Surgery [facility] [address] [place] [phone] Miguel Dodd MD CHOLECYSTECTOMY, LAPAROSCOPIC [[id number] (CPT )] 08/19/2024 Travel 08/18/2024 11:08 AM EDT - 08/19/2024 7:50 PM EDT Hospital Encounter [facility] [address] [place] [phone] Austen Arceo MD Bernard, Andrew C, MD Calculus of gallbladder without cholecystitis without obstruction (Primary Dx); Nausea and vomiting, unspecified vomiting type; Right upper quadrant pain; Acute cystitis without hematuria Discharge Disposition: Home or Self Care 08/18/2024 Travel from Last 3 Months Immunizations Immunization [...] Recorded Patient Health Questionnaire-2 Score 4 05/13/2024 [place] Depression Scale Answer Date Recorded [place] Depression Scale Total 14 01/17/2022 The thought [...] money to buy more. Never true 08/20/19 Within the past 12 months, t he [...] any time in the past 12 m [facility], were you homeless or living in a correction (including now)? No 08/19/2024 Utilities Answer Date [...] EDT Inhaled Oxygen Concentration - - Weight 110 kg (242 lb 4.6 oz) 09/09/2024 9:11 AM EDT Height 162.6 cm (5' 4 ) 09/09/2024 9:11 AM EDT Body Mass Index 41.59 09/09/2024 9:11 AM EDT Plan of Treatment Health Maintenance Due Date Last Done Comments Dental Oral Exam 1999 Dental Prophylaxis 1999 Dental X-Ray: Bitewings 1999 Dental X-Ray: Full Mouth 1999 [facility]-Hepatitis C Screening 1999 [facility]-Infant/Child/Adol SDOH Screenings 1999 HPV Vaccines (1 - 3-dose series) 07/18/2014 [facility]-Pneumococcal Vaccine: Pediatrics (0 to 5 Years) and At-Risk Patients (6 to 49 Years) (1 of 2 - PCV) 07/18/2018 [facility]-Pap Smear 07/18/2020 [id number] Vaccine ( - season) 2023 01/31/2021, 12/19/2020 [facility]-Influenza Vaccine (#1) 10/18/202411/20, 04/03/2021, 03/20/2021, Additional history exists [facility]- SDOH Screenings 02/19/2025 [facility]-Adult SDOH Screenings 02/19/2025 08/19/2024 [facility]-Depression Screening 05/13/2025 025, 05/13/2024, 01/17/2022 [facility]-DTaP,Tdap,and Td Vaccines (7 - Td or Tdap) 11/02/2031 11/01/2021, 10/20/2003, 09/29/2001, Additional history exists [facility]-Zoster Vaccines (1 of 2) 07/18/2049 03/26/2006, 07/25/2000 [facility]-Hepatitis B Vaccines Completed 001, 1999, 1999 [facility]-HIB Vaccines Completed 04/08/2002, , 08/26/2001, Additional history exists [facility]-IPV Vaccines Completed 10/20/2003, 09/2000, 02/27/2000, Additional history exists [facility]-Varicella Vaccines Completed 03/26/2006, 2000 [facility]-HIV Screening Completed 05/13/2024 [facility]-Obesity Intervention Completed 025, 09/09/2024, 10/17/2023, Additional history exists [facility]-Hepatitis A Vaccines Aged Out No longer [...] PLASMA Timed 08/21/2024 11:[address] ABDOMEN PELVIS W IV CONTRAST STAT 08/21/2024 10:[address] ANGIO PULMONARY EMBOLISM STAT 08/21/2024 10:50 AM EDT N-TERMINAL PROBNP, PLASMA STAT 08/21/2024 9:28 AM EDT TEST QUALITATIVE PLASMA STAT 08/21/2024 9:28 AM EDT TROPONIN T, HIGH SENSITIVITY, 0 HOUR, PLASMA, REFLEX TO 2 HOUR STAT 08/21/2024 9:28 AM EDT COMPREHENSIVE METABOLIC PANEL, PLASMA STAT 08/21/2024 9:28 AM EDT CBC WITH AUTO DIFFERENTIAL STAT 08/21/2024 9:27 AM EDT ECG ADULT STAT 08/21/2024 7:23 AM EDT SURGICAL PATHOLOGY EXAM Routine 08/20/19 4:11 PM EDT Calculus of gallbladder without cholecystitis without obstruction Nausea and vomiting, unspecified vomiting type Right upper quadrant pain PB ANESTHESIA PLACEHOLDER Routine 08/19/2024 3:09 PM EDT WI AN ELECTIVE ENDOTRACHEAL AIRWAY Routine 08/19/2024 3:09 PM EDT WI LAP,CHOLECYSTECTOMY 2:43 PM EDT Calculus of gallbladder without cholecystitis without obstruction Nausea and vomiting, unspecified vomiting type Right upper quadrant pain EXTRA TUBE LAVENDER TOP Routine 08/20/19 25 3:32 AM EDT EXTRA TUBE LIGHT GREEN TOP Routine 08/19/2024 3:32 AM EDT EXTRA TUBES Routine 08/19/2024 3:32 AM EDT URINALYSIS MICROSCOPIC FOR UA REFLEX STAT 08/18/2024 2:44 PM EDT URINALYSIS WITH REFLEX MICROSCOPIC STAT 08/18/2024 2:44 PM EDT US ABDOMEN FOCUSED REGION STAT 08/18/2024 12:59 PM EDT TEST QUALITATIVE PLASMA STAT 08/18/2024 11:07 AM EDT LACTATE, VENOUS STAT 08/18/2024 11:07 AM EDT CBC WITH AUTO DIFFERENTIAL STAT 08/18/2024 11:07 AM EDT LIPASE, PLASMA STAT 08/18/2024 11:07 AM EDT COMPREHENSIVE METABOLIC PANEL, PLASMA STAT 08/18/2024 11:07 AM EDT HIV 1/2 ANTIBODY/ANTIGEN SCREEN WITH REFLEX TO HIV I/II DIFFERENTIATION STAT 05/13/2024 3:51 PM EDT from Last 3 Months or Most Recently Relevant to Health Maintenance Results * Troponin T, High Sensitivity, 2 Hour, Plasma (08/21/2024 11:43 AM EDT) Troponin T, High Sensitivity, 2 Hour <6 <14 ng/L 08/21/2024 12:04 PM EDT [facility] Troponin Delta Interpretation Not Calculated 08/21/2024 12:04 PM EDT [facility] Comment:Specimen not collect ed within acceptable timeframe. Delta will not be calculated. Blood Venous blood specimen / Unknown 08/21/2024 11:43 AM EDT 08/21/2024 11:45 AM EDT us Wilbert Jerez MD LAB BLOOD ORDERABLES Final Result [facility] [address] [place] [address] * CT Angio Pulmonary Embolism (08/21/2024 10:50 [...] Total DLP (Dose-Length Product): 2353.17 mGy.cm (accession [id number]), 2353.17 mGy.cm (accession [id number]). Please note: The reported value represents the [...] Total DLP (Dose-Length Product): 2353.17 mGy.cm (accession [id number]),2353.17 mGy.cm (accession [id number]). Please note: The reported valuerepresents the total [...] Hatch MD on 08/21/2024 11:30 AM us Wilbert Jerez MD IMG CT PROCEDURES Final Re sult * CT Abdomen Pelvis w IV Contrast [...] Total DLP (Dose-Length Product): 2353.17 mGy.cm (accession [id number]), 2353.17 mGy.cm (accession [id number]). Please note: The reported value represents the [...] Total DLP (Dose-Length Product): 2353.17 mGy.cm (accession [id number]),2353.17 mGy.cm (accession [id number]). Please note: The reported valuerepresents the total [...] Tania Hatch MD on 08/21/2024 11:30 AM Wilbert Jerez MD IMG CT PROCEDURES Final Re sult * Troponin now and 120 min (08/21/2024 9:28 AM EDT) Troponin T, High Sensitivity, 0 Hour <6 <14 ng/L 08/21/2024 10:05 AM EDT [facility] Blood Venous blood specimen / Unknown Venipuncture / Unknown 08/21/2024 9:28 AM EDT 08/21/2024 9:32 AM EDT Wilbert Jerez MD LAB BLOOD ORDERABLES Final Result [facility] [address] [place] [address] * BNP (08/21/2024 9:28 AM EDT) N-Terminal, PROBNP, Plasma 132 0 - 449 pg/mL 08/21/2024 10:05 AM EDT [facility] Blood Venous blood specimen / Unknown Venipuncture / Unknown 08/21/2024 9:28 AM EDT 08/21/2024 9:32 AM EDT Wilbert Jerez MD LAB BLOOD ORDERABLES Final Result Performing Organization Address City/[facility]/ZIP Co de Phone Number [facility] [address] [place] [address] * hCG qualitative (08/21/2024 9:28 AM EDT) Only the most recent of2 resultswithin the time period is included. Test Negative Negative 08/21/2024 10:05 AM EDT [facility] Blood Venous blood specimen / Unknown Venipuncture / Unknown 08/21/2024 9:28 AM EDT 08/21/2024 9:32 AM EDT Narrative [facility] - 08/21/2024 10:05 AM EDT Reference Range: Males and non- females: Negative. Wilbert Jerez MD LAB BLOOD ORDERABLES Final Result Performing Organization Address City/[facility]/ZIP Co de Phone Number [facility] [address] [place] [address] * (ABNORMAL) CMP (08/21/2024 9:28 AM EDT) Only the most recent of2 resultswithin the time period is included. Glucose, Plasma 89 74 - 99 mg/dL 08/21/2024 10:05 AM EDT [facility] BUN, Plasma 10 7 - 21 mg/dL 08/21/2024 10:05 AM EDT [facility] Creatinine, Plasma 0.88 0.60 - 1.10 mg/dL 08/21/2024 10:05 AM EDT [facility] BUN/Creatinine Ratio 11 08/21/2024 10:05 AM EDT [facility] Sodium, Plasma 138 136 - 145 mmol/L 08/21/2024 10:05 AM EDT [facility] Potassium, Plasma 4.3 3.6 - 4.9 mmol/L 08/21/2024 10:05 AM EDT [facility] Comment:Hemolyzed, result ma y be falsely increased. Chloride, Plasma 103 97 - 107 mmol/L 08/21/2024 10:05 AM EDT [facility] CO2, Plasma 23 22 - 29 mmol/L 08/21/2024 10:05 AM EDT [facility] Anion Gap 12 6 - 16 mmol/L 08/21/2024 10:05 AM T [facility] Total Calcium, Plasma 8.7(L) 8.9 - 10.2 mg/dL 08/21/2024 10:05 AM T [facility] Total Protein 6.6 6.3 - 7.9 g/dL 08/21/2024 10:05 AM T [facility] Albumin, Plasma 4.2 3.5 - 5.2 g/dL 08/21/2024 10:05 AM T [facility] AST, Plasma 36(H) 10 - 35 U/L 08/21/2024 10:05 AM T [facility] Comment:Hemolyzed, result ma y be falsely increased. ALT, Plasma 49(H) 10 - 35 U/L 08/21/2024 10:05 AM T [facility] Alkaline Phosphatase, Plasma 71 35 - 104 U/L 08/21/2024 10:05 AM T [facility] Total Bilirubin, Plasma 0.4 0.2 - 1.1 mg/dL 08/21/2024 10:05 AM T [facility] eGFRcr 93.7 mL/min/1.7 3m*2 08/21/2024 10:05 AM T [facility] Comment:Reported eGFRcr in m L/min/1.73m2 is based the CKD-EPI 2020 equation that does not use a race coefficient. Blood Venous blood specimen / Unknown Venipuncture / Unknown 08/21/2024 9:28 AM EDT 08/21/2024 9:32 AM EDT us Wilbert Jerez MD LAB BLOOD ORDERABLES Final Result [facility] [address] [place] [address] * (ABNORMAL) CBC w/diff (08/21/2024 9:27 AM EDT) Only the most recent of2 resultswithin the time period is included. WBC Count 9.11 3.70 - 10.30 10*3/uL LAB HEMATOLOGY METHOD 08/21/2024 9:34 AM EDT [facility] RBC Count 4.52 3.90 - 5.20 10*6/uL LAB HEMATOLOGY METHOD 08/21/2024 9:34 AM EDT [facility] HGB 12.2 11.2 - 15.7 g/dL LAB HEMATOLOGY METHOD 08/21/2024 9:34 AM EDT [facility] HCT 37.6 34.0 - 45.0 % LAB HEMATOLOGY METHOD 08/21/2024 9:34 AM EDT [facility] Platelet Count 277 155 - 369 10*3/uL LAB HEMATOLOGY METHOD 08/21/2024 9:34 AM EDT [facility] MCV 83 79 - 98 fL LAB HEMATOLOGY METHOD 08/21/2024 9:34 AM EDT [facility] MCH 27.0 26.0 - 32.0 pg LAB HEMATOLOGY METHOD 08/21/2024 9:34 AM EDT [facility] MCHC 32.4 30.7 - 35.5 g/dL LAB HEMATOLOGY METHOD 08/21/2024 9:34 AM EDT [facility] RDW 15.5(H) 11.5 - 14.5 % LAB HEMATOLOGY METHOD 08/21/2024 9:34 AM EDT [facility] MPV 8.9 8.8 - 12.5 fL LAB HEMATOLOGY METHOD 08/21/2024 9:34 AM EDT [facility] nRBC 0.0 <=0.0 per 100 WBCs LAB HEMATOLOGY METHOD 08/21/2024 9:34 AM EDT [facility] Differential Type Automated LAB HEMATOLOGY METHOD 08/21/2024 9:34 AM EDT [facility] Neutrophils % 50 % LAB HEMATOLOGY METHOD 08/21/2024 9:34 AM EDT [facility] Lymphocytes % 33 % LAB HEMATOLOGY METHOD 08/21/2024 9:34 AM EDT [facility] Monocytes % 6 % LAB HEMATOLOGY METHOD 08/21/2024 9:34 AM EDT [facility] Eosinophils % 10 % LAB HEMATOLOGY METHOD 08/21/2024 9:34 AM EDT [facility] Basophils % 1 % LAB HEMATOLOGY METHOD 08/21/2024 9:34 AM EDT [facility] Immature Granulocytes % 0 % LAB HEMATOLOGY METHOD 08/21/2024 9:34 AM EDT [facility] Neutrophils Absolute 4.53 1.60 - 6.10 10*3/uL LAB HEMATOLOGY METHOD 08/21/2024 9:34 AM EDT [facility] Lymphocytes Absolute 3.03 1.20 - 3.90 10*3/uL LAB HEMATOLOGY METHOD 08/21/2024 9:34 AM EDT [facility] Monocytes Absolute 0.58 0.30 - 0.90 10*3/uL LAB HEMATOLOGY METHOD 08/21/2024 9:34 AM EDT [facility] Eosinophils Absolute 0.90(H) 0.00 - 0.50 10*3/uL LAB HEMATOLOGY METHOD 08/21/2024 9:34 AM EDT [facility] Basophils Absolute 0.06 0.00 - 0.10 10*3/uL LAB HEMATOLOGY METHOD 08/21/2024 9:34 AM EDT [facility] Immature Granulocytes Absolute 0.01 0.00 - 0.06 10*3/uL LAB HEMATOLOGY METHOD 08/21/2024 9:34 AM EDT [facility] Blood Venous blood specimen / Unknown Venipuncture / Unknown 08/21/2024 9:27 AM EDT 08/21/2024 9:32 AM EDT [facility] - 08/21/2024 9:34 AM EDT Therapeutic decision making should be based on absolute values, rather than percentages. us Wilbert Jerez MD LAB BLOOD ORDERABLES Final Result [facility] [address] [place] [address] * ECG Adult (08/21/2024 7:23 AM EDT) EKG DIAGNOSIS CLASS Borderline Normal MUSE ECG Ventricular Rate 50 BPM MUSE ECG Atrial Rate 50 BPM MUSE ECG WI Interval 152 ms MUSE ECG QRSD Interval 86 ms MUSE ECG QT Interval 446 ms MUSE ECG QTC Interval 406 ms MUSE ECG P [place] 46 degrees MUSE ECG R [place] 68 degrees MUSE ECG T Wave [place] 46 degrees MUSE ECG Diagnosis Sinus bradycardia with sinus arrhythmia MUSE ECG Diagnosis Otherwise normal ECG MUSE ECG Diagnosis Confirmed by Jimmie Jasmine ([id number]) on 08/21/2024 11:33:25 AM MUSE ECG 08/21/2024 7:23 AM EDT 08/21/2024 11:33 AM EDT us Wilbert Jerez MD ECG ORDERABLES Final Resu lt Performing Organization Address [facility] Co de Phone Number MUSE ECG * Surgical Pathology Exam (08/19/2024 4:11 PM EDT) Case Report Surgical Pathology Case: [id number] Authorizing Provider: Miguel Dodd MD Collected: 08/19/2024 1611 Ordering Location: [facility] OPERATING ROOM Received: 08/19/2024 1649 Pathologist: Selena Quiles MD Specimen: Gallbladder, gallbladder 08/24/2024 2:11 PM EDT [facility] Final Diagnosis A. GALLBLADDER, CHOLECYSTECTOMY: - CHRONIC CHOLECYSTITIS. 08/24/2024 2:11 PM EDT [facility] at 1411 EDT Clinical Information Calculus of gallbladder without cholecystitis without obstruction [K80.20] Nausea and vomiting, unspecified vomiting type [R11.2] Right upper quadrant pain [R10.11] 08/24/2024 2:11 PM EDT [facility] Gross Description A. GALLBLADDER Received in formalin labeled gallbladder , is an intact gallbladder measuring 6.1 x 3.3 x 1.2 cm. The serosa is pink-yellow, smooth, and glistening. The cystic duct is patent. Wall thickness averages 0.3 cm. The mucosa is pink-yellow and velvety with a red-yellow translucent fluid. No stones are grossly identified. No masses or polyps are grossly identified. Mold Engraver sections are submitted in cassette A1. Cold Time: 38m Anaid Hood 08/24/2024 2:11 PM EDT [facility] Note: A resident was involved in the service. I attest I examined the relevant preparations for the specimens and confirmed the diagnosis or interpretation. 08/24/2024 2:11 PM EDT [facility] Tissue Gallbladder structure / Unknown 08/19/2024 4:11 PM EDT 08/19/2024 4:49 PM EDT Comment:Pre-op diagnosis: Calculus of gallbladder without cholecystitis without obstruction [K80.20] Nausea and vomiting, unspecified vomiting type [R11.2] Right upper quadrant pain [R10.11] us Miguel Dodd MD LAB PATHOLOGY ORDERABLES Fin al Result [facility] [address] [place] [address] * WI AN ELECTIVE ENDOTRACHEAL AIRWAY, PB ANESTHESIA PLACEHOLDER (08/19/2024 3:09 PM EDT) Narrative Whitney Kohler CRNA, DNP - 08/19/2024 3:09 PM EDT Whitney Kohler CRNA, DNP 08/19/2024 3:22 PM Airway Date/Time: 08/19/2024 3:09 PM Reason: elective Airway not difficult General Information and Staff Patient location during procedure: OR MACHINE TAILER: Whitney Kohler CRNA, DNP Performed: RUBIN Patient [...] Jamie Lutz DO ANESTHESIA ORDERABLES Final Result * Lavender Top (08/19/2024 3:32 AM EDT) Extra Hold for add-ons 08/19/2024 3:57 AM EDT [facility] Comment:Auto resulted. Blood Venous blood specimen / Unknown 08/19/2024 3:32 AM EDT 08/19/2024 3:47 AM EDT us Miguel Dodd MD LAB BLOOD ORDERABLES Final R esult Performing Organization Address [facility] Co de Phone Number [facility] [address] [place] [address] * Light Green Top (08/19/2024 3:32 AM EDT) Extra Hold for add-ons 08/19/2024 3:57 AM EDT [facility] Comment:Auto resulted. Blood Venous blood specimen / Unknown 08/19/2024 3:32 AM EDT 08/19/2024 3:47 AM EDT us Miguel Dodd MD LAB BLOOD ORDERABLES Final R esult Performing Organization Address [facility] Co de Phone Number [facility] [address] [place] [address] * Urinalysis Microscopic Examination (08/18/2024 2:44 PM EDT) Urine Urine specimen obtained by clean catch procedure / Unknown Non-blood Collection / Unknown 08/18/2024 2:44 PM EDT 08/18/2024 2:47 PM EDT us Marlene ARMENTA LAB URINE ORDERABLES Final Re sult Performing Organization Address [facility] Co de Phone Number [facility] [address] [place] [address] * (ABNORMAL) Urinalysis with reflex microscopic (Culture NOT Included) (08/18/2024 2:44 PM EDT) Color, Urine Dark Yellow LAB URINALYSIS - AUTOMATED METHOD 08/18/2024 3:57 PM EDT [facility] Clarity, Urine Clear LAB URINALYSIS - AUTOMATED METHOD 08/18/2024 3:57 PM EDT [facility] Spec [place], Urine 1.014 1.005 - 1.030 LAB URINALYSIS - AUTOMATED METHOD 08/18/2024 3:57 PM EDT [facility] pH, Urine 6.0 5.0 - 8.0 LAB URINALYSIS - AUTOMATED METHOD 08/18/2024 3:57 PM EDT [facility] Protein, Urine Negative Negative mg/dL LAB URINALYSIS - AUTOMATED METHOD 08/18/2024 3:57 PM EDT [facility] Glucose, Urine Negative Negative mg/dL LAB URINALYSIS - AUTOMATED METHOD 08/18/2024 3:57 PM EDT [facility] Ketones, Urine Negative Negative mg/dL LAB URINALYSIS - AUTOMATED METHOD 08/18/2024 3:57 PM EDT [facility] Blood, Urine Negative Negative LAB URINALYSIS - AUTOMATED METHOD 08/18/2024 3:57 PM EDT [facility] Bilirubin, Urine Negative Negative LAB URINALYSIS - AUTOMATED METHOD 08/18/2024 3:57 PM EDT [facility] Urobilinogen, Urine 1.0 0.2 to 1.0 mg/dL LAB URINALYSIS - AUTOMATED METHOD 08/18/2024 3:57 PM EDT [facility] Leukocytes, Urine Trace(A) Negative LAB URINALYSIS - AUTOMATED METHOD 08/18/2024 3:57 PM EDT [facility] Nitrite, Urine Positive(A) Negative LAB URINALYSIS - AUTOMATED METHOD 08/18/2024 3:57 PM EDT [facility] RBC, Urine 1 0 to 3 /HPF LAB URINALYSIS - AUTOMATED METHOD 08/18/2024 3:57 PM EDT [facility] Comment:This result was prev iously suppressed from the chart. WBC, Urine 0 - 5 0 to 5 /HPF LAB URINALYSIS - AUTOMATED METHOD 08/18/2024 3:57 PM EDT [facility] Comment:This result was prev iously suppressed from the chart. Squamous Epithelial Cells 3 - 5 0 to 5 /HPF LAB URINALYSIS - AUTOMATED METHOD 08/18/2024 3:57 PM EDT [facility] Comment:This result was prev iously suppressed from the chart. Hyaline Casts 0 - 2 0 to 5 /LPF LAB URINALYSIS - AUTOMATED METHOD 08/18/2024 3:57 PM EDT [facility] Comment:This result was prev iously suppressed from the chart. Bacteria, Urine Present Negative LAB URINALYSIS - AUTOMATED METHOD 08/18/2024 3:57 PM EDT [facility] Comment:This result was prev iously suppressed from the chart. Urine Urine specimen obtained by clean catch procedure / Unknown Non-blood Collection / Unknown 08/18/2024 2:44 PM EDT 08/18/2024 2:47 PM EDT Narrative [facility] - 08/18/2024 3:57 PM EDT Performed by manual method us Marlene ARMENTA LAB URINE ORDERABLES Final Re sult [facility] [address] [place] [address] * US Abdomen Focused Region GB (RUQ [...] Israel Faust MD on 08/18/2024 1:16 PM Austen Arceo MD IMG US PROCEDURES Fin al Result * Lactate, venous (08/18/2024 11:07 AM EDT) Lactate, Venous, Whole Blood 1.9 0.5 - 2.2 mmol/L LAB HEMATOLOGY METHOD 08/18/2024 11:18 AM EDT [facility] Blood Venous blood specimen / Unknown Venipuncture / Unknown 08/18/2024 11:07 AM EDT 08/18/2024 11:16 AM EDT Austen Arceo MD LAB BLOOD ORDERABLES Final Result [facility] [address] [place] [address] * Lipase (08/18/2024 11:07 AM EDT) Lipase, Plasma 34 19 - 63 U/L 08/18/2024 11:37 AM EDT [facility]. [facility] Blood Venous blood specimen / Unknown Venipuncture / Unknown 08/18/2024 11:07 AM EDT 08/18/2024 11:13 AM EDT us Austen Arceo MD LAB BLOOD ORDERABLES Final Result Performing Organization Address City/[facility] Co de Phone Number [facility] [address] [place] [address] * HIV 1 & 2 Antibody/Antigen Screen (05/13/2024 3:51 PM EDT) HIV 1 & 2 Antibody/Antigen Screen Non Reactive Non Reactive 05/13/2024 6:36 PM EDT [facility] Comment:Screening for HIV 1 & 2 antibodies, and P24 antigen is NONREACTIVE. No confirmatory testing is required. Blood Venous blood specimen / Unknown Venipuncture / Unknown 05/13/2024 3:51 PM EDT 05/13/2024 3:52 PM EDT us Capo ARMENTA LAB BLOOD ORDERABLES Final Result Performing Organization Address City/[facility]/ZIP Co de Phone Number [facility] [address] [place] [address] from Last 3 Months or Most Recently Relevant to Health Maintenance Additional Health Concerns Active Problems Noted Date Diagnosed Date CPM S20 PP LABOR (OBSTETRICS) 09/17/[address] [facility] MEDICAID Advance Directives * Full Code (Latest Code Status on File) Date Activated Date Inactivated Comments 08/18/2024 6:18 PM 08/19/2024 10:18 PM Question Answer Comments I have reviewed the capacity from the link above and, if needed, have updated to appropriate status: Yes Care Teams Training Representative Relationship Specialty Start Date End Date Pcp, No [address] [place] [address] PCP - General Family Medicine 09/17/21
--- OUTSIDE RECORDS SUMMARY | 2024-09-29 14:18 | XMS_ITS | Encounter Summary ---
Author Organization Healthcare Address [address] [place] [address] Care Team Providers Care Attic Blower Name Role Phone Pcp, No Primary Care Provider Unavailabl e Encounter Details Date Type Department Care Team (Latest Contact Info) Description 08/19/2024 Travel Social History Tobacco Use Types Packs/Day Years Used Date Smoking Tobacco: Never Smokeless Tobacco: Never Alcohol Use Standard Drinks/Week Comments Never 0 (1 standard drink = 0.6 oz pur e alcohol) PHQ-2 Answer Date Recorded Patient Health Questionnaire-2 Score 4 05/13/2024 Portis Depression Scale Answer Date Recorded Portis Depression Scale Total 14 01/17/2022 The thought [...] any time in the past 12 m [facility], were you homeless or living in a senior living (including now)? No 08/19/2024 Utilities Answer Date Recorded In the past 12 months has th e [employer], gas, oil, or water [employer] threatened to shut off services in your [...] (Lifetime) No 08/19/2024 2:40 PM EDT Lonnie Najera RN documented as of this encounter Plan [...] documented as of this encounter Care Teams Attic Blower Relationship Specialty Start Date End Date Pcp, No [address] [place] [address] PCP - General Family Medicine 09/17/21 documented as of this encounter
--- NOTE | 2024-09-29 14:21 | HMH.EDGENADL ---
Discharge Plan Disposition Patient Disposition: Home, Self-Care Prescriptions Prescriptions: No Action Emgality Pen 120 mg/mL pen injector 120 mg SQ QMONTH Qty: 1 2RF metformin 500 mg tablet extended release 24hr 1,000 mg PO DAILY 30 Days Qty: 60 2RF epinephrine 0.3 mg/0.3 mL auto-injector 0.3 ml SQ Patient Comments: INJECT 1 PEN INTRAMUCILARLY SINGLE DPSE NEEDED INTO OUTER THIGH FOR SEVERE ALLERGIC REACTION AND CALL 911 cetirizine [All Day Allergy (cetirizine)] 10 mg tablet 10 mg PO DAILY PRN (Reason: allergy symptoms) Qty: 60 2RF Airsupra 90-80 mcg/actuation HFA aerosol inhaler 2 inh inhalation QID PRN (Reason: shortness of breath or wheezing) Qty: 10.7 1RF fluticasone propionate [Flonase Allergy Relief] 50 mcg/actuation spray,suspension 1 spray intranasal DAILY Qty: 16 2RF Rx Instructions: administer into each nostril hydrocortisone-acetic acid 1-2 % drops 4 drp otic (ear) TID Qty: 10 0RF Referrals Follow up/Referrals: Nicole Karimi APRN [Primary Care Provider, Family Practice] - See instructions Activity Restrictions/Add. Instructions Additional Instructions/Restrictions: I encourage you to follow-up with your primary care physician if you continue to have headaches. If you develop any new or worsening symptoms, or if you become concerned for your health for any reason, return to the emergency department for evaluation. Clinical Impressions Clinical Impression: Migraine Print Language Print Language: Estonian Discharge ED Provider: Ludin Maldonado General Adult HPI <Ludin Maldonado MD - Last Filed: 09/29/24 15:26> General Chief complaint: Headache Stated complaint: headache, dizzy, passing out Time Seen by Provider: 09/29/24 14:11 Mode of Arrival: Ambulatory Source of Information: Patient Description of Symptoms (Recalled from ER Triage Doc. by RN): amadeo presents to Ed with complaints of headache. patient does state she has a history of migraines and takes emgality and it was last taken 09/26/24. patient states this headache has been hanging out for 2 weeks now, with extreme dizziness, nausea/viomiting, and blurry vision that does go black at times. History of Present Illness HPI narrative: Patient is a 24-year-old presenting today with a headache. She has a history of chronic migraines to the point where she is on Emgality. This headache has been ongoing for 2 weeks she does states she has had some lightheadedness and photophobia associated with this. Had some nausea and vomiting. Denies any other focal neurologic deficits. No fevers or chills or neck stiffness. Related Data Home Medications ?Medication ?Instructions ?Recorded ?Confirmed epinephrine 0.3 mg/0.3 mL 0.3 ml SQ 06/01/24 09/13/24 injection, auto-injector Previous Rx's ?Medication ?Instructions ?Recorded galcanezumab-gnlm 120 mg/mL 120 mg SQ QMONTH #1 mL 06/11/24 subcutaneous pen injector (Emgality Pen) cetirizine 10 mg tablet (All Day 10 mg PO DAILY PRN allergy 06/24/24 Allergy (cetirizine)) symptoms #60 tabs metformin 500 mg tablet,extended 1,000 mg (2 x 500 mg) PO DAILY 30 07/22/24 release 24hr (osmotic) days #60 tabs albuterol 90 mcg-budesonide 80 2 inh inhalation QID PRN shortness 08/12/24 mcg/actuation HFA aerosol inhaler of breath or wheezing #10.7 grams (Airsupra) fluticasone propionate 50 1 spray intranasal DAILY #16 grams 09/13/24 mcg/actuation nasal spray,suspension (Flonase Allergy Relief) hydrocortisone-acetic acid 1 %-2 % 4 drp otic (ear) TID #10 mL 09/13/24 ear drops Allergies Allergy/AdvReac Type Severity Reaction Status Date / Time amoxicillin Allergy Other Verified 09/28/24 08:06 cephalexin Allergy Other Verified 09/28/24 08:06 ketorolac (From Toradol) Allergy Other Verified 09/28/24 08:06 clavulanic acid (From AdvReac Intermediate Other Verified 09/28/24 08:06 Augmentin) [facility] <Ludin Maldonado MD - Last Filed: 09/29/24 15:26> [facility] Disclaimer: The information contained in this section may have been updated after the patient was seen, as this information can be updated by other users. Medical History Urinary tract bacterial infections Recurrent urinary tract infection affecting in first trimester Nephrolithiasis Migraine 28 weeks gestation of contractions History of depression Hx of appendicitis History of hypertension Hx of anxiety disorder FH: cholecystectomy delivery delivered Surgical History Hx of cholecystectomy History of colpectomy History of appendectomy Family History Other No significant family history Social History Smoking Status: Never smoker second hand exposure: No alcohol intake: never substance use type: denies use current occupational status: unemployed Travel in the last 8 weeks?: None household members: spouse housing: apartment marital status: Have you lived/traveled outside [place] in past 30 days?: No Contact w/someone who lives/traveled outside US past 30 days?: No Exposure to someone with infectious disease in past 14 days?: No Do you have a fever (greater than 100.4 F or 38 C)?: No Have you tested positive for COVID-19?: No Exposed to someone with COVID-19 in past 14 days?: No Do you have a sore throat?: No Do you have a cough?: No Do you have any weakness?: No Do you have any diarrhea?: No Are you experiencing any unusual bleeding?: No Do you have any muscle aches/pain?: No Do you have any abdominal pain?: No Are you experiencing loss of taste or smell?: No Other Medical History Have you received the Flu Vaccine for this season: No Have you received the Pneumonia Vaccine: No <Ludin Maldonado MD - Last Filed: 09/29/24 15:26> ROS Obtained: Yes All systems reviewed & no additional complaints except as documented Physical Exam <Ludin Maldonado MD - Last Filed: 09/29/24 15:26> General General appearance: alert Respiratory Respiratory exam: Present normal lung sounds bilaterally Cardiovascular Cardiovascular exam: Present regular rate and normal rhythm Neurological Exam Neurological exam: Present alert, oriented X3, CN II-XII intact, normal gait and other (Normal finger-nose gify-lv-pssx and gait); Absent motor sensory deficit Medical Decision Making <Ludin Maldonado MD - Last Filed: 09/29/24 15:26> Medical Records Screening: Per USPSTF and CDC recommendations, given the prevalence of disease in our region, it is our hospital?s policy to screen for HIV and viral Hepatitis for all patients aged 18 and over and those with ongoing risk factors. Jan Inquiry Pt receiving controlled substance: No Vital Signs: 09/29/24 14:13 Temperature 98.2 F Temperature Source Oral Pulse Rate [Right Radial] 64 Respiratory Rate 18 Blood Pressure [Right Arm] 133/71 Blood Pressure Mean [Right Arm] 91 Blood Pressure Source [Right Arm] Automatic Cuff Blood Pressure Position [Right Arm] Sitting 02 Sat by Pulse Oximetry 99 Oxygen Delivery Method Room Air Orders (Tests/Meds): ED MEDICATIONS Discontinued Medications Generic Name Dose Route Start Last Admin Trade Name Freq PRN Reason Stop Dose Admin Acetaminophen 1,000 mg 09/29/24 14:20 09/29/24 14:52 Acetaminophen 1,000mg/100ml Vial IV 09/29/24 14:21 1,000 mg ONCE ONE Administration Dexamethasone Sodium Phosphate 10 mg 09/29/24 14:20 09/29/24 14:52 Dexamethasone 4mg/Ml 1ml Vial IV 09/29/24 14:21 10 mg ONCE ONE Administration Diphenhydramine HCl 25 mg 09/29/24 14:20 09/29/24 14:55 Diphenhydramine 50mg/Ml Vial IV 09/29/24 14:21 25 mg ONCE ONE Administration Droperidol 2.5 mg 09/29/24 15:26 09/29/24 15:47 Droperidol 5mg/2ml Vial IV 09/29/24 15:27 2.5 mg ONCE ONE Administration Lactated Ringer's 1,000 mls @ 999 mls/hr 09/29/24 14:30 09/29/24 14:56 Lactated Ringer's 1000 Ml Bag IV 09/29/24 15:30 999 mls/hr .Q1H1M JEFFERSON Administration Magnesium Sulfate 2 gm in 50 mls @ 50 mls/hr 09/29/24 15:24 09/29/24 15:47 Magnesium Sulfate 2gm/50ml Premix IV 09/29/24 16:23 50 mls/hr ONCE ONE Administration Prochlorperazine Edisylate 10 mg 09/29/24 14:20 09/29/24 14:52 Prochlorperazine 10mg/2ml Vial IV 09/29/24 14:21 10 mg ONCE ONE Administration ORDERS Category Date Time Status CBC w/Auto Diff [Complete Blood Count Auto Diff] Stat Lab 09/29/24 15:24 Ordered CMP [Comprehensive Metabolic Panel] Stat Lab 09/29/24 15:24 Ordered Medical Decision Narrative: Well-appearing 24-year-old with a history of chronic migraines for over 10 years presents today with a headache that she cannot get to chloe at home. Will give her a migraine cocktail she states she is allergic to Toradol therefore she has been given fluids Tylenol Compazine Benadryl and dexamethasone. Neurologic exam is completely normal she has a GCS of 15. Will not get any CT imaging or other workup at this point as I think that all of her symptoms today are secondary to her migraine. Will reassess after her medications have had about an hour to work. Care will be transitioned to Dr. Stallings at 3 PM. Reassessment 3:25 PM before I checked out to Dr. Yao I went and reassessed the patient after her medications were administered she says she is feeling no better still is having a 7 out of 10 headache and still feeling very jittery and weak. Therefore basic blood work and magnesium have been added to her treatment and workup. <Jaswant Stallings MD - Last Filed: 09/29/24 17:19> Vital Signs: 09/29/24 14:13 Temperature 98.2 F Temperature Source Oral Pulse Rate [Right Radial] 64 Respiratory Rate 18 Blood Pressure [Right Arm] 133/71 Blood Pressure Mean [Right Arm] 91 Blood Pressure Source [Right Arm] Automatic Cuff Blood Pressure Position [Right Arm] Sitting 02 Sat by Pulse Oximetry 99 Oxygen Delivery Method Room Air Orders (Tests/Meds): ED MEDICATIONS Discontinued Medications Generic Name Dose Route Start Last Admin Trade Name Freq PRN Reason Stop Dose Admin Acetaminophen 1,000 mg 09/29/24 14:20 09/29/24 14:52 Acetaminophen 1,000mg/100ml Vial IV 09/29/24 14:21 1,000 mg ONCE ONE Administration Dexamethasone Sodium Phosphate 10 mg 09/29/24 14:20 09/29/24 14:52 Dexamethasone 4mg/Ml 1ml Vial IV 09/29/24 14:21 10 mg ONCE ONE Administration Diphenhydramine HCl 25 mg 09/29/24 14:20 09/29/24 14:55 Diphenhydramine 50mg/Ml Vial IV 09/29/24 14:21 25 mg ONCE ONE Administration Droperidol 2.5 mg 09/29/24 15:26 09/29/24 15:47 Droperidol 5mg/2ml Vial IV 09/29/24 15:27 2.5 mg ONCE ONE Administration Lactated Ringer's 1,000 mls @ 999 mls/hr 09/29/24 14:30 09/29/24 14:56 Lactated Ringer's 1000 Ml Bag IV 09/29/24 15:30 999 mls/hr .Q1H1M JEFFERSON Administration Magnesium Sulfate 2 gm in 50 mls @ 50 mls/hr 09/29/24 15:24 09/29/24 15:47 Magnesium Sulfate 2gm/50ml Premix IV 09/29/24 16:23 50 mls/hr ONCE ONE Administration Prochlorperazine Edisylate 10 mg 09/29/24 14:20 09/29/24 14:52 Prochlorperazine 10mg/2ml Vial IV 09/29/24 14:21 10 mg ONCE ONE Administration ORDERS Category Date Time Status CBC w/Auto Diff [Complete Blood Count Auto Diff] Stat Lab 09/29/24 15:24 Ordered CMP [Comprehensive Metabolic Panel] Stat Lab 09/29/24 15:24 Ordered Medical Decision Narrative: Well-appearing 24-year-old with a history of chronic migraines for over 10 years presents today with a headache that she cannot get to chloe at home. Will give her a migraine cocktail she states she is allergic to Toradol therefore she has been given fluids Tylenol Compazine Benadryl and dexamethasone. Neurologic exam is completely normal she has a GCS of 15. Will not get any CT imaging or other workup at this point as I think that all of her symptoms today are secondary to her migraine. Will reassess after her medications have had about an hour to work. Care will be transitioned to Dr. Stallings at 3 PM. Reassessment 3:25 PM before I checked out to Dr. Yao I went and reassessed the patient after her medications were administered she says she is feeling no better still is having a 7 out of 10 headache and still feeling very jittery and weak. Therefore basic blood work and magnesium have been added to her treatment and workup. Jaswant Stallings MD At 1530, I assumed care of the patient pending magnesium IV and droperidol for continued headache and lab work. On reassessment at 1717, patient stated that her headache has improved but not completely resolved. She gives it a 4 out of 10 currently and was at a 7 out of 10 on arrival. She is comfortable going home at this time and following up with her primary care physician. Given the improvement in her symptoms, is felt that laboratory studies are not indicated at this time as they would not change ED management. All questions were answered. She demonstrated understanding and was in agreement this plan. She was then discharged from the emergency department in stable condition. Return precautions were given. Critical Care <Ludin Maldonado MD - Last Filed: 09/29/24 15:26> Critical Care Time Critical Care Time: No
--- NOTE | 2024-09-29 14:34 | PC.NURSE ---
household appliances salesperson called for ultrasound IV
--- NOTE | 2024-09-29 14:40 | PC.NURSE ---
lillian supervisor [employer] at bedside for IV
[2024-09-29] MEDS: DEXAMETHASONE 4MG/ML 1ML VIAL 10 MG IV (14:52)
[2024-09-29] MEDS: PROCHLORPERAZINE 10MG/2ML VIAL 10 MG IV (14:52)
[2024-09-29] MEDS: ACETAMINOPHEN 1,000MG/100ML VIAL 1000 MG IV (14:52)
[2024-09-29] MEDS: LACTATED RINGERS 1000ML 1,000 ML 999 ML IV (14:56)
[2024-09-29] MEDS: droPERidol 5MG/2ML VIAL 2.5 MG IV (15:47)
[2024-09-29] MEDS: MAGNESIUM SULFATE IN WATER 2 GM/50 ML PIGGYBACK IV (15:47)
[2024-09-29 17:23] VITALS: BP 125/74; PULSE 83; RESP 18; TEMP 36.8; O2SAT 98
== END 2024-09-29 17:24 | disposition home or self-care (01) ==
PROVIDERS: Emergency Provider Student in an Organized Health Care Education/Training Program; PCP Nurse Practitioner Family
DX: G43.909 Migraine, unspecified, not intractable, without status migrainosus (principal); R11.2 Nausea with vomiting, unspecified; R42 Dizziness and giddiness
CPT/HCPCS: 93005; 96361; 96365; 96375; 99284; J0131; J0780; J1100; J1200; J1790; J3475; J7120

== ENCOUNTER 2025-01-04 11:12 | Emergency (ER) | payer BC, SELFPAY ==
[2025-01-04] VITALS (7 sets, daily range): BP systolic 127–141; BP diastolic 77–94; PULSE 53–71; RESP 14; TEMP 36.7–37.1; O2SAT 98–100; BMI 40.7
[2025-01-04 11:27] LABS: Microscopic, Urine URINE MICROSCOPIC (MICROSCOPIC)
[2025-01-04 11:29] LABS: Bilirubin,Urine Negative (Negative); Color,Urine ORANGE (Yellow); Glucose,Urine (UA) Negative (Negative); Ketones,Urine Negative (Negative); Leukocyte Esterase,Urine Negative (Negative); PH,Urine 5.5 (5.0-8.5); Protein,Urine TRACE (Negative); Specific Gravity, Urine 1.025 (1.005-1.030); Urobilinogen,Urine 0.2 EU/dl (0.2)
--- NOTE | 2025-01-04 11:45 | ED_ITS ---
<Statement entered by Ludin Maldonado MD - 01/04/25 14:51> I was consulted by the SHANNAN, and we discussed the complexity of the problems being addressed. I approved the treatment and management plan for this patient's care in the emergency department, thus performing a substantive portion of the medical decision making. Ludin Maldonado MD, ANG, FACEP Discharge Plan Disposition Patient Disposition: Home, Self-Care Condition: Good Prescriptions Prescriptions: No Action metformin [Glucophage XR] 500 mg tablet extended release 24 hr 500 mg PO HS Qty: 30 2RF oxybutynin chloride 10 mg tablet extended release 24hr PO Patient Comments: TAKE 1 TABLET 1 TIME EACH DAY epinephrine 0.3 mg/0.3 mL auto-injector 0.3 ml SQ Patient Comments: INJECT 1 PEN INTRAMUCILARLY SINGLE DPSE NEEDED INTO OUTER THIGH FOR SEVERE ALLERGIC REACTION AND CALL 911 cetirizine [All Day Allergy (cetirizine)] 10 mg tablet 10 mg PO DAILY PRN (Reason: allergy symptoms) Qty: 60 2RF Airsupra 90-80 mcg/actuation HFA aerosol inhaler 2 inh inhalation QID PRN (Reason: shortness of breath or wheezing) Qty: 10.7 1RF desvenlafaxine succinate [Pristiq] 50 mg tablet extended release 24 hr 50 mg PO DAILY Qty: 30 2RF Referrals Follow up/Referrals: Daryl Garcia MD [Primary Care Provider, Internal Medicine] - See instructions Activity Restrictions/Add. Instructions Additional Instructions/Restrictions: Please follow-up with your [facility] physician tomorrow, return to the emergency department if you have any worsening vaginal bleeding lightheaded dizziness worsening abdominal pain that soaks through multiple tampons an hour. Please continue to take all your medication as prescribed. Clinical Impressions Clinical Impression: Vaginal bleeding Instructions Patient Instructions: DI for Vaginal Bleeding, DI for Menorrhagia Print Language Print Language: Slovenian Discharge ED Provider: Ludin Maldonado General Adult HPI General Chief complaint: Abdominal Pain Stated complaint: heavy bleeding, pain in abd & rt shoulder Time Seen by Provider: 01/04/25 11:17 Mode of Arrival: Ambulatory Source of Information: Patient Description of Symptoms (Recalled from ER Triage Doc. by RN): shane states she just had her IUD removed a couple weeks ago and yesterday she began having right lower abdominal pain with bright red bleeding no clots. she reports the abdominal pain is stabbing. 09/26, she reports she is soaking a overight pad within one hour. History of Present Illness HPI narrative: 24-year-old G2, female presents to the emergency department with a 1 day history of Menometrorrhagia, this started yesterday, enough to soak through 1 tampon in 1 to 2 hours, patient did not have any pain yesterday, patient also endorses remote history around 2 weeks ago having her IUD , taken out at [facility] due to malposition, she had this IUD in place for quite some time. She believed that she was due for her regular period, she is unsure of if she is currently or not, but the bleeding was more heavy and more brisk and described as bright red , than her typical, patient denies any fever chills chest pain, shortness of breath, denies any urinary symptomatology, admits to nausea, denies vomiting, hematuria melena hematochezia hematemesis, denies any other vaginal discharge, does complain of some abdominal pain that started this morning with some right shoulder pain that started this morning as well thus prompted emergency department visit. 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 Initial triage vitals are unremarkable. Please note that above description of symptoms, in this electronic medical record under categorization of recalled from ER triage doctor by RN are reflective of an initial nursing assessment, however, is not reflective of my full history and physical exam that was personally taken and clarified. Consequentially, this preceding description of symptoms, which may include the patient's categorized chief complaint in the EMR, do not reflect my personal clinical impression, and the ultimate description of history of present illness and patient stated complaints should be deferred to this section of the note. Unless stated otherwise or congruent with this section of the note, additional signs, symptoms, or incongruence should be interpreted as inaccurate with my clinical impression. Onset (ago): hour(s) Related Data Home Medications ?Medication ?Instructions ?Recorded ?Confirmed epinephrine 0.3 mg/0.3 mL 0.3 ml SQ 06/01/24 12/28/24 injection, auto-injector oxybutynin chloride 10 mg mg PO 12/28/24 12/28/24 tablet,extended release 24 hr Previous Rx's ?Medication ?Instructions ?Recorded cetirizine 10 mg tablet (All Day 10 mg PO DAILY PRN al lergy 06/24/24 Allergy (cetirizine)) symptoms #60 tabs albuterol 90 mcg-budesonide 80 2 inh inhalation QID SD N shortness 08/12/24 mcg/actuation HFA aerosol inhaler of breath or wheezin g #10.7 grams (Airsupra) metformin 500 mg tablet,extended 500 mg PO HS #30 tabs 12/10/24 release 24 hr (Glucophage XR) desvenlafaxine succinate 50 mg 50 mg PO DAILY #30 tabs 01/03/25 tablet,extended release 24 hr (Pristiq) Allergies Allergy/AdvReac Type Severity Reaction Status Date / Time amoxicillin Allergy Other Verified 12/28/24 08:35 cephalexin Allergy Other Verified 12/28/24 08:35 ketorolac (From Toradol) Allergy Other Verified 12/28/24 08:35 clavulanic acid (From AdvReac Intermediate Other Verified 12/28/24 08:35 Augmentin) [facility] Disclaimer: The information contained in this section may have been updated after the patient was seen, as this information can be updated by other users. Medical History Urinary tract bacterial infections Recurrent urinary tract infection affecting in first trimester Nephrolithiasis Migraine 28 weeks gestation of contractions History of depression Hx of appendicitis History of hypertension Hx of anxiety disorder FH: cholecystectomy delivery delivered Surgical History Hx of cholecystectomy History of colpectomy History of appendectomy Family History Other No significant family history Social History Smoking Status: Never smoker second hand exposure: No alcohol intake: never substance use type: denies use current occupational status: unemployed Travel in the last 8 weeks?: None household members: spouse housing: apartment marital status: Have you lived/traveled outside US in past 30 days?: No Contact w/someone who lives/traveled outside US past 30 days?: No Exposure to someone with infectious disease in past 14 days?: No Do you have a fever (greater than 100.4 F or 38 C)?: No Have you tested positive for COVID-19?: No Exposed to someone with COVID-19 in past 14 days?: No Do you have a sore throat?: No Do you have a cough?: No Do you have any weakness?: No Do you have any diarrhea?: No Are you experiencing any unusual bleeding?: Yes Do you have any muscle aches/pain?: No Do you have any abdominal pain?: Yes Are you experiencing loss of taste or smell?: No Other Medical History Have you received the Flu Vaccine for this season: No Have you received the Pneumonia Vaccine: No ROS Obtained: Yes All systems reviewed & no additional complaints except as documented Physical Exam General General appearance: alert and in no apparent distress Head Head exam: atraumatic and normocephalic Eye Eye exam: Present PERRL and EOMI ENT ENT exam: Present mucous membranes moist Neck Neck exam: Present normal inspection Chest Chest inspection: Present normal inspection and symmetric chest wall rise Respiratory Respiratory exam: Present normal lung sounds bilaterally; Absent respiratory distress, wheezes or stridor Cardiovascular Cardiovascular exam: Present regular rate and normal rhythm Abdominal Exam Abdominal exam: Present soft and tenderness; Absent guarding, rebound or rigidity Abdominal tenderness: Present suprapubic Extremities Exam Extremities exam: Present normal inspection Neurological Exam Neurological exam: Present alert and oriented X3 Psychiatric Psychiatric exam: Present normal affect Skin Skin exam: Present warm and dry Medical Decision Making Medical Records Medical records reviewed: Yes I reviewed the patient's medical records. Screening: Per USPSTF and CDC recommendations, given the prevalence of disease in our region, it is our hospital?s policy to screen for HIV and viral Hepatitis for all patients aged 18 and over and those with ongoing risk factors. Jan Inquiry Pt receiving controlled substance: No Jan was queried for this patient: No Vital Signs: 01/04/25 11:26 01/04/25 11:29 01/04/25 11:30 Temperature 98.7 F Temperature Source Oral Pulse Rate 55 L 71 Pulse Rate [Right Radial] 69 Respiratory Rate 14 Blood Pressure 138/92 H 141/90 H Blood Pressure [Right Arm] 138/92 H Blood Pressure Mean [Right Arm] 107 Blood Pressure Source [Right Arm] Automatic Cuff Blood Pressure Position [Right Arm] Sitting 02 Sat by Pulse Oximetry 99 100 100 Oxygen Delivery Method Room Air 01/04/25 12:00 01/04/25 13:00 Temperature Temperature Source Pulse Rate 54 L 61 Pulse Rate [Right Radial] Respiratory Rate Blood Pressure 127/77 138/94 H Blood Pressure [Right Arm] Blood Pressure Mean [Right Arm] Blood Pressure Source [Right Arm] Blood Pressure Position [Right Arm] 02 Sat by Pulse Oximetry 98 100 Oxygen Delivery Method Lab Data Lab results reviewed: Yes I reviewed the patient's lab results. Lab Results 01/04/25 11:23: Urine Color Hardy, Urine Appearance Cloudy, Urine pH 5.5, Ur Specific [place] 1.025, Urine Protein Trace, Urine Glucose (UA) Negative, Urine Ketones Negative, Urine Blood 3+ A, Urine Nitrate Negative, Urine Bilirubin Negative, Urine Urobilinogen 0.2, Ur Leukocyte Esterase Negative, Urine RBC 50- 100, Urine WBC None, Ur Squamous Epith Cells Occasional, Urine Bacteria Trace 01/04/25 11:35: WBC 8.6, RBC 5.14, Hgb 15.0, Hct 43.8, MCV 85.2, MCH 29.2, MCHC 34.2, RDW 13.3, Plt Count 342, MPV 9.1, Neut % (Auto) 60.6, Lymph % (Auto) 26.5, [place] % (Auto) 4.4, Eos % (Auto) 7.7, Baso % (Auto) 0.7, Neut # (Auto) 5.2, Lymph # (Auto) 2.3, [place] # (Auto) 0.4, Eos # (Auto) 0.7 H, Baso # (Auto) 0.1, PT 10.9, INR 0.98, Sodium 134 L, Potassium 4.0, Chloride 103, Carbon Dioxide 24, Anion Gap 11.0, BUN 11, Creatinine 0.80, Estimated Creat Clear 177, Estimated GFR 87, Est GFR ( Amer) 106, Glucose 96, Calcium 9.0, Total Bilirubin 0.7, AST 30, ALT 24, Alkaline Phosphatase 88, Total Protein 8.2, Albumin 5.1 H, Globulin 3.1, Albumin/Globulin Ratio 1.6, Lipase 105, Serum HCG, Qual Negative, HCV Ab LYNDSAY w/Rflx PCR Qn Negative, HIV Ag/Ab Combo Qual Negative 01/04/25 11:35 01/04/25 11:35 Orders (Tests/Meds): ED MEDICATIONS Generic Name Dose Route Start Last Admin Trade Name [place] PRN Reason Stop Dose Admin Sodium Chloride 10 ml 01/04/25 12:50 01/04/25 12:51 Sodium Chloride 0.9% 10ml Syr (Rad Only) IV 02/03/25 12:49 10 ml NEEDED PRN Administration Maintain IV Site Discontinued Medications Generic Name Dose Route Start Last Admin Trade Name Freq PRN Reason Stop Dose Admin Iopamidol 75 ml 01/04/25 12:50 01/04/25 12:51 Iopamidol-370 (76%);100ml Bottle IV 01/04/25 12:51 75 ml ONCE ONE Administration Morphine Sulfate 2 mg 01/04/25 11:56 01/04/25 12:35 Morphine 2mg/Ml Syringe IV 01/04/25 11:57 2 mg ONCE ONE Administration Ondansetron HCl 4 mg 01/04/25 11:57 01/04/25 12:35 Ondansetron 4mg/2ml Vial IV 01/04/25 11:58 4 mg ONCE ONE Administration ORDERS Category Date Time Status CT abdomen pelvis w con Stat Cat Scan 01/04/25 11:55 Completed US transvaginal Stat Exams 01/04/25 11:50 Completed Complete Blood Count Auto Diff Stat Lab 01/04/25 11:35 Completed Comprehensive Metabolic Panel Stat Lab 01/04/25 11:35 Completed HCG Qualitative, Serum Stat Lab 01/04/25 11:35 Completed HIV Combo Stat Lab 01/04/25 11:35 Completed Hepatitis C Ab Qual. W/ RFX Stat Lab 01/04/25 11:35 Completed Lactic Acid Stat Lab 01/04/25 11:50 Ordered Lipase Stat Lab 01/04/25 11:35 Completed PT INR [Prothrombin Time INR] Stat Lab 01/04/25 11:35 Completed UA [Urinalysis and Microscopic] Stat Lab 01/04/25 11:23 Completed Medical Decision Narrative: 24-year-old female presents emergency department with excessive vaginal bleeding and irregular vaginal bleeding that started yesterday, was abdominal pain right shoulder pain that occurred today, differential diagnose include but not limited to spontaneous , implantation of bleeding, rupture ovarian cyst, ovarian torsion, ectopic , leiomyoma, endometriosis, implantation of bleeding, hormonal bleeding, acute UTI, acute pyelonephritis among others. I discussed this patient's case with attending physician Dr. Maldonado Will obtain basic laboratory studies, lactic acid, lipase level, PT/INR, transvaginal ultrasound, UA, hCG qualitative, CT ab pelvis with contrast will be obtained for further evaluation/characterization. Will give the patient 2 mg morphine and 4 mg IV Zofran for pain and nausea. CBC is unremarkable Coags within normal limits UA is notable for 3+ hematuria negative nitrites negative leukocyte esterase 50- 100 RBCs, no WBCs, trace bacteria. CMP is unremarkable, lipase within normal limits. Serum hCG qualitative negative. I reviewed the patient's transvaginal ultrasound along the corresponding radiologic report, active bleeding with blood products in the cervical canal otherwise unremarkable examination of the uterus, mildly enlarged right ovary with multiple peripheral follicles in the correct clinical setting represent polycystic ovarian syndrome. I reviewed the patient's CT abdomen pelvis with contrast along the corresponding radiologic report, moderate to marked hepatomegaly, postoperative change of the right lower quadrant no acute inflammatory process. I discussed these results with the patient at the bedside patient is in agreement with the current discharge plan/treatment plan. Patient does have follow-up with her [facility] physician tomorrow advised her to keep this appointment, strict ED return precautions given as well as bleeding precautions given. Patient voiced understanding and agreement with the current treatment plan/discharge plan. Critical Care Critical Care Time Critical Care Time: No
[2025-01-04 11:47] LABS: Bacteria,Urine Trace /lpf; RBC,Urine 50-100 #/hpf (0-3); Squamous Epithelial Cell,Urine Occasional #/hpf (0-5)
--- NOTE | 2025-01-04 11:50 | US_ITS ---
PROCEDURE INFORMATION: Exam: US Pelvis, Transvaginal, Non-Obstetric Exam date and time: 01/04/2025 11:58 AM Age: 24 years old Clinical indication: Menstruation abnormalities; Excessive menstruation; With regular cycle; Additional info: Menometrorrhagia postive kehr's sign TECHNIQUE: Imaging protocol: Real-time transvaginal pelvic (non-obstetric) ultrasound with image documentation. Transvaginal imaging was used for better evaluation of the endometrium, adnexa, and/or cervix. COMPARISON: US TRANSVAGINAL 08/16/2024 9:40 AM FINDINGS: Uterus: The uterus is normal in size and appearance measuring 8.4 x 3.9 x 4.9 cm (normal nulliparous 6-9 x 5 x 5 cm, multiparous 6-11 x 5 x 5 cm). Stable scar of the anterior uterine body. The endometrium is normal in size and appearance measuring 3 mm in thickness (normal < 14 mm). Small amount of blood products within the cervical canal. Right ovary/adnexa: The right ovary is mildly enlarged in size with multiple peripheral follicles measuring 3.6 x 2.5 x 2.5 cm with a calculated volume of 12.0 mL (normal </= 11 mm). There is normal color and spectral Doppler blood flow. Left ovary/adnexa: The left ovary is normal in size and appearance measuring 3.5 x 2.0 x 2.0 cm with a calculated volume of 7.2 mL (normal </= 11 mm). There is normal color Doppler flow. Urinary bladder: Urinary bladder is limited. Intraperitoneal space: No free fluid IMPRESSION: 1. Active bleeding with blood products in the cervical canal. 2. Otherwise unremarkable examination of the uterus. 3. Mildly enlarged right ovary with multiple peripheral follicles. In the correct clinical setting this may represent polycystic ovarian syndrome.
--- NOTE | 2025-01-04 11:55 | CT_ITS ---
FINAL REPORT TECHNIQUE: After the administration of intravenous contrast, axial images were obtained through the abdomen and pelvis by computed tomography. This study was performed with technique to keep radiation doses as low as reasonably achievable, (ALARA). Individualized dose reduction techniques using automated exposure control or adjustment of the MA and/or KV according to the patient's size were employed. CLINICAL HISTORY: Lower abdominal pain,Menometrorrhagia COMPARISON: 08/16/2024 FINDINGS: Abdomen: The lung bases are clear. There is mild fatty infiltration of the liver. Liver measures 22.5 cm in craniocaudad dimension consistent with moderate to marked hepatomegaly. Patient is status postcholecystectomy.. The spleen is unremarkable. The adrenals are normal. The pancreas is unremarkable. The kidneys enhance appropriately. The aorta is normal in caliber. There is no free fluid or adenopathy. Pelvis: The appendix is not identified. There are postoperative changes in the right lower quadrant. Uterus is anteverted. The urinary bladder is decompressed. There is no free fluid or adenopathy. IMPRESSION: Moderate to marked hepatomegaly. Postoperative changes of the right lower quadrant. No acute inflammatory process. Reviewed, Interpreted and Dictated by Vipul Birmingham MD Transcribed by Nicole Galeano Authenticated and [facility]
[2025-01-04 11:58] LABS: Hematocrit 43.8 % (37.0-47.0); Hemoglobin 15.0 g/dL (12.2-16.2); Immature Granulocytes % 0.1 %; Mean Corpuscular HGB Conc 34.2 g/dL (31.8-35.4); Mean Corpuscular Hemoglobin 29.2 pg (27.0-31.2); Mean Corpuscular Volume 85.2 fl (81-99); Nucleated Red Blood Cells % 0 %; Platelet Count 342 K/mm3 (142-424); Red Blood Count 5.14 M/mm3 (4.20-5.40); Red Cell Distribution Width-SD 41.0 fL; White Blood Count 8.6 K/mm3 (4.8-10.8)
[2025-01-04 12:05] LABS: Alanine Aminotransferase 24 U/L (12-78); Albumin Level 5.1 g/dl (3.5-5.0); Albumin/Globulin Ratio 1.6 (1.1-1.8); Alkaline Phosphatase 88 U/L (38-126); Anion Gap 11.0 mEq/L (5-15); Aspartate Amino Transferase 30 U/L (14-36); Bilirubin,Total 0.7 mg/dl (0.2-1.3); Blood Urea Nitrogen 11 mg/dl (7-17); Calcium 9.0 mg/dl (8.4-10.2); Carbon Dioxide 24 mmol/L (22.0-30.0); Chloride 103 mmol/L (98-107); Creatinine Clearance Estimated 177 mL/min (50-200); Creatinine,Serum 0.80 mg/dl (0.52-1.04); Estimated Glomerular Filt Rate 87 ml/min (>60); GFR (African American) 106 ML/MIN (>60); Globulin 3.1 g/dL (1.3-3.2); Glucose 96 mg/dl (74-100); INR 0.98 (0.9-1.1); Lipase 105 U/L (23-300); Potassium 4.0 mmoL/L (3.5-5.1); Prothrombin Time 10.9 seconds (10.1-12.5); Sodium 134 mmol/L (136-145); Total Protein,Serum 8.2 g/dl (6.3-8.2)
[2025-01-04 12:20] LABS: HCG Qualitative, Serum Negative (Negative)
[2025-01-04] MEDS: MORPHINE 2MG/ML SYRINGE 2 MG IV (12:35)
[2025-01-04] MEDS: ONDANSETRON 4MG/2ML VIAL 4 MG IV (12:35)
[2025-01-04] MEDS: IOPAMIDOL-370 (76%);100ML BOTTLE 75 ML IV (12:51)
[2025-01-04] MEDS: SODIUM CHLORIDE 0.9% 10ML SYR (RAD ONLY) 10 ML IV (12:51)
[2025-01-04 13:42] LABS: Hepatitis C Ab Qual. W/ RFX NEGATIVE (Negative)
== END 2025-01-04 14:14 | disposition home or self-care (01) ==
PROVIDERS: Physician Assistant; Emergency Provider Student in an Organized Health Care Education/Training Program; PCP Family Medicine
DX: R10.24 Suprapubic pain (principal); N93.9 Abnormal uterine and vaginal bleeding, unspecified; M25.511 Pain in right shoulder
CPT/HCPCS: 74177; 76830; 80053; 81001; 83690; 84703; 85025; 85610; 86803; 87389; 96374; 96375; 99285; J2270; J2405; Q9967

== ENCOUNTER 2025-02-08 12:04 | Outpatient (CLI) | payer BC, OTHER, SELFPAY ==
--- OUTSIDE RECORDS SUMMARY | 2024-12-20 15:40 | XMS_ITS | Encounter Summary ---
Author Organization Healthcare Address [address] [place] [address] Care Team Providers Care Feltmaker Name Role Phone Pcp, No Primary Care Provider Unavailabl e Reason for Visit * Reason Comments Vaginal Pain Pt co vaginal pain, with IUD placed. States she has had an increase in discharge and mild spotting. States that she is concerned it could displaced Encounter Details Date Type Department Care Team (Late st Contact Info) Description 12/20/2024 3:40 PM EST - 12/20/2024 6:13 PM EST Emergency [facility] [address] [place] [address] Judy Juarez MD [address] [place] [address] Malpositioned IUD, initial encounter (Primary Dx); Pelvic pain; Removal of contraceptive intrauterine device (IUD) performed Discharge Disposition: Home or Self Care Social History Tobacco Use Types Packs/Day Years Used Date Smoking Tobacco: Never Smokeless Tobacco: Never Alcohol Use Standard Drinks/Week Comments Never 0 (1 standard drink = 0.6 oz pur e alcohol) PHQ-2 Answer Date Recorded Patient Health Questionnaire-2 Score 4 05/13/2024 [place] Depression Scale Answer Date Recorded [place] Depression Scale Total 14 01/17/2022 The thought [...] any time in the past 12 m [facility], were you homeless or living in a senior care (including now)? No 08/19/2024 Utilities Answer Date Recorded In the past 12 months has th e electric, gas, oil, or water company threatened to shut off services in your home? No 08/19/2024 PHQ-2A Answer Date Recorded Patient Health Questionnaire-2 Score 3 12/11/2022 Comments Unknown Sex and Gender Information Value Date Recorded Sex Assigned at Not on file Legal Sex Female 10:13 AM EDT Gender Identity Not on file Sexual Orientation Not on file documented as of this encounter Last Filed Vital Signs Vital Sign Reading Time Taken Comments Blood Pressure 136/79 12/20/2024 6:12 PM EST Pulse 53 12/20/2024 6:12 PM EST Temperature 36.8 C (98.2 F) 12/20/2024 6:12 PM EST Respiratory Rate 16 12/20/2024 6:12 PM EST Oxygen Saturation 99% 12/20/2024 6:12 PM EST Inhaled Oxygen Concentration - - Weight 104 kg (230 lb) 12/20/2024 2:44 PM EST Height 160 cm (5' 3 ) 12/20/2024 2:44 PM EST Body Mass Index 40.74 12/20/2024 2:44 PM EST documented in this encounter Functional Status * Calculated C-SSRS Risk Score (Lifetime/Recent) Answer Date of Assessment Author No Risk Indicated 12/20/2024 3:44 PM EST Kylah Abrams RN * Question Answer Date of Assessment Author 1. Wish to be (Past 1 Month) No 3:44 PM EST Kylah Abrams RN 2. Non-Specific Active Suici doris Thoughts (Past 1 Month) No 12/20/2024 3:44 PM EST Hemanth Abrams RN 6. Suicidal Behavior (Lifetime) No 3:44 PM EST Kylah Abrams RN documented as of this encounter Discharge Instructions * Discharge Instructions* Pam Galicia PA - 12/20/2024 5:42 PM EST If you do not desire , you will need to use additional forms of contraception as it is possible for you to become immediately. You may use ibuprofen (Advil) 600mg every 8 hours and/or acetaminophen (Tylenol) 650mg every 4 hours for pain. You will be contacted tomorrow if you require treatment for bacterial vaginosis. Please follow up with your OBGYN to discuss different control if desired. Return to the nearest emergency department with any worsening or new symptoms. Thank you for this opportunity to provide your care. documented in this encounter Medications at Time [...] After use, clean tip and replace cap. galcanezumab-gnl m (Emgality) 120 MG/ML injection Inject [...] dinner. Do not crush, chew, or split. naloxone (Narcan) 4 mg/0.1 mL nasal spray 1. Give 1 spray in nostril for no/slow breathing or cannot wake after opioid use 2. Call 911 3. Repeat in other nostril if symptoms continue 1 each 08/19/2024 Vit-Fe Fumarate-FA ( PO) Take by mouth. Zuranolone (Zurzuvae) 25 MG capsule Take 50 mg by mouth nightly. documented as of this encounter Miscellaneous Notes * Pam Irving PA - 12/20/2024 5:42 PM EST Images from the original note were not included. [id number] Pelvic Pain, Uncertain Cause Pelvic pain is pain felt in the lowest part of the belly (abdomen) and between the hipbones. The pain may occur suddenly and recently (acute). Or the pain may last for 6 months or longer (chronic). There are many possible causes of pelvic pain. The pain may be from a problem in the female reproductive system. Or it may be from a problem in the digestive, urinary, or musculoskeletal systems. Based on your visit today, the exact cause of your pelvic pain is not certain. Your condition doesn't seem to be serious at this time. But it is important for you to keep watching for any new symptoms or worsening of your condition. General care Your doctor may advise a number of ways to help manage your pain. These can include: ? Taking mmej-fju-vjqgefl pain medicine. Stronger pain medicine may also be prescribed, if needed. ? Applying heat to the pelvic area. Use a heating pad or a hot pack. Taking a hot bath may also help. ? Getting plenty of rest. ? Making certain lifestyle changes. These can include practicing good posture and getting regular exercise. Studies have shown that these changes help reduce pelvic pain in some people. ? Seeing a physical therapist or pain specialist. These health care providers can discuss other ways to manage pain with you. ? Using acupressure or acupuncture. Follow-up care Follow up with your doctor as advised. When to get medical advice Contact your doctor right away if you have: ? Fever of 100.4??F (38??C) or higher, or as directed by your doctor. ? Pain that gets worse or you have sudden, severe pain or new pain. ? Nausea, vomiting, sweating, or restlessness. ? Dizziness or fainting. ? Abnormal vaginal discharge. ? Abnormal vaginal bleeding (especially bleeding after menopause). Last Reviewed Date: 2024 00:00:00 ?? [id number] [employer]. All rights reserved. This information is not intended as a substitute for professional medical care. Always follow your healthcare professional's instructions. * ED Procedure Note - Pam Galicia PA - 12/20/2024 2:40 PM EST Associated Order(s): Orifice Foreign Body Removal Procedure Reason: Pelvic pain, malpositioned IUD Orifice Foreign Body Removal Performed by: Pam Galicia PA Authorized by: Judy Juarez MD Consent: Consent obtained: Verbal Consent given by: Patient Risks, benefits, and alternatives were discussed: yes [place] protocol: Patient identity confirmed: Verbally with patient Location: Intake: uterus. Pre-procedure details: Imaging: Ultrasound Sedation: Sedation type: None Anesthesia: Topical anesthetic: None Procedure details: Procedure complexity: Simple Foreign bodies recovered: 1 Description: IUD Intact foreign body removal: yes Post-procedure details: Procedure completion: Tolerated well, no immediate complications Pam Galicia PA 12/20/24 [id number] Cosigned by Judy Juarez MD at 12/21/2024 7:32 AM EST Associated attestation - Judy Juarez MD - 12/21/2024 7:32 AM EST Procedure performed independently by SHANNAN. * ED Provider Notes - Pam Galicia PA - 12/20/2024 2:40 PM EST Images from the original note were not included. - HPI Chief Complaint Patient presents with Vaginal Pain Pt co vaginal pain, with IUD placed. States she has had an increase in discharge and mild spotting.States that she is concerned it could displaced PIT Note Amelie Landin is a 24 y.o. female who presents to ED with pelvic discomfort d/t IUD and pregnancysymptoms. Pt endorses abnormal vaginal discharge and bleeding. Pt reports she has had IUD since July and last menstrual cycle was 09/30. Pt states she has experienced nausea with a few episodes of emesis. Patient denies current headache, dysuria, fever, chills, cough, chest pain, shortness of breath, or diarrhea. Dima. Mild discomfort with intercourse, mention he can feel the device, which is not typical. She has not been able to feel the strings. She does report some increased urinary frequency. Patient History Past Medical History[1] Surgical History[2] Family History[3] Social History[4] Allergies: Allergies[5] Physical Exam ED Triage Vitals [12/20/24 1444] Temp Heart Rate Resp BP 36.6 ??C (97.9 ??F) 73 19 133/76 SpO2 Temp src Heart Rate Source Patient Position 100 % -- -- -- BP Location FiO2 (%) -- -- Physical Exam Vitals and nursing note reviewed. Constitutional: General: She is not in acute distress. Appearance: She is not ill-appearing. HENT: Head: Normocephalic. Comments: No facial swelling Mouth/Throat: Mouth: Mucous membranes are moist. Eyes: Conjunctiva/sclera: Conjunctivae normal. Cardiovascular: Rate and Rhythm: Normal rate. Pulmonary: Effort: Pulmonary effort is normal. No respiratory distress. Breath sounds: Normal air entry. Comments: Speaking full sentences. Symmetric chest rise Abdominal: General: There is no distension. Palpations: Abdomen is soft. Tenderness: There is abdominal tenderness (suprapubic). Musculoskeletal: General: No deformity. Normal range of motion. Cervical back: Neck supple. Comments: Atraumatic, moves all extremities spontaneously Skin: General: Skin is warm and dry. Neurological: Mental Status: She is alert and oriented to person, place, and time. Comments: Awake Psychiatric: Mood and Affect: Mood normal. Behavior: Behavior normal. Blanca Coma Scale Score: 15 ED Course & MDM - Assessment: Amelie Landin is a 24 y.o. female with history of hypertension presenting for evaluation of several days of pelvic discomfort, nausea, feeling of something ???poking?? in her vagina, heavier than normal breakthrough bleeding and discharge, and specifically concern for a displaced IUD. On initialexam, patient is hemodynamically stable, nontoxic in appearance, in no acute distress. Her abdomen is soft and nondistended, mild suprapubic tenderness on exam. Differential Diagnosis: Displaced IUD, UTI, STI, PID, perforated uterus, among others In order to fully explore the differential diagnosis the following treatments and tests were ordered: ED Medication Administration from 12/20/2024 1440 to 12/20/2024 1812 Date/Time Order Dose Route Action 12/20/2024 1630 EST ketorolac (Toradol) injection 15 mg 15 mg Intravenous Not Given 12/20/2024 1631 EST ondansetron (Zofran) injection 4 mg 4 mg Intravenous Given 12/20/2024 1647 EST ibuprofen tablet 600 mg 600 mg Oral Given All Other Orders Ordered Status Ordering Provider 12/20/24 1734 Once Comments: This order was created via procedure documentation Canceled GALICIA, PAM J 12/20/24 1734 Orifice Foreign Body Removal Once Comments: This order was created via procedure documentation Preliminary result GALICIA, PAM J 12/20/24 1730 Bacterial Vaginosis Antigen Once In process GALICIA, PAM J 12/20/24 1730 STAT Canceled GALICIA, PAM J 12/20/24 1702 Urinalysis with reflex microscopic (Culture NOT Included) - clean catch STAT Final result GALICIA, PAM J 12/20/24 1529 Insert peripheral IV Once Acknowledged JUDY JUAREZ 12/20/24 1529 CMP STAT Final result JUDY JUAREZ 12/20/24 1529 CBC w/diff STAT Final result KASSANDRA GRICELDA Schultz 12/20/24 1529 hCG, quantitative, STAT Final result JUDY JUAREZ 12/20/24 1529 US Pelvis Transvaginal (non ) Once Final result JUDY JUAREZ ED Course as of 12/20/24 181FriDec 20, 2024 1549 CBC w/diff(!) Unremarkable study--no leukocytosis, normal H&H [AM] 1623 hCG, Total Beta: <1 [AM] 1623 CMP Unremarkable study [AM] 1702 US Pelvis Transvaginal (non ) IMPRESSION: Malpositioned IUD in the lower uterine segment as described above. [AM] 1804 Urinalysis with reflex microscopic (Culture NOT Included) - clean catch(!) Non infectious [AM] ED Course User Index [AM] Pam Galicia PA Clinical Impressions as of 12/20/24 181 Malpositioned IUD, initial encounter Pelvic pain Removal of contraceptive intrauterine device (IUD) performed Notable findings outlined in ED Course. Discussed with the patient that it could be unreliable control at this point, though I can not definitively verify. We discussed outpatient follow up with her OBGYN versus pelvic exam to attempt to visualize the strings, she would prefer pelvic exam with IUD removal if it is partially extruded from the cervix. On exam, she has moderate white vaginal discharge with mild erythema of the cervix. IUD strings visible. Swab sent for BV, she is monogamous and does not have concern at this time for STI. IUD removed easily, she had immediate relief of the vaginal discomfort. She does understand that she could become immediately and will need to use other forms of contraception until IUD replaced or she initiates another form of control. Patient remains hemodynamically stable with no further questions, and is suitable for discharge at this time with return precautions as outlined in discharge instructions. Social Determinates of Health Risks (including Economic Stability, Education and level of understanding, Healthcare access and quality and concerning social factors): None identified on this visit Ultimately, this patient was Was discharged Home (Discharge) The primary encounter diagnosis was Malpositioned IUD, initial encounter. Diagnoses of Pelvic pain and Removal of contraceptive intrauterine device (IUD) performed were also pertinent to this visit. . Patient was counseled on the diagnoses. Discharge medications if any are listed below.Listed medications are thought be either curative for listed diagnoses or will help control ongoingsymptoms. Patient is requested to follow up with OBGYN in order to obtain specialty care. Instructions on follow up as well as precautions to return to the ER provided verbally by the EM provider, aswell as written in patients discharge education packet. ED Prescriptions None Discharge Instructions If you do not desire , you will need to use additional forms of contraception as it is possible for you to become immediately. You may use ibuprofen (Advil) 600mg every 8 hours and/or acetaminophen (Tylenol) 650mg every 4 hours for pain. You will be contacted tomorrow if you require treatment for bacterial vaginosis. Please follow up with your OBGYN to discuss different control if desired. Return to the nearest emergency department with any worsening or new symptoms. Thank you for this opportunity to provide your care. Disposition Discharge AVS (Kiswahili Snapshot) - Printed 12/20/2024 PIT 12/19/24 - 1528 Scribe Attestation: This note was dictated to me, Corwin Diaz, acting as a scribe for Dr. Judy Juarez MD. Attending Attestation: This documentation was recorded by Corwin Diaz acting as a scribe in my presence at the time of the encounter and accurately reflects the service I personally performed andthe decisions made by me. [1] Past Medical History: Diagnosis Date Acute cystitis without hematuria 08/18/24 Allergies Anxiety and depression Arthritis Hypertension Migraines Nausea and vomiting 08/18/24 Stomach disease [2] Past Surgical History: Procedure Laterality Date APPENDECTOMY ORAL SURGERY [3] Family History Problem Relation Name Age of Onset Heart disease Mother Hypertension Mother Migraines Mother Anxiety and depression Mother Anxiety and depression Father [4] Tobacco Use Smoking status: Never Smokeless tobacco: Never Substance Use Topics Alcohol use: Never Drug use: Never [5] Allergies Allergen Reactions Toradol [Ketorolac Tromethamine] Swelling and Dizziness Amoxil [Amoxicillin] Rash Augmentin [Amoxicillin-Pot Clavulanate] Rash Cephalexin Rash Shrimp Extract Unknown - Patient states they do not know rxn details Pam Galicia PA 12/20/24 181 Cosigned by Judy Juarez MD at 12/21/2024 7:32 AM EST Associated attestation - Judy Juarez MD - 12/21/2024 7:32 AM EST I attest to being involved in providing substantive part of the medical decision making in patient care. * ED Triage Notes - Jovani Mireles RN - 12/20/2024 2:40 PM EST Pt co vaginal pain, with IUD placed. States she has had an increase in discharge and mild spotting.States that she is concerned it could displaced documented in this encounter Plan of Treatment Not on file documented as of this encounter Goals Goal Patient Goal Type Associated Problems Recent Progress Patient-Stated? Author Delayed Delivery Care Plan CPM S20 PP LABOR (OBSTETRICS) No Open Scheduling, Background documented as of this encounter Procedures Procedure Name Priority Date/Time Associated Diagnosis Comments BACTERIAL VAGINOSIS ANTIGEN STAT 12/20/2024 5:47 PM EST URINALYSIS WITH REFLEX MICROSCOPIC STAT 12/20/2024 5:47 PM EST US PELVIS TRANSVAGINAL STAT 4:28 PM EST CBC WITH AUTO DIFFERENTIAL STAT 12/20/2024 3:39 PM EST HCG, QUANTITATIVE STAT 12/20/2024 3:3 9 PM EST COMPREHENSIVE METABOLIC PANEL, PLASMA STAT 12/20/2024 3:39 PM EST FOREIGN BODY REMOVAL - ORIFICE Routine 12/20/2024 2:40 PM EST documented in this encounter Results * Bacterial Vaginosis Antigen (12/20/2024 5:47 PM EST) Pathologist [facility] [place] Bacterial Vaginosis Antigen Result Negative Negative 12/21/2024 7:55 AM EST [facility] Swab Vaginal structure / Unknown Non-blood Collection / Unknown 12/20/2024 5:47 PM EST 12/20/2024 6:07 PM EST us Pam ARMENTA LAB MICROBIOLOGY - GENERA L ORDERABLES Final Result [facility] [address] [place] [address] * (ABNORMAL) Urinalysis with reflex microscopic (Culture NOT Included) - clean catch (12/20/2024 5:47PM EST) Pathologist [facility] [place] Color, Urine Yellow LAB URINALYSIS - AUTOMATED METHOD 12/20/2024 5:58 PM EST [facility] Clarity, Urine Clear LAB URINALYSIS - AUTOMATED METHOD 12/20/2024 5:58 PM EST [facility] Spec [place], Urine >1.030(H) 1.005 - 1.030 LAB URINALYSIS - AUTOMATED METHOD 12/20/2024 5:58 PM EST [facility] pH, Urine 5.5 5.0 - 8.0 LAB URINALYSIS - AUTOMATED METHOD 12/20/2024 5:58 PM EST [facility] Protein, Urine Trace(A) Negative mg/dL LAB URINALYSIS - AUTOMATED METHOD 12/20/2024 5:58 PM EST [facility] Glucose, Urine Negative Negative mg/dL LAB URINALYSIS - AUTOMATED METHOD 12/20/2024 5:58 PM EST [facility] Ketones, Urine 15(A) Negative mg/dL LAB URINALYSIS - AUTOMATED METHOD 12/20/2024 5:58 PM EST [facility] Blood, Urine Negative Negative LAB URINALYSIS - AUTOMATED METHOD 12/20/2024 5:58 PM EST [facility] Bilirubin, Urine Negative Negative LAB URINALYSIS - AUTOMATED METHOD 12/20/2024 5:58 PM EST [facility] Urobilinogen, Urine 1.0 0.2 to 1.0 mg/dL LAB URINALYSIS - AUTOMATED METHOD 12/20/2024 5:58 PM EST [facility] Leukocytes, Urine Negative Negative LAB URINALYSIS - AUTOMATED METHOD 12/20/2024 5:58 PM EST [facility] Nitrite, Urine Negative Negative LAB URINALYSIS - AUTOMATED METHOD 12/20/2024 5:58 PM EST [facility] Urine Urine specimen obtained by clean catch procedure / Unknown Non-blood Collection / Unknown 12/20/2024 5:47 PM EST 12/20/2024 5:56 PM EST Pam ARMENTA LAB URINE ORDERABLES Arin roberts Result [facility] [address] [place] [address] * US Pelvis Transvaginal (non ) (12/20/2024 4:28 PM EST) Anatomical Region Laterality Modality Pelvis Ultrasound Impressions 12/20/2024 4:55 PM EST Malpositioned IUD in the lower uterine segment as described above. CRITICAL RESULT: No. COMMUNICATION: Per this written report. Drafted by Khalif Torres MD on 12/20/2024 4:53 PM Final report signed by Khalif Torres MD on 12/20/2024 4:55 PM Narrative 12/20/2024 4:55 PM EST CLINICAL INDICATION: pelvic pain TECHNIQUE: Multiplanar transvaginal grayscale and color Doppler ultrasound imaging of the pelvis was performed. Transvaginal scanning was performed to increase imaging detail and to improve diagnostic accuracy. Color doppler ultrasound imaging and spectral waveform analysis was performed to evaluate for possible ovarian torsion. COMPARISON: CT abdomen and pelvis, 08/21/2024. Ultrasound, 08/18/2024. FINDINGS: Uterus: The uterus has normal echogenicity and measures 9.1 x 4.2 x 6.8 cm. No uterine mass. The endometrium measures 2 mm and is not thickened. Visualized IUD appears to be in the lower uterine segment. Adnexa: Both ovaries have normal echogenicity and size without cyst or mass. Color Doppler imaging and spectral analysis was performed. Color doppler imaging demonstrated normal blood flow to both ovaries. Spectral waveform analysis demonstrated normal arterial and venous waveforms within both ovaries. Fluid Survey: No free fluid in the pelvis. Procedure Note Khalif Torres MD - 12/20/2024 CLINICAL INDICATION: pelvic pain TECHNIQUE: Multiplanar transvaginal grayscale and color Doppler ultrasound imaging ofthe pelvis was performed. Transvaginal scanning was performed to increaseimaging detail and to improve diagnostic accuracy. Color dopplerultrasound imaging and spectral waveform analysis was performed toevaluate for possible ovarian torsion. COMPARISON: CT abdomen and pelvis, 08/21/2024. Ultrasound, 08/18/2024. FINDINGS: Uterus: The uterus has normal echogenicity and measures 9.1 x 4.2 x 6.8cm. No uterine mass. The endometrium measures 2 mm and is not thickened.Visualized IUD appears to be in the lower uterine segment. Adnexa: Both ovaries have normal echogenicity and size without cyst ormass. Color Doppler imaging and spectral analysis was performed. Colordoppler imaging demonstrated normal blood flow to both ovaries. Spectralwaveform analysis demonstrated normal arterial and venous waveforms withinboth ovaries. Fluid Survey: No free fluid in the pelvis. IMPRESSION: Malpositioned IUD in the lower uterine segment as described above. CRITICAL RESULT: No. COMMUNICATION: Per this written report. Drafted by Khalif Torres MD on 12/20/2024 4:53 PM Final report signed by Khalif Torres MD on 12/20/2024 4:55 PM us Abgricelda Juarez MD IMG US PROCEDURES Final Resul t * hCG, quantitative, (12/20/2024 3:39 PM EST) hCG, Total Beta <1 <5 mIU/mL 4:23 PM EST [facility] Blood Venous blood specimen / Unknown Venipuncture / Unknown 12/20/2024 3:39 PM EST 12/20/2024 3:42 PM EST Narrative [facility] - 12/20/2024 4:23 PM EST Patients: Normal Range Premenopausal Female < 5 mIU/mL Male < 3 mIU/mL Postmenopausal Female < 8 mIU/mL The [employer] hCG+beta assay is standardized to the 4th IS for Chorionic Gonadotropin. The combination of the specific monoclonal antibodies used in this assay recognizes the holo-hormone, nicked forms of hCG, the Beta-core Fragment and the free beta-subunit. Elevated hCG concentrations not associated with are found in patients with gestational trophoblastic disease and choriocarcinoma as well as germ cell, ovarian, bladder, pancreas, stomach, lung and liver tumors. Performed by the [employer] electrochemiluminescent immunoassay which is traceable to the 4th International Standard for hCG (NIBSC 75/589). Results obtained with different test methods or kits cannot be used interchangeably. us Judy Juarez MD LAB BLOOD ORDERABLES Final Re sult [facility] [address] [place] [address] * (ABNORMAL) CBC w/diff (12/20/2024 3:39 PM EST) WBC Count 8.79 3.70 - 10.30 10*3/uL LAB HEMATOLOGY METHOD 12/20/2024 3:44 PM EST [facility] RBC Count 4.87 3.90 - 5.20 10*6/uL LAB HEMATOLOGY METHOD 12/20/2024 3:44 PM EST [facility] HGB 14.3 11.2 - 15.7 g/dL LAB HEMATOLOGY METHOD 12/20/2024 3:44 PM EST [facility] HCT 40.8 34.0 - 45.0 % LAB HEMATOLOGY METHOD 12/20/2024 3:44 PM [facility] Platelet Count 264 155 - 369 10*3/uL LAB HEMATOLOGY METHOD 12/20/2024 3:44 PM [facility] MCV 84 79 - 98 fL LAB HEMATOLOGY METHOD 12/20/2024 3:44 PM [facility] MCH 29.4 26.0 - 32.0 pg LAB HEMATOLOGY METHOD 12/20/2024 3:44 PM [facility] MCHC 35.0 30.7 - 35.5 g/dL LAB HEMATOLOGY METHOD 12/20/2024 3:44 PM [facility] RDW 13.2 11.5 - 14.5 % LAB HEMATOLOGY METHOD 12/20/2024 3:44 PM [facility] MPV 9.0 8.8 - 12.5 fL LAB HEMATOLOGY METHOD 12/20/2024 3:44 PM [facility] nRBC 0.0 <=0.0 per 100 WBCs LAB HEMATOLOGY METHOD 12/20/2024 3:44 PM [facility] Differential Type Automated LAB HEMATOLOGY METHOD 12/20/2024 3:44 PM [facility] Neutrophils % 56 % LAB HEMATOLOGY METHOD 12/20/2024 3:44 PM [facility] Lymphocytes % 31 % LAB HEMATOLOGY METHOD 12/20/2024 3:44 PM [facility] Monocytes % 5 % LAB HEMATOLOGY METHOD 12/20/2024 3:44 PM [facility] Eosinophils % 7 % LAB HEMATOLOGY METHOD 12/20/2024 3:44 PM [facility] Basophils % 1 % LAB HEMATOLOGY METHOD 12/20/2024 3:44 PM [facility] Immature Granulocytes % 0 % LAB HEMATOLOGY METHOD 12/20/2024 3:44 PM [facility] Neutrophils Absolute 4.87 1.60 - 6.10 10*3/uL LAB HEMATOLOGY METHOD 12/20/2024 3:44 PM [facility] Lymphocytes Absolute 2.75 1.20 - 3.90 10*3/uL LAB HEMATOLOGY METHOD 12/20/2024 3:44 PM [facility] Monocytes Absolute 0.44 0.30 - 0.90 10*3/uL LAB HEMATOLOGY METHOD 12/20/2024 3:44 PM [facility] Eosinophils Absolute 0.65(H) 0.00 - 0.50 10*3/uL LAB HEMATOLOGY METHOD 12/20/2024 3:44 PM EST [facility] Basophils Absolute 0.06 0.00 - 0.10 10*3/uL LAB HEMATOLOGY METHOD 12/20/2024 3:44 PM EST [facility] Immature Granulocytes Absolute 0.02 0.00 - 0.06 10*3/uL LAB HEMATOLOGY METHOD 12/20/2024 3:44 PM EST [facility] Blood Venous blood specimen / Unknown Venipuncture / Unknown 12/20/2024 3:39 PM EST 12/20/2024 3:42 PM EST Narrative [facility] - 12/20/2024 3:44 PM EST Therapeutic decision making should be based on absolute values, rather than percentages. us Judy Juarez MD LAB BLOOD ORDERABLES Final Re sult [facility] [address] [place] [address] * CMP (12/20/2024 3:39 PM EST) Glucose, Plasma 87 74 - 99 mg/dL 12/20/2024 4:23 PM EST [facility] BUN, Plasma 12 7 - 21 mg/dL 12/20/2024 4:23 PM EST [facility] Creatinine, Plasma 0.73 0.60 - 1.10 mg/dL 12/20/2024 4:23 PM EST [facility] BUN/Creatinine Ratio 16 12/20/2024 4:23 PM EST [facility] Sodium, Plasma 138 136 - 145 mmol/L 12/20/2024 4:23 PM EST [facility] Potassium, Plasma 4.3 3.6 - 4.9 mmol/L 12/20/2024 4:23 PM EST [facility] Chloride, Plasma 103 97 - 107 mmol/L 12/20/2024 4:23 PM EST [facility] CO2, Plasma 23 22 - 29 mmol/L 12/20/2024 4:23 PM EST [facility] Anion Gap 12 6 - 16 mmol/L 12/20/2024 4:23 PM EST [facility] Total Calcium, Plasma 9.4 8.9 - 10.2 mg/dL 12/20/2024 4:23 PM EST [facility] Total Protein 7.0 6.3 - 7.9 g/dL 12/20/2024 4:23 PM EST [facility] Albumin, Plasma 4.5 3.5 - 5.2 g/dL 12/20/2024 4:23 PM EST [facility] AST, Plasma 20 10 - 35 U/L 12/20/2024 4:23 PM EST [facility] ALT, Plasma 22 10 - 35 U/L 12/20/2024 4:23 PM EST [facility] Alkaline Phosphatase, Plasma 86 35 - 104 U/L 12/20/2024 4:23 PM EST [facility] Total Bilirubin, Plasma 0.6 0.2 - 1.1 mg/dL 12/20/2024 4:23 PM EST [facility] eGFRcr 117.2 mL/min/1.7 3m*2 12/20/2024 4:23 PM EST [facility] Comment:Reported eGFRcr in m L/min/1.73m2 is based the CKD-EPI 2020 equation that does not use a race coefficient. Blood Venous blood specimen / Unknown Venipuncture / Unknown 12/20/2024 3:39 PM EST 12/20/2024 3:42 PM EST us Judy Juarez MD LAB BLOOD ORDERABLES Final Re sult [facility] [address] [place] [address] * Orifice Foreign Body Removal (12/20/2024 2:40 PM EST) Narrative Judy Juarez MD - 12/20/2024 2:40 PM EST Judy Juarez MD 12/21/2024 7:32 AM Orifice Foreign Body Removal Performed by: Pam Galicia PA Authorized by: Judy Juarez MD Consent: Consent obtained: Verbal Consent given by: Patient Risks, benefits, and alternatives were discussed: yes [place] protocol: Patient identity confirmed: Verbally with patient Location: Intake: uterus. Pre-procedure details: Imaging: Ultrasound Sedation: Sedation type: None Anesthesia: Topical anesthetic: None Procedure details: Procedure complexity: Simple Foreign bodies recovered: 1 Description: IUD Intact foreign body removal: yes Post-procedure details: Procedure completion: Tolerated well, no immediate complications Judy Juarez MD IN CLINIC/BEDSIDE ORDERABLES Final Result documented in this encounter Visit Diagnoses Diagnosis Malpositioned IUD, initial encounter- Primary Pelvic pain Removal of contraceptive intrauterine device (IUD) performed documented in this encounter Administered Medications Inactive Administered Medications - up to 3 most recent administrations Medication Order MAR Action Action Date Dose Rate Site ibuprofen tablet 600 mg 600 mg, Oral, Once, 1 dose, On Fri12/20/24 at 1640, STAT Given 12/20/2024 4:47 PM EST 600 mg ondansetron (Zofran) injection 4 mg 4 mg, Intravenous, Once, 1 dose, On Fri12/20/24 at 1530, STAT Given 12/20/2024 4:31 PM EST 4 mg documented in this encounter Active and Recently Administered Medications Due to Daylight Saving Time, this section may contain times in both EDT and EST. Scheduled Medication Order 12/18/2024 12/19/2024 12/20/2024 ibuprofen tablet 600 mg (COMPLETED) 600 mg, Oral, Once, 1 dose, On Fri12/20/24 at 1640, STAT 1647 (Given - Provid er: Kylah Abrams RN) ondansetron (Zofran) injection 4 mg (COMPLETED) 4 mg, Intravenous, Once, 1 dose, On Fri12/20/24 at 1530, STAT 1631 (Given - Provid er: Kylah Abrams RN) documented in this encounter Additional Health Concerns [...] documented as of this encounter Care Teams Feltmaker Relationship Specialty Start Date End Date Yesenia, [place] [address] PCP - General Family Medicine 09/17/21 documented as of this encounter
--- NOTE | 2025-02-08 12:07 | XR_ITS ---
FINAL REPORT CLINICAL HISTORY: Right shoulder injury COMPARISON: None FINDINGS: 3 views of the right shoulder show no evidence of acute displaced fracture or dislocation of the visualized bony architecture. The joint spaces appear normal. IMPRESSION: Unremarkable exam. Reviewed, Interpreted and Dictated by Lisandro Roca MD Transcribed by Kait Ross Authenticated and [facility]
--- OUTSIDE RECORDS SUMMARY | 2025-02-08 12:07 | XMS_ITS | Clinical Summary ---
Author Organization [facility] Address [address] [place] [address] Care Team Providers Care Automotive Design Layout Drafter Name Role Phone Provider, No Known Primary [...] 12/24/2023 9:01 AM EST Plan of Treatment Upcoming Encounters Date Type Department Care Team (Late st Contact Info) Description 02/16/2025 10:15 AM EST Office Visit [facility] [address] [place] [phone] Makenzie Nava APRN [address] [place] [address] Health Maintenance Due Date Last Done Comments Annual Gynecologic Pelvic and Breast Exam 1999 HPV VACCINES (1 - 3-dose series) 07/18/2014 Pneumococcal Vaccine 0-49 (1 of 2 - PCV) 07/18/2018 PAP SMEAR 07/18/2020 ANNUAL PHYSICAL 12/22/2023 HEPATITIS C SCREENING 12/22/2023 INFLUENZA VACCINE 09/17/2024 TDAP/TD VACCINES (2 - Td or Tdap) 11/02/2031 022 CHLAMYDIA SCREENING Discontinued 09/26/2023 Insurance [employer] [facility] Care Teams Automotive Design Layout Drafter Relationship Specialty Start Date End Date [place], [place] [address] PCP - General 12/22/23
--- OUTSIDE RECORDS SUMMARY | 2025-02-08 12:07 | XMS_ITS | Clinical Summary ---
Author Organization [facility] Address [address] [place] [address] Care Team Providers Care Treasury Accountant Name Role Phone Pcp, No Primary Care Provider Unavailabl e Allergies Active Allergy Reactions Criticality Noted Date Comments Amoxicillin Rash Low 09/17/2021 Amoxicillin-Pot Clavulanate Rash Low 09/18/19 Cephalexin Rash Low 08/27/2022 Shrimp Extract Unknown - Patient st ates they do not know rxn details Low 08/27/2022 Ketorolac Tromethamine Swelling,Dizziness High 08/21 Medications ARIPiprazole (Abilify) 5 MG tablet Take [...] Plan (08/18/2024 4:24 PM EDT): Proceed with lap ccy given two ED visits and pain since Friday Consent in chart IVF NPO at midnight Right upper quadrant pain 08/18/2024 Assessment & Plan (08/18/2024 4:24 PM EDT): See cholelithiasis Symptomatic cholelithiasis 08/18/2024 9 weeks gestation of 10/10/2023 History of [...] 22 weeks gestation 10/10/2023 Overview (10/10/2023): Start Lesterflorinda. History of section 10/10/2023 HTN in , chronic 10/15/2021 Resolved Problems Problem Noted Date Diagnosed Date Resolved Date Nausea and vomiting 08/18/2024 11/22/19 Assessment & Plan (08/18/2024 4:24 PM EDT): IV antiemetics Acute cystitis without hematuria 08/18/2024 11/21/2024 Assessment & Plan (08/18/2024 6:21 PM EDT): Continue Macrobid 08/17-08/22 Encounter for Nexplanon removal 08/27/2022 10/10/2023 Assessment [...] Encounters Date Type Department Care Team Description 12/20/2024 3:40 PM EST - 12/20/2024 6:13 PM EST Emergency [facility] Emergency Department [address] [place] [address] Judy Juarez MD Malpositioned IUD, initial encounter (Primary Dx); Pelvic pain; Removal of contraceptive intrauterine device (IUD) performed Discharge Disposition: Home or Self Care 12/20/2024 Travel from Last 3 Months Immunizations Immunization [...] Recorded Patient Health Questionnaire-2 Score 4 05/13/2024 [place] Depression Scale Answer Date Recorded [place] Depression Scale Total 14 01/17/2022 The thought [...] any time in the past 12 m [facility], were you homeless or living in a detention (including now)? No 08/19/2024 Utilities Answer Date Recorded In the past 12 months has th e [employer], gas, oil, or water company threatened to [...] Mass Index 40.74 12/20/2024 2:44 PM EST Plan of Treatment Health Maintenance Due [...] 2 - PCV) 07/18/2018 [facility]-Pap Smear 07/18/2020 OON-ISXKR-12 Vaccine (3 - season) 2024 01/31/2021, 12/19/2020 [facility]-Influenza Vaccine (#1) 10/18/202411/20, 04/03/2021, [...] Procedure Name Priority Date/Time Associated Diagnosis Comments URINALYSIS WITH REFLEX MICROSCOPIC STAT 12/20/2024 5:47 PM EST BACTERIAL VAGINOSIS ANTIGEN STAT 12/20/2024 5:47 PM EST US PELVIS TRANSVAGINAL STAT 4:28 PM EST HCG, QUANTITATIVE STAT 12/20/2024 3:3 9 PM EST CBC WITH AUTO DIFFERENTIAL STAT 12/20/2024 3:39 PM EST COMPREHENSIVE METABOLIC PANEL, PLASMA STAT 12/20/2024 3:39 PM EST FOREIGN BODY REMOVAL - ORIFICE Routine 12/20/2024 2:40 PM EST HIV 1/2 ANTIBODY/ANTIGEN SCREEN WITH REFLEX TO HIV I/II DIFFERENTIATION STAT 05/13/2024 3:51 PM EDT from Last 3 Months or Most Recently Relevant to Health Maintenance Results * Bacterial Vaginosis Antigen (12/20/2024 5:47 PM EST) Bacterial Vaginosis Antigen Result Negative Negative 12/21/2024 7:55 AM EST [facility] Swab Vaginal structure / Unknown Non-blood Collection / Unknown 12/20/2024 5:47 PM EST 12/20/2024 6:07 PM EST us Sadaf ARMENTA LAB MICROBIOLOGY - GENERA L ORDERABLES Final Result [facility] [address] [place] [address] * (ABNORMAL) Urinalysis with reflex microscopic (Culture NOT Included) - clean catch (12/20/2024 5:47PM EST) Color, Urine Yellow LAB URINALYSIS - AUTOMATED METHOD 12/20/2024 5:58 PM EST [facility] Clarity, Urine Clear LAB URINALYSIS - AUTOMATED METHOD 12/20/2024 5:58 PM EST [facility] Spec [place], Urine >1.030(H) 1.005 - 1.030 LAB URINALYSIS - AUTOMATED METHOD 12/20/2024 5:58 PM EST [facility] pH, Urine 5.5 5.0 - 8.0 LAB URINALYSIS - AUTOMATED METHOD 12/20/2024 5:58 PM EST [facility] Protein, Urine Trace(A) Negative mg/dL LAB URINALYSIS - AUTOMATED METHOD 12/20/2024 5:58 PM EST [facility] Glucose, Urine Negative Negative mg/dL LAB URINALYSIS - AUTOMATED METHOD 12/20/2024 5:58 PM EST [facility] Ketones, Urine 15(A) Negative mg/dL LAB URINALYSIS - AUTOMATED METHOD 12/20/2024 5:58 PM EST [facility] Blood, Urine Negative Negative LAB URINALYSIS - AUTOMATED METHOD 12/20/2024 5:58 PM EST [facility] Bilirubin, Urine Negative Negative LAB URINALYSIS - AUTOMATED METHOD 12/20/2024 5:58 PM EST [facility] Urobilinogen, Urine 1.0 0.2 to 1.0 mg/dL LAB URINALYSIS - AUTOMATED METHOD 12/20/2024 5:58 PM EST [facility] Leukocytes, Urine Negative Negative LAB URINALYSIS - AUTOMATED METHOD 12/20/2024 5:58 PM EST [facility] Nitrite, Urine Negative Negative LAB URINALYSIS - AUTOMATED METHOD 12/20/2024 5:58 PM EST [facility] Urine Urine specimen obtained by clean catch procedure / Unknown Non-blood Collection / Unknown 12/20/2024 5:47 PM EST 12/20/2024 5:56 PM EST us Sadaf ARMENTA LAB URINE ORDERABLES Arin armando Result [facility] [address] [place] [address] * US Pelvis Transvaginal (non ) (12/20/2024 [...] Torres MD on 12/20/2024 4:55 PM us Abhisek Florinda Juarez MD IMG US PROCEDURES Final Resul t * (ABNORMAL) CBC w/diff (12/20/2024 3:39 PM EST) WBC Count 8.79 3.70 - 10.30 10*3/uL LAB HEMATOLOGY METHOD 12/20/2024 3:44 PM EST [facility] RBC Count 4.87 3.90 - 5.20 10*6/uL LAB HEMATOLOGY METHOD 12/20/2024 3:44 PM EST [facility] HGB 14.3 11.2 - 15.7 g/dL LAB HEMATOLOGY METHOD 12/20/2024 3:44 PM EST [facility] HCT 40.8 34.0 - 45.0 % LAB HEMATOLOGY METHOD 12/20/2024 3:44 PM [facility] Platelet Count 264 155 - 369 10*3/uL LAB HEMATOLOGY METHOD 12/20/2024 3:44 PM EST [facility] MCV 84 79 - 98 fL LAB HEMATOLOGY METHOD 12/20/2024 3:44 PM [facility] MCH 29.4 26.0 - 32.0 pg LAB HEMATOLOGY METHOD 12/20/2024 3:44 PM [facility] MCHC 35.0 30.7 - 35.5 g/dL LAB HEMATOLOGY METHOD 12/20/2024 3:44 PM [facility] RDW 13.2 11.5 - 14.5 % LAB HEMATOLOGY METHOD 12/20/2024 3:44 PM [facility] MPV 9.0 8.8 - 12.5 fL LAB HEMATOLOGY METHOD 12/20/2024 3:44 PM [facility] nRBC 0.0 <=0.0 per 100 WBCs LAB HEMATOLOGY METHOD 12/20/2024 3:44 PM [facility] Differential Type Automated LAB HEMATOLOGY METHOD 12/20/2024 3:44 PM [facility] Neutrophils % 56 % LAB HEMATOLOGY METHOD 12/20/2024 3:44 PM [facility] Lymphocytes % 31 % LAB HEMATOLOGY METHOD 12/20/2024 3:44 PM [facility] Monocytes % 5 % LAB HEMATOLOGY METHOD 12/20/2024 3:44 PM [facility] Eosinophils % 7 % LAB HEMATOLOGY METHOD 12/20/2024 3:44 PM [facility] Basophils % 1 % LAB HEMATOLOGY METHOD 12/20/2024 3:44 PM [facility] Immature Granulocytes % 0 % LAB HEMATOLOGY METHOD 12/20/2024 3:44 PM [facility] Neutrophils Absolute 4.87 1.60 - 6.10 10*3/uL LAB HEMATOLOGY METHOD 12/20/2024 3:44 PM [facility] Lymphocytes Absolute 2.75 1.20 - 3.90 10*3/uL LAB HEMATOLOGY METHOD 12/20/2024 3:44 PM [facility] Monocytes Absolute 0.44 0.30 - 0.90 10*3/uL LAB HEMATOLOGY METHOD 12/20/2024 3:44 PM [facility] Eosinophils Absolute 0.65(H) 0.00 - 0.50 10*3/uL LAB HEMATOLOGY METHOD 12/20/2024 3:44 PM [facility] Basophils Absolute 0.06 0.00 - 0.10 10*3/uL LAB HEMATOLOGY METHOD 12/20/2024 3:44 PM EST [facility] Immature Granulocytes Absolute 0.02 0.00 - 0.06 10*3/uL LAB HEMATOLOGY METHOD 12/20/2024 3:44 PM EST [facility] Blood Venous blood specimen / Unknown Venipuncture / Unknown 12/20/2024 3:39 PM EST 12/20/2024 3:42 PM EST Narrative [facility] - 12/20/2024 3:44 PM EST Therapeutic decision making should be based on absolute values, rather than percentages. us Judy Juarez MD LAB BLOOD ORDERABLES Final Re sult Performing Organization Address [facility] Co de Phone Number [facility] [address] [place] [address] * hCG, quantitative, (12/20/2024 3:39 PM EST) hCG, Total Beta <1 <5 mIU/mL 4:23 PM EST [facility] Blood Venous blood specimen / Unknown Venipuncture / Unknown 12/20/2024 3:39 PM EST 12/20/2024 3:42 PM EST Narrative [facility] - 12/20/2024 4:23 PM EST Patients: [...] MD LAB BLOOD ORDERABLES Final Re sult Performing Organization Address City/[facility]/ZIP Co de Phone Number [facility] [address] [place] [address] * CMP (12/20/2024 3:39 PM EST) Glucose, Plasma 87 74 - 99 mg/dL 12/20/2024 4:23 PM EST [facility] BUN, Plasma 12 7 - 21 mg/dL 12/20/2024 4:23 PM EST [facility] Creatinine, Plasma 0.73 0.60 - 1.10 mg/dL 12/20/2024 4:23 PM EST [facility] BUN/Creatinine Ratio 16 12/20/2024 4:23 PM EST [facility] Sodium, Plasma 138 136 - 145 mmol/L 12/20/2024 4:23 PM EST [facility] Potassium, Plasma 4.3 3.6 - 4.9 mmol/L 12/20/2024 4:23 PM EST [facility] Chloride, Plasma 103 97 - 107 mmol/L 12/20/2024 4:23 PM EST [facility] CO2, Plasma 23 22 - 29 mmol/L 12/20/2024 4:23 PM EST [facility] Anion Gap 12 6 - 16 mmol/L 12/20/2024 4:23 PM EST [facility] Total Calcium, Plasma 9.4 8.9 - 10.2 mg/dL 12/20/2024 4:23 PM EST [facility] Total Protein 7.0 6.3 - 7.9 g/dL 12/20/2024 4:23 PM EST [facility] Albumin, Plasma 4.5 3.5 - 5.2 g/dL 12/20/2024 4:23 PM EST [facility] AST, Plasma 20 10 - 35 U/L 12/20/2024 4:23 PM EST [facility] ALT, Plasma 22 10 - 35 U/L 12/20/2024 4:23 PM EST [facility] Alkaline Phosphatase, Plasma 86 35 - 104 U/L 12/20/2024 4:23 PM EST [facility] Total Bilirubin, Plasma 0.6 0.2 - 1.1 mg/dL 12/20/2024 4:23 PM EST [facility] eGFRcr 117.2 mL/min/1.7 3m*2 12/20/2024 4:23 PM EST [facility] Comment:Reported eGFRcr in m L/min/1.73m2 is based the CKD-EPI 2020 equation that does not use a race coefficient. Blood Venous blood specimen / Unknown Venipuncture / Unknown 12/20/2024 3:39 PM EST 12/20/2024 3:42 PM EST us Judy Juarez MD LAB BLOOD ORDERABLES Final Re sult [facility] [address] [place] [address] * Orifice Foreign Body Removal (12/20/2024 2:40 PM EST) Narrative Judy Juarez MD - 12/20/2024 2:40 PM EST Judy Juarez MD 12/21/2024 7:32 AM Orifice Foreign Body Removal Performed by: Sadaf Ch PA Authorized by: Judy Juarez MD Consent: Consent obtained: Verbal Consent given by: Patient Risks, benefits, and alternatives were discussed: yes [place] protocol: Patient identity confirmed: Verbally with patient Location: Intake: uterus. Pre-procedure details: Imaging: Ultrasound Sedation: Sedation type: None Anesthesia: Topical anesthetic: None Procedure details: Procedure complexity: Simple Foreign bodies recovered: 1 Description: IUD Intact foreign body removal: yes Post-procedure details: Procedure completion: Tolerated well, no immediate complications us Judy Juarez MD IN CLINIC/BEDSIDE ORDERABLES Final Result * HIV 1 & 2 Antibody/Antigen Screen (05/13/2024 3:51 PM EDT) HIV 1 & 2 Antibody/Antigen Screen Non Reactive Non Reactive 05/13/2024 6:36 PM EDT [facility] Comment:Screening for HIV 1 & 2 antibodies, and P24 antigen is NONREACTIVE. No confirmatory testing is required. Blood Venous blood specimen / Unknown Venipuncture / Unknown 05/13/2024 3:51 PM EDT 05/13/2024 3:52 PM EDT us Capo ARMENTA LAB BLOOD ORDERABLES Final Result [facility] [address] [place] [address] from Last 3 Months or Most Recently Relevant to Health Maintenance Additional Health Concerns Active Problems Noted Date Diagnosed Date CPM S20 PP LABOR (OBSTETRICS) 09/17/2021 Insurance ANTHEM Advance Directives * Full Code (Latest Code Status on File) Date Activated Date Inactivated Comments 08/18/2024 6:18 PM 08/19/2024 10:18 PM Question Answer Comments I have reviewed the capacity from the link above and, if needed, have updated to appropriate status: Yes Care Teams Treasury Accountant Relationship Specialty Start Date End Date Pcp, No [address] [place] [address] PCP - General Family Medicine 09/17/21
--- OUTSIDE RECORDS SUMMARY | 2025-02-08 12:07 | XMS_ITS | Encounter Summary ---
Author Organization Healthcare Address [address] [place] [address] Care Team Providers Care Buffing Wheel Presser Name Role Phone Pcp, No Primary Care Provider Unavailabl e Encounter Details Date Type Department Care Team (Latest Contact Info) Description 12/20/2024 Travel Social History Tobacco Use Types Packs/Day Years Used Date Smoking Tobacco: Never Smokeless Tobacco: Never Alcohol Use Standard Drinks/Week Comments Never 0 (1 standard drink = 0.6 oz pur e alcohol) PHQ-2 Answer Date Recorded Patient Health Questionnaire-2 Score 4 05/13/2024 [place] Depression Scale Answer Date Recorded [place] Depression Scale Total 14 01/17/2022 The thought [...] time in the past 12 m [facility], were you homeless or living in a nursing home (including now)? No 08/19/2024 Utilities Answer Date Recorded In the past 12 months has th e [employer], gas, oil, or water [employer] threatened to shut off services in your [...] Author No Risk Indicated 12/20/2024 3:44 PM Kylah Smith RN * Question Answer Date of Assessment Author 1. Wish to be (Past 1 Month) No 025 3:44 PM Kylah Smith, RN 2. Non-Specific Active Suici doris Thoughts (Past 1 Month) No 12/20/2024 3:44 PM Hemanth Smith RN 6. Suicidal Behavior (Lifetime) No 3:44 PM Kylah Smith, RN documented as of this encounter Plan [...] documented as of this encounter Care Teams Buffing Wheel Presser Relationship Specialty Start Date End Date Pcp, Effie [address] [place] [address] PCP - General Family Medicine 09/17/21 documented as of this encounter
== END 2025-02-08 23:59 ==
LOC: RAD 12:05
PROVIDERS: PCP Family Medicine; Visit Provider Nurse Practitioner Family
DX: S49.91XA Unspecified injury of right shoulder and upper arm, initial encounter (principal); X58.XXXA Exposure to other specified factors, initial encounter
CPT/HCPCS: 73030